=== PATIENT | male | born 1945 | race African-American/Black ===

== ENCOUNTER 2016-09-14 11:38 | Observation (INO) | payer MEDICARE, OTHER ==
--- NOTE | 2016-09-14 13:57 | XCELERA REPORT ---
[address] [address] Transthoracic Echocardiogram Report Name: MADINA HIDALGO Age: 71 yrs Gender: Male : 1945 Patient Status: Inpatient Patient Location: 3S\S\329\S\A Study Date: 09/14/2016 12:50 PM Height: 71 in Weight: 179 lb BSA: 2.0 m2 Procedure: A complete two-dimensional transthoracic echocardiogram was performed (2D, M-mode, spectral and color flow Doppler). The study was technically difficult with many images being suboptimal in quality. Reason For Study: DYSPNEA, SWELLING Ordering Physician: BEBE RODRIGUEZ Performed By: Destiny Catherine Interpretation Summary Left ventricular systolic function is low normal. There is borderline concentric left ventricular hypertrophy. Doppler measurements suggest impaired left ventricular relaxation, which is associated with grade I/IV or mild diastolic dysfunction The left ventricle is grossly normal size. Wall motion cannot be accurately commented on, but no definite regional wall motion abnormalities noted. The right ventricle is borderline dilated. The left atrial size is normal. The right atrium is mildly dilated. There is no mitral valve stenosis. There is a mild amount of mitral regurgitation There is no aortic valve stenosis No aortic regurgitation is present. There is a trace or physiologic amount of tricuspid regurgitation Tricuspid regurgitation jet envelope not well defined to measure RV systolic pressure accurately. The aortic root is not well visualized but is probably normal size. The inferior vena cava was not well visualized There is no pericardial effusion. MMode/2D Measurements \T\ Calculations RVDd: 3.2 cm LVIDd: 4.8 cm FS: 37.5 % Ao root diam: 3.5 cm IVSd: 0.81 cm LVIDs: 3.0 cm EDV(Teich): 106.3 ml LVPWd: 0.76 cmESV(Teich): 34.6 ml Ao root area: 9.8 cm2 EF(Teich): 67.4 % LA dimension: 2.9 cm LVOT diam: 2.6 cm LVOT area: 5.2 cm2 Doppler Measurements \T\ Calculations MV E max susi: MV P1/2t max susi: Ao V2 max: LV V1 max P.9 cm/sec 74.0 cm/sec 126.0 cm/sec 3.5 mmHg MV A max susi: MV P1/2t: 53.6 msec Ao max PG: LV V1 max: 66.3 cm/sec MVA(P1/2t): 4.1 cm2 6.3 mmHg 93.7 cm/sec MV E/A: 1.1 MV dec slope: SIDRA(V,D): 3.9 cm2 404.4 cm/sec2 PA V2 max: TR max susi: 54.8 cm/sec 223.0 cm/sec PA max PG: TR max P.9 mmHg 1.2 mmHg Left Ventricle The left ventricle is grossly normal size. There is borderline concentric left ventricular hypertrophy. Left ventricular systolic function is low normal. Doppler measurements suggest impaired left ventricular relaxation, which is associated with grade I/IV or mild diastolic dysfunction. Wall motion cannot be accurately commented on, but no definite regional wall motion abnormalities noted. Right Ventricle The right ventricle is borderline dilated. The right ventricular systolic function is normal. Atria The right atrium is mildly dilated. The left atrial size is normal. Interarterial septum not well visualized and not well dopplered. Cannot comment on ASD/PFO presence. Mitral Valve The mitral valve is grossly normal. There is no mitral valve stenosis. There is a mild amount of mitral regurgitation. Aortic Valve The aortic valve is grossly normal. There is no aortic valve stenosis. No aortic regurgitation is present. Tricuspid Valve The tricuspid valve is not well visualized, but is grossly normal. There is no tricuspid stenosis. There is a trace or physiologic amount of tricuspid regurgitation. Tricuspid regurgitation jet envelope not well defined to measure RV systolic pressure accurately. Pulmonic Valve The pulmonic valve is not well visualized. Great Vessels The aortic root is not well visualized but is probably normal size. The inferior vena cava was not well visualized. Effusions There is no pericardial effusion. : BEBE RODRIGUEZ > Jaylan Frost
[2016-09-14 14:55] LABS: ABSOLUTE EOSINOPHILS # (AUTO) 0.1 10^3/uL (0.0-0.6); ABSOLUTE LYMPHOCYTES (AUTO) 0.8 10^3/uL (0.5-4.7); ABSOLUTE MONOCYTES (AUTO) 0.6 10^3/uL (0.1-1.4); BASOPHILS % (AUTO) 0.8 % (0-2); EOSINOPHILS % (AUTO) 2.6 % (0-6); HEMATOCRIT 37.9 % (37.9-51.0); HEMOGLOBIN 12.3 g/dL (13.5-17.0); LYMPHOCYTES % (AUTO) 16.9 % (13-45); MEAN CORPUSCULAR HEMOGLOBIN 29.7 pg (27.0-33.4); MEAN CORPUSCULAR HGB CONC 32.5 g/dL (32.0-36.0); MEAN CORPUSCULAR VOLUME 91 fl (80-97); MONOCYTES % (AUTO) 12.5 % (3-13); RED BLOOD COUNT 4.15 10^6/uL (4.35-5.55); SEGMENTED NEUTROPHILS % (AUTO) 67.2 % (42-78); WHITE BLOOD COUNT 4.5 10^3/uL (4.0-10.5)
[2016-09-14] MEDS ORDERED: (PENDING PHARMACY ID) (Zolpidem Tartrate [Ambien] 10 MG) PO PRN (15:43)
[2016-09-14] MEDS ORDERED: ZOLPIDEM TARTRATE 5 MG TABLET PO PRN (15:45)
[2016-09-14 16:30] LABS: CREATINE KINASE MB 0.86 ng/mL (<4.55)
[2016-09-14 16:34] LABS: TROPONIN I < 0.012 ng/mL
[2016-09-14 17:11] LABS: ALANINE AMINOTRANSFERASE 27 U/L (21-72); ALBUMIN 4.4 g/dL (3.5-5.0); ALKALINE PHOSPHATASE 99 U/L (38-126); ANION GAP 16 (5-19); ASPARTATE AMINO TRANSFERASE 30 U/L (17-59); BILIRUBIN,DIRECT 0.6 mg/dL (0.0-0.4); BILIRUBIN,TOTAL 0.8 mg/dL (0.2-1.3); BLOOD UREA NITROGEN 11 mg/dL (7-20); CALCIUM 10.3 mg/dL (8.4-10.2); CARBON DIOXIDE 21 mmol/L (22-30); CHLORIDE 100 mmol/L (98-107); CHOLESTEROL 149.14 mg/dL (0-200); CREATININE RESULT 1.12 mg/dL (0.52-1.25); Direct HDL 87 mg/dL (>40); GLUCOSE 101 mg/dL (75-110); POTASSIUM 5.7 mmol/L (3.6-5.0); SODIUM 137.3 mmol/L (137-145); TOTAL PROTEIN 8.8 g/dL (6.3-8.2); TRIGLYCERIDES 40 mg/dL (<150)
--- NOTE | 2016-09-14 17:15 | XCELERA REPORT ---
[address] [address] Lower Extremity Venous Evaluation Name: MADINA HIDALGO Age: 71 yrs Gender: Male : 1945 Patient Status: Inpatient Patient Location: 3S\S\329\S\A Study Date: 09/14/2016 01:05 PM Procedure: Color flow and duplex imaging bilaterally of the veins of the lower extremities as well as the Common Femoral veins. Reason For Study: DYSPNEA, SWELLING Ordering Physician: BEBE RODRIGUEZ Performed By: Destiny Catherine Right Sided Venous Evaluation Normal vessel filling wall to wall, compression and augmentation as well as Colour flow down to the infrageniculate veins. Left Sided Venous Evaluation Normal vessel filling wall to wall, compression and augmentation as well as Colour flow down to the infrageniculate veins. Interpretation Summary No duplex evidence of DVT or obstruction in the bilateral lower extremities. : BEBE RODRIGUEZ > Edvin Larkin
[2016-09-14 17:23] LABS: DIRECT LDL 39 mg/dL (<100)
--- NOTE | 2016-09-14 18:44 | PDOC H&P ---
History of Present Illness Admission Date/PCP: 09/14/16 13:13 SHANNON OSUNKOYA Patient complains of: Intermitent shortness of breath, bilateral leg swelling History of Present Illness: MADINA HIDALGO is a 71 year old male known to my practice who presented today for his annual wellness evaluation visit and reported bilateral leg swelling since his last office visit in 12/2015. He denied any incident of chest pain, palpitation, or irregular heart beats. He denied any long distance driving or travelling. He denied any instrumentation or bedbound event since last office visit. Patient reported adequate urination, denied any significant excessive salt intake and compliance with his medication. His physical examination and further assessment in the office was significant for dyspnea, bilateral 3+ leg swelling to below knee level, well demarcated, and abnormal 12 lead EKG suggestive of possible myocardia infarction age indeterminate. He was subsequently advised hospitalization for further assessment and management. Past Medical History Cardiac Medical History: Denies: Coronary Artery Disease, Myocardial Infarction, Hypertension Pulmonary Medical History: Reports: Pneumonia - 1994 Denies: Asthma, Bronchitis, Chronic Obstructive Pulmonary Disease (COPD) Neurological Medical History: Denies: Seizures Musculoskeltal Medical History: Denies: Arthritis Psychiatric Medical History: Denies: Depression Hematology: Denies: Anemia Past Surgical History Past Surgical History: Denies: Pacemaker Social History Smoking Status: Former Smoker Number of Years Smokin Last Time Smoked: 04/30/2009 Frequency of Alcohol Use: Heavy Hx Recreational Drug Use: No Drugs: None Hx Prescription Drug Abuse: No - Advance Directive Resuscitation Status: Full Code Family History Parental Family History Reviewed: Yes Children Family History Reviewed: Yes Sibling(s) Family History Reviewed.: Yes Medication/Allergy Home Medications: Aspirin [Ecotrin 81 mg EC Tablet] 81 mg PO DAILY 09/14/16 Atorvastatin Calcium 10 mg PO DAILY 09/14/16 Telmisartan/Amlodipine [Telmisartan-Amlodipine 40-10] 1 tab PO DAILY 09/14/16 Zolpidem Tartrate [Ambien] 10 mg PO HSP PRN 09/14/16 Allergies/Adverse Reactions: No Known Allergies Allergy (Unverified 12/12/10 10:06) Review of Systems Constitutional: ABSENT: chills, fever(s), headache(s), weight gain, weight loss Eyes: ABSENT: visual disturbances Ears: ABSENT: hearing changes Nose, Mouth, and Throat: ABSENT: as per HPI, headache(s), mouth pain, sore throat, vertigo, other Breasts: ABSENT: as per HPI, other Cardiovascular: PRESENT: dyspnea on exertion, edema Respiratory: PRESENT: dyspnea. ABSENT: as per HPI, cough, hemoptysis, sputum, other Gastrointestinal: ABSENT: abdominal pain, constipation, diarrhea, hematemesis, hematochezia, nausea, vomiting Genitourinary: ABSENT: dysuria, hematuria Musculoskeletal: PRESENT: deformity - related to joint involvement with arthritis, joint swelling - bilatreal ankle joints Integumentary: ABSENT: rash, wounds Neurological: ABSENT: abnormal gait, abnormal speech, confusion, dizziness, focal weakness, syncope Psychiatric: ABSENT: anxiety, depression, homidical ideation, suicidal ideation Endocrine: ABSENT: cold intolerance, heat intolerance, menstrual abnormalities, polydipsia, polyuria Hematologic/Lymphatic: PRESENT: easy bleeding - reported recurrent epistasix from left nostrum Physical Exam Vital Signs: Temp Pulse Resp BP Pulse Ox 97.5 F 72 22 H 110/56 L 98 09/14/16 16:09 09/14/16 16:09 09/14/16 16:09 09/14/16 16:09 09/14/16 16:09 Intake & Output 09/13/16 09/14/16 09/15/16 06:59 06:59 06:59 Intake Total 3 Balance 3 Weight 82.6 kg General appearance: PRESENT: no acute distress, cooperative Head exam: PRESENT: atraumatic, normocephalic Eye exam: PRESENT: conjunctiva pink, EOMI, PERRLA. ABSENT: scleral icterus Ear exam: PRESENT: normal external ear exam Mouth exam: PRESENT: moist, tongue midline Teeth exam: PRESENT: poor dentation Throat exam: ABSENT: post pharyngeal erythema, tonsillar erythema, tonsillar exudate, tonsillogmegaly, other Neck exam: PRESENT: full ROM. ABSENT: carotid bruit, JVD, lymphadenopathy, thyromegaly Respiratory exam: PRESENT: clear to auscultation antonio, decreased breath sounds - at lung bases Cardiovascular exam: PRESENT: irregular rhythm. ABSENT: diastolic murmur, rubs , systolic murmur Pulses: PRESENT: normal carotid pulses, normal radial pulses, normal femoral pulses Vascular exam: PRESENT: normal capillary refill GI/Abdominal exam: PRESENT: normal bowel sounds, soft. ABSENT: distended, guarding, mass, organolmegaly, rebound, tenderness Rectal exam: PRESENT: deferred Extremities exam: PRESENT: full ROM, joint swelling - bilateral ankle joints, pedal edema - bilateral 3+ to below knee joint level Musculoskeletal exam: PRESENT: ambulatory, deformity - related to arthritis involvement of multiple joints, full ROM Neurological exam: PRESENT: alert, awake, oriented to person, oriented to place , oriented to time, oriented to situation, CN II-XII grossly intact. ABSENT: motor sensory deficit Psychiatric exam: PRESENT: appropriate affect, normal mood. ABSENT: homicidal ideation, suicidal ideation Skin exam: PRESENT: dry, intact, warm. ABSENT: cyanosis, rash Results Laboratory Results: 09/14/16 14:00 09/14/16 16:45 09/14/16 09/14/16 09/14/16 14:00 14:00 16:45 WBC 4.5 RBC 4.15 L Hgb 12.3 L Hct 37.9 MCV 91 MCH 29.7 MCHC 32.5 RDW 16.0 H Plt Count 367 Seg Neutrophils % 67.2 Lymphocytes % 16.9 Monocytes % 12.5 Eosinophils % 2.6 Basophils % 0.8 Absolute Neutrophils 3.0 Absolute Lymphocytes 0.8 Absolute Monocytes 0.6 Absolute Eosinophils 0.1 Absolute Basophils 0.0 Sodium Cancelled 137.3 Potassium Cancelled 5.7 H Chloride Cancelled 100 Carbon Dioxide Cancelled 21 L Anion Gap Cancelled 16 BUN Cancelled 11 Creatinine Cancelled 1.12 Est GFR ( Amer) Cancelled > 60 Est GFR (Non-Af Amer) Cancelled > 60 Glucose Cancelled 101 Calcium Cancelled 10.3 H Total Bilirubin Cancelled 0.8 AST Cancelled 30 ALT Cancelled 27 Alkaline Phosphatase Cancelled 99 Total Protein Cancelled 8.8 H Albumin Cancelled 4.4 Triglycerides 40 Cholesterol 149.14 LDL Cholesterol Direct 39 VLDL Cholesterol 8.0 L HDL Cholesterol 87 09/14/16 09/14/16 09/14/16 14:00 15:37 15:37 Creatine Kinase 72 CK-MB (CK-2) 0.86 Troponin I < 0.012 NT-Pro-B Natriuret Pep Cancelled 09/14/16 16:45 Creatine Kinase CK-MB (CK-2) Troponin I NT-Pro-B Natriuret Pep 124 Impressions: Chest X-Ray 09/14/16 12:11 IMPRESSION: COPD. Assessment & Plan - Diagnosis (1) Dyspnea on exertion Is this a current diagnosis for this admission?: YesPlan: See admitting physician orders. (2) Localized swelling of both lower legs Is this a current diagnosis for this admission?: YesPlan: See admitting physician orders. (3) HTN (hypertension) Qualifiers: Hypertension type: essential hypertension Qualified Code(s): I10 - Essential (primary) hypertension Is this a current diagnosis for this admission?: YesPlan: See admitting physician orders. (4) HLD (hyperlipidemia) Qualifiers: Hyperlipidemia type: pure hypercholesterolemia Qualified Code(s): E78.00 - Pure hypercholesterolemia, unspecified; E78.0 - Pure hypercholesterolemia Is this a current diagnosis for this admission?: YesPlan: See admitting physician orders. (5) Persistent insomnia Is this a current diagnosis for this admission?: YesPlan: See admitting physician orders. (6) PTSD (post-traumatic stress disorder) Is this a current diagnosis for this admission?: YesPlan: See admitting physician orders. (7) Erectile dysfunction Qualifiers: Erectile dysfunction type: unspecified Qualified Code(s): N52.9 - Male erectile dysfunction, unspecified Is this a current diagnosis for this admission?: YesPlan: See admitting physician orders. (8) COPD (chronic obstructive pulmonary disease) Qualifiers: COPD type: unspecified COPD Qualified Code(s): J44.9 - Chronic obstructive pulmonary disease, unspecified Is this a current diagnosis for this admission?: YesPlan: See admitting physician orders. - Time Time Spent: 50 to 70 Minutes Medications reviewed and adjusted accordingly: Yes Anticipated discharge: Home with Homehealth Within: Other - Inpatient Certification Based on my medical assessment, after consideration of the patient's comorbidities, presenting symptoms, or acuity I expect that the services needed warrant INPATIENT care.: Yes I certify that my determination is in accordance with my understanding of Medicare's requirements for reasonable and necessary INPATIENT services [42 CFR 412.3e].: Yes Medical Necessity: Need Close Monitoring Due to Risk of Patient Decompensation, Need For Continuous Telemetry Monitoring, Need for Nebulizer Therapy and Monitoring of Response, Risk of Complication if Not Cared For in Hospital Post Hospital Care: D/C Picture Copyist Documentation - Plan Summary Plan Summary: See admitting physician orders.
[2016-09-14 20:22] LABS: APPEARANCE,URINE CLEAR; BILIRUBIN,URINE NEGATIVE (NEGATIVE); GLUCOSE, URINE NEGATIVE (NEGATIVE); KETONES,URINE NEGATIVE (NEGATIVE); LEUKOCYTE ESTERASE,URINE NEGATIVE (NEGATIVE); NITRITE,URINE NEGATIVE (NEGATIVE); PROTEIN,URINE NEGATIVE (NEGATIVE); URINE SPECIFIC GRAVITY 1.008; UROBILINOGEN,URINE NEGATIVE mg/dL (<2.0)
[2016-09-14 22:20] LABS: CREATINE KINASE MB 0.76 ng/mL (<4.55)
[2016-09-14 22:26] LABS: TROPONIN I < 0.012 ng/mL
[2016-09-15 04:08] LABS: CREATINE KINASE MB 0.66 ng/mL (<4.55)
[2016-09-15 04:13] LABS: TROPONIN I < 0.012 ng/mL
--- NOTE | 2016-09-15 07:11 | EKG REPORT ---
SEVERITY:- ABNORMAL ECG - SINUS RHYTHM BORDERLINE LEFT AXIS DEVIATION PROBABLE ANTEROSEPTAL INFARCT, AGE INDETERM : Confirmed by: Sobia Resendiz MD 15-Sep-2016 07:10:39
[2016-09-15] MEDS: ENOXAPARIN SODIUM INJ 40 MG/0.4 ML DISP.SYRIN SUBCUT SCH (07:49)
[2016-09-15] MEDS ORDERED: AMLODIPINE PO SCH (10:00)
[2016-09-15] MEDS ORDERED: AMLODIPINE BESYLATE 10 MG TABLET PO SCH (10:00)
[2016-09-15] MEDS ORDERED: TELMISARTAN PO SCH (10:00)
[2016-09-15] MEDS: ATORVASTATIN CALCIUM 10 MG TABLET PO SCH (10:22)
[2016-09-15] MEDS: ASPIRIN 81 MG TABLET, ENT COATED PO SCH (10:22)
[2016-09-15] MEDS: FUROSEMIDE INJ/PF 20 MG/2 ML SDV IV SCH (10:22)
[2016-09-15] MEDS: LANSOPRAZOLE 30 MG TAB.RAP.DR PO SCH (10:23)
[2016-09-15] MEDS: LOSARTAN POTASSIUM 50 MG TABLET PO SCH (10:23)
--- NOTE | 2016-09-15 11:37 | PDOC PROGRESS REPORT ---
Subjective Progress Note for:: 09/15/16 Subjective:: Patient denied any chest pain. Improved breathing. No nausea, vomiting or abdominal pain. Tolerating current medication management. Leg swelling improving with elevation and use of Lasix as well as SERVANDO socks. Physical Exam Vital Signs: Temp Pulse Resp BP Pulse Ox 98.1 F 69 22 H 126/72 H 96 09/15/16 07:41 09/15/16 07:41 09/15/16 07:41 09/15/16 07:41 09/15/16 07:41 Intake & Output 09/14/16 09/15/16 09/16/16 06:59 06:59 06:59 Intake Total 373 Balance 373 Weight 82.3 kg General appearance: PRESENT: no acute distress, cooperative, well-developed, well-nourished Head exam: PRESENT: atraumatic, normocephalic Eye exam: PRESENT: conjunctiva pink, EOMI, PERRLA. ABSENT: scleral icterus Mouth exam: PRESENT: moist Teeth exam: PRESENT: poor dentation Neck exam: PRESENT: full ROM. ABSENT: carotid bruit, JVD, lymphadenopathy, thyromegaly Respiratory exam: PRESENT: clear to auscultation antonio Cardiovascular exam: PRESENT: RRR. ABSENT: diastolic murmur, rubs, systolic murmur GI/Abdominal exam: PRESENT: normal bowel sounds, soft. ABSENT: distended, guarding, mass, organolmegaly, rebound, tenderness Extremities exam: PRESENT: pedal edema - significantly improved but persist Musculoskeletal exam: PRESENT: deformity - related to multiple joints involvement with arthritis Neurological exam: PRESENT: alert, awake, oriented to person, oriented to place , oriented to time, oriented to situation, CN II-XII grossly intact. ABSENT: motor sensory deficit Psychiatric exam: PRESENT: appropriate affect, normal mood. ABSENT: homicidal ideation, suicidal ideation Skin exam: PRESENT: dry, intact, warm. ABSENT: cyanosis, rash Results Laboratory Results: 09/14/16 14:00 09/14/16 09/14/16 09/14/16 14:00 14:00 16:45 WBC 4.5 RBC 4.15 L Hgb 12.3 L Hct 37.9 MCV 91 MCH 29.7 MCHC 32.5 RDW 16.0 H Plt Count 367 Seg Neutrophils % 67.2 Lymphocytes % 16.9 Monocytes % 12.5 Eosinophils % 2.6 Basophils % 0.8 Absolute Neutrophils 3.0 Absolute Lymphocytes 0.8 Absolute Monocytes 0.6 Absolute Eosinophils 0.1 Absolute Basophils 0.0 Sodium Cancelled 137.3 Potassium Cancelled 5.7 H Chloride Cancelled 100 Carbon Dioxide Cancelled 21 L Anion Gap Cancelled 16 BUN Cancelled 11 Creatinine Cancelled 1.12 Est GFR ( Amer) Cancelled > 60 Est GFR (Non-Af Amer) Cancelled > 60 Glucose Cancelled 101 Calcium Cancelled 10.3 H Total Bilirubin Cancelled 0.8 AST Cancelled 30 ALT Cancelled 27 Alkaline Phosphatase Cancelled 99 Total Protein Cancelled 8.8 H Albumin Cancelled 4.4 Triglycerides 40 Cholesterol 149.14 LDL Cholesterol Direct 39 VLDL Cholesterol 8.0 L HDL Cholesterol 87 Urine Color Urine Appearance Urine pH Ur Specific [place] Urine Protein Urine Glucose (UA) Urine Ketones Urine Blood Urine Nitrite Ur Leukocyte Esterase Urine WBC (Auto) 09/14/16 19:50 WBC RBC Hgb Hct MCV MCH MCHC RDW Plt Count Seg Neutrophils % Lymphocytes % Monocytes % Eosinophils % Basophils % Absolute Neutrophils Absolute Lymphocytes Absolute Monocytes Absolute Eosinophils Absolute Basophils Sodium Potassium Chloride Carbon Dioxide Anion Gap BUN Creatinine Est GFR ( Amer) Est GFR (Non-Af Amer) Glucose Calcium Total Bilirubin AST ALT Alkaline Phosphatase Total Protein Albumin Triglycerides Cholesterol LDL Cholesterol Direct VLDL Cholesterol HDL Cholesterol Urine Color STRAW Urine Appearance CLEAR Urine pH 7.0 Ur Specific [place] 1.008 Urine Protein NEGATIVE Urine Glucose (UA) NEGATIVE Urine Ketones NEGATIVE Urine Blood NEGATIVE Urine Nitrite NEGATIVE Ur Leukocyte Esterase NEGATIVE Urine WBC (Auto) 0 09/14/16 09/14/16 09/14/16 14:00 15:37 15:37 Creatine Kinase 72 CK-MB (CK-2) 0.86 Troponin I < 0.012 NT-Pro-B Natriuret Pep Cancelled 09/14/16 09/14/16 09/14/16 16:45 21:13 21:13 Creatine Kinase 58 CK-MB (CK-2) 0.76 Troponin I < 0.012 NT-Pro-B Natriuret Pep 124 09/15/16 09/15/16 03:32 03:32 Creatine Kinase 67 CK-MB (CK-2) 0.66 Troponin I < 0.012 NT-Pro-B Natriuret Pep Impressions: Chest X-Ray 09/14/16 12:11 IMPRESSION: COPD. Assessment & Plan - Diagnosis (1) Dyspnea on exertion Is this a current diagnosis for this admission?: YesPlan: Improving on current medication management and at rest. (2) Localized swelling of both lower legs Is this a current diagnosis for this admission?: YesPlan: Improving with IV Lasix administration and fluid restriction. Evaluation so far did not revealed any significant organ dysfunction as cause of his bilateral leg swelling upon admission. Other consideration include vascular leakage on Amlodipine usage for HTN management. I will discontinue use of Amlodipine in view of his peripheral edema and normal range of blood pressure. (3) HTN (hypertension) Qualifiers: Hypertension type: essential hypertension Qualified Code(s): I10 - Essential (primary) hypertension Is this a current diagnosis for this admission?: YesPlan: See attending physician orders. (4) HLD (hyperlipidemia) Qualifiers: Hyperlipidemia type: pure hypercholesterolemia Qualified Code(s): E78.00 - Pure hypercholesterolemia, unspecified; E78.0 - Pure hypercholesterolemia Is this a current diagnosis for this admission?: YesPlan: See attending physician orders. (5) Persistent insomnia Is this a current diagnosis for this admission?: YesPlan: See attending physician orders. (6) PTSD (post-traumatic stress disorder) Is this a current diagnosis for this admission?: YesPlan: See attending physician orders. (7) Erectile dysfunction Qualifiers: Erectile dysfunction type: unspecified Qualified Code(s): N52.9 - Male erectile dysfunction, unspecified Is this a current diagnosis for this admission?: YesPlan: See attending physician orders. (8) COPD (chronic obstructive pulmonary disease) Qualifiers: COPD type: unspecified COPD Qualified Code(s): J44.9 - Chronic obstructive pulmonary disease, unspecified Is this a current diagnosis for this admission?: YesPlan: See attending physician orders. - Time Time Spent with patient: 25-34 minutes Medications reviewed and adjusted accordingly: Yes Anticipated discharge: Home Within: Other - Inpatient Certification Medical Necessity: Need Close Monitoring Due to Risk of Patient Decompensation, Need For Continuous Telemetry Monitoring, Risk of Complication if Not Cared For in Hospital Post Hospital Care: D/C Music Sound Light Technician Documentation - Plan Summary Plan Summary: See attending physician orders.
[2016-09-15 11:59] LABS: ANION GAP 15 (5-19); BLOOD UREA NITROGEN 12 mg/dL (7-20); CALCIUM 10.1 mg/dL (8.4-10.2); CARBON DIOXIDE 19 mmol/L (22-30); CHLORIDE 102 mmol/L (98-107); CREATININE RESULT 1.19 mg/dL (0.52-1.25); GLUCOSE 100 mg/dL (75-110); POTASSIUM 4.9 mmol/L (3.6-5.0)
[2016-09-16] MEDS: LANSOPRAZOLE 30 MG TAB.RAP.DR PO SCH (09:37)
[2016-09-16] MEDS: ATORVASTATIN CALCIUM 10 MG TABLET PO SCH (09:37)
[2016-09-16] MEDS: LOSARTAN POTASSIUM 50 MG TABLET PO SCH (09:37)
[2016-09-16] MEDS: ASPIRIN 81 MG TABLET, ENT COATED PO SCH (09:37)
[2016-09-16] MEDS: ENOXAPARIN SODIUM INJ 40 MG/0.4 ML DISP.SYRIN SUBCUT SCH (09:37)
[2016-09-16] MEDS: FUROSEMIDE INJ/PF 20 MG/2 ML SDV IV SCH (09:37)
--- NOTE | 2016-09-16 10:21 | PDOC PROGRESS REPORT ---
Subjective Progress Note for:: 09/16/16 Subjective:: Patient was admitted for the localized leg swelling and patient have ultrasound of the lower extremities was negative for any DVT and patient have a echocardiogram was all stable. Most likely a patient who underlying some venous insufficiency with possible side effect norvasc open. Patient's denied any chest pain denied any shortness of the breath Physical Exam Vital Signs: Temp Pulse Resp BP Pulse Ox 98.2 F 69 18 115/70 98 09/16/16 07:21 09/16/16 07:21 09/16/16 07:21 09/16/16 07:21 09/16/16 07:21 Intake & Output 09/15/16 09/16/16 09/17/16 06:59 06:59 06:59 Intake Total 373 835 Balance 373 835 Weight 82.3 kg 80.1 kg General appearance: PRESENT: no acute distress, well-developed, well-nourished Head exam: PRESENT: atraumatic, normocephalic Eye exam: PRESENT: conjunctiva pink, EOMI, PERRLA. ABSENT: scleral icterus Ear exam: PRESENT: normal external ear exam Mouth exam: PRESENT: moist, tongue midline Neck exam: PRESENT: full ROM. ABSENT: carotid bruit, JVD, lymphadenopathy, thyromegaly Respiratory exam: PRESENT: clear to auscultation antonio Cardiovascular exam: PRESENT: RRR. ABSENT: diastolic murmur, rubs, systolic murmur Pulses: PRESENT: normal dorsalis pedis pul, +2 pedal pulses bilateral Vascular exam: PRESENT: normal capillary refill GI/Abdominal exam: PRESENT: normal bowel sounds, soft. ABSENT: distended, guarding, mass, organolmegaly, rebound, tenderness Rectal exam: PRESENT: deferred Neurological exam: PRESENT: alert, awake, oriented to person, oriented to place , oriented to time, oriented to situation, CN II-XII grossly intact. ABSENT: motor sensory deficit Psychiatric exam: PRESENT: appropriate affect, normal mood. ABSENT: homicidal ideation, suicidal ideation Skin exam: PRESENT: dry, intact, warm. ABSENT: cyanosis, rash Results Laboratory Results: 09/14/16 14:00 09/15/16 03:32 09/15/16 03:32 Sodium 136.0 L Potassium 4.9 Chloride 102 Carbon Dioxide 19 L Anion Gap 15 BUN 12 Creatinine 1.19 Est GFR ( Amer) > 60 Est GFR (Non-Af Amer) > 60 Glucose 100 Calcium 10.1 09/14/16 09/14/16 09/14/16 14:00 15:37 15:37 Creatine Kinase 72 CK-MB (CK-2) 0.86 Troponin I < 0.012 NT-Pro-B Natriuret Pep Cancelled 09/14/16 09/14/16 09/14/16 16:45 21:13 21:13 Creatine Kinase 58 CK-MB (CK-2) 0.76 Troponin I < 0.012 NT-Pro-B Natriuret Pep 124 09/15/16 09/15/16 03:32 03:32 Creatine Kinase 67 CK-MB (CK-2) 0.66 Troponin I < 0.012 NT-Pro-B Natriuret Pep Impressions: Chest X-Ray 09/14/16 12:11 IMPRESSION: COPD. Assessment & Plan - Diagnosis (1) Localized swelling of both lower legs Is this a current diagnosis for this admission?: YesPlan: We will DC the IV Lasix and start on the p.o. Lasix continues to stocking. Patient is very anxious to go home we will ask the patient's to walk around in the hallway and see how the patient's do that if is remained stable for discharge in the morning (2) HTN (hypertension) Qualifiers: Hypertension type: essential hypertension Qualified Code(s): I10 - Essential (primary) hypertension Is this a current diagnosis for this admission?: YesPlan: Currently stable with the losartan - Time Time Spent with patient: 15-24 minutes Medications reviewed and adjusted accordingly: Yes Anticipated discharge: Other Within: Other - Inpatient Certification Medical Necessity: Need Close Monitoring Due to Risk of Patient Decompensation Post Hospital Care: D/C Guide Changer Documentation - Plan Summary Plan Summary: Continues to current medications
[2016-09-17 06:26] LABS: ABSOLUTE EOSINOPHILS # (AUTO) 0.2 10^3/uL (0.0-0.6); ABSOLUTE MONOCYTES (AUTO) 0.7 10^3/uL (0.1-1.4); ABSOLUTE NEUT (AUTO) 2.9 10^3/uL (1.7-8.2); EOSINOPHILS % (AUTO) 3.9 % (0-6); HEMATOCRIT 34.4 % (37.9-51.0); HEMOGLOBIN 11.7 g/dL (13.5-17.0); HGB HCT DIFFERENCE 0.7; LYMPHOCYTES % (AUTO) 20.1 % (13-45); MEAN CORPUSCULAR HEMOGLOBIN 30.1 pg (27.0-33.4); MEAN CORPUSCULAR HGB CONC 33.9 g/dL (32.0-36.0); MEAN CORPUSCULAR VOLUME 89 fl (80-97); MONOCYTES % (AUTO) 14.8 % (3-13); RED BLOOD COUNT 3.87 10^6/uL (4.35-5.55); RED CELL DISTRIBUTION WIDTH 16.1 % (11.5-14.0); SEGMENTED NEUTROPHILS % (AUTO) 60.2 % (42-78); WHITE BLOOD COUNT 4.8 10^3/uL (4.0-10.5)
[2016-09-17 07:07] LABS: ANION GAP 13 (5-19); BLOOD UREA NITROGEN 19 mg/dL (7-20); CALCIUM 9.8 mg/dL (8.4-10.2); CARBON DIOXIDE 24 mmol/L (22-30); CHLORIDE 98 mmol/L (98-107); CREATININE RESULT 1.54 mg/dL (0.52-1.25); GLUCOSE 96 mg/dL (75-110); POTASSIUM 4.6 mmol/L (3.6-5.0); SODIUM 135.1 mmol/L (137-145)
[2016-09-17] MEDS: ENOXAPARIN SODIUM INJ 40 MG/0.4 ML DISP.SYRIN SUBCUT SCH (08:11)
[2016-09-17] MEDS: ASPIRIN 81 MG TABLET, ENT COATED PO SCH (08:46)
[2016-09-17] MEDS: LOSARTAN POTASSIUM 50 MG TABLET PO SCH (08:47)
[2016-09-17] MEDS: LANSOPRAZOLE 30 MG TAB.RAP.DR PO SCH (08:47)
[2016-09-17] MEDS: ATORVASTATIN CALCIUM 10 MG TABLET PO SCH (08:47)
[2016-09-17] MEDS ORDERED: FUROSEMIDE 20 MG TABLET PO SCH (10:00)
[2016-09-17 10:14] VITALS: BP 115/63
--- NOTE | 2016-09-17 10:14 | PDOC DISCHARGE SUMMARY ---
General - Admit/Disc Date/PCP Admission Date/Primary Care Provider: 09/14/16 13:13 SHANNON AR Discharge Date: 09/17/16 - Discharge Diagnosis (1) Localized swelling of both lower legs Is this a current diagnosis for this admission?: YesSummary: Patient's echocardiogram is all stable and patient ultrasound is negative for any DVT most likely underlying Norvasc side effect or may be underlying venous insufficiency (2) HTN (hypertension) Is this a current diagnosis for this admission?: YesSummary: Currently stop the norvasc and start the losartan 50 mg (3) Chronic kidney disease Is this a current diagnosis for this admission?: YesSummary: Patients need to further evaluate about the chronic kidney disease as outpatients and discussed with the patient's follow with the Dr. Valadez in a couple of days and recheck the kidney functions and further evaluate. - Additional Information Resuscitation Status: Full Code Discharge Diet: Cardiac Discharge Activity: Activity As Tolerated Home Medications: Aspirin [Ecotrin 81 mg EC Tablet] 81 mg PO DAILY 09/14/16 Atorvastatin Calcium 10 mg PO DAILY 09/14/16 Zolpidem Tartrate [Ambien] 10 mg PO HSP PRN 09/14/16 Furosemide [Lasix 20 mg Tablet] 10 mg PO DAILY #30 tablet 09/17/16 Losartan Potassium [Cozaar 50 mg Tablet] 50 mg PO DAILY #30 tablet 09/17/16 History of Present Illness History of Present Illness: MADINA HIDALGO is a 71 year old male Patient was admitted by Dr. Valadez for the leg swelling and the patient's initial workup was all stable including the echocardiogram and ultrasound Hospital Course Hospital Course: Patient was admitted for the localized swelling in the lower extremity and patient's echo with normal EF and patient does not have any shortness of the breath and no sign of any heart failure. Patient's also started on IV Lasix. Patients also have ultrasound for the lower extremity was done and was negative for any DVT. Patient's norvasc stopped and patient swelling is much better. Patient's kidney function is slightly elevated due to the possible Lasix IV. Discussed with the patient and the son in the room Patients desperately wants to go home and patient is currently stable and patient's discharge home with the stable conditions and the patient's walk in the hallway without any problems and patient's p.o. intake is good. Patient was putting the low-dose Lasix 10 mg and follow with the Dr. Valadez in a couple of days to recheck the kidney functions. Physical Exam Vital Signs: Temp Pulse Resp BP Pulse Ox 98.1 F 93 16 112/70 100 09/17/16 07:27 09/17/16 07:27 09/17/16 07:27 09/17/16 07:27 09/17/16 07:27 Intake & Output 09/16/16 09/17/16 09/18/16 06:59 06:59 06:59 Intake Total 835 1133 Balance 835 1133 Weight 80.1 kg 80.5 kg General appearance: PRESENT: no acute distress, well-developed, well-nourished Head exam: PRESENT: atraumatic, normocephalic Eye exam: PRESENT: conjunctiva pink, EOMI, PERRLA. ABSENT: scleral icterus Ear exam: PRESENT: normal external ear exam Mouth exam: PRESENT: moist, tongue midline Neck exam: PRESENT: full ROM. ABSENT: carotid bruit, JVD, lymphadenopathy, thyromegaly Respiratory exam: PRESENT: clear to auscultation antonio Cardiovascular exam: PRESENT: RRR. ABSENT: diastolic murmur, rubs, systolic murmur Pulses: PRESENT: normal dorsalis pedis pul, +2 pedal pulses bilateral Vascular exam: PRESENT: normal capillary refill GI/Abdominal exam: PRESENT: normal bowel sounds, soft. ABSENT: distended, guarding, mass, organolmegaly, rebound, tenderness Rectal exam: PRESENT: deferred Neurological exam: PRESENT: alert, awake, oriented to person, oriented to place , oriented to time, oriented to situation, CN II-XII grossly intact. ABSENT: motor sensory deficit Psychiatric exam: PRESENT: appropriate affect, normal mood. ABSENT: homicidal ideation, suicidal ideation Skin exam: PRESENT: dry, intact, warm. ABSENT: cyanosis, rash Results Laboratory Results: 09/17/16 05:33 09/17/16 05:33 09/17/16 09/17/16 05:33 05:33 WBC 4.8 RBC 3.87 L Hgb 11.7 L Hct 34.4 L MCV 89 MCH 30.1 MCHC 33.9 RDW 16.1 H Plt Count 344 Seg Neutrophils % 60.2 Lymphocytes % 20.1 Monocytes % 14.8 H Eosinophils % 3.9 Basophils % 1.0 Absolute Neutrophils 2.9 Absolute Lymphocytes 1.0 Absolute Monocytes 0.7 Absolute Eosinophils 0.2 Absolute Basophils 0.0 Sodium 135.1 L Potassium 4.6 Chloride 98 Carbon Dioxide 24 Anion Gap 13 BUN 19 Creatinine 1.54 H Est GFR ( Amer) 54 L Est GFR (Non-Af Amer) 45 L Glucose 96 Calcium 9.8 09/14/16 09/14/16 09/14/16 14:00 15:37 15:37 Creatine Kinase 72 CK-MB (CK-2) 0.86 Troponin I < 0.012 NT-Pro-B Natriuret Pep Cancelled 09/14/16 09/14/16 09/14/16 16:45 21:13 21:13 Creatine Kinase 58 CK-MB (CK-2) 0.76 Troponin I < 0.012 NT-Pro-B Natriuret Pep 124 09/15/16 09/15/16 03:32 03:32 Creatine Kinase 67 CK-MB (CK-2) 0.66 Troponin I < 0.012 NT-Pro-B Natriuret Pep Impressions: Chest X-Ray 09/14/16 12:11 IMPRESSION: COPD. Plan Time Spent: Less than 30 Minutes - Patient's discharge home with the stable conditions
== END 2016-09-17 10:45 | disposition home or self-care (01) ==
LOC: SP 11:38 → UNDOADMOB 13:13 → INTOOBSV 13:13 → 3S 13:13 → UNDOADMOB 09-15 13:36
PROVIDERS: ADMIT Internal Medicine Geriatric Medicine; ATTEND Internal Medicine Geriatric Medicine
DX: M79.89 Other specified soft tissue disorders (principal); I12.9 Hypertensive chronic kidney disease with stage 1 through stage 4 chronic kidney disease, or unspecified chronic kidney disease; N18.9 Chronic kidney disease, unspecified; R94.31 Abnormal electrocardiogram [ECG] [EKG]; R06.09 Other forms of dyspnea; E78.00 Pure hypercholesterolemia, unspecified; G47.09 Other insomnia; F43.10 Post-traumatic stress disorder, unspecified; N52.9 Male erectile dysfunction, unspecified; J44.9 Chronic obstructive pulmonary disease, unspecified; Z79.899 Other long term (current) drug therapy; Z79.82 Long term (current) use of aspirin; Z87.01 Personal history of pneumonia (recurrent); Z87.891 Personal history of nicotine dependence
CPT/HCPCS: 36415 ×3; 82553 ×2; 82550 ×2; 85025 ×2; 80048 ×2; 80053; 81001; 84484 ×2; 80061; 83880; 93970 ×2; 93306; 71020; 93005; 93010; G0378 ×3; G0379; A9270 ×15; J1940 ×2; J1650 ×3

== ENCOUNTER 2017-01-18 11:53 | Emergency (ER) | payer MEDICARE, OTHER ==
[2017-01-18 12:00] VITALS: BP 113/70
--- NOTE | 2017-01-18 13:54 | ER Document Report ---
ED Skin Rash/Insect Bite/Abscs - General Chief Complaint: Rash Stated Complaint: RASH Time Seen by Provider: 01/18/17 12:07 Mode of Arrival: Ambulatory Information source: Patient Notes: Patient presents with a rash. Patient states he has had the rash for approximately 1 month. He has been throughout his body and is very itchy. He denies any pain. He denies any other associated symptoms. He has not been weak. He has had no cough or congestion. No shortness of breath. He has no known new exposures. Patient denies any new medications. He has no similar rashes in the past. The symptoms have been diffuse and constant. Nothing makes it better or worse. The rash is radiated throughout his body. TRAVEL OUTSIDE OF THE [place] IN LAST 30 DAYS: No - Related Data Allergies/Adverse Reactions: No Known Allergies Allergy (Unverified 12/12/10 10:06) Past Medical History - General Information source: Patient - Social History Smoking Status: Never Smoker Chew tobacco use (# tins/day): No Frequency of alcohol use: Heavy Drug Abuse: None Family History: Reviewed & Not Pertinent Patient has suicidal ideation: No Patient has homicidal ideation: No - Past Medical History Cardiac Medical History: Reports: Hx Hypercholesterolemia, Hx Hypertension Denies: Hx Coronary Artery Disease, Hx Heart Attack Pulmonary Medical History: Reports: Hx COPD, Hx Pneumonia - 1994 Denies: Hx Asthma, Hx Bronchitis Neurological Medical History: Denies: Hx Cerebrovascular Accident, Hx Seizures Renal/ Medical History: Denies: Hx Peritoneal Dialysis GI Medical History: Musculoskeltal Medical History: Denies Hx Arthritis Psychiatric Medical History: Denies: Hx Depression Infectious Medical History: Past Surgical History: Reports: Hx Cholecystectomy. Denies: Hx Pacemaker - Immunizations Hx Diphtheria, Pertussis, Tetanus Vaccination: Yes Review of Systems - Review of Systems Constitutional: denies: Chills, Fever Cardiovascular: denies: Chest pain, Palpitations Respiratory: denies: Cough, Short of breath Gastrointestinal: denies: Diarrhea, Vomiting -: Yes All other systems reviewed and negative Physical Exam - Vital signs Vitals: Temp Pulse Resp BP Pulse Ox 97.3 F 63 20 113/70 100 01/18/17 11:54 01/18/17 11:54 01/18/17 11:54 01/18/17 11:54 01/18/17 11:54 Interpretation: Normal - General General appearance: Appears well, Alert - HEENT Head: Normocephalic, Atraumatic Eyes: Normal Pupils: PERRL - Respiratory Respiratory status: No respiratory distress Chest status: Nontender Breath sounds: Normal Chest palpation: Normal - Cardiovascular Rhythm: Regular Heart sounds: Normal auscultation Murmur: No - Abdominal Inspection: Normal Distension: No distension Bowel sounds: Normal Tenderness: Nontender Organomegaly: No organomegaly - Back Back: Normal, Nontender - Extremities General upper extremity: Normal inspection, Nontender, Normal color, Normal ROM , Normal temperature General lower extremity: Normal inspection, Nontender, Normal color, Normal ROM , Normal temperature, Normal weight bearing. No: Nathaly's sign - Neurological Neuro grossly intact: Yes Cognition: Normal Orientation: AAOx4 Meghan Coma Scale Eye Opening: Spontaneous Dolores Coma Scale Verbal: Oriented Dolores Coma Scale Motor: Obeys Commands Dolores Coma Scale Total: 15 Speech: Normal Motor strength normal: LUE, RUE, LLE, RLE Sensory: Normal - Psychological Associated symptoms: Normal affect, Normal mood - Skin Skin Temperature: Warm Skin Moisture: Dry Character of irregularity: Maculopapular - Patient has a diffuse macular papular rash throughout his body. It appears hyperpigmented. It has evidence of excoriations where it has been scratched. It is on all extremities as well as the trunk. I did not appreciate any significant rash on the face. It was not tender or blanching. There were no vesicles. Course - Re-evaluation Re-evalutation: 01/18/17 13:53 I was unsure of the nature of the rash. It appears to be significant with some kind of dermatitis. I was wanting to check labs to rule out any kidney or liver disease as well as any other occult pathology. Initial attempts to draw blood by several nurses and techs were unsuccessful. I was told by the nurse that the patient became upset that his blood cannot be drawn and left the emergency department. I was not informed of this until after the patient had already left. - Vital Signs Vital signs: Temp Pulse Resp BP Pulse Ox 97.3 F 63 20 113/70 100 01/18/17 11:54 01/18/17 11:54 01/18/17 11:54 01/18/17 11:54 01/18/17 11:54 Discharge - Discharge Clinical Impression: Dermatitis Disposition: AGAINST MEDICAL ADVICE
== END 2017-01-18 13:44 | disposition left against medical advice (07) ==
LOC: ER 11:53
DX: L30.9 Dermatitis, unspecified (principal); I10 Essential (primary) hypertension; J44.9 Chronic obstructive pulmonary disease, unspecified; Z53.29 Procedure and treatment not carried out because of patient's decision for other reasons
CPT/HCPCS: 99281

== ENCOUNTER 2017-04-17 12:23 | Inpatient (IN) | payer MEDICARE, OTHER ==
[2017-04-17] MEDS ORDERED: NORMAL SALINE 1000 ML 1,000 ML IV ONE ×2 (13:01→19:01)
--- NOTE | 2017-04-17 13:03 | ER Document Report ---
ED Medical Screen (RME) - General Chief Complaint: Leg Pain Stated Complaint: LEG PAIN Time Seen by Provider: 04/17/17 13:01 Notes: [facility] and falling as well as inability to walk. TRAVEL OUTSIDE OF THE [place] IN LAST 30 DAYS: No - Related Data Allergies/Adverse Reactions: No Known Allergies Allergy (Verified 04/17/17 12:24) Home Medications: Current Home Medications Telmisartan/Hydrochlorothiazid [Micardis Hct 40-12.5 mg Tablet] 1 tab PO DAILY 04/17/17 [History] Past Medical History - Social History Chew tobacco use (# tins/day): No Frequency of alcohol use: Heavy Drug Abuse: None - Past Medical History Cardiac Medical History: Reports: Hx Hypercholesterolemia, Hx Hypertension Denies: Hx Coronary Artery Disease, Hx Heart Attack Pulmonary Medical History: Reports: Hx COPD, Hx Pneumonia - 1994 Denies: Hx Asthma, Hx Bronchitis Neurological Medical History: Denies: Hx Cerebrovascular Accident, Hx Seizures Renal/ Medical History: Denies: Hx Peritoneal Dialysis GI Medical History: Musculoskeltal Medical History: Denies Hx Arthritis Psychiatric Medical History: Denies: Hx Depression Infectious Medical History: Past Surgical History: Reports: Hx Cholecystectomy. Denies: Hx Pacemaker - Immunizations Hx Diphtheria, Pertussis, Tetanus Vaccination: Yes Physical Exam - Vital signs Vitals: Temp Pulse Resp BP Pulse Ox 96 F L 88 16 80/54 L 100 04/17/17 12:47 04/17/17 12:47 04/17/17 12:47 04/17/17 12:47 04/17/17 12:47 Course - Vital Signs Vital signs: Temp Pulse Resp BP Pulse Ox 96 F L 88 16 80/54 L 100 04/17/17 12:47 04/17/17 12:47 04/17/17 12:47 04/17/17 12:47 04/17/17 12:47
--- NOTE | 2017-04-17 15:15 | ER Document Report ---
ED General - General Chief Complaint: Leg Pain Stated Complaint: LEG PAIN Time Seen by Provider: 04/17/17 13:01 Notes: Patient says that his walking ability is not working. Since , he had trouble walking. The patient went to visit in [facility] over the , driving all the way there, staying 3 4 days, and returning back here by car. While in [place], he complained of pain in his legs and inability to walk well so the family rented a wheelchair during that holiday weekend. Since he has returned home after , he is been having difficulty walking, feeling weak in his legs and walking very slowly. He is also had difficulty controlling his urine flow and is not making it to the bathroom. He did have one fall about 3 days ago where he actually slipped out of a chair onto the floor. says that he has been complaining of pain in his back and his legs, but the patient denies that. Patient denies any abdominal pain or nausea or vomiting. Denies any chest pains. Denies shortness of breath. Has not had any fever. Patient has not gone to the doctor since the symptoms started, but had an appointment at the [facility] today and they referred him here so that we could workup his problem. TRAVEL OUTSIDE OF THE [place] IN LAST 30 DAYS: No - Related Data Allergies/Adverse Reactions: No Known Allergies Allergy (Verified 04/17/17 12:24) Home Medications: Current Home Medications Telmisartan/Hydrochlorothiazid [Micardis Hct 40-12.5 mg Tablet] 1 tab PO DAILY 04/17/17 [History] Past Medical History - Social History Smoking Status: Former Smoker Chew tobacco use (# tins/day): No Frequency of alcohol use: Heavy - Daily 4-5 beers. Drug Abuse: None Family History: Reviewed & Not Pertinent Patient has suicidal ideation: No Patient has homicidal ideation: No - Past Medical History Cardiac Medical History: Reports: Hx Hypercholesterolemia, Hx Hypertension Denies: Hx Atrial Fibrillation, Hx Coronary Artery Disease Pulmonary Medical History: Reports: Hx COPD, Hx Pneumonia - 1994 Denies: Hx Asthma, Hx Bronchitis GI Medical History: Musculoskeltal Medical History: Infectious Medical History: Past Surgical History: Reports: Hx Cholecystectomy - Immunizations Hx Diphtheria, Pertussis, Tetanus Vaccination: Yes Review of Systems - Review of Systems Notes: REVIEW OF SYSTEMS: CONSTITUTIONAL : Denies fever. Denies leg pain. EENT: Denies eye, ear, nose or mouth or throat pain or other symptoms. CARDIOVASCULAR: Denies chest pain. RESPIRATORY: Denies cough, chest congestion, or shortness of breath. GASTROINTESTINAL: Denies abdominal pain or nausea, vomiting, or diarrhea. GENITOURINARY: Denies difficulty or painful urinating, urinary frequency, blood in urine. MUSCULOSKELETAL: Denies back or neck pain. See HPI. SKIN: Denies rash or skin lesions. NEUROLOGICAL: Denies LOC or altered mental status. Denies headache. Denies sensory loss or motor deficits, but see HPI. ALL OTHER SYSTEMS REVIEWED AND NEGATIVE. Physical Exam - Vital signs Vitals: Temp Pulse Resp BP Pulse Ox 96 F L 88 16 80/54 L 100 04/17/17 12:47 04/17/17 12:47 04/17/17 12:47 04/17/17 12:47 04/17/17 12:47 Interpretation: Hypotensive - Notes Notes: PHYSICAL EXAMINATION: GENERAL: Well-appearing, in no acute distress. Blood pressure noted of 80/54 manually in triage. O2 sat 100% on room air. Other vital signs are all normal. HEAD: Atraumatic, normocephalic. EYES: Pupils equal round and reactive to light, extraocular movements intact. ENT: oropharynx clear without exudates. Moist mucous membranes. NECK: Normal range of motion, supple. LUNGS: Breath sounds clear and equal bilaterally. HEART: Regular rate and rhythm without murmurs. ABDOMEN: Soft, nontender. No guarding or rebound. No masses felt. No bruits heard. Excellent femoral pulses bilaterally. BACK: No tenderness throughout entire back. EXTREMITIES: Normal range of motion without pain. Very easily palpable dorsalis pedis pulses bilaterally. Right posterior tibial pulse felt, but I cannot feel a left posterior tibial pulse. Even with Doppler, I cannot roll picker the left posterior tibial pulse but there is an excellent DP pulse on that foot. NEUROLOGICAL: Normal speech. Awake, alert, and oriented x3. Cranial nerves normal. We were able to get the patient to stand up at bedside and although he is slightly unsteady on his feet, he can actually ambulate without difficulty. It would be best if someone assisted him, however. PSYCH: Normal mood, normal affect. SKIN: Warm, dry, no rashes. Course - Re-evaluation Re-evalutation: 04/17/17 18:46 Patient's blood pressure was initially 73/44 but taken manually was 80/54 in triage. Subsequently, patient received a liter of IV fluid and his blood pressure was 95/66. Another liter of IV fluid will be added. I spoke with Dr. Joyner, and he will admit the patient to [facility]. - Vital Signs Vital signs: Temp Pulse Resp BP Pulse Ox 96 F L 94 14 107/68 100 04/17/17 12:47 04/17/17 14:00 04/17/17 18:31 04/17/17 18:31 04/17/17 12:47 - Laboratory Result Diagrams: 04/17/17 15:19 04/17/17 15:19 Laboratory results interpreted by me: 04/17/17 04/17/17 04/17/17 15:19 15:19 16:33 WBC 3.5 L RDW 14.5 H Monocytes % 14.9 H Sodium 121.0 L Potassium 5.4 H Chloride 84 L BUN 33 H Creatinine 2.15 H Est GFR ( Amer) 37 L Est GFR (Non-Af Amer) 30 L ALT 20 L Total Protein 8.4 H Urine Ketones TRACE H Urine Blood LARGE H - Diagnostic Test Radiology reviewed: Image reviewed, Reports reviewed - CT scan of the head shows no acute abnormality and no evidence of stroke. MRI of the lumbar spine shows mild to moderate spinal stenosis, but no severe areas of stenosis. No other significant abnormalities. Chest x-ray shows a possible right upper lobe pneumonia with a small apical pneumothorax and large pneumatoceles in the right apex. - EKG Interpretation by Me EKG shows normal: Sinus rhythm Rate: Normal Rhythm: NSR Additional EKG results interpreted by me: 04/17/17 18:59 EKG is normal. Discharge - Discharge Clinical Impression: Hyponatremia, Renal insufficiency, Hypotension, Pneumothorax, right Condition: Stable Disposition: ADMITTED INPATIENT Admitting Provider: Allyson Unit Admitted: [facility] Referrals: SHANNON JOYNER MD [Primary Care Provider] - Follow up as needed
[2017-04-17 15:31] LABS: ABSOLUTE EOSINOPHILS # (AUTO) 0.1 10^3/uL (0.0-0.6); ABSOLUTE LYMPHOCYTES (AUTO) 0.6 10^3/uL (0.5-4.7); ABSOLUTE MONOCYTES (AUTO) 0.5 10^3/uL (0.1-1.4); ABSOLUTE NEUT (AUTO) 2.3 10^3/uL (1.7-8.2); BASOPHILS % (AUTO) 0.3 % (0-2); EOSINOPHILS % (AUTO) 1.9 % (0-6); HEMATOCRIT 39.2 % (37.9-51.0); HEMOGLOBIN 13.5 g/dL (13.5-17.0); LYMPHOCYTES % (AUTO) 16.1 % (13-45); MEAN CORPUSCULAR HEMOGLOBIN 30.2 pg (27.0-33.4); MEAN CORPUSCULAR HGB CONC 34.4 g/dL (32.0-36.0); MEAN CORPUSCULAR VOLUME 88 fl (80-97); MONOCYTES % (AUTO) 14.9 % (3-13); PLATELET COUNT 383 10^3/uL (150-450); RED BLOOD COUNT 4.48 10^6/uL (4.35-5.55); RED CELL DISTRIBUTION WIDTH 14.5 % (11.5-14.0); SEGMENTED NEUTROPHILS % (AUTO) 66.8 % (42-78); TOTAL CELLS COUNTED % (AUTO) 100 %; WHITE BLOOD COUNT 3.5 10^3/uL (4.0-10.5)
[2017-04-17 15:53] LABS: ALANINE AMINOTRANSFERASE 20 U/L (21-72); ALBUMIN 3.9 g/dL (3.5-5.0); ALKALINE PHOSPHATASE 116 U/L (38-126); ANION GAP 14 (5-19); ASPARTATE AMINO TRANSFERASE 32 U/L (17-59); BILIRUBIN,DIRECT 0.3 mg/dL (0.0-0.4); BILIRUBIN,TOTAL 0.4 mg/dL (0.2-1.3); BLOOD UREA NITROGEN 33 mg/dL (7-20); CALCIUM 9.5 mg/dL (8.4-10.2); CARBON DIOXIDE 23 mmol/L (22-30); CHLORIDE 84 mmol/L (98-107); GLUCOSE 78 mg/dL (75-110); POTASSIUM 5.4 mmol/L (3.6-5.0); TOTAL PROTEIN 8.4 g/dL (6.3-8.2)
--- NOTE | 2017-04-17 16:46 | RADIOLOGY REPORT (SQ) ---
EXAM DESCRIPTION: CT HEAD WITHOUT COMPLETED DATE/TIME: 04/17/2017 4:36 pm REASON FOR STUDY: weak/falling COMPARISON: None. TECHNIQUE: Axial images acquired through the brain without intravenous contrast. Images reviewed wi th bone, brain and subdural windows. Images stored on PACS. All CT scanners at this facility use dose modulation, iterative reconstruction, and/or weight based d osing when appropriate to reduce radiation dose to as low as reasonably achievable (ALARA). [facility]: Dose Right [facility]: CareDose [facility]: Dose Right [facility]: Teradose 4D [facility]: [employer] RADIATION DOSE: CT Rad equipment meets quality standard of care and radiation dose reduction techniq ues were employed. CTDIvol: 64.6 mGy. DLP: 1034 mGy-cm. mGy. LIMITATIONS: None. FINDINGS: VENTRICLES: Normal size and contour. CEREBRUM: No masses. No hemorrhage. No midline shift. No evidence for acute infarction. Spotty dec reased attenuation in the bifrontal and biparietal white matter from minimal chronic small vessel isc hemic change. CEREBELLUM: No masses. No hemorrhage. No alteration of density. No evidence for acute infarction. EXTRAAXIAL SPACES: No fluid collections. No masses. ORBITS AND GLOBE: No intra- or extraconal masses. Normal contour of globe without masses. CALVARIUM: No fracture. PARANASAL SINUSES: No fluid or mucosal thickening. SOFT TISSUES: No mass or hematoma. OTHER: No other significant finding. IMPRESSION: MILD CHRONIC MICROVASCULAR ISCHEMIA. NO ACUTE IMAGING FINDINGS IN THE BRAIN. EVIDENCE OF ACUTE STROKE: NO. COMMENT: Quality ID # [id number]: Final reports with documentation of one or more dose reduction techniques (e.g., Automated exposure control, adjustment of the mA and/or kV according to patient size, use of iterative reconstruction technique) TECHNICAL DOCUMENTATION: JOB ID: [id number] [employer]- All Rights Reserved
[2017-04-17 17:02] LABS: APPEARANCE,URINE SLIGHTLY-CLOUDY; BILIRUBIN,URINE NEGATIVE (NEGATIVE); COLOR,URINE YELLOW; GLUCOSE, URINE NEGATIVE (NEGATIVE); KETONES,URINE TRACE mg/dL (NEGATIVE); LEUKOCYTE ESTERASE,URINE NEGATIVE (NEGATIVE); NITRITE,URINE NEGATIVE (NEGATIVE); PROTEIN,URINE NEGATIVE (NEGATIVE); URINE SPECIFIC GRAVITY 1.006; UROBILINOGEN,URINE NEGATIVE mg/dL (<2.0)
--- NOTE | 2017-04-17 17:12 | RADIOLOGY REPORT (SQ) ---
EXAM DESCRIPTION: MRI LUMBAR SPINE WITHOUT COMPLETED DATE/TIME: 04/17/2017 4:42 pm REASON FOR STUDY: Weakness of legs and urinary incontinence COMPARISON: None. TECHNIQUE: Sagittal and Axial imaging includes T1, T2, STIR and gradient echo sequences. Coronal T2/ HASTE imaging. LIMITATIONS: None. FINDINGS: VISUALIZED UPPER ABDOMEN: Limited evaluation. No acute or suspicious findings suggested. SEGMENTATION: Transitional sacral vertebra. The lowest well developed disc space labeled S1-S2. ALIGNMENT: Anatomic. VERTEBRAE: Intact. BONE MARROW: Normal. No marrow replacement or reactive changes. DISC SIGNAL: Normal. No significant abnormal signal or loss of height. POSTERIOR ELEMENTS: Generally intact. No pars defect evident. HARDWARE: None in the spine. CORD AND CONUS: Normal in size and signal intensity. Conus at the appropriate level. SOFT TISSUES: No aortic aneurysm seen. No bulky retroperitoneal adenopathy or mass. No paraspinal mas s or fluid. L1-L2: No significant disc bulge. Mild facet arthropathy. No significant spinal stenosis or exit fo raminal stenosis. L2-L3: No significant disc bulge. Moderate facet arthropathy. No significant spinal stenosis or exi t foraminal stenosis. L3-L4: Mild diffuse posterior annular disc bulge. Moderate facet arthropathy. Mild -moderate spinal stenosis and mild exit foraminal stenosis. L4-L5: Mild diffuse posterior annular disc bulge. Moderate facet arthropathy. Mild -moderate spinal stenosis and mild exit foraminal stenosis. L5-S1: Mild diffuse posterior annular disc bulge. Severe facet arthropathy. No significant spinal s tenosis or exit foraminal stenosis. LOWER THORACIC: Incompletely imaged. No stenosis seen. SACRUM: Visualized upper sacrum intact. OTHER: No other significant findings. IMPRESSION: MULTILEVEL CHRONIC DEGENERATIVE CHANGES, PRIMARILY DUE TO FACET ARTHROPATHY. AREAS OF M ILD TO MODERATE SPINAL STENOSIS DESCRIBED. NO ACUTE FINDINGS. TECHNICAL DOCUMENTATION: JOB ID: [id number] [email or web address]- All Rights Reserved
--- NOTE | 2017-04-17 18:06 | RADIOLOGY REPORT (SQ) ---
EXAM DESCRIPTION: CHEST SINGLE VIEW COMPLETED DATE/TIME: 04/17/2017 5:51 pm REASON FOR STUDY: Weakness, hyponatremia COMPARISON: 09/14/2016 EXAM PARAMETERS: NUMBER OF VIEWS: One view. TECHNIQUE: Single frontal radiographic view of the chest acquired. RADIATION DOSE: NA LIMITATIONS: None. FINDINGS: LUNGS AND PLEURA: There appears to be a large pneumatocele in the right apex. A small pne umothorax cannot be excluded. Ill-defined infiltrate is present in the right upper lobe. MEDIASTINUM AND HILAR STRUCTURES: No masses. Contour normal. HEART AND VASCULAR STRUCTURES: Heart normal in size. Normal vasculature. BONES: No acute findings. HARDWARE: None in the chest. OTHER: No other significant finding. IMPRESSION: 1. Possible right upper lobe pneumonia. 2. Small apical pneumothorax. 3. Large pneumatoceles in the right apex. TECHNICAL DOCUMENTATION: JOB ID: [id number] [employer]- All Rights Reserved
--- NOTE | 2017-04-17 19:35 | EKG REPORT ---
SEVERITY:- ABNORMAL ECG - SINUS RHYTHM FIRST DEGREE AV BLOCK : Confirmed by: Eduard Henry MD 17-Apr-2017 19:35:30
--- NOTE | 2017-04-17 22:08 | PDOC H&P ---
History of Present Illness Admission Date/PCP: 04/17/17 19:11 [facility] Patient complains of: Leg pain and difficulty with walking History of Present Illness: MADINA HIDALGO is a 71 year old male known to my practice who [facility] to his complain of progressive difficulty with walking. Patient reported that since around recent he has been experiencing worsening ability to walk. Particularly upon walking up in te morning. he had to hold onto pichardo and furniture to ambulate due to weakness in his legs. He noted pain in his legs during his recent visit to [facility]. During this time his family rented wheelchair and transfer him in the wheelchair for any meaningful travel distance. Of note he was a passenger on the family trip to and from [facility] before onset of his problem. Patient denied any dizziness, vertigo, nausea, vomiting, weakness or numbness in his legs. He denied any radiating pain into his legs. Family reported episode of fall couple of days prior to his ED visit. There is reported urinary incontinence that is related to his inability to get to toilet on time. He denied loss of urge or difficulty with his bowel movement. Patient denied similar symptoms in the past. Patient vehemently denied any pain in his legs or lower back at the time of my evaluation. His initial evaluation in the ED was remarkable for significant hyponatremia, right upper lobe air space disease process, small right apical pneumothorax and pneumatocele. His lumbar MRI did revealed spondylosis with mild to moderate spinal stenosis, and CT head was remarkable for mild chronic microvascular ischemic changes. In view of his presenting symptoms and laboratory evaluation findings he was advised hospitalization. Past Medical History Cardiac Medical History: Reports: Hyperlipidema, Hypertension Denies: Atrial Fibrillation, Coronary Artery Disease, Myocardial Infarction Pulmonary Medical History: Reports: Chronic Obstructive Pulmonary Disease (COPD) , Pneumonia - 1994 Denies: Asthma, Bronchitis Neurological Medical History: Denies: Seizures GI Medical History: Musculoskeltal Medical History: Denies: Arthritis Psychiatric Medical History: Denies: Depression Hematology: Denies: Anemia Past Surgical History Past Surgical History: Reports: Cholecystectomy Denies: Pacemaker Social History Smoking Status: Former Smoker Cigarettes Packs Per Day: 1.5 Number of Years Smokin Last Time Smoked: June 2008 Frequency of Alcohol Use: Heavy Hx Recreational Drug Use: No Drugs: None Hx Prescription Drug Abuse: No - Advance Directive Resuscitation Status: Full Code Family History Family History: Reviewed & Not Pertinent Parental Family History Reviewed: Yes Children Family History Reviewed: Yes Sibling(s) Family History Reviewed.: Yes Medication/Allergy Home Medications: Aspirin [Ecotrin 81 mg EC Tablet] 81 mg PO DAILY 09/14/16 Bimatoprost [Lumigan 0.01% Oph Soln 2.5 ml/Bottle] 1 drop OU DAILY 04/17/17 Telmisartan/Hydrochlorothiazid [Micardis Hct 40-12.5 mg Tablet] 1 tab PO DAILY 04/17/17 Allergies/Adverse Reactions: No Known Allergies Allergy (Verified 04/17/17 12:24) Review of Systems Constitutional: ABSENT: chills, fever(s), headache(s), weight gain, weight loss Eyes: PRESENT: visual disturbances Ears: ABSENT: hearing changes Nose, Mouth, and Throat: ABSENT: as per HPI, headache(s), mouth pain, sore throat, vertigo, other Cardiovascular: ABSENT: chest pain, dyspnea on exertion, edema, orthropnea, palpitations Respiratory: ABSENT: cough, hemoptysis Gastrointestinal: ABSENT: abdominal pain, constipation, diarrhea, hematemesis, hematochezia, nausea, vomiting Genitourinary: PRESENT: difficulty urinating - more of functional incontinence Musculoskeletal: PRESENT: muscle weakness - in lower extremities, particularly worse upon waking up in the morning Integumentary: ABSENT: rash, wounds Neurological: PRESENT: abnormal gait - related to his difficulty with walking upon waking up in the morning., abnormal movements - related to his difficulty with walking upon waking up in the morning., weakness - related to his difficulty with walking upon waking up in the morning. Psychiatric: ABSENT: anxiety, depression, homidical ideation, suicidal ideation Endocrine: ABSENT: cold intolerance, heat intolerance, menstrual abnormalities, polydipsia, polyuria Hematologic/Lymphatic: ABSENT: easy bleeding, easy bruising, lymphadenopathy Allergic/Immunologic: ABSENT: seasonal rhinorrhea Physical Exam Vital Signs: Temp Pulse Resp BP Pulse Ox 98.3 F 44 L 18 105/91 H 91 L 04/17/17 20:50 04/17/17 20:50 04/17/17 20:50 04/17/17 20:50 04/17/17 20:50 Intake & Output 04/16/17 04/17/17 04/18/17 06:59 06:59 06:59 Weight 76.5 kg General appearance: PRESENT: no acute distress, well-developed, well-nourished Head exam: PRESENT: atraumatic, normocephalic Eye exam: PRESENT: conjunctiva pink, EOMI, PERRLA. ABSENT: scleral icterus Ear exam: PRESENT: normal external ear exam Mouth exam: PRESENT: moist, tongue midline Teeth exam: PRESENT: poor dentation Throat exam: ABSENT: post pharyngeal erythema, tonsillar erythema, tonsillar exudate, tonsillogmegaly, other Neck exam: PRESENT: full ROM. ABSENT: carotid bruit, JVD, lymphadenopathy, thyromegaly Respiratory exam: PRESENT: clear to auscultation antonio Cardiovascular exam: PRESENT: RRR. ABSENT: diastolic murmur, rubs, systolic murmur Pulses: PRESENT: normal dorsalis pedis pul, +2 pedal pulses bilateral Vascular exam: PRESENT: normal capillary refill. ABSENT: pallor GI/Abdominal exam: PRESENT: normal bowel sounds, soft. ABSENT: distended, guarding, mass, organolmegaly, rebound, tenderness Rectal exam: PRESENT: deferred Extremities exam: PRESENT: pedal edema - right upper extremity, patient reported resulted [facility] Musculoskeletal exam: PRESENT: deformity - related to joint involvement woith arthritis, full ROM. ABSENT: ambulatory - bedbound at the time of my evaluation , tenderness Neurological exam: PRESENT: alert, awake, oriented to person, oriented to place , oriented to time, oriented to situation, CN II-XII grossly intact. ABSENT: motor sensory deficit Psychiatric exam: PRESENT: appropriate affect, normal mood. ABSENT: homicidal ideation, suicidal ideation Skin exam: PRESENT: dry, intact, warm. ABSENT: cyanosis, rash Results Laboratory Results: I reviewed his lab results on [facility] and form significant part of my medical decision making in this case. Impressions: Head CT 04/17/17 13:01 IMPRESSION: MILD CHRONIC MICROVASCULAR ISCHEMIA. NO ACUTE IMAGING FINDINGS IN THE BRAIN. EVIDENCE OF ACUTE STROKE: NO. 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 AREAS OF MILD TO MODERATE SPINAL STENOSIS DESCRIBED. NO ACUTE FINDINGS. Chest X-Ray 04/17/17 17:37 IMPRESSION: 1. Possible right upper lobe pneumonia. 2. Small apical pneumothorax. 3. Large pneumatoceles in the right apex. Assessment & Plan - Diagnosis (1) Dehydration with hyponatremia Is this a current diagnosis for this admission?: Yes Plan: See admitting attending physician orders. (2) Abnormality of lung on CXR Is this a current diagnosis for this admission?: Yes Plan: See admitting attending physician orders. (3) Pneumatocele of lung Is this a current diagnosis for this admission?: Yes Plan: See admitting attending physician orders. (4) Pneumothorax on right Is this a current diagnosis for this admission?: Yes Plan: See admitting attending physician orders. (6) COPD (chronic obstructive pulmonary disease) Qualifiers: COPD type: unspecified COPD Qualified Code(s): J44.9 - Chronic obstructive pulmonary disease, unspecified Is this a current diagnosis for this admission?: Yes Plan: See admitting attending physician orders. (7) HLD (hyperlipidemia) Qualifiers: Hyperlipidemia type: pure hypercholesterolemia Qualified Code(s): E78.00 - Pure hypercholesterolemia, unspecified Is this a current diagnosis for this admission?: Yes Plan: See admitting attending physician orders. (8) HTN (hypertension) Qualifiers: Hypertension type: essential hypertension Qualified Code(s): I10 - Essential (primary) hypertension Is this a current diagnosis for this admission?: Yes Plan: See admitting attending physician orders. - Time Time Spent: Greater than 70 Minutes Medications reviewed and adjusted accordingly: Yes Anticipated discharge: Home Within: Other - Inpatient Certification Based on my medical assessment, after consideration of the patient's comorbidities, presenting symptoms, or acuity I expect that the services needed warrant INPATIENT care.: Yes I certify that my determination is in accordance with my understanding of Medicare's requirements for reasonable and necessary INPATIENT services [42 CFR 412.3e].: Yes Medical Necessity: Need Close Monitoring Due to Risk of Patient Decompensation, Need For IV Fluids, Need For Continuous Telemetry Monitoring, Risk of Complication if Not Cared For in Hospital Post Hospital Care: D/C Retail Loan Originator Assistant Documentation - Plan Summary Plan Summary: See admitting attending physician orders.
[2017-04-17] MEDS: NORMAL SALINE 1000 ML 1,000 ML IV SCH (23:01)
[2017-04-18 04:06] LABS: URINE SODIUM 49 mmol/L (30-90)
[2017-04-18 04:16] LABS: OSMOLALITY,URINE 292 mOsm/kg (300-900)
[2017-04-18 05:11] LABS: ABSOLUTE EOSINOPHILS # (AUTO) 0.1 10^3/uL (0.0-0.6); ABSOLUTE LYMPHOCYTES (AUTO) 0.6 10^3/uL (0.5-4.7); ABSOLUTE MONOCYTES (AUTO) 0.6 10^3/uL (0.1-1.4); ABSOLUTE NEUT (AUTO) 1.9 10^3/uL (1.7-8.2); BASOPHILS % (AUTO) 1.5 % (0-2); HEMATOCRIT 38.2 % (37.9-51.0); HEMOGLOBIN 13.2 g/dL (13.5-17.0); MEAN CORPUSCULAR HEMOGLOBIN 31.2 pg (27.0-33.4); MEAN CORPUSCULAR HGB CONC 34.6 g/dL (32.0-36.0); MEAN CORPUSCULAR VOLUME 90 fl (80-97); MONOCYTES % (AUTO) 18.1 % (3-13); PLATELET COUNT 359 10^3/uL (150-450); RED BLOOD COUNT 4.23 10^6/uL (4.35-5.55); RED CELL DISTRIBUTION WIDTH 14.2 % (11.5-14.0); SEGMENTED NEUTROPHILS % (AUTO) 59.4 % (42-78); TOTAL CELLS COUNTED % (AUTO) 100 %; WHITE BLOOD COUNT 3.2 10^3/uL (4.0-10.5)
[2017-04-18 05:15] LABS: ALANINE AMINOTRANSFERASE 9 U/L (21-72); ALBUMIN 3.5 g/dL (3.5-5.0); ALKALINE PHOSPHATASE 97 U/L (38-126); ANION GAP 13 (5-19); ASPARTATE AMINO TRANSFERASE 34 U/L (17-59); BILIRUBIN,DIRECT 0.3 mg/dL (0.0-0.4); BILIRUBIN,TOTAL 0.4 mg/dL (0.2-1.3); BLOOD UREA NITROGEN 30 mg/dL (7-20); CALCIUM 8.8 mg/dL (8.4-10.2); CARBON DIOXIDE 20 mmol/L (22-30); CHLORIDE 92 mmol/L (98-107); GLUCOSE 73 mg/dL (75-110); POTASSIUM 4.8 mmol/L (3.6-5.0); SODIUM 124.8 mmol/L (137-145); TOTAL PROTEIN 8.1 g/dL (6.3-8.2)
[2017-04-18] MEDS: LANSOPRAZOLE 30 MG TAB.RAP.DR PO SCH (06:05)
--- NOTE | 2017-04-18 08:44 | PDOC PROGRESS REPORT ---
Subjective Progress Note for:: 04/18/17 Subjective:: Patient reported that he has been on severe low salt diet due to instruction to reduce his salt intake. He denied any chest pain or difficulty with breathing. No fever or chills. No abdominal pain, diarrhea, nausea or vomiting. Reason For Visit: DEHYDRATION WITH HYPONATREMIA;ACUTE RENAL INJURY; Physical Exam Vital Signs: Temp Pulse Resp BP Pulse Ox 98.4 F 92 18 102/74 92 04/18/17 07:49 04/18/17 07:49 04/18/17 07:49 04/18/17 07:49 04/18/17 07:49 Intake & Output 04/17/17 04/18/17 04/19/17 06:59 06:59 06:59 Intake Total 1153 Output Total 400 Balance 753 Weight 72.2 kg General appearance: PRESENT: no acute distress, well-developed, well-nourished Head exam: PRESENT: atraumatic, normocephalic Mouth exam: PRESENT: moist Teeth exam: PRESENT: poor dentation Respiratory exam: PRESENT: clear to auscultation antonio, decreased breath sounds - at lung bases Cardiovascular exam: PRESENT: RRR. ABSENT: diastolic murmur, rubs, systolic murmur GI/Abdominal exam: PRESENT: normal bowel sounds, soft. ABSENT: distended, guarding, mass, organolmegaly, rebound, tenderness Musculoskeletal exam: PRESENT: normal inspection - except improving upper extremities swelling Neurological exam: PRESENT: alert, awake, oriented to person, oriented to place , oriented to time, oriented to situation, CN II-XII grossly intact. ABSENT: motor sensory deficit Psychiatric exam: PRESENT: appropriate affect, normal mood. ABSENT: homicidal ideation, suicidal ideation Results Laboratory Results: 04/18/17 04:40 04/18/17 04:40 04/18/17 04/18/17 04/18/17 03:15 04:40 04:40 WBC 3.2 L RBC 4.23 L Hgb 13.2 L Hct 38.2 MCV 90 MCH 31.2 MCHC 34.6 RDW 14.2 H Plt Count 359 Seg Neutrophils % 59.4 Lymphocytes % 19.0 Monocytes % 18.1 H Eosinophils % 2.0 Basophils % 1.5 Absolute Neutrophils 1.9 Absolute Lymphocytes 0.6 Absolute Monocytes 0.6 Absolute Eosinophils 0.1 Absolute Basophils 0.0 Sodium 124.8 L Potassium 4.8 Chloride 92 L Carbon Dioxide 20 L Anion Gap 13 BUN 30 H Creatinine 1.92 H Est GFR ( Amer) 42 L Est GFR (Non-Af Amer) 35 L Glucose 73 L Calcium 8.8 Total Bilirubin 0.4 AST 34 ALT 9 L Alkaline Phosphatase 97 Total Protein 8.1 Albumin 3.5 Urine Osmolality 292 L Impressions: Head CT 04/17/17 13:01 IMPRESSION: MILD CHRONIC MICROVASCULAR ISCHEMIA. NO ACUTE IMAGING FINDINGS IN THE BRAIN. EVIDENCE OF ACUTE STROKE: NO. 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 AREAS OF MILD TO MODERATE SPINAL STENOSIS DESCRIBED. NO ACUTE FINDINGS. Chest X-Ray 04/17/17 17:37 IMPRESSION: 1. Possible right upper lobe pneumonia. 2. Small apical pneumothorax. 3. Large pneumatoceles in the right apex. Assessment & Plan - Diagnosis (1) Dehydration with hyponatremia Is this a current diagnosis for this admission?: Yes (2) Abnormality of lung on CXR Is this a current diagnosis for this admission?: Yes (3) Pneumatocele of lung Is this a current diagnosis for this admission?: Yes (4) Pneumothorax on right Is this a current diagnosis for this admission?: Yes (6) COPD (chronic obstructive pulmonary disease) Qualifiers: COPD type: unspecified COPD Qualified Code(s): J44.9 - Chronic obstructive pulmonary disease, unspecified Is this a current diagnosis for this admission?: Yes (7) HLD (hyperlipidemia) Qualifiers: Hyperlipidemia type: pure hypercholesterolemia Qualified Code(s): E78.00 - Pure hypercholesterolemia, unspecified Is this a current diagnosis for this admission?: Yes (8) HTN (hypertension) Qualifiers: Hypertension type: essential hypertension Qualified Code(s): I10 - Essential (primary) hypertension Is this a current diagnosis for this admission?: Yes - Time Time Spent with patient: 25-34 minutes Medications reviewed and adjusted accordingly: Yes Anticipated discharge: Home Within: Other - Inpatient Certification Based on my medical assessment, after consideration of the patient's comorbidities, presenting symptoms, or acuity I expect that the services needed warrant INPATIENT care.: Yes I certify that my determination is in accordance with my understanding of Medicare's requirements for reasonable and necessary INPATIENT services [42 CFR 412.3e].: Yes Medical Necessity: Need Close Monitoring Due to Risk of Patient Decompensation, Need For IV Fluids, Need For Continuous Telemetry Monitoring, Risk of Complication if Not Cared For in Hospital Post Hospital Care: D/C Hplc Chemist Documentation - Plan Summary Plan Summary: Gradually improving renal indices and hyponatremia. His chest X ray findings remain a concern particularly with his serum and urine osmolality findings with increase urine sodium level. Patient will need chest CT scan with contrast in the near future when his renal indices improve. Dr Sosa will cover my service till 04/28/17.
[2017-04-18] MEDS: ENOXAPARIN SODIUM INJ 40 MG/0.4 ML DISP.SYRIN SUBCUT SCH (10:22)
[2017-04-18] MEDS: BIMATOPROST 0.01% OPH SOLN 2.5 ML/BOTTLE OU SCH (10:22)
[2017-04-19] MEDS: LANSOPRAZOLE 30 MG TAB.RAP.DR PO SCH (05:40)
[2017-04-19 06:41] LABS: ANION GAP 7 (5-19); BLOOD UREA NITROGEN 15 mg/dL (7-20); CALCIUM 8.6 mg/dL (8.4-10.2); CARBON DIOXIDE 23 mmol/L (22-30); CHLORIDE 94 mmol/L (98-107); GLUCOSE 88 mg/dL (75-110); SODIUM 124.2 mmol/L (137-145)
[2017-04-19 06:54] LABS: HEMATOCRIT 32.5 % (37.9-51.0); HEMOGLOBIN 11.4 g/dL (13.5-17.0); MEAN CORPUSCULAR HEMOGLOBIN 30.6 pg (27.0-33.4); MEAN CORPUSCULAR HGB CONC 34.9 g/dL (32.0-36.0); MEAN CORPUSCULAR VOLUME 88 fl (80-97); PLATELET COUNT 385 10^3/uL (150-450); RED BLOOD COUNT 3.71 10^6/uL (4.35-5.55); RED CELL DISTRIBUTION WIDTH 14.3 % (11.5-14.0)
[2017-04-19 07:01] LABS: ABSOLUTE LYMPHOCYTES# (MANUAL) 0.7 10^3/uL (0.5-4.7); ABSOLUTE MONOCYTES # (MANUAL) 0.5 10^3/uL (0.1-1.4); ABSOLUTE NEUTROPHILS# (MANUAL) 1.8 10^3/uL (1.7-8.2); BASOPHILS % (MANUAL) 0 % (0-2); EOSINOPHILS % (MANUAL) 2 % (0-6); LYMPHOCYTES % (MANUAL) 22 % (13-45); MONOCYTES % (MANUAL) 16 % (3-13); SEGMENTED NEUTROPHILS % (MAN) 60 % (42-78); TOTAL CELLS COUNTED 100
[2017-04-19 07:08] LABS: ANISOCYTOSIS SLIGHT; OVALOCYTES SLIGHT; PLATELET COMMENT ADEQUATE; POIKILOCYTOSIS SLIGHT; SCHISTOCYTES SLIGHT; TOXIC GRANULATION SLIGHT
[2017-04-19] MEDS: ENOXAPARIN SODIUM INJ 40 MG/0.4 ML DISP.SYRIN SUBCUT SCH (09:17)
[2017-04-19] MEDS: BIMATOPROST 0.01% OPH SOLN 2.5 ML/BOTTLE OU SCH (09:17)
[2017-04-19] MEDS: NORMAL SALINE 1000 ML 1,000 ML IV SCH ×2 (09:22→18:27)
--- NOTE | 2017-04-19 21:29 | PDOC PROGRESS REPORT ---
Subjective Progress Note for:: 04/19/17 Subjective:: Patient was seen by the bedside, he presented with progressive weakness of the lower extremities, I spoke to patient's family, she stated that patient have history of myasthenia gravis. He was admitted because of severe hyponatremia associated with acute kidney injury, on admission he was found to have a large right pneumotocele. Patient still has weakness on the lower extremities the kidney injury is improving, patient will need CT chest to define the lesion in the chest, it is possible that the weakness could be related to the lesion in the chest, if he has a neoplasm the weakness could be a paraneoplastic syndrome. CT chest will be ordered once kidney function improved he would need to have IV contrast Reason For Visit: DEHYDRATION WITH HYPONATREMIA;ACUTE RENAL INJURY; Physical Exam Vital Signs: Temp Pulse Resp BP Pulse Ox 100.5 F H 98 20 130/83 H 98 04/19/17 20:54 04/19/17 20:54 04/19/17 20:54 04/19/17 20:54 04/19/17 20:54 Intake & Output 04/18/17 04/19/17 04/20/17 06:59 06:59 06:59 Intake Total 1153 2981 1674 Output Total 400 525 Balance 753 2456 1674 Weight 72.2 kg 72.8 kg General appearance: PRESENT: no acute distress Eye exam: PRESENT: PERRLA Respiratory exam: PRESENT: clear to auscultation antonio Cardiovascular exam: PRESENT: +S1, +S2 GI/Abdominal exam: PRESENT: soft Neurological exam: PRESENT: alert, other - Weakness of lower extremities Results Laboratory Results: 04/19/17 05:25 04/19/17 05:25 04/19/17 04/19/17 05:25 05:25 WBC 3.0 L RBC 3.71 L Hgb 11.4 L Hct 32.5 L MCV 88 MCH 30.6 MCHC 34.9 RDW 14.3 H Plt Count 385 Seg Neutrophils % Not Reportable Lymphocytes % Not Reportable Monocytes % Not Reportable Eosinophils % Not Reportable Basophils % Not Reportable Absolute Neutrophils Not Reportable Absolute Lymphocytes Not Reportable Absolute Monocytes Not Reportable Absolute Eosinophils Not Reportable Absolute Basophils Not Reportable Sodium 124.2 L Potassium 4.0 Chloride 94 L Carbon Dioxide 23 Anion Gap 7 BUN 15 Creatinine 1.43 H Est GFR ( Amer) 59 L Est GFR (Non-Af Amer) 48 L Glucose 88 Calcium 8.6 Impressions: Head CT 04/17/17 13:01 IMPRESSION: MILD CHRONIC MICROVASCULAR ISCHEMIA. NO ACUTE IMAGING FINDINGS IN THE BRAIN. EVIDENCE OF ACUTE STROKE: NO. 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 AREAS OF MILD TO MODERATE SPINAL STENOSIS DESCRIBED. NO ACUTE FINDINGS. Chest X-Ray 04/17/17 17:37 IMPRESSION: 1. Possible right upper lobe pneumonia. 2. Small apical pneumothorax. 3. Large pneumatoceles in the right apex. Assessment & Plan - Diagnosis (1) Dehydration with hyponatremia Is this a current diagnosis for this admission?: Yes (2) Acute kidney injury Is this a current diagnosis for this admission?: Yes (3) Pneumatocele of lung Is this a current diagnosis for this admission?: Yes (4) History of myasthenia gravis Is this a current diagnosis for this admission?: Yes - Plan Summary Plan Summary: Continue hydration, CT chest would be required to further define the lesion that was found on the chest x-ray, he has a history of myasthenia gravis, the weakness of the lower extremities could be related to the lesion on the chest x- ray, it could be a paraneoplastic syndrome.Family stated he has a history of myasthenia gravis
[2017-04-19 22:06] LABS: ABSOLUTE EOSINOPHILS # (AUTO) 0.1 10^3/uL (0.0-0.6); ABSOLUTE LYMPHOCYTES (AUTO) 0.5 10^3/uL (0.5-4.7); ABSOLUTE MONOCYTES (AUTO) 0.5 10^3/uL (0.1-1.4); ABSOLUTE NEUT (AUTO) 2.7 10^3/uL (1.7-8.2); BASOPHILS % (AUTO) 1.1 % (0-2); EOSINOPHILS % (AUTO) 1.9 % (0-6); HEMATOCRIT 38.3 % (37.9-51.0); LYMPHOCYTES % (AUTO) 12.6 % (13-45); MEAN CORPUSCULAR HEMOGLOBIN 29.9 pg (27.0-33.4); MEAN CORPUSCULAR HGB CONC 33.9 g/dL (32.0-36.0); MEAN CORPUSCULAR VOLUME 88 fl (80-97); PLATELET COUNT 351 10^3/uL (150-450); RED BLOOD COUNT 4.34 10^6/uL (4.35-5.55); RED CELL DISTRIBUTION WIDTH 14.6 % (11.5-14.0); SEGMENTED NEUTROPHILS % (AUTO) 71.4 % (42-78); TOTAL CELLS COUNTED % (AUTO) 100 %; WHITE BLOOD COUNT 3.8 10^3/uL (4.0-10.5)
[2017-04-19 22:19] LABS: ALANINE AMINOTRANSFERASE 19 U/L (21-72); ALBUMIN 3.2 g/dL (3.5-5.0); ALKALINE PHOSPHATASE 89 U/L (38-126); ANION GAP 12 (5-19); ASPARTATE AMINO TRANSFERASE 20 U/L (17-59); BILIRUBIN,DIRECT 0.2 mg/dL (0.0-0.4); BILIRUBIN,TOTAL 0.2 mg/dL (0.2-1.3); BLOOD UREA NITROGEN 11 mg/dL (7-20); CALCIUM 8.8 mg/dL (8.4-10.2); CARBON DIOXIDE 22 mmol/L (22-30); CHLORIDE 93 mmol/L (98-107); GLUCOSE 102 mg/dL (75-110); POTASSIUM 4.3 mmol/L (3.6-5.0); SODIUM 126.8 mmol/L (137-145); TOTAL PROTEIN 7.5 g/dL (6.3-8.2)
[2017-04-19] MEDS: ACETAMINOPHEN 325 MG TABLET PO PRN (23:36)
[2017-04-20 05:21] LABS: ANION GAP 9 (5-19); BLOOD UREA NITROGEN 10 mg/dL (7-20); CALCIUM 8.2 mg/dL (8.4-10.2); CARBON DIOXIDE 21 mmol/L (22-30); CHLORIDE 96 mmol/L (98-107); GLUCOSE 107 mg/dL (75-110); POTASSIUM 3.5 mmol/L (3.6-5.0); SODIUM 126.1 mmol/L (137-145)
[2017-04-20] MEDS: LANSOPRAZOLE 30 MG TAB.RAP.DR PO SCH (05:25)
[2017-04-20] MEDS: BIMATOPROST 0.01% OPH SOLN 2.5 ML/BOTTLE OU SCH (09:38)
[2017-04-20] MEDS: NORMAL SALINE 1000 ML 1,000 ML IV SCH (09:38)
[2017-04-20] MEDS: ENOXAPARIN SODIUM INJ 40 MG/0.4 ML DISP.SYRIN SUBCUT SCH (09:38)
--- NOTE | 2017-04-20 15:11 | RADIOLOGY REPORT (SQ) ---
EXAM DESCRIPTION: CT CHEST WITH COMPLETED DATE/TIME: 04/20/2017 1:58 pm REASON FOR STUDY: abnormal CXR COMPARISON: Chest films 04/17/2017, 09/14/2016 TECHNIQUE: CT scan of the chest performed using helical scanning technique with dynamic intravenous contrast injection. Images reviewed with lung, soft tissue and bone windows. Reconstructed coronal and sagittal MPR images reviewed. All images stored on PACS. All CT scanners at this facility use dose modulation, iterative reconstruction, and/or weight based d osing when appropriate to reduce radiation dose to as low as reasonably achievable (ALARA). [facility]: Dose Right [facility]: CareDose [facility]: Dose Right [facility]: Teradose 4D [facility]: BuildCircle CONTRAST TYPE AND DOSE: contrast/concentration: Isovue 370.00 mg/ml; Total Contrast Delivered: 80.0 ml; Total Saline Delivered: 33.3 ml RENAL FUNCTION: Creatinine 1.2 RADIATION DOSE: CT Rad equipment meets quality standard of care and radiation dose reduction techniq ues were employed. CTDIvol: 9.0 mGy. DLP: 406 mGy-cm. . LIMITATIONS: None. FINDINGS: LUNGS AND PLEURA: A thick walled irregular cavity is present in the apex right hemithorax with peripheral rim calcification. There is an air-fluid level in the cavity. Surrounding airspace disease is present. Findings could represent atypical infection, possibly tuberculosis. Malignancy could not entirely be excluded. Extensive changes of obstructive lung disease bilaterally. At both bases, there is honeycombing with thickened interlobular septa likely reflecting some underly ing pulmonary fibrosis. No pneumothorax. Trace right pleural fluid. HILAR AND MEDIASTINAL STRUCTURES: There is mild mediastinal adenopathy. Small lymph nodes are seen i n the mediastinum at the thoracic inlet, the precarinal region, AP window, and subcarinal regions. HEART AND VASCULAR STRUCTURES: No aneurysm or dissection. No central pulmonary emboli. No pericardi al effusion. HARDWARE: None in the chest. UPPER ABDOMEN: Clips post cholecystectomy THYROID AND OTHER SOFT TISSUES: No masses. No adenopathy. BONES: No significant finding. OTHER: Report given to Dr. Sosa IMPRESSION: Thick walled irregular cavity in the right apex hemithorax with air-fluid level. Findin gs are worrisome for atypical infection, tuberculosis should be considered. Cavitary tumor could not be excluded Underlying diffuse obstructive lung disease with some superimposed pulmonary fibrosis at the bases TECHNICAL DOCUMENTATION: JOB ID: [id number] Quality ID # [id number]: Final reports with documentation of one or more dose reduction techniques (e.g., Au tomated exposure control, adjustment of the mA and/or kV according to patient size, use of iterative reconstruction technique) 2010 [employer]- All Rights Reserved
[2017-04-20] MEDS ORDERED: LEVOFLOXACIN 750 MG/D5W RTU 750 MG/150 ML RTUPB IV ONE (17:00)
[2017-04-20] MEDS: CEFEPIME 1 GM/D5W RTU 1 GM/50 ML RTUPB IV SCH (17:58)
--- NOTE | 2017-04-20 18:13 | PDOC PROGRESS REPORT ---
Subjective Progress Note for:: 04/20/17 Subjective:: Patient was seen by the bedside he has CT chest with contrast done today showed a thick-walled irregular cavity in the right apex with peripheral rim calcification. There is air-fluid level in the cavity. There is extensive changes of obstructive lung disease bilaterally at the bases there is honeycombing with thickening interlobular septa likely reflecting underlining pulmonary fibrosis. No pneumothorax the findings was discussed with patient's daughter, he be transferred to respiratory isolation to rule out tuberculosis, the differential diagnosis would include malignancy, necrotizing pneumonia, autoimmune diseases. Reason For Visit: DEHYDRATION WITH HYPONATREMIA;ACUTE RENAL INJURY; Physical Exam Vital Signs: Temp Pulse Resp BP Pulse Ox 99.8 F 90 18 128/67 H 95 04/20/17 15:23 04/20/17 15:23 04/20/17 15:23 04/20/17 15:23 04/20/17 15:23 Intake & Output 04/19/17 04/20/17 04/21/17 06:59 06:59 06:59 Intake Total 2981 2899 200 Output Total 525 50 Balance 2456 2849 200 Weight 72.8 kg 73.9 kg General appearance: PRESENT: mild distress Eye exam: PRESENT: PERRLA Respiratory exam: PRESENT: decreased breath sounds Cardiovascular exam: PRESENT: +S1, +S2 GI/Abdominal exam: PRESENT: soft Neurological exam: PRESENT: alert Results Laboratory Results: 04/19/17 21:55 04/20/17 04:31 04/19/17 04/19/17 04/20/17 21:55 21:55 04:31 WBC 3.8 L RBC 4.34 L Hgb 13.0 L Hct 38.3 MCV 88 MCH 29.9 MCHC 33.9 RDW 14.6 H Plt Count 351 Seg Neutrophils % 71.4 Lymphocytes % 12.6 L Monocytes % 13.0 Eosinophils % 1.9 Basophils % 1.1 Absolute Neutrophils 2.7 Absolute Lymphocytes 0.5 Absolute Monocytes 0.5 Absolute Eosinophils 0.1 Absolute Basophils 0.0 Sodium 126.8 L 126.1 L Potassium 4.3 3.5 L Chloride 93 L 96 L Carbon Dioxide 22 21 L Anion Gap 12 9 BUN 11 10 Creatinine 1.27 H 1.23 Est GFR ( Amer) > 60 > 60 Est GFR (Non-Af Amer) 56 L 58 L Glucose 102 107 Calcium 8.8 8.2 L Total Bilirubin 0.2 AST 20 ALT 19 L Alkaline Phosphatase 89 Total Protein 7.5 Albumin 3.2 L Impressions: Head CT 04/17/17 13:01 IMPRESSION: MILD CHRONIC MICROVASCULAR ISCHEMIA. NO ACUTE IMAGING FINDINGS IN THE BRAIN. EVIDENCE OF ACUTE STROKE: NO. 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 AREAS OF MILD TO MODERATE SPINAL STENOSIS DESCRIBED. NO ACUTE FINDINGS. Chest X-Ray 04/17/17 17:37 IMPRESSION: 1. Possible right upper lobe pneumonia. 2. Small apical pneumothorax. 3. Large pneumatoceles in the right apex. Chest CT 04/20/17 00:00 IMPRESSION: Thick walled irregular cavity in the right apex hemithorax with air -fluid level. Findings are worrisome for atypical infection, tuberculosis should be considered. Cavitary tumor could not be excluded Underlying diffuse obstructive lung disease with some superimposed pulmonary fibrosis at the bases Assessment & Plan - Diagnosis (1) Dehydration with hyponatremia Is this a current diagnosis for this admission?: Yes (2) Acute kidney injury Is this a current diagnosis for this admission?: Yes (3) Pneumatocele of lung Is this a current diagnosis for this admission?: Yes (4) History of myasthenia gravis Is this a current diagnosis for this admission?: Yes (5) Cavitary lesion of lung Is this a current diagnosis for this admission?: Yes Plan: The differential diagnosis includes TB, malignancy, necrotizing pneumonia, autoimmune disease
[2017-04-20] MEDS: ACETAMINOPHEN 325 MG TABLET PO PRN (21:04)
[2017-04-20] MEDS: OXYCODONE-ACETAMINOPHEN 5-325 MG TABLET PO PRN (21:07)
[2017-04-21 05:33] LABS: ANION GAP 9 (5-19); BLOOD UREA NITROGEN 8 mg/dL (7-20); CALCIUM 8.4 mg/dL (8.4-10.2); CARBON DIOXIDE 24 mmol/L (22-30); CHLORIDE 94 mmol/L (98-107); GLUCOSE 87 mg/dL (75-110); SODIUM 126.9 mmol/L (137-145)
[2017-04-21] MEDS: CEFEPIME 1 GM/D5W RTU 1 GM/50 ML RTUPB IV SCH ×2 (06:13→17:21)
[2017-04-21] MEDS: LANSOPRAZOLE 30 MG TAB.RAP.DR PO SCH (06:14)
[2017-04-21] MEDS ORDERED: TUBERCULIN,PURIF.PROT.DERIV. 5 TU/0.1 ML TEST 1 ML VIAL ID ONE ×2 (06:15→09:00)
[2017-04-21] MEDS: NORMAL SALINE 1000 ML 1,000 ML IV SCH ×2 (06:20→22:11)
[2017-04-21] MEDS: BIMATOPROST 0.01% OPH SOLN 2.5 ML/BOTTLE OU SCH (09:57)
[2017-04-21] MEDS: ENOXAPARIN SODIUM INJ 40 MG/0.4 ML DISP.SYRIN SUBCUT SCH (09:57)
[2017-04-21] MEDS: LEVOFLOXACIN 750 MG/D5W RTU 750 MG/150 ML RTUPB IV SCH (09:58)
[2017-04-21] MEDS ORDERED: SODIUM CHLORIDE 3% FOR INHALATION 15 ML AMPUL NEB ONE (16:16)
[2017-04-21] MEDS: ACETAMINOPHEN 325 MG TABLET PO PRN (17:21)
--- NOTE | 2017-04-21 18:23 | PDOC PROGRESS REPORT ---
Subjective Progress Note for:: 04/21/17 Subjective:: Patient was seen by the bedside he has CT chest with contrast done yesterday showed a thick-walled irregular cavity in the right apex with peripheral rim calcification. There is air-fluid level in the cavity. There is extensive changes of obstructive lung disease bilaterally at the bases there is honeycombing with thickening interlobular septa likely reflecting underlining pulmonary fibrosis. No pneumothorax the findings was discussed with patient's daughter, he be transferred to respiratory isolation to rule out tuberculosis, the differential diagnosis would include malignancy, necrotizing pneumonia, autoimmune diseases.Patient presently in respiratory isolation, he was seen by the desk pens assembler, sputum collection is in progress to check for acid fast bacilli to rule out tuberculosis though unlikely in this patient, based on the history of alcohol consumption/abuse this is more consistent with necrotizing pneumonia probably from chronic aspiration from alcoholism there is air-fluid fluid level in the cavity, presently on IV antibiotic patient be started on imipenem to cover anaerobes. 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 Reason For Visit: DEHYDRATION WITH HYPONATREMIA;ACUTE RENAL INJURY; Physical Exam Vital Signs: Temp Pulse Resp BP Pulse Ox 99.6 F 101 H 18 120/75 97 04/21/17 11:49 04/21/17 14:00 04/21/17 11:49 04/21/17 11:49 04/21/17 11:49 Intake & Output 04/20/17 04/21/17 04/22/17 06:59 06:59 06:59 Intake Total 2899 3850 118 Output Total 50 Balance 2849 3850 118 Weight 73.9 kg General appearance: PRESENT: no acute distress Eye exam: PRESENT: PERRLA Respiratory exam: PRESENT: decreased breath sounds Cardiovascular exam: PRESENT: +S1, +S2 GI/Abdominal exam: PRESENT: soft Neurological exam: PRESENT: alert Results Laboratory Results: 04/19/17 21:55 04/21/17 04:16 04/21/17 04:16 Sodium 126.9 L Potassium 4.0 Chloride 94 L Carbon Dioxide 24 Anion Gap 9 BUN 8 Creatinine 1.25 Est GFR ( Amer) > 60 Est GFR (Non-Af Amer) 57 L Glucose 87 Calcium 8.4 Impressions: Head CT 04/17/17 13:01 IMPRESSION: MILD CHRONIC MICROVASCULAR ISCHEMIA. NO ACUTE IMAGING FINDINGS IN THE BRAIN. EVIDENCE OF ACUTE STROKE: NO. 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 AREAS OF MILD TO MODERATE SPINAL STENOSIS DESCRIBED. NO ACUTE FINDINGS. Chest X-Ray 04/17/17 17:37 IMPRESSION: 1. Possible right upper lobe pneumonia. 2. Small apical pneumothorax. 3. Large pneumatoceles in the right apex. Chest CT 04/20/17 00:00 IMPRESSION: Thick walled irregular cavity in the right apex hemithorax with air -fluid level. Findings are worrisome for atypical infection, tuberculosis should be considered. Cavitary tumor could not be excluded Underlying diffuse obstructive lung disease with some superimposed pulmonary fibrosis at the bases Assessment & Plan - Diagnosis (1) Cavitary lesion of lung Is this a current diagnosis for this admission?: Yes (2) Dehydration with hyponatremia Is this a current diagnosis for this admission?: Yes (3) Acute kidney injury Is this a current diagnosis for this admission?: Yes (4) Pneumatocele of lung Is this a current diagnosis for this admission?: Yes (5) History of myasthenia gravis Is this a current diagnosis for this admission?: Yes (6) Necrotizing pneumonia Is this a current diagnosis for this admission?: Yes Plan: This is probably necrotizing pneumonia due to chronic aspiration from alcoholism (7) Alcohol abuse Is this a current diagnosis for this admission?: Yes Plan: Start IV thiamine
[2017-04-21] MEDS ORDERED: IMIPENEM/CILASTATIN SODIUM 1,000 MG in NORMAL SALINE 250 ML IV ONE (20:00)
[2017-04-21] MEDS ORDERED: THIAMINE HCL 100 MG, FOLIC ACID 1 MG in NORMAL SALINE 250 ML IV ONE (20:00)
[2017-04-21] MEDS ORDERED: IMIPENEM/CILASTATIN SODIUM INJ 500 MG VIAL IV ONE (20:56)
[2017-04-21] MEDS ORDERED: THIAMINE HCL INJ 200 MG/2 ML VIAL ONE (21:01)
[2017-04-21] MEDS ORDERED: FOLIC ACID INJ 5 MG/1 ML 10 ML VIAL ONE (21:02)
[2017-04-21] MEDS: OXYCODONE-ACETAMINOPHEN 5-325 MG TABLET PO PRN (23:24)
[2017-04-22] MEDS ORDERED: IMIPENEM/CILASTATIN SODIUM INJ 500 MG VIAL IV ONE (03:34)
[2017-04-22] MEDS: IMIPENEM/CILASTATIN SODIUM 1,000 MG in NORMAL SALINE 250 ML IV SCH ×4 (03:45→22:11)
[2017-04-22] MEDS: LANSOPRAZOLE 30 MG TAB.RAP.DR PO SCH (05:19)
[2017-04-22] MEDS: CEFEPIME 1 GM/D5W RTU 1 GM/50 ML RTUPB IV SCH ×2 (05:20→17:55)
[2017-04-22] MEDS: LEVOFLOXACIN 750 MG/D5W RTU 750 MG/150 ML RTUPB IV SCH (09:51)
[2017-04-22] MEDS: BIMATOPROST 0.01% OPH SOLN 2.5 ML/BOTTLE OU SCH (09:51)
[2017-04-22] MEDS: ENOXAPARIN SODIUM INJ 40 MG/0.4 ML DISP.SYRIN SUBCUT SCH (09:51)
[2017-04-22] MEDS: MEGESTROL ACETATE 20 MG TABLET PO SCH (11:17)
[2017-04-22] MEDS: THIAMINE HCL 100 MG, FOLIC ACID 1 MG in NORMAL SALINE 250 ML IV SCH (12:20)
[2017-04-22 13:03] LABS: ABSOLUTE EOSINOPHILS # (AUTO) 0.1 10^3/uL (0.0-0.6); ABSOLUTE LYMPHOCYTES (AUTO) 0.4 10^3/uL (0.5-4.7); ABSOLUTE MONOCYTES (AUTO) 0.4 10^3/uL (0.1-1.4); BASOPHILS % (AUTO) 0.6 % (0-2); EOSINOPHILS % (AUTO) 2.3 % (0-6); HEMATOCRIT 32.4 % (37.9-51.0); LYMPHOCYTES % (AUTO) 10.8 % (13-45); MEAN CORPUSCULAR HEMOGLOBIN 29.6 pg (27.0-33.4); MEAN CORPUSCULAR HGB CONC 33.9 g/dL (32.0-36.0); MEAN CORPUSCULAR VOLUME 87 fl (80-97); MONOCYTES % (AUTO) 11.2 % (3-13); PLATELET COUNT 297 10^3/uL (150-450); RED BLOOD COUNT 3.72 10^6/uL (4.35-5.55); RED CELL DISTRIBUTION WIDTH 14.4 % (11.5-14.0); SEGMENTED NEUTROPHILS % (AUTO) 75.1 % (42-78); TOTAL CELLS COUNTED % (AUTO) 100 %
--- NOTE | 2017-04-22 15:04 | PDOC PROGRESS REPORT ---
Subjective Progress Note for:: 04/22/17 Subjective:: This is probably necrotizing pneumonia, presently on IV antibiotic, imipenem, Levaquin, cefepime. He abuses alcohol on a regular basis for many years Reason For Visit: DEHYDRATION WITH HYPONATREMIA;ACUTE RENAL INJURY; Physical Exam Vital Signs: Temp Pulse Resp BP Pulse Ox 99.9 F 116 H 16 108/63 94 04/22/17 12:12 04/22/17 12:12 04/22/17 12:12 04/22/17 12:12 04/22/17 12:12 Intake & Output 04/21/17 04/22/17 04/23/17 06:59 06:59 06:59 Intake Total 3850 3068 75 Output Total 0 Balance 3850 3068 75 Weight 74.6 kg General appearance: PRESENT: no acute distress Head exam: PRESENT: atraumatic, normocephalic Eye exam: PRESENT: PERRLA Ear exam: PRESENT: normal external ear exam Mouth exam: PRESENT: moist, tongue midline Respiratory exam: PRESENT: clear to auscultation antonio Cardiovascular exam: PRESENT: +S1, +S2 Pulses: PRESENT: normal dorsalis pedis pul, +2 pedal pulses bilateral Vascular exam: PRESENT: normal capillary refill GI/Abdominal exam: PRESENT: soft Rectal exam: PRESENT: deferred Neurological exam: PRESENT: alert, CN II-XII grossly intact Psychiatric exam: PRESENT: appropriate affect, normal mood Skin exam: PRESENT: dry, intact, warm Results Laboratory Results: 04/22/17 12:30 04/21/17 04:16 04/22/17 12:30 WBC 4.0 RBC 3.72 L Hgb 11.0 L Hct 32.4 L MCV 87 MCH 29.6 MCHC 33.9 RDW 14.4 H Plt Count 297 Seg Neutrophils % 75.1 Lymphocytes % 10.8 L Monocytes % 11.2 Eosinophils % 2.3 Basophils % 0.6 Absolute Neutrophils 3.0 Absolute Lymphocytes 0.4 L Absolute Monocytes 0.4 Absolute Eosinophils 0.1 Absolute Basophils 0.0 Impressions: Head CT 04/17/17 13:01 IMPRESSION: MILD CHRONIC MICROVASCULAR ISCHEMIA. NO ACUTE IMAGING FINDINGS IN THE BRAIN. EVIDENCE OF ACUTE STROKE: NO. 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 AREAS OF MILD TO MODERATE SPINAL STENOSIS DESCRIBED. NO ACUTE FINDINGS. Chest X-Ray 04/17/17 17:37 IMPRESSION: 1. Possible right upper lobe pneumonia. 2. Small apical pneumothorax. 3. Large pneumatoceles in the right apex. Chest CT 04/20/17 00:00 IMPRESSION: Thick walled irregular cavity in the right apex hemithorax with air -fluid level. Findings are worrisome for atypical infection, tuberculosis should be considered. Cavitary tumor could not be excluded Underlying diffuse obstructive lung disease with some superimposed pulmonary fibrosis at the bases Assessment & Plan - Diagnosis (1) Cavitary lesion of lung Is this a current diagnosis for this admission?: Yes (2) Dehydration with hyponatremia Is this a current diagnosis for this admission?: Yes (3) Acute kidney injury Is this a current diagnosis for this admission?: Yes (4) Pneumatocele of lung Is this a current diagnosis for this admission?: Yes (5) History of myasthenia gravis Is this a current diagnosis for this admission?: Yes (6) Necrotizing pneumonia Is this a current diagnosis for this admission?: Yes (7) Alcohol abuse Is this a current diagnosis for this admission?: Yes (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
[2017-04-22 15:56] LABS: ALANINE AMINOTRANSFERASE 21 U/L (21-72); ALBUMIN 2.4 g/dL (3.5-5.0); ALKALINE PHOSPHATASE 78 U/L (38-126); ANION GAP 10 (5-19); ASPARTATE AMINO TRANSFERASE 18 U/L (17-59); BILIRUBIN,DIRECT 0.3 mg/dL (0.0-0.4); BILIRUBIN,TOTAL 0.3 mg/dL (0.2-1.3); BLOOD UREA NITROGEN 9 mg/dL (7-20); CALCIUM 8.2 mg/dL (8.4-10.2); CARBON DIOXIDE 23 mmol/L (22-30); CHLORIDE 94 mmol/L (98-107); GLUCOSE 104 mg/dL (75-110); POTASSIUM 3.5 mmol/L (3.6-5.0); SODIUM 126.9 mmol/L (137-145); TOTAL PROTEIN 5.8 g/dL (6.3-8.2)
[2017-04-22] MEDS: NORMAL SALINE 1000 ML 1,000 ML IV SCH (16:09)
[2017-04-23] MEDS: ACETAMINOPHEN 325 MG TABLET PO PRN (00:09)
[2017-04-23] MEDS: IMIPENEM/CILASTATIN SODIUM 1,000 MG in NORMAL SALINE 250 ML IV SCH ×4 (02:30→20:36)
[2017-04-23] MEDS: LANSOPRAZOLE 30 MG TAB.RAP.DR PO SCH (05:38)
[2017-04-23] MEDS: CEFEPIME 1 GM/D5W RTU 1 GM/50 ML RTUPB IV SCH ×2 (05:39→19:34)
[2017-04-23 08:22] LABS: HEMATOCRIT 29.2 % (37.9-51.0); MEAN CORPUSCULAR HEMOGLOBIN 29.6 pg (27.0-33.4); MEAN CORPUSCULAR HGB CONC 34.3 g/dL (32.0-36.0); MEAN CORPUSCULAR VOLUME 87 fl (80-97); PLATELET COUNT 264 10^3/uL (150-450); RED BLOOD COUNT 3.38 10^6/uL (4.35-5.55); RED CELL DISTRIBUTION WIDTH 14.5 % (11.5-14.0)
[2017-04-23 08:29] LABS: ALANINE AMINOTRANSFERASE 24 U/L (21-72); ALBUMIN 2.2 g/dL (3.5-5.0); ALKALINE PHOSPHATASE 57 U/L (38-126); ANION GAP 8 (5-19); ASPARTATE AMINO TRANSFERASE 18 U/L (17-59); BILIRUBIN,DIRECT 0.2 mg/dL (0.0-0.4); BILIRUBIN,TOTAL 0.4 mg/dL (0.2-1.3); BLOOD UREA NITROGEN 11 mg/dL (7-20); CARBON DIOXIDE 23 mmol/L (22-30); CHLORIDE 97 mmol/L (98-107); GLUCOSE 88 mg/dL (75-110); POTASSIUM 3.6 mmol/L (3.6-5.0); TOTAL PROTEIN 5.3 g/dL (6.3-8.2)
[2017-04-23 08:46] LABS: ABSOLUTE LYMPHOCYTES# (MANUAL) 0.6 10^3/uL (0.5-4.7); ABSOLUTE MONOCYTES # (MANUAL) 0.5 10^3/uL (0.1-1.4); ABSOLUTE NEUTROPHILS# (MANUAL) 2.8 10^3/uL (1.7-8.2); BASOPHILS % (MANUAL) 0 % (0-2); EOSINOPHILS % (MANUAL) 2 % (0-6); LYMPHOCYTES % (MANUAL) 15 % (13-45); MONOCYTES % (MANUAL) 12 % (3-13); SEGMENTED NEUTROPHILS % (MAN) 71 % (42-78); TOTAL CELLS COUNTED 100
[2017-04-23 08:47] LABS: ANISOCYTOSIS SLIGHT; OVALOCYTES SLIGHT; PLATELET COMMENT ADEQUATE; POIKILOCYTOSIS SLIGHT; TEAR DROP CELLS SLIGHT
[2017-04-23] MEDS: MEGESTROL ACETATE 20 MG TABLET PO SCH (09:24)
[2017-04-23] MEDS: ENOXAPARIN SODIUM INJ 40 MG/0.4 ML DISP.SYRIN SUBCUT SCH (09:24)
[2017-04-23] MEDS: LEVOFLOXACIN 750 MG/D5W RTU 750 MG/150 ML RTUPB IV SCH (09:25)
[2017-04-23] MEDS: THIAMINE HCL 100 MG, FOLIC ACID 1 MG in NORMAL SALINE 250 ML IV SCH (09:25)
[2017-04-23] MEDS: BIMATOPROST 0.01% OPH SOLN 2.5 ML/BOTTLE OU SCH (09:26)
[2017-04-23] MEDS: NORMAL SALINE 1000 ML 1,000 ML IV SCH (09:27)
--- NOTE | 2017-04-23 12:35 | PDOC PROGRESS REPORT ---
Subjective Progress Note for:: 04/23/17 Subjective:: This is probably necrotizing pneumonia, presently on IV antibiotic, imipenem, Levaquin, cefepime. He abuses alcohol on a regular basis for many years Reason For Visit: DEHYDRATION WITH HYPONATREMIA;ACUTE RENAL INJURY; Physical Exam Vital Signs: Temp Pulse Resp BP Pulse Ox 99.5 F 106 H 20 108/66 94 04/23/17 07:31 04/23/17 07:31 04/23/17 07:31 04/23/17 07:31 04/23/17 07:31 Intake & Output 04/22/17 04/23/17 04/24/17 06:59 06:59 06:59 Intake Total 3068 3418 Output Total 0 Balance 3068 3418 Weight 74.6 kg General appearance: PRESENT: no acute distress Eye exam: PRESENT: PERRLA Respiratory exam: PRESENT: clear to auscultation antonio Cardiovascular exam: PRESENT: +S1, +S2 GI/Abdominal exam: PRESENT: soft Neurological exam: PRESENT: alert Results Laboratory Results: 04/23/17 08:00 04/23/17 08:00 04/22/17 04/22/17 04/23/17 12:30 15:10 08:00 WBC 4.0 4.0 RBC 3.72 L 3.38 L Hgb 11.0 L 10.0 L Hct 32.4 L 29.2 L MCV 87 87 MCH 29.6 29.6 MCHC 33.9 34.3 RDW 14.4 H 14.5 H Plt Count 297 264 Seg Neutrophils % 75.1 Not Reportable Lymphocytes % 10.8 L Not Reportable Monocytes % 11.2 Not Reportable Eosinophils % 2.3 Not Reportable Basophils % 0.6 Not Reportable Absolute Neutrophils 3.0 Not Reportable Absolute Lymphocytes 0.4 L Not Reportable Absolute Monocytes 0.4 Not Reportable Absolute Eosinophils 0.1 Not Reportable Absolute Basophils 0.0 Not Reportable Sodium 126.9 L Potassium 3.5 L Chloride 94 L Carbon Dioxide 23 Anion Gap 10 BUN 9 Creatinine 1.17 Est GFR ( Amer) > 60 Est GFR (Non-Af Amer) > 60 Glucose 104 Calcium 8.2 L Total Bilirubin 0.3 AST 18 ALT 21 Alkaline Phosphatase 78 Total Protein 5.8 L Albumin 2.4 L 04/23/17 08:00 WBC RBC Hgb Hct MCV MCH MCHC RDW Plt Count Seg Neutrophils % Lymphocytes % Monocytes % Eosinophils % Basophils % Absolute Neutrophils Absolute Lymphocytes Absolute Monocytes Absolute Eosinophils Absolute Basophils Sodium 128.0 L Potassium 3.6 Chloride 97 L Carbon Dioxide 23 Anion Gap 8 BUN 11 Creatinine 1.11 Est GFR ( Amer) > 60 Est GFR (Non-Af Amer) > 60 Glucose 88 Calcium 8.0 L Total Bilirubin 0.4 AST 18 ALT 24 Alkaline Phosphatase 57 Total Protein 5.3 L Albumin 2.2 L Impressions: Head CT 04/17/17 13:01 IMPRESSION: MILD CHRONIC MICROVASCULAR ISCHEMIA. NO ACUTE IMAGING FINDINGS IN THE BRAIN. EVIDENCE OF ACUTE STROKE: NO. 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 AREAS OF MILD TO MODERATE SPINAL STENOSIS DESCRIBED. NO ACUTE FINDINGS. Chest X-Ray 04/17/17 17:37 IMPRESSION: 1. Possible right upper lobe pneumonia. 2. Small apical pneumothorax. 3. Large pneumatoceles in the right apex. Chest CT 04/20/17 00:00 IMPRESSION: Thick walled irregular cavity in the right apex hemithorax with air -fluid level. Findings are worrisome for atypical infection, tuberculosis should be considered. Cavitary tumor could not be excluded Underlying diffuse obstructive lung disease with some superimposed pulmonary fibrosis at the bases Assessment & Plan - Diagnosis (1) Cavitary lesion of lung Is this a current diagnosis for this admission?: Yes (2) Dehydration with hyponatremia Is this a current diagnosis for this admission?: Yes (3) Acute kidney injury Is this a current diagnosis for this admission?: Yes (4) Pneumatocele of lung Is this a current diagnosis for this admission?: Yes (5) History of myasthenia gravis Is this a current diagnosis for this admission?: Yes (6) Necrotizing pneumonia Is this a current diagnosis for this admission?: Yes (7) Alcohol abuse Is this a current diagnosis for this admission?: Yes (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
[2017-04-24] MEDS: IMIPENEM/CILASTATIN SODIUM 1,000 MG in NORMAL SALINE 250 ML IV SCH ×4 (02:53→22:48)
[2017-04-24] MEDS: CEFEPIME 1 GM/D5W RTU 1 GM/50 ML RTUPB IV SCH ×2 (06:12→17:33)
[2017-04-24] MEDS: LANSOPRAZOLE 30 MG TAB.RAP.DR PO SCH (06:12)
[2017-04-24 07:42] LABS: ALANINE AMINOTRANSFERASE 19 U/L (21-72); ALBUMIN 2.3 g/dL (3.5-5.0); ALKALINE PHOSPHATASE 53 U/L (38-126); ANION GAP 6 (5-19); ASPARTATE AMINO TRANSFERASE 27 U/L (17-59); BILIRUBIN,DIRECT 0.2 mg/dL (0.0-0.4); BILIRUBIN,TOTAL 0.3 mg/dL (0.2-1.3); BLOOD UREA NITROGEN 12 mg/dL (7-20); CARBON DIOXIDE 24 mmol/L (22-30); CHLORIDE 98 mmol/L (98-107); GLUCOSE 94 mg/dL (75-110); POTASSIUM 3.5 mmol/L (3.6-5.0); SODIUM 127.6 mmol/L (137-145); TOTAL PROTEIN 5.8 g/dL (6.3-8.2)
[2017-04-24 09:23] LABS: ABSOLUTE EOSINOPHILS # (AUTO) 0.1 10^3/uL (0.0-0.6); ABSOLUTE LYMPHOCYTES (AUTO) 0.5 10^3/uL (0.5-4.7); ABSOLUTE MONOCYTES (AUTO) 0.5 10^3/uL (0.1-1.4); ABSOLUTE NEUT (AUTO) 2.6 10^3/uL (1.7-8.2); BASOPHILS % (AUTO) 0.7 % (0-2); EOSINOPHILS % (AUTO) 2.8 % (0-6); HEMATOCRIT 31.5 % (37.9-51.0); HEMOGLOBIN 10.5 g/dL (13.5-17.0); LYMPHOCYTES % (AUTO) 13.5 % (13-45); MEAN CORPUSCULAR HEMOGLOBIN 29.2 pg (27.0-33.4); MEAN CORPUSCULAR HGB CONC 33.4 g/dL (32.0-36.0); MEAN CORPUSCULAR VOLUME 87 fl (80-97); MONOCYTES % (AUTO) 14.2 % (3-13); PLATELET COUNT 300 10^3/uL (150-450); RED BLOOD COUNT 3.62 10^6/uL (4.35-5.55); RED CELL DISTRIBUTION WIDTH 14.3 % (11.5-14.0); SEGMENTED NEUTROPHILS % (AUTO) 68.8 % (42-78); TOTAL CELLS COUNTED % (AUTO) 100 %; WHITE BLOOD COUNT 3.8 10^3/uL (4.0-10.5)
[2017-04-24] MEDS: ENOXAPARIN SODIUM INJ 40 MG/0.4 ML DISP.SYRIN SUBCUT SCH (11:04)
[2017-04-24] MEDS: BIMATOPROST 0.01% OPH SOLN 2.5 ML/BOTTLE OU SCH (11:04)
[2017-04-24] MEDS: THIAMINE HCL 100 MG, FOLIC ACID 1 MG in NORMAL SALINE 250 ML IV SCH (11:05)
[2017-04-24] MEDS: LEVOFLOXACIN 750 MG/D5W RTU 750 MG/150 ML RTUPB IV SCH (12:37)
[2017-04-24] MEDS: MEGESTROL ACETATE 20 MG TABLET PO SCH (13:40)
--- NOTE | 2017-04-24 15:18 | PDOC PROGRESS REPORT ---
Subjective Progress Note for:: 04/24/17 Subjective:: She has seen by the bedside, no new complaints Reason For Visit: DEHYDRATION WITH HYPONATREMIA;ACUTE RENAL INJURY; Physical Exam Vital Signs: Temp Pulse Resp BP Pulse Ox 99.0 F 100 18 112/77 95 04/24/17 11:44 04/24/17 14:00 04/24/17 11:44 04/24/17 11:44 04/24/17 11:44 Intake & Output 04/23/17 04/24/17 04/25/17 06:59 06:59 06:59 Intake Total 3418 2435 0 Balance 3418 2435 0 Weight 76 kg General appearance: PRESENT: no acute distress Head exam: PRESENT: atraumatic, normocephalic Eye exam: PRESENT: conjunctiva pink, EOMI, PERRLA Mouth exam: PRESENT: moist, tongue midline Neck exam: PRESENT: full ROM Respiratory exam: PRESENT: rhonchi Cardiovascular exam: PRESENT: RRR, +S1, +S2 Pulses: PRESENT: normal dorsalis pedis pul, +2 pedal pulses bilateral Vascular exam: PRESENT: normal capillary refill GI/Abdominal exam: PRESENT: normal bowel sounds, soft Rectal exam: PRESENT: deferred Neurological exam: PRESENT: alert. ABSENT: motor sensory deficit Psychiatric exam: PRESENT: appropriate affect, normal mood Skin exam: PRESENT: dry, intact, warm. ABSENT: cyanosis, rash Results Laboratory Results: 04/24/17 08:15 04/24/17 07:03 04/24/17 04/24/17 04/24/17 07:03 07:03 08:15 WBC Cancelled 3.8 L RBC Cancelled 3.62 L Hgb Cancelled 10.5 L Hct Cancelled 31.5 L MCV Cancelled 87 MCH Cancelled 29.2 MCHC Cancelled 33.4 RDW Cancelled 14.3 H Plt Count Cancelled 300 Seg Neutrophils % Cancelled 68.8 Lymphocytes % Cancelled 13.5 Monocytes % Cancelled 14.2 H Eosinophils % Cancelled 2.8 Basophils % Cancelled 0.7 Absolute Neutrophils Cancelled 2.6 Absolute Lymphocytes Cancelled 0.5 Absolute Monocytes Cancelled 0.5 Absolute Eosinophils Cancelled 0.1 Absolute Basophils Cancelled 0.0 Sodium 127.6 L Potassium 3.5 L Chloride 98 Carbon Dioxide 24 Anion Gap 6 BUN 12 Creatinine 0.90 Est GFR ( Amer) > 60 Est GFR (Non-Af Amer) > 60 Glucose 94 Calcium 8.0 L Total Bilirubin 0.3 AST 27 ALT 19 L Alkaline Phosphatase 53 Total Protein 5.8 L Albumin 2.3 L 04/21/17 17:25 Sputum AFB Smear Concentration - Final 04/21/17 17:25 Sputum Acid Fast Bacilli Smear - Final 04/21/17 17:25 Sputum Gram Stain - Final 04/21/17 17:25 Sputum Sputum Culture - Final NORMAL VICTORIANO Impressions: Head CT 04/17/17 13:01 IMPRESSION: MILD CHRONIC MICROVASCULAR ISCHEMIA. NO ACUTE IMAGING FINDINGS IN THE BRAIN. EVIDENCE OF ACUTE STROKE: NO. 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 AREAS OF MILD TO MODERATE SPINAL STENOSIS DESCRIBED. NO ACUTE FINDINGS. Chest X-Ray 04/17/17 17:37 IMPRESSION: 1. Possible right upper lobe pneumonia. 2. Small apical pneumothorax. 3. Large pneumatoceles in the right apex. Chest CT 04/20/17 00:00 IMPRESSION: Thick walled irregular cavity in the right apex hemithorax with air -fluid level. Findings are worrisome for atypical infection, tuberculosis should be considered. Cavitary tumor could not be excluded Underlying diffuse obstructive lung disease with some superimposed pulmonary fibrosis at the bases Assessment & Plan - Diagnosis (1) Cavitary lesion of lung Is this a current diagnosis for this admission?: Yes (2) Dehydration with hyponatremia Is this a current diagnosis for this admission?: Yes (3) Acute kidney injury Is this a current diagnosis for this admission?: Yes (4) Pneumatocele of lung Is this a current diagnosis for this admission?: Yes (5) History of myasthenia gravis Is this a current diagnosis for this admission?: Yes (6) Necrotizing pneumonia Is this a current diagnosis for this admission?: Yes (7) Alcohol abuse Is this a current diagnosis for this admission?: Yes (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
--- NOTE | 2017-04-24 18:17 | PDOC CONSULTATION ---
Consultation Consult Date: 04/21/17 Attending physician:: BEBE RODRIGUEZ Consult reason:: pna History of Present Illness Admission Date/PCP: 04/17/17 19:11 [facility] History of Present Illness: MADINA HIDALGO is a 71 year old male known to my practice who was referred to the ED from local [place] clinic due to his complain of progressive difficulty with walking. Patient reported that since around recent he has been experiencing worsening ability to walk. Particularly upon walking up in te morning. he had to hold onto pichardo and furniture to ambulate due to weakness in his legs. He noted pain in his legs during his recent visit to [facility]. During this time his family rented wheelchair and transfer him in the wheelchair for any meaningful travel distance. Of note he was a passenger on the family trip to and from [facility] before onset of his problem. Patient denied any dizziness, vertigo, nausea, vomiting, weakness or numbness in his legs. He denied any radiating pain into his legs. Family reported episode of fall couple of days. Shortness of breath dips and exertion. He denies hemoptysis his PPD status is normal denies history of chronic lung disease as a child or adolescent. He admits to exposure to large amounts of passive smoke as a child as well as an adult. He is self began smoking at age 11 and smoked up until the time of admission approximately [id number] history. He served 30 years in [employer]. He has no pets and no recent travel. Denies chest pain, sleeps on 2 pillows frequent PND occasional nocturnal cough occasional edema. He admits to snoring restless sleep nocturia unrestful sleep and excessive daytime somnolence. Past Medical History Cardiac Medical History: Reports: Hyperlipidema, Hypertension Denies: Atrial Fibrillation, Coronary Artery Disease, Myocardial Infarction Pulmonary Medical History: Reports: Chronic Obstructive Pulmonary Disease (COPD) , Pneumonia - 1994 Denies: Asthma, Bronchitis EENT Medical History: Denies: Ears, Nose, Throat Neurological Medical History: Reports: Other - History of thymoma and myasthenia gravis Denies: Migraine, Seizures Endocrine Medical History: Denies: Diabetes Mellitus Type 1, Gestational Diabetes, Hyperthyroidism, Obesity Renal/ Medical History: Denies: Nephrolithiasis GI Medical History: Denies: Cirrhosis, Hepatitis, Ulcerative Colitis Musculoskeltal Medical History: Denies: Arthritis Skin Medical History: Denies: Psoriasis Psychiatric Medical History: Reports: Tobacco Dependency Denies: Depression Traumatic Medical History: Denies: Traumatic Brain Injury Hematology: Denies: Anemia, Bleeding Tendencies Infectious Medical History: Denies: Hepatitis B, Hepatitis C Past Surgical History Past Surgical History: Reports: Cholecystectomy Denies: Pacemaker Social History Information Source: Patient, Relative, [facility] Records Lives with: Family Smoking Status: Former Smoker Cigarettes Packs Per Day: 1.5 Number of Years Smokin Last Time Smoked: June 2008 Passive smoke exposure as: Both Frequency of Alcohol Use: Heavy Hx Recreational Drug Use: No Drugs: None Hx Prescription Drug Abuse: No Do you have pets?: No Have you had any respiratory illnesses as a child?: No Have you been exposed to any sick contacts recently?: No Have you had any recent respiratory illnesses?: No Have you travelled outside of [place] in the past 12 months?: No - Advance Directive Resuscitation Status: Full Code Family History Family History: Hypertension Parental Family History Reviewed: Yes Children Family History Reviewed: Yes Sibling(s) Family History Reviewed.: Yes Medication/Allergy Home Medications: Aspirin [Ecotrin 81 mg EC Tablet] 81 mg PO DAILY 09/14/16 Bimatoprost [Lumigan 0.01% Oph Soln 2.5 ml/Bottle] 1 drop OU DAILY 04/17/17 Telmisartan/Hydrochlorothiazid [Micardis Hct 40-12.5 mg Tablet] 1 tab PO DAILY 04/17/17 Allergies/Adverse Reactions: No Known Allergies Allergy (Verified 04/17/17 12:24) Review of Systems Constitutional: PRESENT: anorexia, fatigue, weakness. ABSENT: chills, fever(s) Eyes: ABSENT: visual disturbances Ears: ABSENT: hearing changes Nose, Mouth, and Throat: ABSENT: mouth pain, sore throat Cardiovascular: PRESENT: dyspnea on exertion, orthropnea. ABSENT: chest pain, palpitations Respiratory: PRESENT: cough Gastrointestinal: ABSENT: abdominal pain, bloating, diarrhea, dysphagia, heartburn, hematemesis, hematochezia, melena Genitourinary: PRESENT: nocturia. ABSENT: difficulty urinating, dysuria, hematuria Musculoskeletal: ABSENT: deformity Integumentary: ABSENT: pruritus, rash Neurological: ABSENT: abnormal speech, confusion, frequent falls, memory loss Psychiatric: ABSENT: hallucinations, homidical ideation, suicidal ideation Endocrine: PRESENT: cold intolerance. ABSENT: heat intolerance, menstrual abnormalities, polydipsia, polyuria Hematologic/Lymphatic: ABSENT: easy bruising Physical Exam Vital Signs: Temp Pulse Resp BP Pulse Ox 98.2 F 97 17 134/94 H 99 04/21/17 07:55 04/21/17 07:55 04/21/17 07:55 04/21/17 07:55 04/21/17 07:55 Intake & Output 04/20/17 04/21/17 04/22/17 06:59 06:59 06:59 Intake Total 2899 3850 Output Total 50 Balance 2849 3850 Weight 73.9 kg General appearance: PRESENT: no acute distress, cooperative, disheveled, well- developed, well-nourished. ABSENT: hard of hearing, mild distress, morbidly obese, obese, severe distress, thin Head exam: PRESENT: atraumatic, normocephalic Eye exam: PRESENT: conjunctiva pale, EOMI. ABSENT: conjunctival injection, conjunctiva pink, nystagmus, periorbital swelling, scleral icterus Mouth exam: PRESENT: dry mucosa, neck supple, tongue midline. ABSENT: laceration, moist Neck exam: ABSENT: carotid bruit, JVD, lymphadenopathy, thyromegaly, tracheal deviation, tracheostomy Respiratory exam: PRESENT: crackles, decreased breath sounds, prolonged expiratory phas, rhonchi, symmetrical, unlabored, wheezes. ABSENT: accessory muscle use, chest wall tenderness, clear to auscultation antonio, rales, retraction , stridor, tachypnea Cardiovascular exam: PRESENT: RRR, +S1, +S2. ABSENT: irregular rhythm, rubs GI/Abdominal exam: PRESENT: normal bowel sounds, soft. ABSENT: distended, guarding, mass, organolmegaly, rebound, tenderness Extremities exam: ABSENT: clubbing, joint swelling Musculoskeletal exam: ABSENT: ambulatory, deformity, dislocation Neurological exam: PRESENT: alert, awake Psychiatric exam: PRESENT: flat affect Focused psych exam: ABSENT: catatonic, delusional, euphoric, flight of ideas, internal stimuli, paranoid, pressured speech, psychomotor agitation, restlessness, other Skin exam: PRESENT: dry, warm Results Laboratory Results: 04/19/17 21:55 04/21/17 04:16 04/21/17 04:16 Sodium 126.9 L Potassium 4.0 Chloride 94 L Carbon Dioxide 24 Anion Gap 9 BUN 8 Creatinine 1.25 Est GFR ( Amer) > 60 Est GFR (Non-Af Amer) 57 L Glucose 87 Calcium 8.4 Impressions: Head CT 04/17/17 13:01 IMPRESSION: MILD CHRONIC MICROVASCULAR ISCHEMIA. NO ACUTE IMAGING FINDINGS IN THE BRAIN. EVIDENCE OF ACUTE STROKE: NO. 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 AREAS OF MILD TO MODERATE SPINAL STENOSIS DESCRIBED. NO ACUTE FINDINGS. Chest X-Ray 04/17/17 17:37 IMPRESSION: 1. Possible right upper lobe pneumonia. 2. Small apical pneumothorax. 3. Large pneumatoceles in the right apex. Chest CT 04/20/17 00:00 IMPRESSION: Thick walled irregular cavity in the right apex hemithorax with air -fluid level. Findings are worrisome for atypical infection, tuberculosis should be considered. Cavitary tumor could not be excluded Underlying diffuse obstructive lung disease with some superimposed pulmonary fibrosis at the bases Assessment & Plan - Diagnosis (1) Cavitary lesion of lung Is this a current diagnosis for this admission?: Yes Plan: needs PPD [employer];SERIAL SPUTUMS afb (2) History of myasthenia gravis Is this a current diagnosis for this admission?: Yes Plan: hx of thymoma (3) Pneumatocele of lung Is this a current diagnosis for this admission?: Yes Plan: afb lung malignancy pna
--- NOTE | 2017-04-24 18:26 | PDOC PROGRESS REPORT ---
Subjective Progress Note for:: 04/24/17 Subjective:: feel a little better Reason For Visit: DEHYDRATION WITH HYPONATREMIA;ACUTE RENAL INJURY; Physical Exam Vital Signs: Temp Pulse Resp BP Pulse Ox 99.3 F 112 H 18 104/68 95 04/24/17 08:00 04/24/17 08:00 04/24/17 08:00 04/24/17 08:00 04/24/17 08:00 Intake & Output 04/23/17 04/24/17 04/25/17 06:59 06:59 06:59 Intake Total 3418 2435 Balance 3418 2435 Weight 76 kg General appearance: PRESENT: no acute distress, cooperative, disheveled, thin, well-developed Head exam: PRESENT: atraumatic, normocephalic Eye exam: PRESENT: conjunctiva pale, EOMI. ABSENT: nystagmus Mouth exam: PRESENT: dry mucosa, neck supple, tongue midline Teeth exam: PRESENT: poor dentation Neck exam: ABSENT: carotid bruit, JVD, lymphadenopathy, thyromegaly, tracheal deviation, tracheostomy Respiratory exam: PRESENT: crackles, decreased breath sounds, prolonged expiratory phas, rhonchi, symmetrical, unlabored. ABSENT: accessory muscle use , chest wall tenderness, clear to auscultation antonio, retraction, stridor, tachypnea Cardiovascular exam: PRESENT: RRR, +S1, +S2. ABSENT: irregular rhythm, rubs Pulses: PRESENT: normal radial pulses GI/Abdominal exam: PRESENT: normal bowel sounds, soft. ABSENT: distended, guarding, mass, organolmegaly, rebound, tenderness Extremities exam: ABSENT: clubbing, joint swelling Musculoskeletal exam: ABSENT: deformity, dislocation Neurological exam: PRESENT: alert, awake Psychiatric exam: PRESENT: flat affect Focused psych exam: ABSENT: catatonic, delusional, euphoric, flight of ideas, internal stimuli, paranoid, pressured speech, psychomotor agitation, restlessness, other Skin exam: PRESENT: dry, warm Results Laboratory Results: 04/24/17 08:15 04/24/17 07:03 04/24/17 04/24/17 04/24/17 07:03 07:03 08:15 WBC Cancelled 3.8 L RBC Cancelled 3.62 L Hgb Cancelled 10.5 L Hct Cancelled 31.5 L MCV Cancelled 87 MCH Cancelled 29.2 MCHC Cancelled 33.4 RDW Cancelled 14.3 H Plt Count Cancelled 300 Seg Neutrophils % Cancelled 68.8 Lymphocytes % Cancelled 13.5 Monocytes % Cancelled 14.2 H Eosinophils % Cancelled 2.8 Basophils % Cancelled 0.7 Absolute Neutrophils Cancelled 2.6 Absolute Lymphocytes Cancelled 0.5 Absolute Monocytes Cancelled 0.5 Absolute Eosinophils Cancelled 0.1 Absolute Basophils Cancelled 0.0 Sodium 127.6 L Potassium 3.5 L Chloride 98 Carbon Dioxide 24 Anion Gap 6 BUN 12 Creatinine 0.90 Est GFR ( Amer) > 60 Est GFR (Non-Af Amer) > 60 Glucose 94 Calcium 8.0 L Total Bilirubin 0.3 AST 27 ALT 19 L Alkaline Phosphatase 53 Total Protein 5.8 L Albumin 2.3 L 04/21/17 17:25 Sputum AFB Smear Concentration - Final 04/21/17 17:25 Sputum Acid Fast Bacilli Smear - Final 04/21/17 17:25 Sputum Gram Stain - Final 04/21/17 17:25 Sputum Sputum Culture - Final NORMAL VICTORIANO Impressions: Head CT 04/17/17 13:01 IMPRESSION: MILD CHRONIC MICROVASCULAR ISCHEMIA. NO ACUTE IMAGING FINDINGS IN THE BRAIN. EVIDENCE OF ACUTE STROKE: NO. 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 AREAS OF MILD TO MODERATE SPINAL STENOSIS DESCRIBED. NO ACUTE FINDINGS. Chest X-Ray 04/17/17 17:37 IMPRESSION: 1. Possible right upper lobe pneumonia. 2. Small apical pneumothorax. 3. Large pneumatoceles in the right apex. Chest CT 04/20/17 00:00 IMPRESSION: Thick walled irregular cavity in the right apex hemithorax with air -fluid level. Findings are worrisome for atypical infection, tuberculosis should be considered. Cavitary tumor could not be excluded Underlying diffuse obstructive lung disease with some superimposed pulmonary fibrosis at the bases Assessment & Plan - Diagnosis (1) Cavitary lesion of lung Is this a current diagnosis for this admission?: Yes Plan: PPD neg thus far no + sputums (2) History of myasthenia gravis Is this a current diagnosis for this admission?: Yes Plan: hx of thymoma (3) Hyponatremia Is this a current diagnosis for this admission?: Yes (4) Necrotizing pneumonia Is this a current diagnosis for this admission?: Yes (5) Pneumatocele of lung Is this a current diagnosis for this admission?: Yes Plan: afb lung malignancy pna (6) COPD (chronic obstructive pulmonary disease) Qualifiers: COPD type: unspecified COPD Qualified Code(s): J44.9 - Chronic obstructive pulmonary disease, unspecified Is this a current diagnosis for this admission?: Yes Plan: xopenex
--- NOTE | 2017-04-24 19:02 | RADIOLOGY REPORT (SQ) ---
EXAM DESCRIPTION: CHEST PA/LAT COMPLETED DATE/TIME: 04/24/2017 6:50 pm REASON FOR STUDY: lung lesions COMPARISON: Chest CT scan dated 04/20/2017 EXAM PARAMETERS: NUMBER OF VIEWS: two views TECHNIQUE: Digital Frontal and Lateral radiographic views of the chest acquired. RADIATION DOSE: NA LIMITATIONS: none FINDINGS: LUNGS AND PLEURA: The previously described cavitary process in the right lung apex is agai n identified. A prominent air-fluid level is again identified. There are some minimal associated ai rspace densities. Remaining lung monterroso are clear. MEDIASTINUM AND HILAR STRUCTURES: No masses or contour abnormalities. HEART AND VASCULAR STRUCTURES: Heart normal size. No evidence for failure. BONES: No acute findings. HARDWARE: None in the chest. OTHER: No other significant finding. IMPRESSION: The previously described cavitary process in the right lung apex is again identified. A prominent air-fluid level is again identified. There is are some minimal associated airspace densit ies. Remaining lung monterroso are clear. Other findings as noted above TECHNICAL DOCUMENTATION: JOB ID: [id number] [employer]- All Rights Reserved
[2017-04-24] MEDS: LEVALBUTEROL HCL NEB 1.25 MG/3 ML AMPUL NEB SCH (20:07)
[2017-04-25] MEDS: LEVALBUTEROL HCL NEB 1.25 MG/3 ML AMPUL NEB SCH ×4 (01:38→20:22)
[2017-04-25] MEDS: IMIPENEM/CILASTATIN SODIUM 1,000 MG in NORMAL SALINE 250 ML IV SCH ×4 (02:13→20:18)
[2017-04-25] MEDS: NORMAL SALINE 1000 ML 1,000 ML IV SCH (04:24)
[2017-04-25] MEDS: CEFEPIME 1 GM/D5W RTU 1 GM/50 ML RTUPB IV SCH ×2 (07:18→18:36)
[2017-04-25] MEDS: LANSOPRAZOLE 30 MG TAB.RAP.DR PO SCH (07:18)
[2017-04-25 08:19] LABS: ABSOLUTE EOSINOPHILS # (AUTO) 0.1 10^3/uL (0.0-0.6); ABSOLUTE LYMPHOCYTES (AUTO) 0.5 10^3/uL (0.5-4.7); ABSOLUTE MONOCYTES (AUTO) 0.3 10^3/uL (0.1-1.4); ABSOLUTE NEUT (AUTO) 2.5 10^3/uL (1.7-8.2); BASOPHILS % (AUTO) 0.9 % (0-2); EOSINOPHILS % (AUTO) 3.8 % (0-6); HEMATOCRIT 31.7 % (37.9-51.0); HEMOGLOBIN 10.6 g/dL (13.5-17.0); LYMPHOCYTES % (AUTO) 14.3 % (13-45); MEAN CORPUSCULAR HEMOGLOBIN 28.9 pg (27.0-33.4); MEAN CORPUSCULAR HGB CONC 33.4 g/dL (32.0-36.0); MEAN CORPUSCULAR VOLUME 87 fl (80-97); MONOCYTES % (AUTO) 9.4 % (3-13); PLATELET COUNT 284 10^3/uL (150-450); RED BLOOD COUNT 3.66 10^6/uL (4.35-5.55); RED CELL DISTRIBUTION WIDTH 14.7 % (11.5-14.0); SEGMENTED NEUTROPHILS % (AUTO) 71.6 % (42-78); TOTAL CELLS COUNTED % (AUTO) 100 %; WHITE BLOOD COUNT 3.5 10^3/uL (4.0-10.5)
[2017-04-25 08:39] LABS: ALANINE AMINOTRANSFERASE 22 U/L (21-72); ALBUMIN 2.2 g/dL (3.5-5.0); ALKALINE PHOSPHATASE 55 U/L (38-126); ANION GAP 8 (5-19); ASPARTATE AMINO TRANSFERASE 21 U/L (17-59); BILIRUBIN,DIRECT 0.2 mg/dL (0.0-0.4); BILIRUBIN,TOTAL 0.2 mg/dL (0.2-1.3); BLOOD UREA NITROGEN 10 mg/dL (7-20); CARBON DIOXIDE 24 mmol/L (22-30); CHLORIDE 98 mmol/L (98-107); GLUCOSE 97 mg/dL (75-110); POTASSIUM 3.6 mmol/L (3.6-5.0); SODIUM 129.5 mmol/L (137-145); TOTAL PROTEIN 5.6 g/dL (6.3-8.2)
[2017-04-25] MEDS: ENOXAPARIN SODIUM INJ 40 MG/0.4 ML DISP.SYRIN SUBCUT SCH (10:43)
[2017-04-25] MEDS: MEGESTROL ACETATE 20 MG TABLET PO SCH (10:45)
[2017-04-25] MEDS: BIMATOPROST 0.01% OPH SOLN 2.5 ML/BOTTLE OU SCH (10:46)
[2017-04-25] MEDS: LEVOFLOXACIN 750 MG/D5W RTU 750 MG/150 ML RTUPB IV SCH (13:39)
--- NOTE | 2017-04-25 14:10 | PDOC PROGRESS REPORT ---
Subjective Progress Note for:: 04/25/17 Subjective:: Patient seen by the bedside, no new complaints Reason For Visit: DEHYDRATION WITH HYPONATREMIA;ACUTE RENAL INJURY; Physical Exam Vital Signs: Temp Pulse Resp BP Pulse Ox 99.1 F 101 H 18 113/78 94 04/25/17 07:48 04/25/17 09:48 04/25/17 09:48 04/25/17 07:48 04/25/17 09:48 Intake & Output 04/24/17 04/25/17 04/26/17 06:59 06:59 06:59 Intake Total 2435 4886 Balance 2435 4887 Weight 76 kg General appearance: PRESENT: no acute distress Eye exam: PRESENT: PERRLA Respiratory exam: PRESENT: clear to auscultation antonio Cardiovascular exam: PRESENT: +S1, +S2 GI/Abdominal exam: PRESENT: soft Neurological exam: PRESENT: alert Results Laboratory Results: 04/25/17 08:05 04/25/17 08:05 04/25/17 04/25/17 08:05 08:05 WBC 3.5 L RBC 3.66 L Hgb 10.6 L Hct 31.7 L MCV 87 MCH 28.9 MCHC 33.4 RDW 14.7 H Plt Count 284 Seg Neutrophils % 71.6 Lymphocytes % 14.3 Monocytes % 9.4 Eosinophils % 3.8 Basophils % 0.9 Absolute Neutrophils 2.5 Absolute Lymphocytes 0.5 Absolute Monocytes 0.3 Absolute Eosinophils 0.1 Absolute Basophils 0.0 Sodium 129.5 L Potassium 3.6 Chloride 98 Carbon Dioxide 24 Anion Gap 8 BUN 10 Creatinine 0.88 Est GFR ( Amer) > 60 Est GFR (Non-Af Amer) > 60 Glucose 97 Calcium 8.0 L Total Bilirubin 0.2 AST 21 ALT 22 Alkaline Phosphatase 55 Total Protein 5.6 L Albumin 2.2 L Impressions: Head CT 04/17/17 13:01 IMPRESSION: MILD CHRONIC MICROVASCULAR ISCHEMIA. NO ACUTE IMAGING FINDINGS IN THE BRAIN. EVIDENCE OF ACUTE STROKE: NO. 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 AREAS OF MILD TO MODERATE SPINAL STENOSIS DESCRIBED. NO ACUTE FINDINGS. Chest CT 04/20/17 00:00 IMPRESSION: Thick walled irregular cavity in the right apex hemithorax with air -fluid level. Findings are worrisome for atypical infection, tuberculosis should be considered. Cavitary tumor could not be excluded Underlying diffuse obstructive lung disease with some superimposed pulmonary fibrosis at the bases Chest X-Ray 04/24/17 00:00 IMPRESSION: The previously described cavitary process in the right lung apex is again identified. A prominent air-fluid level is again identified. There is are some minimal associated airspace densities. Remaining lung monterroso are clear. Other findings as noted above Assessment & Plan - Diagnosis (1) Cavitary lesion of lung Is this a current diagnosis for this admission?: Yes (2) Dehydration with hyponatremia Is this a current diagnosis for this admission?: Yes (3) Acute kidney injury Is this a current diagnosis for this admission?: Yes (4) Pneumatocele of lung Is this a current diagnosis for this admission?: Yes (5) History of myasthenia gravis Is this a current diagnosis for this admission?: Yes (6) Necrotizing pneumonia Is this a current diagnosis for this admission?: Yes (7) Alcohol abuse Is this a current diagnosis for this admission?: Yes (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 (9) Alcoholic myopathy Is this a current diagnosis for this admission?: Yes - Plan Summary Plan Summary: Continue treatment
[2017-04-25] MEDS: NORMAL SALINE 1000 ML 1,000 ML with POTASSIUM CHLORIDE 20 MEQ, MAGNESIUM SULFATE 8 MEQ,... IV SCH ×5 (18:36)
[2017-04-26] MEDS: LEVALBUTEROL HCL NEB 1.25 MG/3 ML AMPUL NEB SCH ×4 (02:09→19:27)
[2017-04-26] MEDS: IMIPENEM/CILASTATIN SODIUM 1,000 MG in NORMAL SALINE 250 ML IV SCH ×4 (03:09→20:59)
[2017-04-26] MEDS: LANSOPRAZOLE 30 MG TAB.RAP.DR PO SCH (05:45)
[2017-04-26] MEDS: CEFEPIME 1 GM/D5W RTU 1 GM/50 ML RTUPB IV SCH ×2 (05:46→18:34)
[2017-04-26 07:43] LABS: HEMATOCRIT 34.6 % (37.9-51.0); HEMOGLOBIN 11.9 g/dL (13.5-17.0); MEAN CORPUSCULAR HEMOGLOBIN 29.9 pg (27.0-33.4); MEAN CORPUSCULAR HGB CONC 34.4 g/dL (32.0-36.0); MEAN CORPUSCULAR VOLUME 87 fl (80-97); PLATELET COUNT 278 10^3/uL (150-450); RED BLOOD COUNT 3.99 10^6/uL (4.35-5.55); RED CELL DISTRIBUTION WIDTH 14.9 % (11.5-14.0); WHITE BLOOD COUNT 4.6 10^3/uL (4.0-10.5)
[2017-04-26 07:58] LABS: ABSOLUTE LYMPHOCYTES# (MANUAL) 0.7 10^3/uL (0.5-4.7); ABSOLUTE MONOCYTES # (MANUAL) 0.2 10^3/uL (0.1-1.4); ABSOLUTE NEUTROPHILS# (MANUAL) 3.4 10^3/uL (1.7-8.2); BAND NEUTROPHILS % (MANUAL) 1 % (3-5); BASOPHILS % (MANUAL) 1 % (0-2); EOSINOPHILS % (MANUAL) 4 % (0-6); LYMPHOCYTES % (MANUAL) 15 % (13-45); MONOCYTES % (MANUAL) 5 % (3-13); SEGMENTED NEUTROPHILS % (MAN) 73 % (42-78); TOTAL CELLS COUNTED 100
[2017-04-26 07:59] LABS: HYPOCHROMASIA SLIGHT; OVALOCYTES SLIGHT; PLATELET CLUMPS PRESENT; POIKILOCYTOSIS SLIGHT; POLYCHROMASIA SLIGHT; ROULEAUX SLIGHT; TOXIC GRANULATION SLIGHT; TOXIC VACUOLATION PRESENT
[2017-04-26 09:35] LABS: ALANINE AMINOTRANSFERASE 20 U/L (21-72); ALBUMIN 2.7 g/dL (3.5-5.0); ALKALINE PHOSPHATASE 67 U/L (38-126); ANION GAP 11 (5-19); ASPARTATE AMINO TRANSFERASE 28 U/L (17-59); BILIRUBIN,DIRECT 0.3 mg/dL (0.0-0.4); BILIRUBIN,TOTAL 0.5 mg/dL (0.2-1.3); BLOOD UREA NITROGEN 11 mg/dL (7-20); CALCIUM 8.5 mg/dL (8.4-10.2); CARBON DIOXIDE 22 mmol/L (22-30); CHLORIDE 97 mmol/L (98-107); GLUCOSE 97 mg/dL (75-110); POTASSIUM 4.3 mmol/L (3.6-5.0); SODIUM 129.7 mmol/L (137-145); TOTAL PROTEIN 6.9 g/dL (6.3-8.2)
[2017-04-26] MEDS: LEVOFLOXACIN 750 MG/D5W RTU 750 MG/150 ML RTUPB IV SCH (11:36)
[2017-04-26] MEDS: BIMATOPROST 0.01% OPH SOLN 2.5 ML/BOTTLE OU SCH (11:36)
[2017-04-26] MEDS: MEGESTROL ACETATE 20 MG TABLET PO SCH (11:37)
[2017-04-26] MEDS: ENOXAPARIN SODIUM INJ 40 MG/0.4 ML DISP.SYRIN SUBCUT SCH (11:44)
--- NOTE | 2017-04-26 13:00 | PDOC PROGRESS REPORT ---
Subjective Progress Note for:: 04/25/17 Subjective:: Awake alert Reason For Visit: DEHYDRATION WITH HYPONATREMIA;ACUTE RENAL INJURY; Physical Exam Vital Signs: Temp Pulse Resp BP Pulse Ox 99.1 F 104 H 18 113/78 93 04/25/17 07:48 04/25/17 07:48 04/25/17 07:48 04/25/17 07:48 04/25/17 07:48 Intake & Output 04/24/17 04/25/17 04/26/17 06:59 06:59 06:59 Intake Total 2435 4886 Balance 2435 4886 Weight 76 kg General appearance: PRESENT: no acute distress, cooperative, disheveled, thin. ABSENT: mild distress, morbidly obese, obese, severe distress Head exam: PRESENT: atraumatic, normocephalic Eye exam: PRESENT: conjunctiva pale, EOMI. ABSENT: conjunctival injection, conjunctiva pink, nystagmus, periorbital swelling, scleral icterus Mouth exam: PRESENT: dry mucosa, neck supple, tongue midline Teeth exam: PRESENT: poor dentation Neck exam: ABSENT: carotid bruit, JVD, lymphadenopathy, thyromegaly, tracheal deviation, tracheostomy Respiratory exam: PRESENT: crackles, decreased breath sounds, prolonged expiratory phas, rhonchi, symmetrical, unlabored, wheezes. ABSENT: accessory muscle use, chest wall tenderness, clear to auscultation antonio, rales, retraction , stridor, tachypnea Cardiovascular exam: PRESENT: RRR, +S1, +S2 - 30704 Pulses: PRESENT: normal radial pulses GI/Abdominal exam: PRESENT: normal bowel sounds, soft. ABSENT: distended, guarding, mass, organolmegaly, rebound, tenderness Extremities exam: ABSENT: clubbing, joint swelling Musculoskeletal exam: ABSENT: deformity, dislocation Neurological exam: PRESENT: alert, awake Psychiatric exam: PRESENT: normal mood Skin exam: PRESENT: dry, warm Results Laboratory Results: 04/25/17 08:05 04/25/17 08:05 04/24/17 04/25/17 04/25/17 08:15 08:05 08:05 WBC 3.8 L 3.5 L RBC 3.62 L 3.66 L Hgb 10.5 L 10.6 L Hct 31.5 L 31.7 L MCV 87 87 MCH 29.2 28.9 MCHC 33.4 33.4 RDW 14.3 H 14.7 H Plt Count 300 284 Seg Neutrophils % 68.8 71.6 Lymphocytes % 13.5 14.3 Monocytes % 14.2 H 9.4 Eosinophils % 2.8 3.8 Basophils % 0.7 0.9 Absolute Neutrophils 2.6 2.5 Absolute Lymphocytes 0.5 0.5 Absolute Monocytes 0.5 0.3 Absolute Eosinophils 0.1 0.1 Absolute Basophils 0.0 0.0 Sodium 129.5 L Potassium 3.6 Chloride 98 Carbon Dioxide 24 Anion Gap 8 BUN 10 Creatinine 0.88 Est GFR ( Amer) > 60 Est GFR (Non-Af Amer) > 60 Glucose 97 Calcium 8.0 L Total Bilirubin 0.2 AST 21 ALT 22 Alkaline Phosphatase 55 Total Protein 5.6 L Albumin 2.2 L 04/21/17 17:25 Sputum AFB Smear Concentration - Final 04/21/17 17:25 Sputum Acid Fast Bacilli Smear - Final Impressions: Head CT 04/17/17 13:01 IMPRESSION: MILD CHRONIC MICROVASCULAR ISCHEMIA. NO ACUTE IMAGING FINDINGS IN THE BRAIN. EVIDENCE OF ACUTE STROKE: NO. 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 AREAS OF MILD TO MODERATE SPINAL STENOSIS DESCRIBED. NO ACUTE FINDINGS. Chest CT 04/20/17 00:00 IMPRESSION: Thick walled irregular cavity in the right apex hemithorax with air -fluid level. Findings are worrisome for atypical infection, tuberculosis should be considered. Cavitary tumor could not be excluded Underlying diffuse obstructive lung disease with some superimposed pulmonary fibrosis at the bases Chest X-Ray 04/24/17 00:00 IMPRESSION: The previously described cavitary process in the right lung apex is again identified. A prominent air-fluid level is again identified. There is are some minimal associated airspace densities. Remaining lung monterro[place] are clear. Other findings as noted above Assessment & Plan - Diagnosis (1) Cavitary lesion of lung Is this a current diagnosis for this admission?: Yes Plan: PPD neg thus far no + sputums (2) History of myasthenia gravis Is this a current diagnosis for this admission?: Yes Plan: hx of thymoma (3) Hyponatremia Is this a current diagnosis for this admission?: Yes (4) Necrotizing pneumonia Is this a current diagnosis for this admission?: Yes (5) Pneumatocele of lung Is this a current diagnosis for this admission?: Yes (6) COPD (chronic obstructive pulmonary disease) Qualifiers: COPD type: unspecified COPD Qualified Code(s): J44.9 - Chronic obstructive pulmonary disease, unspecified Is this a current diagnosis for this admission?: Yes Plan: Stable at this time
--- NOTE | 2017-04-26 13:02 | PDOC PROGRESS REPORT ---
Subjective Progress Note for:: 04/26/17 Subjective:: Resting comfortably Reason For Visit: DEHYDRATION WITH HYPONATREMIA;ACUTE RENAL INJURY; Physical Exam Vital Signs: Temp Pulse Resp BP Pulse Ox 98.6 F 102 H 16 123/75 95 04/26/17 08:14 04/26/17 08:23 04/26/17 08:23 04/26/17 08:14 04/26/17 00:00 Intake & Output 04/25/17 04/26/17 04/27/17 06:59 06:59 06:59 Intake Total 4886 3835 Balance 4886 3835 Weight 76.4 kg General appearance: PRESENT: no acute distress, cooperative, disheveled, thin. ABSENT: mild distress, morbidly obese, obese, severe distress Head exam: PRESENT: atraumatic, normocephalic Eye exam: PRESENT: conjunctiva pale, EOMI, nystagmus. ABSENT: conjunctival injection, conjunctiva pink Mouth exam: PRESENT: dry mucosa, neck supple, tongue midline Teeth exam: PRESENT: poor dentation Neck exam: ABSENT: carotid bruit, JVD, lymphadenopathy, thyromegaly, tracheal deviation, tracheostomy Respiratory exam: PRESENT: decreased breath sounds, prolonged expiratory phas, rales, rhonchi, symmetrical, unlabored, wheezes. ABSENT: accessory muscle use, chest wall tenderness, clear to auscultation antonio, crackles, retraction, stridor , tachypnea Cardiovascular exam: PRESENT: RRR, +S1, +S2 Pulses: PRESENT: normal radial pulses GI/Abdominal exam: PRESENT: normal bowel sounds, soft. ABSENT: distended, guarding, mass, organolmegaly, rebound, tenderness Extremities exam: ABSENT: clubbing, joint swelling Musculoskeletal exam: ABSENT: deformity, dislocation Skin exam: PRESENT: dry, warm Results Laboratory Results: 04/26/17 07:00 04/26/17 08:37 04/26/17 04/26/17 04/26/17 07:00 07:00 08:37 WBC 4.6 RBC 3.99 L Hgb 11.9 L Hct 34.6 L MCV 87 MCH 29.9 MCHC 34.4 RDW 14.9 H Plt Count 278 Seg Neutrophils % Not Reportable Lymphocytes % Not Reportable Monocytes % Not Reportable Eosinophils % Not Reportable Basophils % Not Reportable Absolute Neutrophils Not Reportable Absolute Lymphocytes Not Reportable Absolute Monocytes Not Reportable Absolute Eosinophils Not Reportable Absolute Basophils Not Reportable Sodium Cancelled 129.7 L Potassium Cancelled 4.3 Chloride Cancelled 97 L Carbon Dioxide Cancelled 22 Anion Gap Cancelled 11 BUN Cancelled 11 Creatinine Cancelled 0.78 Est GFR ( Amer) Cancelled > 60 Est GFR (Non-Af Amer) Cancelled > 60 Glucose Cancelled 97 Calcium Cancelled 8.5 Total Bilirubin Cancelled 0.5 AST Cancelled 28 ALT Cancelled 20 L Alkaline Phosphatase Cancelled 67 Total Protein Cancelled 6.9 Albumin Cancelled 2.7 L 04/24/17 08:50 Sputum AFB Smear Concentration - Final 04/24/17 08:50 Sputum Acid Fast Bacilli Smear - Final Impressions: Head CT 04/17/17 13:01 IMPRESSION: MILD CHRONIC MICROVASCULAR ISCHEMIA. NO ACUTE IMAGING FINDINGS IN THE BRAIN. EVIDENCE OF ACUTE STROKE: NO. 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 AREAS OF MILD TO MODERATE SPINAL STENOSIS DESCRIBED. NO ACUTE FINDINGS. Chest CT 04/20/17 00:00 IMPRESSION: Thick walled irregular cavity in the right apex hemithorax with air -fluid level. Findings are worrisome for atypical infection, tuberculosis should be considered. Cavitary tumor could not be excluded Underlying diffuse obstructive lung disease with some superimposed pulmonary fibrosis at the bases Chest X-Ray 04/24/17 00:00 IMPRESSION: The previously described cavitary process in the right lung apex is again identified. A prominent air-fluid level is again identified. There is are some minimal associated airspace densities. Remaining lung monterroso are clear. Other findings as noted above Assessment & Plan - Diagnosis (1) Cavitary lesion of lung Is this a current diagnosis for this admission?: Yes Plan: No positive cultures thus far (2) History of myasthenia gravis Is this a current diagnosis for this admission?: Yes Plan: hx of thymoma (3) Hyponatremia Is this a current diagnosis for this admission?: Yes (4) Necrotizing pneumonia Is this a current diagnosis for this admission?: Yes (5) Pneumatocele of lung Is this a current diagnosis for this admission?: Yes (6) COPD (chronic obstructive pulmonary disease) Qualifiers: COPD type: unspecified COPD Qualified Code(s): J44.9 - Chronic obstructive pulmonary disease, unspecified Is this a current diagnosis for this admission?: Yes Plan: Stable at this time
[2017-04-26] MEDS: NORMAL SALINE 1000 ML 1,000 ML IV SCH (15:50)
[2017-04-26] MEDS: NORMAL SALINE 1000 ML 1,000 ML with POTASSIUM CHLORIDE 20 MEQ, MAGNESIUM SULFATE 8 MEQ,... IV SCH ×5 (18:28)
--- NOTE | 2017-04-26 20:16 | PDOC PROGRESS REPORT ---
Subjective Progress Note for:: 04/26/17 Subjective:: Patient was seen in his room by the bedside the nurses stated that the urine appearance was dark almost like the appearance of [employer] soda ,there was question of hematuria though it was not eliecer blood in the urine. Patient admitted because of probable necrotizing pneumonia in the setting of alcoholism and alcohol abuse associated with weakness of both lower extremities most likely related to alcohol myopathy ,because of concern for tuberculosis, presently in respiratory isolation 2 sets of sputum negative for AFB Reason For Visit: DEHYDRATION WITH HYPONATREMIA;ACUTE RENAL INJURY; Physical Exam Vital Signs: Temp Pulse Resp BP Pulse Ox 98.7 F 98 20 113/75 100 04/26/17 15:33 04/26/17 19:27 04/26/17 19:27 04/26/17 15:33 04/26/17 15:33 Intake & Output 04/25/17 04/26/17 04/27/17 06:59 06:59 06:59 Intake Total 4886 3835 1862 Balance 4886 3835 1862 Weight 76.4 kg General appearance: PRESENT: no acute distress Eye exam: PRESENT: PERRLA Respiratory exam: PRESENT: clear to auscultation antonio Cardiovascular exam: PRESENT: +S1, +S2 GI/Abdominal exam: PRESENT: soft Neurological exam: PRESENT: alert Results Laboratory Results: 04/26/17 07:00 04/26/17 08:37 04/26/17 04/26/17 04/26/17 07:00 07:00 08:37 WBC 4.6 RBC 3.99 L Hgb 11.9 L Hct 34.6 L MCV 87 MCH 29.9 MCHC 34.4 RDW 14.9 H Plt Count 278 Seg Neutrophils % Not Reportable Lymphocytes % Not Reportable Monocytes % Not Reportable Eosinophils % Not Reportable Basophils % Not Reportable Absolute Neutrophils Not Reportable Absolute Lymphocytes Not Reportable Absolute Monocytes Not Reportable Absolute Eosinophils Not Reportable Absolute Basophils Not Reportable Sodium Cancelled 129.7 L Potassium Cancelled 4.3 Chloride Cancelled 97 L Carbon Dioxide Cancelled 22 Anion Gap Cancelled 11 BUN Cancelled 11 Creatinine Cancelled 0.78 Est GFR ( Amer) Cancelled > 60 Est GFR (Non-Af Amer) Cancelled > 60 Glucose Cancelled 97 Calcium Cancelled 8.5 Total Bilirubin Cancelled 0.5 AST Cancelled 28 ALT Cancelled 20 L Alkaline Phosphatase Cancelled 67 Total Protein Cancelled 6.9 Albumin Cancelled 2.7 L Impressions: Head CT 04/17/17 13:01 IMPRESSION: MILD CHRONIC MICROVASCULAR ISCHEMIA. NO ACUTE IMAGING FINDINGS IN THE BRAIN. EVIDENCE OF ACUTE STROKE: NO. 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 AREAS OF MILD TO MODERATE SPINAL STENOSIS DESCRIBED. NO ACUTE FINDINGS. Chest CT 04/20/17 00:00 IMPRESSION: Thick walled irregular cavity in the right apex hemithorax with air -fluid level. Findings are worrisome for atypical infection, tuberculosis should be considered. Cavitary tumor could not be excluded Underlying diffuse obstructive lung disease with some superimposed pulmonary fibrosis at the bases Chest X-Ray 04/24/17 00:00 IMPRESSION: The previously described cavitary process in the right lung apex is again identified. A prominent air-fluid level is again identified. There is are some minimal associated airspace densities. Remaining lung monterroso are clear. Other findings as noted above Assessment & Plan - Diagnosis (1) Cavitary lesion of lung Is this a current diagnosis for this admission?: Yes (2) Dehydration with hyponatremia Is this a current diagnosis for this admission?: Yes (3) Acute kidney injury Is this a current diagnosis for this admission?: Yes (4) Pneumatocele of lung Is this a current diagnosis for this admission?: Yes (5) History of myasthenia gravis Is this a current diagnosis for this admission?: Yes (6) Necrotizing pneumonia Is this a current diagnosis for this admission?: Yes (7) Alcohol abuse Is this a current diagnosis for this admission?: Yes (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 (9) Alcoholic myopathy Is this a current diagnosis for this admission?: Yes
[2017-04-27] MEDS: LEVALBUTEROL HCL NEB 1.25 MG/3 ML AMPUL NEB SCH ×4 (02:07→19:07)
[2017-04-27] MEDS: IMIPENEM/CILASTATIN SODIUM 1,000 MG in NORMAL SALINE 250 ML IV SCH ×4 (03:11→20:32)
[2017-04-27] MEDS: LANSOPRAZOLE 30 MG TAB.RAP.DR PO SCH (05:49)
[2017-04-27] MEDS: CEFEPIME 1 GM/D5W RTU 1 GM/50 ML RTUPB IV SCH ×2 (05:49→18:21)
[2017-04-27 07:39] LABS: ABSOLUTE BASOPHILS # (AUTO) 0.1 10^3/uL (0.0-0.2); ABSOLUTE EOSINOPHILS # (AUTO) 0.2 10^3/uL (0.0-0.6); ABSOLUTE LYMPHOCYTES (AUTO) 0.6 10^3/uL (0.5-4.7); ABSOLUTE MONOCYTES (AUTO) 0.8 10^3/uL (0.1-1.4); ABSOLUTE NEUT (AUTO) 3.5 10^3/uL (1.7-8.2); BASOPHILS % (AUTO) 1.5 % (0-2); EOSINOPHILS % (AUTO) 2.9 % (0-6); HEMATOCRIT 33.8 % (37.9-51.0); HEMOGLOBIN 11.4 g/dL (13.5-17.0); LYMPHOCYTES % (AUTO) 11.5 % (13-45); MEAN CORPUSCULAR HEMOGLOBIN 29.2 pg (27.0-33.4); MEAN CORPUSCULAR HGB CONC 33.6 g/dL (32.0-36.0); MEAN CORPUSCULAR VOLUME 87 fl (80-97); MONOCYTES % (AUTO) 15.5 % (3-13); PLATELET COUNT 281 10^3/uL (150-450); RED BLOOD COUNT 3.89 10^6/uL (4.35-5.55); RED CELL DISTRIBUTION WIDTH 14.9 % (11.5-14.0); SEGMENTED NEUTROPHILS % (AUTO) 68.6 % (42-78); TOTAL CELLS COUNTED % (AUTO) 100 %; WHITE BLOOD COUNT 5.2 10^3/uL (4.0-10.5)
[2017-04-27 09:59] LABS: ALANINE AMINOTRANSFERASE 26 U/L (21-72); ALBUMIN 2.1 g/dL (3.5-5.0); ALKALINE PHOSPHATASE 57 U/L (38-126); ANION GAP 7 (5-19); ASPARTATE AMINO TRANSFERASE 22 U/L (17-59); BILIRUBIN,DIRECT 0.3 mg/dL (0.0-0.4); BILIRUBIN,TOTAL 0.4 mg/dL (0.2-1.3); BLOOD UREA NITROGEN 10 mg/dL (7-20); CARBON DIOXIDE 22 mmol/L (22-30); CHLORIDE 102 mmol/L (98-107); GLUCOSE 82 mg/dL (75-110); POTASSIUM 4.6 mmol/L (3.6-5.0); SODIUM 130.8 mmol/L (137-145); TOTAL PROTEIN 5.3 g/dL (6.3-8.2)
[2017-04-27] MEDS: BIMATOPROST 0.01% OPH SOLN 2.5 ML/BOTTLE OU SCH (11:47)
[2017-04-27] MEDS: MEGESTROL ACETATE 20 MG TABLET PO SCH (11:48)
[2017-04-27] MEDS: ENOXAPARIN SODIUM INJ 40 MG/0.4 ML DISP.SYRIN SUBCUT SCH (11:48)
[2017-04-27] MEDS: LEVOFLOXACIN 750 MG/D5W RTU 750 MG/150 ML RTUPB IV SCH (11:49)
--- NOTE | 2017-04-27 11:58 | PDOC PROGRESS REPORT ---
Subjective Progress Note for:: 04/27/17 Subjective:: Patient without complaints states my daughter Runs the show Reason For Visit: DEHYDRATION WITH HYPONATREMIA;ACUTE RENAL INJURY; Physical Exam Vital Signs: Temp Pulse Resp BP Pulse Ox 98.9 F 73 20 113/70 97 04/27/17 08:00 04/27/17 08:00 04/27/17 08:00 04/27/17 08:00 04/27/17 08:00 Intake & Output 04/26/17 04/27/17 04/28/17 06:59 06:59 06:59 Intake Total 3835 3049 Balance 3835 3049 Weight 76.4 kg General appearance: PRESENT: no acute distress, cooperative, disheveled, thin, well-developed. ABSENT: mild distress, morbidly obese, obese, severe distress Head exam: PRESENT: atraumatic, normocephalic Eye exam: PRESENT: conjunctiva pale, EOMI. ABSENT: conjunctival injection, conjunctiva pink, nystagmus, periorbital swelling, scleral icterus Mouth exam: PRESENT: moist, neck supple, tongue midline. ABSENT: dry mucosa, laceration Teeth exam: PRESENT: poor dentation Neck exam: ABSENT: carotid bruit, JVD, lymphadenopathy, thyromegaly, tracheal deviation, tracheostomy Respiratory exam: PRESENT: decreased breath sounds, prolonged expiratory phas, rales - Right base, rhonchi, unlabored, wheezes. ABSENT: accessory muscle use, chest wall tenderness, clear to auscultation antonio, crackles, retraction, stridor , tachypnea Cardiovascular exam: PRESENT: RRR, +S1, +S2. ABSENT: rubs Pulses: PRESENT: normal radial pulses GI/Abdominal exam: PRESENT: normal bowel sounds, soft. ABSENT: distended, guarding, mass, organolmegaly, rebound, tenderness Extremities exam: ABSENT: clubbing, joint swelling Neurological exam: PRESENT: alert, awake Psychiatric exam: PRESENT: normal mood Skin exam: PRESENT: dry, warm Results Laboratory Results: 04/27/17 07:24 04/27/17 09:20 04/27/17 04/27/17 04/27/17 07:24 07:24 09:20 WBC 5.2 RBC 3.89 L Hgb 11.4 L Hct 33.8 L MCV 87 MCH 29.2 MCHC 33.6 RDW 14.9 H Plt Count 281 Seg Neutrophils % 68.6 Lymphocytes % 11.5 L Monocytes % 15.5 H Eosinophils % 2.9 Basophils % 1.5 Absolute Neutrophils 3.5 Absolute Lymphocytes 0.6 Absolute Monocytes 0.8 Absolute Eosinophils 0.2 Absolute Basophils 0.1 Sodium Cancelled 130.8 L Potassium Cancelled 4.6 Chloride Cancelled 102 Carbon Dioxide Cancelled 22 Anion Gap Cancelled 7 BUN Cancelled 10 Creatinine Cancelled 0.68 Est GFR ( Amer) Cancelled > 60 Est GFR (Non-Af Amer) Cancelled > 60 Glucose Cancelled 82 Calcium Cancelled 8.0 L Total Bilirubin Cancelled 0.4 AST Cancelled 22 ALT Cancelled 26 Alkaline Phosphatase Cancelled 57 Total Protein Cancelled 5.3 L Albumin Cancelled 2.1 L 04/25/17 08:30 Sputum AFB Smear Concentration - Final 04/25/17 08:30 Sputum Acid Fast Bacilli Smear - Final Impressions: Head CT 04/17/17 13:01 IMPRESSION: MILD CHRONIC MICROVASCULAR ISCHEMIA. NO ACUTE IMAGING FINDINGS IN THE BRAIN. EVIDENCE OF ACUTE STROKE: NO. 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 AREAS OF MILD TO MODERATE SPINAL STENOSIS DESCRIBED. NO ACUTE FINDINGS. Chest CT 04/20/17 00:00 IMPRESSION: Thick walled irregular cavity in the right apex hemithorax with air -fluid level. Findings are worrisome for atypical infection, tuberculosis should be considered. Cavitary tumor could not be excluded Underlying diffuse obstructive lung disease with some superimposed pulmonary fibrosis at the bases Chest X-Ray 04/24/17 00:00 IMPRESSION: The previously described cavitary process in the right lung apex is again identified. A prominent air-fluid level is again identified. There is are some minimal associated airspace densities. Remaining lung monterroso are clear. Other findings as noted above Assessment & Plan - Diagnosis (1) Cavitary lesion of lung Is this a current diagnosis for this admission?: Yes Plan: CXR 04/24/17 decreased pneumonia persistent cavitary lesion with air-fluid level ;Proceed with follow-up CT scan of the chest (2) History of myasthenia gravis Is this a current diagnosis for this admission?: Yes Plan: hx of thymoma, Acetylcholinesterase antibody pending (3) Hyponatremia Is this a current diagnosis for this admission?: Yes Plan: Minimally improved (4) Necrotizing pneumonia Is this a current diagnosis for this admission?: Yes Plan: ;Continue current antibiotic no leukocytosis no left shift (5) Pneumatocele of lung Is this a current diagnosis for this admission?: Yes Plan: afb lung malignancy pna (6) COPD (chronic obstructive pulmonary disease) Qualifiers: COPD type: unspecified COPD Qualified Code(s): J44.9 - Chronic obstructive pulmonary disease, unspecified Is this a current diagnosis for this admission?: Yes Plan: No acute respiratory distress continue current bronchodilators
[2017-04-27] MEDS ORDERED: FUROSEMIDE INJ/PF 40 MG/4 ML SDV IV ONE (17:45)
[2017-04-27] MEDS: NORMAL SALINE 1000 ML 1,000 ML with POTASSIUM CHLORIDE 20 MEQ, MAGNESIUM SULFATE 8 MEQ,... IV SCH ×5 (17:46)
--- NOTE | 2017-04-27 18:04 | PDOC PROGRESS REPORT ---
Subjective Progress Note for:: 04/27/17 Subjective:: Patient was seen by the bedside, patient stated that he has no new complaints and that he is improving. He was admitted for the management of cavitary lesion of the left lung apex, 3 sets of sputum was negative for AFB today, he has been in respiratory isolation for the last couple of days to rule out tuberculosis. Patient is being followed by pulmonary as well, he has history of chronic alcohol abuse and the lesion is most likely from necrotizing pneumonia, he is on 3 antibiotic to cover for anaerobes and other potential pathogens. Patient's daughter has been very disruptive requesting for transfer to another hospital, I do not see any indication for transfer at this time to another hospital he probably may need bronchoscopy but he just rule out for TB and pulmonary is following. Reason For Visit: DEHYDRATION WITH HYPONATREMIA;ACUTE RENAL INJURY; Physical Exam Vital Signs: Temp Pulse Resp BP Pulse Ox 97.7 F 120 H 20 106/61 96 04/27/17 15:08 04/27/17 14:00 04/27/17 15:08 04/27/17 15:08 04/27/17 13:28 Intake & Output 04/26/17 04/27/17 04/28/17 06:59 06:59 06:59 Intake Total 3835 3049 200 Balance 3835 3049 200 Weight 76.4 kg General appearance: PRESENT: no acute distress Head exam: PRESENT: atraumatic, normocephalic Eye exam: PRESENT: PERRLA Neck exam: PRESENT: full ROM Respiratory exam: PRESENT: rhonchi Cardiovascular exam: PRESENT: RRR, +S1, +S2 Vascular exam: PRESENT: normal capillary refill GI/Abdominal exam: PRESENT: normal bowel sounds, soft Rectal exam: PRESENT: deferred Neurological exam: PRESENT: alert, awake, oriented to person, oriented to place , oriented to time, oriented to situation, CN II-XII grossly intact Psychiatric exam: PRESENT: appropriate affect, normal mood Skin exam: PRESENT: dry, intact, warm Results Laboratory Results: 04/27/17 07:24 04/27/17 09:20 04/27/17 04/27/17 04/27/17 07:24 07:24 09:20 WBC 5.2 RBC 3.89 L Hgb 11.4 L Hct 33.8 L MCV 87 MCH 29.2 MCHC 33.6 RDW 14.9 H Plt Count 281 Seg Neutrophils % 68.6 Lymphocytes % 11.5 L Monocytes % 15.5 H Eosinophils % 2.9 Basophils % 1.5 Absolute Neutrophils 3.5 Absolute Lymphocytes 0.6 Absolute Monocytes 0.8 Absolute Eosinophils 0.2 Absolute Basophils 0.1 Sodium Cancelled 130.8 L Potassium Cancelled 4.6 Chloride Cancelled 102 Carbon Dioxide Cancelled 22 Anion Gap Cancelled 7 BUN Cancelled 10 Creatinine Cancelled 0.68 Est GFR ( Amer) Cancelled > 60 Est GFR (Non-Af Amer) Cancelled > 60 Glucose Cancelled 82 Calcium Cancelled 8.0 L Total Bilirubin Cancelled 0.4 AST Cancelled 22 ALT Cancelled 26 Alkaline Phosphatase Cancelled 57 Total Protein Cancelled 5.3 L Albumin Cancelled 2.1 L 04/25/17 08:30 Sputum AFB Smear Concentration - Final 04/25/17 08:30 Sputum Acid Fast Bacilli Smear - Final Impressions: Head CT 04/17/17 13:01 IMPRESSION: MILD CHRONIC MICROVASCULAR ISCHEMIA. NO ACUTE IMAGING FINDINGS IN THE BRAIN. EVIDENCE OF ACUTE STROKE: NO. 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 AREAS OF MILD TO MODERATE SPINAL STENOSIS DESCRIBED. NO ACUTE FINDINGS. Chest CT 04/20/17 00:00 IMPRESSION: Thick walled irregular cavity in the right apex hemithorax with air -fluid level. Findings are worrisome for atypical infection, tuberculosis should be considered. Cavitary tumor could not be excluded Underlying diffuse obstructive lung disease with some superimposed pulmonary fibrosis at the bases Chest X-Ray 04/24/17 00:00 IMPRESSION: The previously described cavitary process in the right lung apex is again identified. A prominent air-fluid level is again identified. There is are some minimal associated airspace densities. Remaining lung monterroso are clear. Other findings as noted above Assessment & Plan - Diagnosis (1) Cavitary lesion of lung Is this a current diagnosis for this admission?: Yes (2) Dehydration with hyponatremia Is this a current diagnosis for this admission?: Yes (3) Acute kidney injury Is this a current diagnosis for this admission?: Yes (4) Pneumatocele of lung Is this a current diagnosis for this admission?: Yes (5) History of myasthenia gravis Is this a current diagnosis for this admission?: Yes (6) Necrotizing pneumonia Is this a current diagnosis for this admission?: Yes (7) Alcohol abuse Is this a current diagnosis for this admission?: Yes (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 (9) Alcoholic myopathy Is this a current diagnosis for this admission?: Yes - Plan Summary Plan Summary: He will continue IV antibiotic, DC IV fluid, patient refused physical therapy, that is what he needed the most because he has alcohol-related myopathy
[2017-04-28] MEDS: LEVALBUTEROL HCL NEB 1.25 MG/3 ML AMPUL NEB SCH ×4 (02:21→19:31)
[2017-04-28] MEDS: IMIPENEM/CILASTATIN SODIUM 1,000 MG in NORMAL SALINE 250 ML IV SCH ×4 (02:48→20:47)
[2017-04-28] MEDS: LANSOPRAZOLE 30 MG TAB.RAP.DR PO SCH (05:53)
[2017-04-28] MEDS ORDERED: CEFEPIME 1 GM/D5W RTU 1 GM/50 ML RTUPB IV ONE (06:07)
[2017-04-28] MEDS: CEFEPIME 1 GM/D5W RTU 1 GM/50 ML RTUPB IV SCH ×2 (06:33→17:45)
[2017-04-28 08:43] LABS: ABSOLUTE BASOPHILS # (AUTO) 0.1 10^3/uL (0.0-0.2); ABSOLUTE EOSINOPHILS # (AUTO) 0.2 10^3/uL (0.0-0.6); ABSOLUTE LYMPHOCYTES (AUTO) 0.6 10^3/uL (0.5-4.7); ABSOLUTE MONOCYTES (AUTO) 0.7 10^3/uL (0.1-1.4); ABSOLUTE NEUT (AUTO) 3.5 10^3/uL (1.7-8.2); BASOPHILS % (AUTO) 1.4 % (0-2); EOSINOPHILS % (AUTO) 3.5 % (0-6); HEMATOCRIT 34.8 % (37.9-51.0); HEMOGLOBIN 11.9 g/dL (13.5-17.0); LYMPHOCYTES % (AUTO) 11.2 % (13-45); MEAN CORPUSCULAR HEMOGLOBIN 29.1 pg (27.0-33.4); MEAN CORPUSCULAR HGB CONC 34.1 g/dL (32.0-36.0); MEAN CORPUSCULAR VOLUME 85 fl (80-97); MONOCYTES % (AUTO) 14.1 % (3-13); PLATELET COUNT 292 10^3/uL (150-450); RED BLOOD COUNT 4.08 10^6/uL (4.35-5.55); RED CELL DISTRIBUTION WIDTH 14.9 % (11.5-14.0); SEGMENTED NEUTROPHILS % (AUTO) 69.8 % (42-78); TOTAL CELLS COUNTED % (AUTO) 100 %; WHITE BLOOD COUNT 4.9 10^3/uL (4.0-10.5)
[2017-04-28 08:55] LABS: ALANINE AMINOTRANSFERASE 16 U/L (21-72); ALBUMIN 2.7 g/dL (3.5-5.0); ALKALINE PHOSPHATASE 65 U/L (38-126); ANION GAP 7 (5-19); ASPARTATE AMINO TRANSFERASE 30 U/L (17-59); BILIRUBIN,DIRECT 0.3 mg/dL (0.0-0.4); BILIRUBIN,TOTAL 0.5 mg/dL (0.2-1.3); BLOOD UREA NITROGEN 12 mg/dL (7-20); CALCIUM 8.7 mg/dL (8.4-10.2); CARBON DIOXIDE 26 mmol/L (22-30); CHLORIDE 96 mmol/L (98-107); GLUCOSE 97 mg/dL (75-110); SODIUM 129.2 mmol/L (137-145)
[2017-04-28] MEDS: MEGESTROL ACETATE 20 MG TABLET PO SCH (10:34)
[2017-04-28] MEDS: BIMATOPROST 0.01% OPH SOLN 2.5 ML/BOTTLE OU SCH (10:34)
[2017-04-28] MEDS: LEVOFLOXACIN 750 MG/D5W RTU 750 MG/150 ML RTUPB IV SCH (10:36)
[2017-04-28] MEDS: ENOXAPARIN SODIUM INJ 40 MG/0.4 ML DISP.SYRIN SUBCUT SCH (10:41)
--- NOTE | 2017-04-28 16:14 | RADIOLOGY REPORT (SQ) ---
EXAM DESCRIPTION: CT CHEST WITHOUT COMPLETED DATE/TIME: 04/28/2017 3:39 pm REASON FOR STUDY: rul cavitation COMPARISON: Chest radiograph 04/26/2017 TECHNIQUE: CT scan performed of the chest without intravenous contrast. Images reviewed with lung, soft tissue and bone windows. Reconstructed coronal and sagittal MPR images reviewed. All images st ored on PACS. All CT scanners at this facility use dose modulation, iterative reconstruction, and/or weight based d osing when appropriate to reduce radiation dose to as low as reasonably achievable (ALARA). [facility]: Dose Right [facility]: CareDose [facility]: Dose Right [facility]: Teradose 4D [facility]: Smart [employer] RADIATION DOSE: CT Rad equipment meets quality standard of care and radiation dose reduction techniq ues were employed. CTDIvol: 13.0 mGy. DLP: 527 mGy-cm. mGy. LIMITATIONS: No technical limitations. FINDINGS: LUNGS AND PLEURA: Air-fluid level a large right upper lobe bullae. Generalized mosaic js earing in the lungs with extensive bullous change and inflammation. Small effusions. HILAR AND MEDIASTINAL STRUCTURES: Nonspecific poorly defined hilar nodes. Likely inflammatory. HEART AND VASCULAR STRUCTURES: Small pericardial effusion. No aneurysm. UPPER ABDOMEN: No significant findings. Limited exam. THYROID AND OTHER SOFT TISSUES: No masses. No adenopathy. BONES: Sternal wires. HARDWARE: None in the chest. OTHER: No other significant findings. IMPRESSION: Diffuse bullous change with superimposed fluid likely interstitial edema or pneumonia. Clearly progressed from previous. Bilateral pleural effusions. Persistent air-fluid level and a large bullae in the right upper lobe. Infection in the differential . Unchanged. TECHNICAL DOCUMENTATION: JOB ID: [id number] Quality ID # [id number]: Final reports with documentation of one or more dose reduction techniques (e.g., Au tomated exposure control, adjustment of the mA and/or kV according to patient size, use of iterative reconstruction technique) 2010 [employer]- All Rights Reserved
--- NOTE | 2017-04-28 17:01 | PDOC PROGRESS REPORT ---
Subjective Progress Note for:: 04/28/17 Subjective:: Patient denied any chest pain or difficulty with breathing. Patient denied any nausea or vomiting. Poor appetite and resultant decrease oral intake. Interval events and input appreciated. I had extensive discussion with patient and daughters at bedside. presently agreeable to continue his care at this facility. I will follow up with pulmonary framing consultant regarding possible further evaluation with bronchoscopy. Reason For Visit: DEHYDRATION WITH HYPONATREMIA;ACUTE RENAL INJURY; Physical Exam Vital Signs: Temp Pulse Resp BP Pulse Ox 97.7 F 117 H 18 106/60 96 04/28/17 11:48 04/28/17 14:00 04/28/17 13:46 04/28/17 11:48 04/28/17 13:46 Intake & Output 04/27/17 04/28/17 04/29/17 06:59 06:59 06:59 Intake Total 3049 2610 Balance 3049 2610 Weight 78.5 kg General appearance: PRESENT: no acute distress, well-developed, well-nourished Head exam: PRESENT: atraumatic, normocephalic Eye exam: PRESENT: conjunctiva pink, EOMI, PERRLA. ABSENT: scleral icterus Mouth exam: PRESENT: moist Teeth exam: PRESENT: poor dentation Respiratory exam: PRESENT: clear to auscultation antonio, decreased breath sounds - at lung bases. Cardiovascular exam: PRESENT: RRR. ABSENT: diastolic murmur, rubs, systolic murmur GI/Abdominal exam: PRESENT: normal bowel sounds, soft. ABSENT: distended, guarding, mass, organolmegaly, rebound, tenderness Extremities exam: ABSENT: pedal edema Musculoskeletal exam: PRESENT: normal inspection Neurological exam: PRESENT: alert, awake, oriented to person, oriented to place , oriented to time, oriented to situation, CN II-XII grossly intact. ABSENT: motor sensory deficit Psychiatric exam: PRESENT: appropriate affect, normal mood. ABSENT: homicidal ideation, suicidal ideation Skin exam: PRESENT: dry, intact, warm. ABSENT: cyanosis, rash Results Laboratory Results: 04/28/17 07:11 04/28/17 07:11 04/28/17 04/28/17 07:11 07:11 WBC 4.9 RBC 4.08 L Hgb 11.9 L Hct 34.8 L MCV 85 MCH 29.1 MCHC 34.1 RDW 14.9 H Plt Count 292 Seg Neutrophils % 69.8 Lymphocytes % 11.2 L Monocytes % 14.1 H Eosinophils % 3.5 Basophils % 1.4 Absolute Neutrophils 3.5 Absolute Lymphocytes 0.6 Absolute Monocytes 0.7 Absolute Eosinophils 0.2 Absolute Basophils 0.1 Sodium 129.2 L Potassium 4.0 Chloride 96 L Carbon Dioxide 26 Anion Gap 7 BUN 12 Creatinine 0.76 Est GFR ( Amer) > 60 Est GFR (Non-Af Amer) > 60 Glucose 97 Calcium 8.7 Total Bilirubin 0.5 AST 30 ALT 16 L Alkaline Phosphatase 65 Total Protein 7.0 Albumin 2.7 L Impressions: Head CT 04/17/17 13:01 IMPRESSION: MILD CHRONIC MICROVASCULAR ISCHEMIA. NO ACUTE IMAGING FINDINGS IN THE BRAIN. EVIDENCE OF ACUTE STROKE: NO. 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 AREAS OF MILD TO MODERATE SPINAL STENOSIS DESCRIBED. NO ACUTE FINDINGS. Chest X-Ray 04/24/17 00:00 IMPRESSION: The previously described cavitary process in the right lung apex is again identified. A prominent air-fluid level is again identified. There is are some minimal associated airspace densities. Remaining lung monterroso are clear. Other findings as noted above Chest CT 04/27/17 00:00 IMPRESSION: Diffuse bullous change with superimposed fluid likely interstitial edema or pneumonia. Clearly progressed from previous. Bilateral pleural effusions. Persistent air-fluid level and a large bullae in the right upper lobe. Infection in the differential. Unchanged. Assessment & Plan - Diagnosis (1) Dehydration with hyponatremia Is this a current diagnosis for this admission?: Yes Plan: Improving hyponatremia but resolved dehydration. His persistent hyponatremia may be due to his pulmonary pathologic process. (2) Abnormality of lung on CXR Is this a current diagnosis for this admission?: Yes Plan: CT scan of chest with interval repeat evaluation is concerning for cavitary tumor versus infectious process. The absence of fever and laukocytosis negate the latter differential diagnosis. Patient will benefit from further evaluation with bronchoscopy. Continue IV antibiotic coverage pending bronchoscopy findings. I will discuss further treatment plan with pulmonary framing consultant. (3) Pneumatocele of lung Is this a current diagnosis for this admission?: Yes (4) Pneumothorax on right Is this a current diagnosis for this admission?: Yes (5) Acute kidney injury Is this a current diagnosis for this admission?: Yes Plan: Resolved at the present time. (6) COPD (chronic obstructive pulmonary disease) Qualifiers: COPD type: unspecified COPD Qualified Code(s): J44.9 - Chronic obstructive pulmonary disease, unspecified Is this a current diagnosis for this admission?: Yes (7) HLD (hyperlipidemia) Qualifiers: Hyperlipidemia type: pure hypercholesterolemia Qualified Code(s): E78.00 - Pure hypercholesterolemia, unspecified Is this a current diagnosis for this admission?: Yes (8) HTN (hypertension) Qualifiers: Hypertension type: essential hypertension Qualified Code(s): I10 - Essential (primary) hypertension Is this a current diagnosis for this admission?: Yes - Time Time Spent with patient: 35 or more minutes - More than 50% of time was spent in care coordination with patient at family at bedside. Medications reviewed and adjusted accordingly: Yes Anticipated discharge: SNF - for short term rehabilitation upon discharge Within: Other - Inpatient Certification Based on my medical assessment, after consideration of the patient's comorbidities, presenting symptoms, or acuity I expect that the services needed warrant INPATIENT care.: Yes I certify that my determination is in accordance with my understanding of Medicare's requirements for reasonable and necessary INPATIENT services [42 CFR 412.3e].: Yes Medical Necessity: Need Close Monitoring Due to Risk of Patient Decompensation, Need For IV Fluids, Need For Continuous Telemetry Monitoring, Need for IV Antibiotics, Risk of Complication if Not Cared For in Hospital Post Hospital Care: D/C or Transfer Summary - Plan Summary Plan Summary: Continue current IV antibiotic coverage. Follow up with pulmonary framing consultant regarding schedule for bronchoscopy. Request for physical therapy service.
[2017-04-28] MEDS: NORMAL SALINE 1000 ML 1,000 ML with POTASSIUM CHLORIDE 20 MEQ, MAGNESIUM SULFATE 8 MEQ,... IV SCH ×5 (18:31)
[2017-04-29] MEDS: LEVALBUTEROL HCL NEB 1.25 MG/3 ML AMPUL NEB SCH ×4 (01:22→19:29)
[2017-04-29] MEDS ORDERED: IMIPENEM/CILASTATIN SODIUM INJ 500 MG VIAL IV ONE (02:55)
[2017-04-29] MEDS: IMIPENEM/CILASTATIN SODIUM 1,000 MG in NORMAL SALINE 250 ML IV SCH ×3 (03:15→21:01)
[2017-04-29] MEDS: LANSOPRAZOLE 30 MG TAB.RAP.DR PO SCH (05:03)
[2017-04-29] MEDS: CEFEPIME 1 GM/D5W RTU 1 GM/50 ML RTUPB IV SCH ×2 (05:03→17:42)
[2017-04-29 08:09] LABS: ABSOLUTE BASOPHILS # (AUTO) 0.1 10^3/uL (0.0-0.2); ABSOLUTE EOSINOPHILS # (AUTO) 0.2 10^3/uL (0.0-0.6); ABSOLUTE LYMPHOCYTES (AUTO) 0.6 10^3/uL (0.5-4.7); ABSOLUTE MONOCYTES (AUTO) 0.6 10^3/uL (0.1-1.4); ABSOLUTE NEUT (AUTO) 3.9 10^3/uL (1.7-8.2); BASOPHILS % (AUTO) 1.1 % (0-2); EOSINOPHILS % (AUTO) 3.9 % (0-6); HEMATOCRIT 28.8 % (37.9-51.0); HEMOGLOBIN 9.9 g/dL (13.5-17.0); LYMPHOCYTES % (AUTO) 10.9 % (13-45); MEAN CORPUSCULAR HEMOGLOBIN 29.6 pg (27.0-33.4); MEAN CORPUSCULAR HGB CONC 34.3 g/dL (32.0-36.0); MEAN CORPUSCULAR VOLUME 86 fl (80-97); MONOCYTES % (AUTO) 11.5 % (3-13); PLATELET COUNT 355 10^3/uL (150-450); RED BLOOD COUNT 3.33 10^6/uL (4.35-5.55); RED CELL DISTRIBUTION WIDTH 14.8 % (11.5-14.0); SEGMENTED NEUTROPHILS % (AUTO) 72.6 % (42-78); TOTAL CELLS COUNTED % (AUTO) 100 %; WHITE BLOOD COUNT 5.4 10^3/uL (4.0-10.5)
[2017-04-29 08:42] LABS: ALANINE AMINOTRANSFERASE 20 U/L (21-72); ALBUMIN 2.4 g/dL (3.5-5.0); ALKALINE PHOSPHATASE 59 U/L (38-126); ANION GAP 11 (5-19); ASPARTATE AMINO TRANSFERASE 25 U/L (17-59); BILIRUBIN,DIRECT 0.3 mg/dL (0.0-0.4); BILIRUBIN,TOTAL 0.5 mg/dL (0.2-1.3); BLOOD UREA NITROGEN 13 mg/dL (7-20); CALCIUM 8.7 mg/dL (8.4-10.2); CARBON DIOXIDE 20 mmol/L (22-30); CHLORIDE 101 mmol/L (98-107); GLUCOSE 83 mg/dL (75-110); SODIUM 131.5 mmol/L (137-145); TOTAL PROTEIN 6.2 g/dL (6.3-8.2)
[2017-04-29] MEDS: MEGESTROL ACETATE 20 MG TABLET PO SCH (09:14)
[2017-04-29] MEDS: BIMATOPROST 0.01% OPH SOLN 2.5 ML/BOTTLE OU SCH (09:15)
[2017-04-29] MEDS: LEVOFLOXACIN 750 MG/D5W RTU 750 MG/150 ML RTUPB IV SCH (09:15)
[2017-04-29] MEDS: ENOXAPARIN SODIUM INJ 40 MG/0.4 ML DISP.SYRIN SUBCUT SCH (09:16)
[2017-04-29] MEDS ORDERED: IMIPENEM/CILASTATIN SODIUM 1,000 MG in NORMAL SALINE 250 ML IV ONE (10:00)
--- NOTE | 2017-04-29 14:40 | PDOC PROGRESS REPORT ---
Subjective Progress Note for:: 04/29/17 Subjective:: Patient denied any chest pain. There is intermittent wheezing. Patient denied any abdominal pain, nausea or vomiting. There is persistent challenge with poor appetite and oral intake. Reason For Visit: DEHYDRATION WITH HYPONATREMIA;ACUTE RENAL INJURY; Physical Exam Vital Signs: Temp Pulse Resp BP Pulse Ox 98.5 F 73 24 H 91/55 L 86 L 04/29/17 12:13 04/29/17 12:13 04/29/17 12:13 04/29/17 12:13 04/29/17 12:13 Intake & Output 04/28/17 04/29/17 04/30/17 06:59 06:59 06:59 Intake Total 2610 2715 237 Balance 2610 2715 237 Weight 78.5 kg 79.7 kg Physical Exam: General appearance: PRESENT: no acute distress, well-developed, well-nourished Head exam: PRESENT: atraumatic, normocephalic Eye exam: PRESENT: conjunctiva pink, EOMI, PERRLA. ABSENT: scleral icterus Mouth exam: PRESENT: moist Teeth exam: PRESENT: poor dentition Respiratory exam: PRESENT: decreased breath sounds - at lung bases, moderate expiratory rhonchi Cardiovascular exam: PRESENT: RRR. ABSENT: diastolic murmur, rubs, systolic murmur GI/Abdominal exam: PRESENT: normal bowel sounds, soft. ABSENT: distended, guarding, mass, organomegaly, rebound, tenderness Extremities exam: ABSENT: pedal edema Musculoskeletal exam: PRESENT: normal inspection Neurological exam: PRESENT: alert, awake, oriented to person, oriented to place , oriented to time, oriented to situation, CN II-XII grossly intact. ABSENT: motor sensory deficit Psychiatric exam: PRESENT: appropriate affect, normal mood. ABSENT: homicidal ideation, suicidal ideation Skin exam: PRESENT: dry, intact, warm. ABSENT: cyanosis, rash Results Laboratory Results: 04/29/17 07:48 04/29/17 07:48 04/29/17 04/29/17 07:48 07:48 WBC 5.4 RBC 3.33 L Hgb 9.9 L Hct 28.8 L MCV 86 MCH 29.6 MCHC 34.3 RDW 14.8 H Plt Count 355 Seg Neutrophils % 72.6 Lymphocytes % 10.9 L Monocytes % 11.5 Eosinophils % 3.9 Basophils % 1.1 Absolute Neutrophils 3.9 Absolute Lymphocytes 0.6 Absolute Monocytes 0.6 Absolute Eosinophils 0.2 Absolute Basophils 0.1 Sodium 131.5 L Potassium 4.0 Chloride 101 Carbon Dioxide 20 L Anion Gap 11 BUN 13 Creatinine 0.77 Est GFR ( Amer) > 60 Est GFR (Non-Af Amer) > 60 Glucose 83 Calcium 8.7 Total Bilirubin 0.5 AST 25 ALT 20 L Alkaline Phosphatase 59 Total Protein 6.2 L Albumin 2.4 L 04/26/17 19:15 Sputum AFB Smear Concentration - Final 04/26/17 19:15 Sputum Acid Fast Bacilli Smear - Final Impressions: Head CT 04/17/17 13:01 IMPRESSION: MILD CHRONIC MICROVASCULAR ISCHEMIA. NO ACUTE IMAGING FINDINGS IN THE BRAIN. EVIDENCE OF ACUTE STROKE: NO. 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 AREAS OF MILD TO MODERATE SPINAL STENOSIS DESCRIBED. NO ACUTE FINDINGS. Chest X-Ray 04/24/17 00:00 IMPRESSION: The previously described cavitary process in the right lung apex is again identified. A prominent air-fluid level is again identified. There is are some minimal associated airspace densities. Remaining lung monterroso are clear. Other findings as noted above Chest CT 04/27/17 00:00 IMPRESSION: Diffuse bullous change with superimposed fluid likely interstitial edema or pneumonia. Clearly progressed from previous. Bilateral pleural effusions. Persistent air-fluid level and a large bullae in the right upper lobe. Infection in the differential. Unchanged. Assessment & Plan - Diagnosis (1) Dehydration with hyponatremia Is this a current diagnosis for this admission?: Yes (2) Abnormality of lung on CXR Is this a current diagnosis for this admission?: Yes (3) Pneumatocele of lung Is this a current diagnosis for this admission?: Yes (4) Pneumothorax on right Is this a current diagnosis for this admission?: Yes (5) Acute kidney injury Is this a current diagnosis for this admission?: Yes (6) COPD (chronic obstructive pulmonary disease) Qualifiers: COPD type: unspecified COPD Qualified Code(s): J44.9 - Chronic obstructive pulmonary disease, unspecified Is this a current diagnosis for this admission?: Yes (7) HLD (hyperlipidemia) Qualifiers: Hyperlipidemia type: pure hypercholesterolemia Qualified Code(s): E78.00 - Pure hypercholesterolemia, unspecified Is this a current diagnosis for this admission?: Yes (8) HTN (hypertension) Qualifiers: Hypertension type: essential hypertension Qualified Code(s): I10 - Essential (primary) hypertension Is this a current diagnosis for this admission?: Yes - Time Time Spent with patient: 25-34 minutes Medications reviewed and adjusted accordingly: Yes Anticipated discharge: SNF - for short term rehabilitation - Inpatient Certification Based on my medical assessment, after consideration of the patient's comorbidities, presenting symptoms, or acuity I expect that the services needed warrant INPATIENT care.: Yes I certify that my determination is in accordance with my understanding of Medicare's requirements for reasonable and necessary INPATIENT services [42 CFR 412.3e].: Yes Medical Necessity: Need Close Monitoring Due to Risk of Patient Decompensation, Need For IV Fluids, Need For Continuous Telemetry Monitoring, Need for Nebulizer Therapy and Monitoring of Response, Need for IV Antibiotics, Risk of Complication if Not Cared For in Hospital Post Hospital Care: D/C or Transfer Summary - Plan Summary Plan Summary: Decrease IV fluid rate. Start on DueNeb 1 unit [id number] prn for wheezing. Continue IV antibiotic therapy
[2017-04-29 17:05] LABS: ARTERIAL BLOOD BASE EXCESS -0.7 mmol/L; ARTERIAL BLOOD FIO2 6L; ARTERIAL BLOOD H2CO3 0.88 mmol/L (1.05-1.35); ARTERIAL BLOOD HCO3 21.8 mmol/L (20-26); ARTERIAL BLOOD O2 SATURATION 86.7 % (94-98); ARTERIAL BLOOD PCO2 29.2 mmHg (35-45); ARTERIAL BLOOD PH 7.49 (7.35-7.45); ARTERIAL BLOOD PO2 46.8 mmHg (80-100); ARTERIAL BLOOD TOTAL CO2 22.6 mmol/L (23-27)
[2017-04-29] MEDS: NORMAL SALINE 1000 ML 1,000 ML with POTASSIUM CHLORIDE 20 MEQ, MAGNESIUM SULFATE 8 MEQ,... IV SCH ×5 (17:43)
[2017-04-30] MEDS: LEVALBUTEROL HCL NEB 1.25 MG/3 ML AMPUL NEB SCH ×4 (01:28→20:34)
[2017-04-30] MEDS: IMIPENEM/CILASTATIN SODIUM 1,000 MG in NORMAL SALINE 250 ML IV SCH ×4 (02:40→20:55)
[2017-04-30] MEDS: OXYCODONE-ACETAMINOPHEN 5-325 MG TABLET PO PRN ×3 (04:09→20:56)
[2017-04-30] MEDS: CEFEPIME 1 GM/D5W RTU 1 GM/50 ML RTUPB IV SCH ×2 (05:33→17:22)
[2017-04-30] MEDS: LANSOPRAZOLE 30 MG TAB.RAP.DR PO SCH (05:36)
[2017-04-30 07:55] LABS: ABSOLUTE BASOPHILS # (AUTO) 0.1 10^3/uL (0.0-0.2); ABSOLUTE EOSINOPHILS # (AUTO) 0.1 10^3/uL (0.0-0.6); ABSOLUTE LYMPHOCYTES (AUTO) 0.5 10^3/uL (0.5-4.7); ABSOLUTE MONOCYTES (AUTO) 0.5 10^3/uL (0.1-1.4); ABSOLUTE NEUT (AUTO) 3.5 10^3/uL (1.7-8.2); BASOPHILS % (AUTO) 1.1 % (0-2); HEMATOCRIT 25.4 % (37.9-51.0); HEMOGLOBIN 8.8 g/dL (13.5-17.0); LYMPHOCYTES % (AUTO) 11.1 % (13-45); MEAN CORPUSCULAR HEMOGLOBIN 29.7 pg (27.0-33.4); MEAN CORPUSCULAR HGB CONC 34.5 g/dL (32.0-36.0); MEAN CORPUSCULAR VOLUME 86 fl (80-97); MONOCYTES % (AUTO) 11.1 % (3-13); PLATELET COUNT 391 10^3/uL (150-450); RED BLOOD COUNT 2.96 10^6/uL (4.35-5.55); RED CELL DISTRIBUTION WIDTH 15.2 % (11.5-14.0); SEGMENTED NEUTROPHILS % (AUTO) 73.7 % (42-78); TOTAL CELLS COUNTED % (AUTO) 100 %; WHITE BLOOD COUNT 4.7 10^3/uL (4.0-10.5)
[2017-04-30 08:22] LABS: ALANINE AMINOTRANSFERASE 21 U/L (21-72); ALBUMIN 2.4 g/dL (3.5-5.0); ALKALINE PHOSPHATASE 62 U/L (38-126); ANION GAP 11 (5-19); ASPARTATE AMINO TRANSFERASE 23 U/L (17-59); BILIRUBIN,DIRECT 0.3 mg/dL (0.0-0.4); BILIRUBIN,TOTAL 0.4 mg/dL (0.2-1.3); BLOOD UREA NITROGEN 14 mg/dL (7-20); CALCIUM 8.6 mg/dL (8.4-10.2); CARBON DIOXIDE 21 mmol/L (22-30); CHLORIDE 102 mmol/L (98-107); GLUCOSE 86 mg/dL (75-110); SODIUM 133.6 mmol/L (137-145); TOTAL PROTEIN 5.8 g/dL (6.3-8.2)
[2017-04-30] MEDS: LEVOFLOXACIN 750 MG/D5W RTU 750 MG/150 ML RTUPB IV SCH (09:10)
[2017-04-30] MEDS: ENOXAPARIN SODIUM INJ 40 MG/0.4 ML DISP.SYRIN SUBCUT SCH (09:11)
[2017-04-30] MEDS: BIMATOPROST 0.01% OPH SOLN 2.5 ML/BOTTLE OU SCH (09:13)
[2017-04-30] MEDS: MEGESTROL ACETATE 20 MG TABLET PO SCH (09:16)
[2017-04-30] MEDS ORDERED: LIDOCAINE 2% INJ-PF (100 MG/5 ML) SYRINGE ONE (12:21)
[2017-04-30] MEDS ORDERED: LIDOCAINE 1% INJ-PF (10 MG/ML) 30 ML SDV ONE (12:23)
--- NOTE | 2017-04-30 13:11 | RADIOLOGY REPORT (SQ) ---
EXAM DESCRIPTION: CHEST SINGLE VIEW COMPLETED DATE/TIME: 04/30/2017 1:00 pm REASON FOR STUDY: central line pic COMPARISON: 04/24/2017 EXAM PARAMETERS: NUMBER OF VIEWS: One view. TECHNIQUE: Single frontal radiographic view of the chest acquired. RADIATION DOSE: NA LIMITATIONS: None. FINDINGS: LUNGS AND PLEURA: Increasing multifocal airspace disease superimposed on chronic lung gutierrez ge. Stable right apical bleb with air-fluid level. MEDIASTINUM AND HILAR STRUCTURES: No masses. Contour normal. HEART AND VASCULAR STRUCTURES: Heart stable in size. Normal vasculature. BONES: No acute findings. HARDWARE: Interval placement right IJ venous catheter with tip deep in the right atrium. OTHER: No other significant finding. IMPRESSION: INTERVAL PLACEMENT RIGHT IJ VENOUS CATHETER WITH TIP DEEP IN THE RIGHT ATRIUM. RECOMMEN D PULLING BACK 5 TO 6 CM. PROGRESSION OF MULTIFOCAL AIRSPACE DISEASE. REMAINING FINDINGS STABLE FROM PRIOR STUDY. TECHNICAL DOCUMENTATION: JOB ID: [id number] [employer]- All Rights Reserved
--- NOTE | 2017-04-30 13:26 | Operative Report ---
Operative Report DATE OF SURGERY: 04/30/17 PREOPERATIVE DIAGNOSIS: Respiratory insufficiency POSTOPERATIVE DIAGNOSIS: Same OPERATION: 1. Insertion of internal jugular triple-lumen central venous access catheter. 2. Utilization of real-time ultrasound for guidance SURGEON: NINA PLUMMER ANESTHESIA: Local TISSUE REMOVED OR ALTERED: None COMPLICATIONS: None ESTIMATED BLOOD LOSS: Scant INTRAOPERATIVE FINDINGS: See below PROCEDURE: Informed consent was obtained. The patient was placed in Trendelenburg the right neck and chest wall were exposed, and prepped and draped in a sterile fashion. Surgical plan and surgical timeout discussed. The right neck was anesthetized with 1% lidocaine without epinephrine. Using the variable frequency linear transducer, real time, a 18-gauge needle and wire were threaded into the right internal jugular vein. The tract was dilated up, the dilator removed, and the triple-lumen central venous access catheter was threaded into the right internal jugular vein uneventfully to the hub. There was excellent aspiration and flush of saline through all 3 lumens. The catheter was affixed to the skin with a Biopatch and 2-0 silk suture; sterile dressing applied. The patient tolerated the procedure well. There were no complications. Portable upright chest x-ray showed worsening airspace disease. With the tip of the catheter is in the right atrium; no evidence of ectopy. Patient tolerated procedure well; In my clinical opinion, I see no indication for catheter manipulation. This was discussed with the nursing staff.
[2017-04-30] MEDS ORDERED: SIMETHICONE 40 MG/0.6 ML DROPS 30ML PO PRN (13:53)
[2017-04-30] MEDS: SIMETHICONE 80 MG TAB.CHEW PO PRN ×2 (14:09→20:56)
--- NOTE | 2017-04-30 17:42 | PDOC PROGRESS REPORT ---
Subjective Progress Note for:: 04/30/17 Subjective:: Patient had episode of oxygen de-saturation since last clinical evaluation with need for BiPAP support. Patient reported improvement in his breathing and currently on nasal cannula supplemental oxygen. No fever or chills. No chest pain. Persistent poor appetite and po intake. Reason For Visit: DEHYDRATION WITH HYPONATREMIA;ACUTE RENAL INJURY; Physical Exam Vital Signs: Temp Pulse Resp BP Pulse Ox 97.5 F 101 H 16 111/86 H 98 04/30/17 12:56 04/30/17 15:12 04/30/17 15:12 04/30/17 12:56 04/30/17 15:12 Intake & Output 04/29/17 04/30/17 05/01/17 06:59 06:59 06:59 Intake Total 2715 2307 200 Output Total 175 Balance 2715 2132 200 Weight 79.7 kg 80.3 kg Physical Exam: General appearance: PRESENT: no acute distress, well-developed, well-nourished Head exam: PRESENT: atraumatic, normocephalic Eye exam: PRESENT: conjunctiva pink, EOMI, PERRLA. ABSENT: scleral icterus Mouth exam: PRESENT: moist Teeth exam: PRESENT: poor dentition Respiratory exam: PRESENT: decreased breath sounds - at lung bases, bilateral scatter crackles Cardiovascular exam: PRESENT: RRR. ABSENT: diastolic murmur, rubs, systolic murmur GI/Abdominal exam: PRESENT: normal bowel sounds, soft. ABSENT: distended, guarding, mass, organomegaly, rebound, tenderness Extremities exam: ABSENT: pedal edema Musculoskeletal exam: PRESENT: normal inspection Neurological exam: PRESENT: alert, awake, oriented to person, oriented to place , oriented to time, oriented to situation, CN II-XII grossly intact. ABSENT: motor sensory deficit Psychiatric exam: PRESENT: appropriate affect, normal mood. ABSENT: homicidal ideation, suicidal ideation Skin exam: PRESENT: dry, intact, warm. ABSENT: cyanosis, rash Results Laboratory Results: 04/30/17 07:13 04/30/17 07:13 04/30/17 04/30/17 07:13 07:13 WBC 4.7 RBC 2.96 L Hgb 8.8 L Hct 25.4 L MCV 86 MCH 29.7 MCHC 34.5 RDW 15.2 H Plt Count 391 Seg Neutrophils % 73.7 Lymphocytes % 11.1 L Monocytes % 11.1 Eosinophils % 3.0 Basophils % 1.1 Absolute Neutrophils 3.5 Absolute Lymphocytes 0.5 Absolute Monocytes 0.5 Absolute Eosinophils 0.1 Absolute Basophils 0.1 Sodium 133.6 L Potassium 4.0 Chloride 102 Carbon Dioxide 21 L Anion Gap 11 BUN 14 Creatinine 0.78 Est GFR ( Amer) > 60 Est GFR (Non-Af Amer) > 60 Glucose 86 Calcium 8.6 Total Bilirubin 0.4 AST 23 ALT 21 Alkaline Phosphatase 62 Total Protein 5.8 L Albumin 2.4 L 04/26/17 19:15 Sputum AFB Smear Concentration - Final 04/26/17 19:15 Sputum Acid Fast Bacilli Smear - Final Impressions: Head CT 04/17/17 13:01 IMPRESSION: MILD CHRONIC MICROVASCULAR ISCHEMIA. NO ACUTE IMAGING FINDINGS IN THE BRAIN. EVIDENCE OF ACUTE STROKE: NO. 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 AREAS OF MILD TO MODERATE SPINAL STENOSIS DESCRIBED. NO ACUTE FINDINGS. Chest CT 04/27/17 00:00 IMPRESSION: Diffuse bullous change with superimposed fluid likely interstitial edema or pneumonia. Clearly progressed from previous. Bilateral pleural effusions. Persistent air-fluid level and a large bullae in the right upper lobe. Infection in the differential. Unchanged. Chest X-Ray 04/30/17 00:00 IMPRESSION: INTERVAL PLACEMENT RIGHT IJ VENOUS CATHETER WITH TIP DEEP IN THE RIGHT ATRIUM. RECOMMEND PULLING BACK 5 TO 6 CM. PROGRESSION OF MULTIFOCAL AIRSPACE DISEASE. REMAINING FINDINGS STABLE FROM PRIOR STUDY. Assessment & Plan - Diagnosis (1) Dehydration with hyponatremia Is this a current diagnosis for this admission?: Yes (2) Abnormality of lung on CXR Is this a current diagnosis for this admission?: Yes (3) Pneumatocele of lung Is this a current diagnosis for this admission?: Yes (4) Pneumothorax on right Is this a current diagnosis for this admission?: Yes (5) Acute kidney injury Is this a current diagnosis for this admission?: Yes (6) COPD (chronic obstructive pulmonary disease) Qualifiers: COPD type: unspecified COPD Qualified Code(s): J44.9 - Chronic obstructive pulmonary disease, unspecified Is this a current diagnosis for this admission?: Yes (7) HLD (hyperlipidemia) Qualifiers: Hyperlipidemia type: pure hypercholesterolemia Qualified Code(s): E78.00 - Pure hypercholesterolemia, unspecified Is this a current diagnosis for this admission?: Yes (8) HTN (hypertension) Qualifiers: Hypertension type: essential hypertension Qualified Code(s): I10 - Essential (primary) hypertension Is this a current diagnosis for this admission?: Yes - Time Time Spent with patient: 25-34 minutes Medications reviewed and adjusted accordingly: Yes Anticipated discharge: Home with Homehealth Within: Other - Inpatient Certification Based on my medical assessment, after consideration of the patient's comorbidities, presenting symptoms, or acuity I expect that the services needed warrant INPATIENT care.: Yes I certify that my determination is in accordance with my understanding of Medicare's requirements for reasonable and necessary INPATIENT services [42 CFR 412.3e].: Yes Medical Necessity: Need Close Monitoring Due to Risk of Patient Decompensation, Need For Continuous Telemetry Monitoring, Need for Nebulizer Therapy and Monitoring of Response, Need for IV Antibiotics, Risk of Complication if Not Cared For in Hospital Post Hospital Care: D/C Spanner Operator Documentation - Plan Summary Plan Summary: Continue IV antibiotic therapy. Hold off IV fluid support. Maintain on all other current medication management. Follow up with computer forensics technician regarding possible bronchoscopy for further evaluation of his pulmonary disease process. Recent post procedure chest X ray continue to suggest multi lobar air space disease process.
--- NOTE | 2017-04-30 19:08 | RADIOLOGY REPORT (SQ) ---
EXAM DESCRIPTION: ACUTE ABDOMEN SERIES COMPLETED DATE/TIME: 04/30/2017 6:49 pm REASON FOR STUDY: Abdominal pain COMPARISON: Two-view chest from earlier today. Chest CT and radiographs from March of 2017. NUMBER OF VIEWS: Three views. TECHNIQUE: Frontal chest, supine abdomen and upright/decubitus abdomen radiographic images acquired. LIMITATIONS: None. FINDINGS: CHEST: Stable appearance. Interstitial changes. Right apical cavity with associated flui d. FREE AIR: None. No abnormal gas collections. BOWEL GAS PATTERN: Diffuse gaseous distension includes large and small bowel. Moderate rectal stool. Scattered air-fluid levels, some of which is in small bowel. CALCIFICATIONS: No suspicious calcifications. HARDWARE: None in the abdomen. SOFT TISSUES: No gross mass or suggestion of organomegaly. BONES: No acute fracture. No worrisome bone lesions. OTHER: No other significant finding. IMPRESSION: 1. Gaseous distention in the abdomen. This includes large and small bowel. Scattered a ir-fluid levels may reflect mild ileus. TECHNICAL DOCUMENTATION: JOB ID: [id number] [employer]- All Rights Reserved
[2017-04-30] MEDS ORDERED: BISACODYL 10 MG SUPP.RECT PR ONE (20:00)
[2017-04-30] MEDS ORDERED: ONDANSETRON HCL INJ/PF 4 MG/2 ML SDV ONE (20:50)
[2017-04-30] MEDS: ONDANSETRON HCL INJ/PF 4 MG/2 ML SDV IV PRN (20:55)
[2017-05-01] MEDS: LEVALBUTEROL HCL NEB 1.25 MG/3 ML AMPUL NEB SCH ×4 (02:10→19:40)
[2017-05-01] MEDS: IMIPENEM/CILASTATIN SODIUM 1,000 MG in NORMAL SALINE 250 ML IV SCH ×4 (02:12→23:26)
[2017-05-01] MEDS: OXYCODONE-ACETAMINOPHEN 5-325 MG TABLET PO PRN ×3 (03:49→19:46)
[2017-05-01] MEDS: SIMETHICONE 80 MG TAB.CHEW PO PRN ×3 (03:49→19:46)
[2017-05-01] MEDS: LANSOPRAZOLE 30 MG TAB.RAP.DR PO SCH (06:14)
[2017-05-01] MEDS: CEFEPIME 1 GM/D5W RTU 1 GM/50 ML RTUPB IV SCH ×2 (06:14→18:04)
[2017-05-01 06:38] LABS: ABSOLUTE BASOPHILS # (AUTO) 0.1 10^3/uL (0.0-0.2); ABSOLUTE EOSINOPHILS # (AUTO) 0.2 10^3/uL (0.0-0.6); ABSOLUTE LYMPHOCYTES (AUTO) 0.5 10^3/uL (0.5-4.7); ABSOLUTE MONOCYTES (AUTO) 0.6 10^3/uL (0.1-1.4); ABSOLUTE NEUT (AUTO) 3.6 10^3/uL (1.7-8.2); BASOPHILS % (AUTO) 1.2 % (0-2); EOSINOPHILS % (AUTO) 4.3 % (0-6); HEMATOCRIT 24.6 % (37.9-51.0); HEMOGLOBIN 8.3 g/dL (13.5-17.0); LYMPHOCYTES % (AUTO) 9.8 % (13-45); MEAN CORPUSCULAR HEMOGLOBIN 29.7 pg (27.0-33.4); MEAN CORPUSCULAR HGB CONC 33.9 g/dL (32.0-36.0); MEAN CORPUSCULAR VOLUME 88 fl (80-97); PLATELET COUNT 362 10^3/uL (150-450); RED BLOOD COUNT 2.81 10^6/uL (4.35-5.55); RED CELL DISTRIBUTION WIDTH 15.1 % (11.5-14.0); SEGMENTED NEUTROPHILS % (AUTO) 72.7 % (42-78); TOTAL CELLS COUNTED % (AUTO) 100 %; WHITE BLOOD COUNT 4.9 10^3/uL (4.0-10.5)
[2017-05-01 07:08] LABS: ALANINE AMINOTRANSFERASE 21 U/L (21-72); ALBUMIN 2.3 g/dL (3.5-5.0); ALKALINE PHOSPHATASE 62 U/L (38-126); ANION GAP 8 (5-19); ASPARTATE AMINO TRANSFERASE 24 U/L (17-59); BILIRUBIN,DIRECT 0.3 mg/dL (0.0-0.4); BILIRUBIN,TOTAL 0.4 mg/dL (0.2-1.3); BLOOD UREA NITROGEN 13 mg/dL (7-20); CALCIUM 8.8 mg/dL (8.4-10.2); CARBON DIOXIDE 24 mmol/L (22-30); CHLORIDE 103 mmol/L (98-107); GLUCOSE 85 mg/dL (75-110); POTASSIUM 3.8 mmol/L (3.6-5.0); SODIUM 135.3 mmol/L (137-145); TOTAL PROTEIN 5.8 g/dL (6.3-8.2)
[2017-05-01] MEDS: ENOXAPARIN SODIUM INJ 40 MG/0.4 ML DISP.SYRIN SUBCUT SCH (10:09)
[2017-05-01] MEDS: LEVOFLOXACIN 750 MG/D5W RTU 750 MG/150 ML RTUPB IV SCH (10:10)
[2017-05-01] MEDS: MEGESTROL ACETATE 20 MG TABLET PO SCH (10:18)
[2017-05-01] MEDS: BIMATOPROST 0.01% OPH SOLN 2.5 ML/BOTTLE OU SCH (10:18)
--- NOTE | 2017-05-01 10:19 | ST Inp Modified Barium Swallow ---
Medical Diagnosis - Medical Diagnoses Medical Diagnosis Description & ICD-10 Code(s): dehydration with hyponatremia per history & physical ST Inpatient [facility] [place] - General Date: 05/01/17 Date of Onset: 04/17/17 - History History Obtained From: Patient, Other - History & Physical, progress notes Medications: Medications Reviewed Allergies: No known allergies - Subjective Current Nutritional Means: PO Current PO Diet: Regular Current Symptoms: Poor intake - Objective Assessment: Upright, Left Lateral - Food Trials Food Trials Used: Thin liquids, Pureed - ridge cracker not trialed due to poor dentition - Assessment Labial Function: Within Normal Limits Lingual Function: Within Normal Limits Mandibular Function: Within Normal Limits Dentition: Partial Velo-Pharyngeal Function: Unremarkable Laryngeal Function: Volitional Cough - Pharyngeal Stage Initiation of Pharyngeal Stage: Normal Decreased Laryngeal Elevation: No Reduced Pressure Generation: No Reduced Tongue Base Retraction: Yes Pre-Swallowing Pooling in Valleculae: None Pre-Swallowing Pooling in Pyriforms: None Reduced Thyro-Hyiod Approximation: No Reduced Epiglottic Excursion: No Reduced Pharyngeal Peristalsis: No Multiple Swallows With: Effective Post Swallow Residuals: throughout pharynx - trace resudials - Esophageal Stage Cricophageal Function: Normal - Impression/Summary Laryngeal Penetration: No Tracheal Aspiration: no Patient Presents With: Normal swallow at eval Risk of Aspiration: Minimal - Recommendations NPO: yes Solid Diet Recommendations: Mechanical Soft, Ground Meat Liquid Diet Recommendations: Thin Regular Diet: No - due to poor dention Strict Aspitarion Precautions: Yes Dysphagia Therapy with TERRITORY MANAGER: No Recommended Techniques: Fully Upright During Meal - Time Total Time: 10 Total Timed Minutes: 10
--- NOTE | 2017-05-01 11:23 | RADIOLOGY REPORT (SQ) ---
EXAM DESCRIPTION: URIEL SWALLOW COMPLETED DATE/TIME: 05/01/2017 8:56 am REASON FOR STUDY: DYSPHAGIA UNSPECIFIED R 13.10, FOOD IN PHARYNX CAUSING OTHER INJURY, SEQUELA T1 7. [address] chocking???myastenia COMPARISON: None. TECHNIQUE: Videofluoroscopic swallowing examination was performed in conjunction with speech patholo gy. Videofluoroscopic imaging was obtained and reviewed and these are the findings: RADIATION DOSE: Total fluoroscopy time: 26 seconds 1 fluoroscopy image saved to PACS. LIMITATIONS: None FINDINGS: The patient was brought into the fluoro room and placed upright on a modified barium swall ow chair. The patient was then given multiple consistencies mixed with barium to swallow under live fluoroscopic video guidance. According to the Speech Pathologist there was no laryngeal penetration or tracheal aspiration. Normal oral and pharyngeal transit time was observed. No significant post s wallow residual was seen. Please see speech pathology report for further details and recommendations . IMPRESSION: NO EVIDENCE OF LARYNGEAL PENETRATION OR TRACHEAL ASPIRATION.PLEASE SEE SPEECH PATHOLOGIS T REPORT FOR OTHER FINDINGS AND RECOMMENDATIONS. COMMENT: Quality ID [id number]: Final reports for procedures using fluoroscopy that document radiation exp osure indices, or exposure time and number of fluorographic images (if radiation exposure indices are not available) TECHNICAL DOCUMENTATION: JOB ID: [id number] [employer]- All Rights Reserved
[2017-05-01 11:29] LABS: ARTERIAL BLOOD BASE EXCESS -2.3 mmol/L; ARTERIAL BLOOD H2CO3 0.91 mmol/L (1.05-1.35); ARTERIAL BLOOD O2 SATURATION 84.1 % (94-98); ARTERIAL BLOOD PCO2 30.3 mmHg (35-45); ARTERIAL BLOOD PH 7.46 (7.35-7.45); ARTERIAL BLOOD TOTAL CO2 21.9 mmol/L (23-27)
[2017-05-01 11:31] LABS: ARTERIAL BLOOD FIO2 5L
[2017-05-01] MEDS ORDERED: NORMAL SALINE 250 ML IV ONE (12:45)
[2017-05-01] MEDS: CLINDAMYCIN 600 MG/D5W RTU 600 MG/50 ML RTUPB IV SCH ×2 (15:15→23:20)
--- NOTE | 2017-05-01 15:17 | RADIOLOGY REPORT (SQ) ---
EXAM DESCRIPTION: CHEST SINGLE VIEW COMPLETED DATE/TIME: 05/01/2017 3:09 pm REASON FOR STUDY: Possible aspiration COMPARISON: 04/30/2017. EXAM PARAMETERS: NUMBER OF VIEWS: One view. TECHNIQUE: Single frontal radiographic view of the chest acquired. RADIATION DOSE: NA LIMITATIONS: None. FINDINGS: LUNGS AND PLEURA: Patchy bilateral parenchymal opacities unchanged. Right apical bulla an d pleural thickening also unchanged. No pleural effusion or pneumothorax. MEDIASTINUM AND HILAR STRUCTURES: No masses. Contour normal. HEART AND VASCULAR STRUCTURES: Heart normal in size. Normal vasculature. BONES: No acute findings. HARDWARE: Stable central line. Sternotomy wires. OTHER: No other significant finding. IMPRESSION: NO CHANGE IN APPEARANCE OF THE CHEST. TECHNICAL DOCUMENTATION: JOB ID: [id number] [employer]- All Rights Reserved
[2017-05-01] MEDS ORDERED: NORMAL SALINE 500 ML IV ONE (15:30)
[2017-05-01] MEDS ORDERED: NORMAL SALINE 1000 ML 1,000 ML IV PRN (17:00)
[2017-05-01] MEDS: ONDANSETRON HCL INJ/PF 4 MG/2 ML SDV IV PRN (19:46)
[2017-05-01] MEDS ORDERED: IMIPENEM/CILASTATIN SODIUM 1,000 MG in NORMAL SALINE 250 ML IV ONE (22:30)
[2017-05-01] MEDS ORDERED: IMIPENEM/CILASTATIN SODIUM INJ 500 MG VIAL IV ONE (22:58)
[2017-05-02] MEDS: LEVALBUTEROL HCL NEB 1.25 MG/3 ML AMPUL NEB SCH ×4 (02:20→19:31)
[2017-05-02] MEDS: CEFEPIME 1 GM/D5W RTU 1 GM/50 ML RTUPB IV SCH ×2 (05:10→18:09)
[2017-05-02] MEDS: LANSOPRAZOLE 30 MG TAB.RAP.DR PO SCH (05:11)
[2017-05-02] MEDS: CLINDAMYCIN 600 MG/D5W RTU 600 MG/50 ML RTUPB IV SCH ×3 (05:11→21:56)
[2017-05-02] MEDS: IMIPENEM/CILASTATIN SODIUM 1,000 MG in NORMAL SALINE 250 ML IV SCH ×4 (05:12→22:57)
[2017-05-02 05:52] LABS: ABSOLUTE EOSINOPHILS # (AUTO) 0.3 10^3/uL (0.0-0.6); ABSOLUTE LYMPHOCYTES (AUTO) 0.4 10^3/uL (0.5-4.7); ABSOLUTE MONOCYTES (AUTO) 0.6 10^3/uL (0.1-1.4); ABSOLUTE NEUT (AUTO) 3.8 10^3/uL (1.7-8.2); BASOPHILS % (AUTO) 0.8 % (0-2); HEMATOCRIT 24.2 % (37.9-51.0); HEMOGLOBIN 8.2 g/dL (13.5-17.0); LYMPHOCYTES % (AUTO) 8.5 % (13-45); MEAN CORPUSCULAR HEMOGLOBIN 29.3 pg (27.0-33.4); MEAN CORPUSCULAR HGB CONC 33.9 g/dL (32.0-36.0); MEAN CORPUSCULAR VOLUME 86 fl (80-97); MONOCYTES % (AUTO) 10.8 % (3-13); PLATELET COUNT 387 10^3/uL (150-450); RED CELL DISTRIBUTION WIDTH 15.4 % (11.5-14.0); SEGMENTED NEUTROPHILS % (AUTO) 74.9 % (42-78); TOTAL CELLS COUNTED % (AUTO) 100 %; WHITE BLOOD COUNT 5.1 10^3/uL (4.0-10.5)
[2017-05-02 06:09] LABS: ALANINE AMINOTRANSFERASE 18 U/L (21-72); ALBUMIN 2.3 g/dL (3.5-5.0); ALKALINE PHOSPHATASE 65 U/L (38-126); ANION GAP 10 (5-19); ASPARTATE AMINO TRANSFERASE 23 U/L (17-59); BILIRUBIN,DIRECT 0.4 mg/dL (0.0-0.4); BILIRUBIN,TOTAL 0.5 mg/dL (0.2-1.3); BLOOD UREA NITROGEN 14 mg/dL (7-20); CALCIUM 8.9 mg/dL (8.4-10.2); CARBON DIOXIDE 23 mmol/L (22-30); CHLORIDE 105 mmol/L (98-107); GLUCOSE 73 mg/dL (75-110); SODIUM 138.3 mmol/L (137-145); TOTAL PROTEIN 5.7 g/dL (6.3-8.2)
[2017-05-02] MEDS: ENOXAPARIN SODIUM INJ 40 MG/0.4 ML DISP.SYRIN SUBCUT SCH (10:38)
[2017-05-02] MEDS: BIMATOPROST 0.01% OPH SOLN 2.5 ML/BOTTLE OU SCH (10:40)
[2017-05-02] MEDS: LEVOFLOXACIN 750 MG/D5W RTU 750 MG/150 ML RTUPB IV SCH (10:50)
[2017-05-02] MEDS: MEGESTROL ACETATE 20 MG TABLET PO SCH (10:53)
[2017-05-02 12:55] LABS: ARTERIAL BLOOD BASE EXCESS -1.7 mmol/L; ARTERIAL BLOOD FIO2 15L; ARTERIAL BLOOD H2CO3 0.95 mmol/L (1.05-1.35); ARTERIAL BLOOD HCO3 21.7 mmol/L (20-26); ARTERIAL BLOOD O2 SATURATION 95.1 % (94-98); ARTERIAL BLOOD PCO2 31.4 mmHg (35-45); ARTERIAL BLOOD PH 7.46 (7.35-7.45); ARTERIAL BLOOD PO2 70.1 mmHg (80-100); ARTERIAL BLOOD TOTAL CO2 22.7 mmol/L (23-27)
[2017-05-02 14:59] LABS: INTERNATIONAL RATION (INR) 1.42; PROTHROMBIN TIME 18.2 SEC (11.4-15.4)
[2017-05-02 15:00] LABS: PARTIAL THROMBOPLASTIN TIME 66.8 SEC (23.5-35.8)
[2017-05-02 15:16] LABS: ANION GAP 7 (5-19); BLOOD UREA NITROGEN 15 mg/dL (7-20); CALCIUM 8.4 mg/dL (8.4-10.2); CARBON DIOXIDE 23 mmol/L (22-30); CHLORIDE 105 mmol/L (98-107); GLUCOSE 110 mg/dL (75-110); POTASSIUM 3.7 mmol/L (3.6-5.0); SODIUM 135.4 mmol/L (137-145)
--- NOTE | 2017-05-02 19:05 | EKG REPORT ---
SEVERITY:- ABNORMAL ECG - SINUS TACHYCARDIA PROBABLE INFERIOR INFARCT, AGE INDETERMINATE BORDERLINE R WAVE PROGRESSION, ANTERIOR LEADS NONSPECIFIC T CHANGES : Confirmed by: Jaylan Frost 02-May-2017 19:05:02
[2017-05-02] MEDS: NORMAL SALINE INJ/PF 0.9% 10 ML SDV IV PRN (21:56)
[2017-05-03] MEDS: LEVALBUTEROL HCL NEB 1.25 MG/3 ML AMPUL NEB SCH ×4 (01:51→19:50)
[2017-05-03] MEDS: IMIPENEM/CILASTATIN SODIUM 1,000 MG in NORMAL SALINE 250 ML IV SCH ×4 (03:53→23:35)
[2017-05-03 04:54] LABS: ABSOLUTE EOSINOPHILS # (AUTO) 0.2 10^3/uL (0.0-0.6); ABSOLUTE LYMPHOCYTES (AUTO) 0.5 10^3/uL (0.5-4.7); ABSOLUTE MONOCYTES (AUTO) 0.5 10^3/uL (0.1-1.4); ABSOLUTE NEUT (AUTO) 3.4 10^3/uL (1.7-8.2); BASOPHILS % (AUTO) 0.9 % (0-2); EOSINOPHILS % (AUTO) 5.1 % (0-6); HEMATOCRIT 21.8 % (37.9-51.0); LYMPHOCYTES % (AUTO) 9.8 % (13-45); MEAN CORPUSCULAR HEMOGLOBIN 30.3 pg (27.0-33.4); MEAN CORPUSCULAR HGB CONC 34.2 g/dL (32.0-36.0); MEAN CORPUSCULAR VOLUME 89 fl (80-97); MONOCYTES % (AUTO) 11.2 % (3-13); PLATELET COUNT 371 10^3/uL (150-450); RED BLOOD COUNT 2.46 10^6/uL (4.35-5.55); RED CELL DISTRIBUTION WIDTH 15.6 % (11.5-14.0); TOTAL CELLS COUNTED % (AUTO) 100 %; WHITE BLOOD COUNT 4.6 10^3/uL (4.0-10.5)
[2017-05-03 05:06] LABS: HEMOGLOBIN 7.5 g/dL (13.5-17.0)
[2017-05-03] MEDS: CEFEPIME 1 GM/D5W RTU 1 GM/50 ML RTUPB IV SCH ×2 (06:32→17:25)
[2017-05-03] MEDS: LANSOPRAZOLE 30 MG TAB.RAP.DR PO SCH (06:34)
[2017-05-03] MEDS: CLINDAMYCIN 600 MG/D5W RTU 600 MG/50 ML RTUPB IV SCH ×3 (07:06→22:35)
[2017-05-03] MEDS: LEVOFLOXACIN 750 MG/D5W RTU 750 MG/150 ML RTUPB IV SCH (10:11)
[2017-05-03] MEDS: BIMATOPROST 0.01% OPH SOLN 2.5 ML/BOTTLE OU SCH (10:12)
[2017-05-03] MEDS: MEGESTROL ACETATE 20 MG TABLET PO SCH (10:12)
[2017-05-03] MEDS: ENOXAPARIN SODIUM INJ 40 MG/0.4 ML DISP.SYRIN SUBCUT SCH (10:14)
[2017-05-03] MEDS ORDERED: PHYTONADIONE INJ 10 MG/1 ML AMPULE SUBCUT ONE (11:18)
[2017-05-03] MEDS ORDERED: NORMAL SALINE 250 ML IV PRN ×2 (11:19)
[2017-05-03] MEDS ORDERED: DEXTROSE 50%-WATER 25 GM/50 ML DISP.SYRIN IV PRN ×2 (11:26)
[2017-05-03] MEDS ORDERED: GLUCAGON,HUMAN RECOMB 1 MG INJ SUBCUT PRN (11:26)
[2017-05-03] MEDS ORDERED: DEXTROSE 40% GEL 15 GM TUBE PO PRN ×2 (11:26)
[2017-05-03] MEDS: NORMAL SALINE INJ/PF 0.9% 10 ML SDV IV PRN (15:03)
--- NOTE | 2017-05-03 16:47 | PDOC PROGRESS REPORT ---
Subjective Progress Note for:: 05/02/17 Subjective:: No chest pain. No fever or chills. Remain on intermittent use of BiPAP and non- rebreathing supplemental oxygen due to oxygen de-saturation. No nausea or vomiting. No abdominal pain. Reason For Visit: DEHYDRATION WITH HYPONATREMIA;ACUTE RENAL INJURY; Physical Exam Vital Signs: Temp Pulse Resp BP Pulse Ox 99.4 F 120 H 18 92/61 L 100 05/02/17 11:14 05/02/17 14:00 05/02/17 13:47 05/02/17 11:14 05/02/17 13:47 Intake & Output 05/01/17 05/02/17 05/03/17 06:59 06:59 06:59 Intake Total 950 2810 50 Output Total 150 200 Balance 800 2810 -150 Weight 80.3 kg 79.9 kg Physical Exam: General appearance: PRESENT: mild distress - respiratory distress, Remain on non -rebreathing supplemental oxygen. Head exam: PRESENT: atraumatic, normocephalic Eye exam: PRESENT: conjunctiva pink, EOMI, PERRLA. ABSENT: scleral icterus Mouth exam: PRESENT: moist Neck exam: PRESENT: other - right IJ central line device Respiratory exam: PRESENT: decreased breath sounds Cardiovascular exam: PRESENT: tachycardia. ABSENT: diastolic murmur, rubs, systolic murmur GI/Abdominal exam: PRESENT: normal bowel sounds, soft. ABSENT: distended, guarding, mass, organomegaly, rebound, tenderness Extremities exam: PRESENT: pedal edema - uper extremities due to soft tissue infiltration Musculoskeletal exam: PRESENT: deformity - related to multiple joints involvement with arthritis. ABSENT: tenderness Neurological exam: PRESENT: alert - and appropriate in simple responses, awake Skin exam: PRESENT: dry, intact, warm. ABSENT: cyanosis, rash Results Laboratory Results: 05/02/17 05:30 05/02/17 14:30 05/02/17 05/02/17 05/02/17 05:30 05:30 12:45 WBC 5.1 RBC 2.80 L Hgb 8.2 L Hct 24.2 L MCV 86 MCH 29.3 MCHC 33.9 RDW 15.4 H Plt Count 387 Seg Neutrophils % 74.9 Lymphocytes % 8.5 L Monocytes % 10.8 Eosinophils % 5.0 Basophils % 0.8 Absolute Neutrophils 3.8 Absolute Lymphocytes 0.4 L Absolute Monocytes 0.6 Absolute Eosinophils 0.3 Absolute Basophils 0.0 Carbonic Acid 0.95 L HCO3/H2CO3 Ratio 22:1 ABG pH 7.46 H ABG pCO2 31.4 L ABG pO2 70.1 L ABG HCO3 21.7 ABG O2 Saturation 95.1 ABG Base Excess -1.7 FiO2 15L Sodium 138.3 Potassium 4.0 Chloride 105 Carbon Dioxide 23 Anion Gap 10 BUN 14 Creatinine 0.84 Est GFR ( Amer) > 60 Est GFR (Non-Af Amer) > 60 Glucose 73 L Calcium 8.9 Total Bilirubin 0.5 AST 23 ALT 18 L Alkaline Phosphatase 65 Total Protein 5.7 L Albumin 2.3 L 05/02/17 14:30 WBC RBC Hgb Hct MCV MCH MCHC RDW Plt Count Seg Neutrophils % Lymphocytes % Monocytes % Eosinophils % Basophils % Absolute Neutrophils Absolute Lymphocytes Absolute Monocytes Absolute Eosinophils Absolute Basophils Carbonic Acid HCO3/H2CO3 Ratio ABG pH ABG pCO2 ABG pO2 ABG HCO3 ABG O2 Saturation ABG Base Excess FiO2 Sodium 135.4 L Potassium 3.7 Chloride 105 Carbon Dioxide 23 Anion Gap 7 BUN 15 Creatinine 0.82 Est GFR ( Amer) > 60 Est GFR (Non-Af Amer) > 60 Glucose 110 Calcium 8.4 Total Bilirubin AST ALT Alkaline Phosphatase Total Protein Albumin Impressions: Head CT 04/17/17 13:01 IMPRESSION: MILD CHRONIC MICROVASCULAR ISCHEMIA. NO ACUTE IMAGING FINDINGS IN THE BRAIN. EVIDENCE OF ACUTE STROKE: NO. 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 AREAS OF MILD TO MODERATE SPINAL STENOSIS DESCRIBED. NO ACUTE FINDINGS. Chest CT 04/27/17 00:00 IMPRESSION: Diffuse bullous change with superimposed fluid likely interstitial edema or pneumonia. Clearly progressed from previous. Bilateral pleural effusions. Persistent air-fluid level and a large bullae in the right upper lobe. Infection in the differential. Unchanged. Acute Abdomen Series 04/30/17 00:00 IMPRESSION: 1. Gaseous distention in the abdomen. This includes large and small bowel. Scattered air-fluid levels may reflect mild ileus. Chest X-Ray 05/01/17 00:00 IMPRESSION: NO CHANGE IN APPEARANCE OF THE CHEST. Modified Barium Swallow 05/01/17 00:00 IMPRESSION: NO EVIDENCE OF LARYNGEAL PENETRATION OR TRACHEAL ASPIRATION.PLEASE SEE SPEECH PATHOLOGIST REPORT FOR OTHER FINDINGS AND RECOMMENDATIONS. Assessment & Plan - Diagnosis (1) Dehydration with hyponatremia Is this a current diagnosis for this admission?: Yes (2) Abnormality of lung on CXR Is this a current diagnosis for this admission?: Yes (3) Pneumatocele of lung Is this a current diagnosis for this admission?: Yes (4) Pneumothorax on right Is this a current diagnosis for this admission?: Yes (5) Acute kidney injury Is this a current diagnosis for this admission?: Yes (6) COPD (chronic obstructive pulmonary disease) Qualifiers: COPD type: unspecified COPD Qualified Code(s): J44.9 - Chronic obstructive pulmonary disease, unspecified Is this a current diagnosis for this admission?: Yes (7) HLD (hyperlipidemia) Qualifiers: Hyperlipidemia type: pure hypercholesterolemia Qualified Code(s): E78.00 - Pure hypercholesterolemia, unspecified Is this a current diagnosis for this admission?: Yes (8) HTN (hypertension) Qualifiers: Hypertension type: essential hypertension Qualified Code(s): I10 - Essential (primary) hypertension Is this a current diagnosis for this admission?: Yes - Time Time Spent with patient: 25-34 minutes Medications reviewed and adjusted accordingly: Yes Anticipated discharge: Other Within: Other - Inpatient Certification Based on my medical assessment, after consideration of the patient's comorbidities, presenting symptoms, or acuity I expect that the services needed warrant INPATIENT care.: Yes I certify that my determination is in accordance with my understanding of Medicare's requirements for reasonable and necessary INPATIENT services [42 CFR 412.3e].: Yes Medical Necessity: Need Close Monitoring Due to Risk of Patient Decompensation, Need For IV Fluids, Need For Continuous Telemetry Monitoring, Need for Nebulizer Therapy and Monitoring of Response, Need for IV Antibiotics, Risk of Complication if Not Cared For in Hospital Post Hospital Care: D/C Emery Wheel Molder Documentation - Plan Summary Plan Summary: Continue current antibiotic therapy. I had discussion with airline counter agent and family regarding the current situation due to inclement weather all non emergent procedure is suspended until 05/07/17. Family agreeable to risk of possible continue need for intubation upon completion of bronchoscopy. Attempt at transfer to tertiary center not possible due to available service and procedure at this facility. he may need PRBC transfusion if hemoglobin should be less than 8gm/dl. Maintain on all other current medication management.
--- NOTE | 2017-05-03 16:52 | PDOC PROGRESS REPORT ---
Subjective Progress Note for:: 05/03/17 Subjective:: No fever or chills. No chest pain. Remain on BiPAP due to oxygen de-saturation. No nausea or vomiting. No abdominal pain. Currently on PRBC transfusion due to low er hemoglobin level. Reason For Visit: DEHYDRATION WITH HYPONATREMIA;ACUTE RENAL INJURY; Physical Exam Vital Signs: Temp Pulse Resp BP Pulse Ox 98.5 F 96 17 129/79 H 95 05/03/17 13:00 05/03/17 14:00 05/03/17 15:41 05/03/17 13:00 05/03/17 15:41 Intake & Output 05/02/17 05/03/17 05/04/17 06:59 06:59 06:59 Intake Total 2810 1618 600 Output Total 200 Balance 2810 1418 600 Weight 79.9 kg 83.9 kg Physical Exam: General appearance: PRESENT: mild distress - respiratory distress, Remain on BiPAP support. Head exam: PRESENT: atraumatic, normocephalic Eye exam: PRESENT: conjunctiva pink, EOMI, PERRLA. ABSENT: scleral icterus Mouth exam: PRESENT: moist Neck exam: PRESENT: other - right IJ central line device Respiratory exam: PRESENT: decreased breath sounds Cardiovascular exam: PRESENT: tachycardia. ABSENT: diastolic murmur, rubs, systolic murmur GI/Abdominal exam: PRESENT: normal bowel sounds, soft. ABSENT: distended, guarding, mass, organomegaly, rebound, tenderness Extremities exam: PRESENT: pedal edema - uper extremities due to soft tissue infiltration Musculoskeletal exam: PRESENT: deformity - related to multiple joints involvement with arthritis. ABSENT: tenderness Neurological exam: PRESENT: alert - and appropriate in simple responses, awake Skin exam: PRESENT: dry, intact, warm. ABSENT: cyanosis, rash Results Laboratory Results: 05/03/17 04:25 05/02/17 14:30 05/03/17 05/03/17 04:25 05:39 WBC 4.6 RBC 2.46 L Hgb 7.5 L Hct 21.8 L MCV 89 MCH 30.3 MCHC 34.2 RDW 15.6 H Plt Count 371 Seg Neutrophils % 73.0 Lymphocytes % 9.8 L Monocytes % 11.2 Eosinophils % 5.1 Basophils % 0.9 Absolute Neutrophils 3.4 Absolute Lymphocytes 0.5 Absolute Monocytes 0.5 Absolute Eosinophils 0.2 Absolute Basophils 0.0 Blood Type O POSITIVE Antibody Screen NEGATIVE Impressions: Head CT 04/17/17 13:01 IMPRESSION: MILD CHRONIC MICROVASCULAR ISCHEMIA. NO ACUTE IMAGING FINDINGS IN THE BRAIN. EVIDENCE OF ACUTE STROKE: NO. 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 AREAS OF MILD TO MODERATE SPINAL STENOSIS DESCRIBED. NO ACUTE FINDINGS. Chest CT 04/27/17 00:00 IMPRESSION: Diffuse bullous change with superimposed fluid likely interstitial edema or pneumonia. Clearly progressed from previous. Bilateral pleural effusions. Persistent air-fluid level and a large bullae in the right upper lobe. Infection in the differential. Unchanged. Acute Abdomen Series 04/30/17 00:00 IMPRESSION: 1. Gaseous distention in the abdomen. This includes large and small bowel. Scattered air-fluid levels may reflect mild ileus. Chest X-Ray 05/01/17 00:00 IMPRESSION: NO CHANGE IN APPEARANCE OF THE CHEST. Modified Barium Swallow 05/01/17 00:00 IMPRESSION: NO EVIDENCE OF LARYNGEAL PENETRATION OR TRACHEAL ASPIRATION.PLEASE SEE SPEECH PATHOLOGIST REPORT FOR OTHER FINDINGS AND RECOMMENDATIONS. Assessment & Plan - Diagnosis (1) Dehydration with hyponatremia Is this a current diagnosis for this admission?: Yes (2) Abnormality of lung on CXR Is this a current diagnosis for this admission?: Yes (3) Pneumatocele of lung Is this a current diagnosis for this admission?: Yes (4) Pneumothorax on right Is this a current diagnosis for this admission?: Yes (5) Acute kidney injury Is this a current diagnosis for this admission?: Yes (6) COPD (chronic obstructive pulmonary disease) Qualifiers: COPD type: unspecified COPD Qualified Code(s): J44.9 - Chronic obstructive pulmonary disease, unspecified Is this a current diagnosis for this admission?: Yes (7) HLD (hyperlipidemia) Qualifiers: Hyperlipidemia type: pure hypercholesterolemia Qualified Code(s): E78.00 - Pure hypercholesterolemia, unspecified Is this a current diagnosis for this admission?: Yes (8) HTN (hypertension) Qualifiers: Hypertension type: essential hypertension Qualified Code(s): I10 - Essential (primary) hypertension Is this a current diagnosis for this admission?: Yes - Time Time Spent with patient: 25-34 minutes Medications reviewed and adjusted accordingly: Yes Anticipated discharge: Other Within: Other - Inpatient Certification Based on my medical assessment, after consideration of the patient's comorbidities, presenting symptoms, or acuity I expect that the services needed warrant INPATIENT care.: Yes I certify that my determination is in accordance with my understanding of Medicare's requirements for reasonable and necessary INPATIENT services [42 CFR 412.3e].: Yes Medical Necessity: Need Close Monitoring Due to Risk of Patient Decompensation, Need For IV Fluids, Need For Continuous Telemetry Monitoring, Need for Nebulizer Therapy and Monitoring of Response, Need for IV Antibiotics, Risk of Complication if Not Cared For in Hospital Post Hospital Care: D/C Truck Leasing Manager Documentation - Plan Summary Plan Summary: Obtain CBC 2hours post PRBC transfusion. Continue IV antibiotic therapy. Schedule for bronchoscopy pm 05/07/17. I discussed case with Dr Salguero tanker serviceman earlier today. Overall prognosis remain guarded.
[2017-05-03] MEDS ORDERED: IMIPENEM/CILASTATIN SODIUM INJ 500 MG VIAL IV ONE (23:18)
[2017-05-04] MEDS: LEVALBUTEROL HCL NEB 1.25 MG/3 ML AMPUL NEB SCH ×4 (01:03→19:44)
[2017-05-04] MEDS: IMIPENEM/CILASTATIN SODIUM 1,000 MG in NORMAL SALINE 250 ML IV SCH ×4 (04:02→20:56)
[2017-05-04] MEDS: LANSOPRAZOLE 30 MG TAB.RAP.DR PO SCH (05:38)
[2017-05-04] MEDS: CLINDAMYCIN 600 MG/D5W RTU 600 MG/50 ML RTUPB IV SCH ×3 (05:38→22:50)
[2017-05-04 05:43] LABS: INTERNATIONAL RATION (INR) 1.25; PROTHROMBIN TIME 16.5 SEC (11.4-15.4)
[2017-05-04 05:44] LABS: PARTIAL THROMBOPLASTIN TIME 52.3 SEC (23.5-35.8)
[2017-05-04 05:48] LABS: ABSOLUTE EOSINOPHILS # (AUTO) 0.2 10^3/uL (0.0-0.6); ABSOLUTE LYMPHOCYTES (AUTO) 0.5 10^3/uL (0.5-4.7); ABSOLUTE MONOCYTES (AUTO) 0.6 10^3/uL (0.1-1.4); ABSOLUTE NEUT (AUTO) 4.3 10^3/uL (1.7-8.2); ABSOLUTE RETICS # 0.055 10^6/uL (0.028-0.122); BASOPHILS % (AUTO) 0.7 % (0-2); EOSINOPHILS % (AUTO) 3.7 % (0-6); LYMPHOCYTES % (AUTO) 8.1 % (13-45); MEAN CORPUSCULAR HEMOGLOBIN 30.6 pg (27.0-33.4); MEAN CORPUSCULAR HGB CONC 34.7 g/dL (32.0-36.0); MEAN CORPUSCULAR VOLUME 88 fl (80-97); MONOCYTES % (AUTO) 10.4 % (3-13); PLATELET COUNT 413 10^3/uL (150-450); RED BLOOD COUNT 3.18 10^6/uL (4.35-5.55); RED CELL DISTRIBUTION WIDTH 15.3 % (11.5-14.0); RETICULOCYTE COUNT (AUTO) 1.73 % (0.66-2.85); SEGMENTED NEUTROPHILS % (AUTO) 77.1 % (42-78); TOTAL CELLS COUNTED % (AUTO) 100 %; WHITE BLOOD COUNT 5.6 10^3/uL (4.0-10.5)
[2017-05-04 06:03] LABS: HEMOGLOBIN 9.7 g/dL (13.5-17.0)
[2017-05-04] MEDS: CEFEPIME 1 GM/D5W RTU 1 GM/50 ML RTUPB IV SCH ×2 (06:14→18:20)
[2017-05-04 07:37] LABS: FOLATE 8.88 ng/mL (>2.76)
[2017-05-04 07:40] LABS: IRON(TIBC) < 10.1 ug/dL (49-181)
[2017-05-04] MEDS ORDERED: NORMAL SALINE 250 ML IV PRN ×2 (10:29)
[2017-05-04] MEDS: BIMATOPROST 0.01% OPH SOLN 2.5 ML/BOTTLE OU SCH (11:23)
[2017-05-04] MEDS: ENOXAPARIN SODIUM INJ 40 MG/0.4 ML DISP.SYRIN SUBCUT SCH (11:25)
[2017-05-04] MEDS: MEGESTROL ACETATE 20 MG TABLET PO SCH (11:25)
[2017-05-04] MEDS ORDERED: PHYTONADIONE INJ 10 MG/1 ML AMPULE SUBCUT ONE (11:30)
[2017-05-04] MEDS: LEVOFLOXACIN 750 MG/D5W RTU 750 MG/150 ML RTUPB IV SCH (13:54)
--- NOTE | 2017-05-04 16:41 | PDOC PROGRESS REPORT ---
Subjective Progress Note for:: 05/04/17 Subjective:: No chest pain. Remain on BiPAP support. No nausea, vomiting, or abdominal pain. There is no bowel movement for couple of days. No fever or chills. Reason For Visit: DEHYDRATION WITH HYPONATREMIA;ACUTE RENAL INJURY; Physical Exam Vital Signs: Temp Pulse Resp BP Pulse Ox 98 F 96 25 H 124/94 H 98 05/04/17 14:46 05/04/17 14:51 05/04/17 14:51 05/04/17 14:46 05/04/17 14:51 Intake & Output 05/03/17 05/04/17 05/05/17 06:59 06:59 06:59 Intake Total 1618 2521 347 Output Total 200 600 Balance 1418 1921 347 Weight 83.9 kg 85.9 kg Physical Exam: General appearance: PRESENT: mild distress - respiratory distress, Remain on BiPAP support. Head exam: PRESENT: atraumatic, normocephalic Eye exam: PRESENT: conjunctiva pink, EOMI, PERRLA. ABSENT: scleral icterus Mouth exam: PRESENT: moist Neck exam: PRESENT: other - right IJ central line device Respiratory exam: PRESENT: decreased breath sounds Cardiovascular exam: PRESENT: tachycardia. ABSENT: diastolic murmur, rubs, systolic murmur GI/Abdominal exam: PRESENT: normal bowel sounds, soft. ABSENT: distended, guarding, mass, organomegaly, rebound, tenderness Extremities exam: PRESENT: pedal edema - uper extremities due to soft tissue infiltration Musculoskeletal exam: PRESENT: deformity - related to multiple joints involvement with arthritis. ABSENT: tenderness Neurological exam: PRESENT: alert - and appropriate in simple responses, awake Skin exam: PRESENT: dry, intact, warm. ABSENT: cyanosis, rash Results Laboratory Results: 05/04/17 04:30 05/02/17 14:30 05/03/17 05/04/17 05/04/17 05:39 04:30 06:00 WBC 5.6 RBC 3.18 L Hgb 9.7 L D Hct 28.0 L MCV 88 MCH 30.6 MCHC 34.7 RDW 15.3 H Plt Count 413 Seg Neutrophils % 77.1 Lymphocytes % 8.1 L Monocytes % 10.4 Eosinophils % 3.7 Basophils % 0.7 Absolute Neutrophils 4.3 Absolute Lymphocytes 0.5 Absolute Monocytes 0.6 Absolute Eosinophils 0.2 Absolute Basophils 0.0 Retic Count (auto) 1.73 Absolute Retic 0.055 Iron < 10.1 L TIBC 170 L % Saturation UNABLE TO CALCULATE Ferritin 200.00 Vitamin B12 492.0 Folate 8.88 Blood Type O POSITIVE Antibody Screen NEGATIVE Impressions: Head CT 04/17/17 13:01 IMPRESSION: MILD CHRONIC MICROVASCULAR ISCHEMIA. NO ACUTE IMAGING FINDINGS IN THE BRAIN. EVIDENCE OF ACUTE STROKE: NO. 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 AREAS OF MILD TO MODERATE SPINAL STENOSIS DESCRIBED. NO ACUTE FINDINGS. Chest CT 04/27/17 00:00 IMPRESSION: Diffuse bullous change with superimposed fluid likely interstitial edema or pneumonia. Clearly progressed from previous. Bilateral pleural effusions. Persistent air-fluid level and a large bullae in the right upper lobe. Infection in the differential. Unchanged. Acute Abdomen Series 04/30/17 00:00 IMPRESSION: 1. Gaseous distention in the abdomen. This includes large and small bowel. Scattered air-fluid levels may reflect mild ileus. Chest X-Ray 05/01/17 00:00 IMPRESSION: NO CHANGE IN APPEARANCE OF THE CHEST. Modified Barium Swallow 05/01/17 00:00 IMPRESSION: NO EVIDENCE OF LARYNGEAL PENETRATION OR TRACHEAL ASPIRATION.PLEASE SEE SPEECH PATHOLOGIST REPORT FOR OTHER FINDINGS AND RECOMMENDATIONS. Assessment & Plan - Diagnosis (1) Dehydration with hyponatremia Is this a current diagnosis for this admission?: Yes (2) Abnormality of lung on CXR Is this a current diagnosis for this admission?: Yes (3) Pneumatocele of lung Is this a current diagnosis for this admission?: Yes (4) Pneumothorax on right Is this a current diagnosis for this admission?: Yes (5) Acute kidney injury Is this a current diagnosis for this admission?: Yes (6) COPD (chronic obstructive pulmonary disease) Qualifiers: COPD type: unspecified COPD Qualified Code(s): J44.9 - Chronic obstructive pulmonary disease, unspecified Is this a current diagnosis for this admission?: Yes (7) HLD (hyperlipidemia) Qualifiers: Hyperlipidemia type: pure hypercholesterolemia Qualified Code(s): E78.00 - Pure hypercholesterolemia, unspecified Is this a current diagnosis for this admission?: Yes (8) HTN (hypertension) Qualifiers: Hypertension type: essential hypertension Qualified Code(s): I10 - Essential (primary) hypertension Is this a current diagnosis for this admission?: Yes (9) Constipation Qualifiers: Constipation type: slow transit constipation Qualified Code(s): K59.01 - Slow transit constipation Is this a current diagnosis for this admission?: Yes Plan: See attending physician orders. - Time Time Spent with patient: 25-34 minutes Medications reviewed and adjusted accordingly: Yes Anticipated discharge: Other Within: Other - Inpatient Certification Based on my medical assessment, after consideration of the patient's comorbidities, presenting symptoms, or acuity I expect that the services needed warrant INPATIENT care.: Yes I certify that my determination is in accordance with my understanding of Medicare's requirements for reasonable and necessary INPATIENT services [42 CFR 412.3e].: Yes Medical Necessity: Need Close Monitoring Due to Risk of Patient Decompensation, Need For IV Fluids, Need For Continuous Telemetry Monitoring, Need for IV Antibiotics, Risk of Complication if Not Cared For in Hospital Post Hospital Care: D/C Bellperson Documentation - Plan Summary Plan Summary: Maintain on IV antibiotic therapy. Administer Dulcolax suppository and soap/ sub enema therapy. Increase Megace to 80 mg po daily. Maintain on BiPAP support while sleeping and nasal cannula while awake. Continue all other current medication management.
[2017-05-04] MEDS: ONDANSETRON HCL INJ/PF 4 MG/2 ML SDV IV PRN (16:49)
[2017-05-04] MEDS ORDERED: BISACODYL 10 MG SUPP.RECT PR ONE (17:15)
[2017-05-05] MEDS: LEVALBUTEROL HCL NEB 1.25 MG/3 ML AMPUL NEB SCH ×4 (01:49→20:04)
[2017-05-05] MEDS: IMIPENEM/CILASTATIN SODIUM 1,000 MG in NORMAL SALINE 250 ML IV SCH ×4 (03:28→20:17)
[2017-05-05 05:19] LABS: ABSOLUTE EOSINOPHILS # (AUTO) 0.2 10^3/uL (0.0-0.6); ABSOLUTE LYMPHOCYTES (AUTO) 0.5 10^3/uL (0.5-4.7); ABSOLUTE MONOCYTES (AUTO) 0.7 10^3/uL (0.1-1.4); ABSOLUTE NEUT (AUTO) 4.1 10^3/uL (1.7-8.2); BASOPHILS % (AUTO) 0.5 % (0-2); EOSINOPHILS % (AUTO) 3.3 % (0-6); HEMATOCRIT 27.2 % (37.9-51.0); HEMOGLOBIN 9.6 g/dL (13.5-17.0); LYMPHOCYTES % (AUTO) 8.5 % (13-45); MEAN CORPUSCULAR HEMOGLOBIN 30.9 pg (27.0-33.4); MEAN CORPUSCULAR HGB CONC 35.2 g/dL (32.0-36.0); MEAN CORPUSCULAR VOLUME 88 fl (80-97); MONOCYTES % (AUTO) 12.7 % (3-13); PLATELET COUNT 369 10^3/uL (150-450); RED CELL DISTRIBUTION WIDTH 15.8 % (11.5-14.0); TOTAL CELLS COUNTED % (AUTO) 100 %; WHITE BLOOD COUNT 5.5 10^3/uL (4.0-10.5)
[2017-05-05 05:24] LABS: INTERNATIONAL RATION (INR) 1.19; PROTHROMBIN TIME 15.9 SEC (11.4-15.4)
[2017-05-05 05:34] LABS: ANION GAP 12 (5-19); BLOOD UREA NITROGEN 11 mg/dL (7-20); CARBON DIOXIDE 24 mmol/L (22-30); CHLORIDE 103 mmol/L (98-107); GLUCOSE 73 mg/dL (75-110); POTASSIUM 3.2 mmol/L (3.6-5.0); SODIUM 139.3 mmol/L (137-145)
[2017-05-05] MEDS: LANSOPRAZOLE 30 MG TAB.RAP.DR PO SCH (06:06)
[2017-05-05] MEDS: CEFEPIME 1 GM/D5W RTU 1 GM/50 ML RTUPB IV SCH ×2 (06:38→18:09)
[2017-05-05 07:24] LABS: ARTERIAL BLOOD BASE EXCESS -1.6 mmol/L; ARTERIAL BLOOD H2CO3 1.01 mmol/L (1.05-1.35); ARTERIAL BLOOD HCO3 22.1 mmol/L (20-26); ARTERIAL BLOOD O2 SATURATION 89.1 % (94-98); ARTERIAL BLOOD PCO2 33.7 mmHg (35-45); ARTERIAL BLOOD PH 7.44 (7.35-7.45); ARTERIAL BLOOD PO2 53.5 mmHg (80-100); ARTERIAL BLOOD TOTAL CO2 23.2 mmol/L (23-27)
[2017-05-05 07:26] LABS: ARTERIAL BLOOD FIO2 50%
[2017-05-05] MEDS: CLINDAMYCIN 600 MG/D5W RTU 600 MG/50 ML RTUPB IV SCH ×3 (07:42→22:21)
[2017-05-05] MEDS ORDERED: SUCCINYLCHOLINE CHLORIDE INJ 200 MG/10 ML VIAL ONE (08:03)
[2017-05-05] MEDS ORDERED: NORMAL SALINE 250 ML IV PRN ×2 (09:37)
[2017-05-05] MEDS ORDERED: PHYTONADIONE INJ 10 MG/1 ML AMPULE SUBCUT ONE (10:00)
[2017-05-05] MEDS: LEVOFLOXACIN 750 MG/D5W RTU 750 MG/150 ML RTUPB IV SCH (10:12)
[2017-05-05] MEDS: BIMATOPROST 0.01% OPH SOLN 2.5 ML/BOTTLE OU SCH (10:16)
[2017-05-05] MEDS: ENOXAPARIN SODIUM INJ 40 MG/0.4 ML DISP.SYRIN SUBCUT SCH (10:19)
[2017-05-05] MEDS: MEGESTROL ACETATE 20 MG TABLET PO SCH (10:19)
[2017-05-05] MEDS: POTASSI CL 20 MEQ/50 ML RIDER 20 MEQ/50 ML RTUPB IV SCH ×2 (13:12→14:34)
--- NOTE | 2017-05-05 14:43 | PROGRESS NOTE E ---
Progress Note NAME: MADINA HIDALGO : 1945 AGE: 71Y DATE: 05/05/2017 ROOM: 302 SUBJECTIVE: This is a 71-year-old male patient with cavitary lesions, necrotizing pneumonia, respiratory distress, admitted by Dr. Valadez and Dr. Salguero has already consulted. The patient is currently on BiPAP support. The patient currently denied any chest pain, denied any shortness of breath. The daughter is at the bedside. The patient is going to receive fresh frozen plasma for possible bronchoscopy on Sunday. The patient otherwise remains the same. No other events happened overnight. MEDICATIONS: 1. Cefepime 1 gm IV q.12 h. 2. Clindamycin 600 mg IV q.8 h. 3. Imipenem. 4. Levofloxacin. 5. Megace. 6. Xopenex. 7. Lovenox. 8. Tylenol. 9. Oxycodone. 10. IV fluids normal saline. 11. Colace. 12. Prevacid. 13. Zofran. 14. Simethicone. OBJECTIVE: VITAL SIGNS: Blood pressure 134/86, temperature was 98.1, pulse was 101, respirations 26, O2 93% on BiPAP. GENERAL: The patient is alert, awake, currently on BiPAP, no acute distress. HEENT: Head is normocephalic. PERRLA. LUNGS: Decreased breath sounds bilaterally, no rales, no rhonchi. HEART: S1,S2 present. ABDOMEN: Soft. Bowel sounds present. LOWER EXTREMITIES: No edema. NEUROLOGIC: The patient moves all 4 extremities. DIAGNOSTICS: WBC is 5.5, hemoglobin 9.6, platelets 269. Chemistries: Sodium 139, potassium 3.2, BUN 11, creatinine 0.69. The patient's microbiology, no other acute finding today. The patient's last chest x-ray was 05/01/2017 which shows some patchy bilateral *------* opacity, unchanged; right *------* bullae and pleural thickening, also unchanged. No pleural effusion, no pneumothorax. ASSESSMENT: 1. RESPIRATORY FAILURE. 2. CAVITARY LESION OF THE LUNG. 3. DEHYDRATION. 4. ACUTE EXACERBATION OF COPD. 6. HYPERTENSION. 7. HYPERLIPIDEMIA. PLAN: Continue broad-spectrum antibiotics. Continue BiPAP. Discussed with Dr. Salguero today. Planning for the bronchoscopy on Sunday. Replace the potassium. Discussed with the daughter regarding the patient's current condition with the poor prognosis. DICTATING PHYSICIAN: HESHAM LOVE M.D. [id number] PHY#: [id number] ID: [id number] JOB#: [id number] ACCT: [id number] cc: >
[2017-05-05] MEDS ORDERED: FUROSEMIDE INJ/PF 20 MG/2 ML SDV IV ONE (17:30)
[2017-05-05 17:44] LABS: ARTERIAL BLOOD BASE EXCESS 0.6 mmol/L; ARTERIAL BLOOD H2CO3 1.01 mmol/L (1.05-1.35); ARTERIAL BLOOD HCO3 23.9 mmol/L (20-26); ARTERIAL BLOOD O2 SATURATION 99.2 % (94-98); ARTERIAL BLOOD PCO2 33.4 mmHg (35-45); ARTERIAL BLOOD PH 7.47 (7.35-7.45); ARTERIAL BLOOD PO2 157.8 mmHg (80-100)
[2017-05-05 17:45] LABS: ARTERIAL BLOOD FIO2 100%
--- NOTE | 2017-05-05 19:35 | RADIOLOGY REPORT (SQ) ---
EXAM DESCRIPTION: CHEST SINGLE VIEW COMPLETED DATE/TIME: 05/05/2017 5:48 pm REASON FOR STUDY: Fluid overload? Increased shortness of breath COMPARISON: 05/01/2017 EXAM PARAMETERS: NUMBER OF VIEWS: One view. TECHNIQUE: Single frontal radiographic view of the chest acquired. RADIATION DOSE: NA LIMITATIONS: None. FINDINGS: LUNGS AND PLEURA: Today's examination reveals slightly increased interstitial opacities in volving predominantly the right lower lung. Right apical bulla and pleural thickening are unchanged. No pleural effusion. No pneumothorax. MEDIASTINUM AND HILAR STRUCTURES: No masses. Contour normal. HEART AND VASCULAR STRUCTURES: Heart normal in size. Normal vasculature. BONES: No acute findings. HARDWARE: A right cervical central vascular access catheter is stable in position and appearance. OTHER: No other significant finding. IMPRESSION: Slightly increased interstitial markings involving predominantly the right lower lung ma y represent positive fluid balance. An infectious etiology is not excluded. TECHNICAL DOCUMENTATION: JOB ID: [id number] [employer]- All Rights Reserved
[2017-05-05] MEDS ORDERED: PROPOFOL 100 ML IV ONE (21:02)
[2017-05-05] MEDS ORDERED: NORMAL SALINE 1000 ML 2,000 ML IV PRN (21:06)
[2017-05-05] MEDS: PROPOFOL 100 ML IV PRN (21:18)
[2017-05-05] MEDS ORDERED: PROPOFOL INJ 200 MG/20 ML VIAL IV ONE (21:26)
[2017-05-05 21:55] LABS: ARTERIAL BLOOD BASE EXCESS -0.7 mmol/L; ARTERIAL BLOOD H2CO3 1.18 mmol/L (1.05-1.35); ARTERIAL BLOOD O2 SATURATION 95.2 % (94-98); ARTERIAL BLOOD PCO2 39.2 mmHg (35-45); ARTERIAL BLOOD PO2 75.5 mmHg (80-100); ARTERIAL BLOOD TOTAL CO2 25.2 mmol/L (23-27)
[2017-05-05 21:56] LABS: ARTERIAL BLOOD FIO2 100
[2017-05-05] MEDS ORDERED: PHENYLEPHRINE HCL INJ/PF 10 MG/1 ML SDV ONE (22:16)
--- NOTE | 2017-05-05 22:35 | RADIOLOGY REPORT (SQ) ---
EXAM DESCRIPTION: CHEST SINGLE VIEW COMPLETED DATE/TIME: 05/05/2017 9:44 pm REASON FOR STUDY: INTUBATION COMPARISON: 05/05/2017 EXAM PARAMETERS: NUMBER OF VIEWS: One view. TECHNIQUE: Single frontal radiographic view of the chest acquired. RADIATION DOSE: NA LIMITATIONS: The costophrenic angles are excluded from the imaged field of view. FINDINGS: LUNGS AND PLEURA: Stable, again demonstrating increased interstitial markings involving th e right greater than left lungs. Right apical bulla and pleural thickening are unchanged. No pneumo thorax. MEDIASTINUM AND HILAR STRUCTURES: No masses. Contour normal. HEART AND VASCULAR STRUCTURES: Heart normal in size. Normal vasculature. BONES: No acute findings. HARDWARE: An endotracheal tube projects in the midline over the tracheal air shadow, terminating appr oximately 7.4 cm cranial to the francis. An enteric tube is seen along the expected course of the eso phagus with the tip and proximal port projecting subdiaphragmatically within the left upper quadrant. A right central vascular access catheter appears stable in position. OTHER: No other significant finding. IMPRESSION: 1. Stable pulmonary exam. 2. Interval placement of an enteric tube and endotracheal tube as detailed above. Stable right cerv ical central vascular access catheter TECHNICAL DOCUMENTATION: JOB ID: [id number] [employer]- All Rights Reserved
[2017-05-05] MEDS: NORMAL SALINE 1000 ML 1,000 ML IV PRN (23:48)
[2017-05-06] MEDS: PROPOFOL 100 ML IV PRN ×4 (00:05→22:46)
[2017-05-06] MEDS: LEVALBUTEROL HCL NEB 1.25 MG/3 ML AMPUL NEB SCH ×4 (01:37→20:04)
[2017-05-06] MEDS: IMIPENEM/CILASTATIN SODIUM 1,000 MG in NORMAL SALINE 250 ML IV SCH ×4 (02:23→20:43)
[2017-05-06] MEDS ORDERED: PHENYLEPHRINE HCL INJ/PF 10 MG/1 ML SDV ONE (03:20)
[2017-05-06] MEDS: DEXTROSE 5%-WATER 250 ML with PHENYLEPHRINE HCL 40 MG IV PRN ×4 (03:25→12:59)
[2017-05-06] MEDS: NORMAL SALINE INJ/PF 0.9% 10 ML SDV IV PRN (05:00)
[2017-05-06] MEDS: CLINDAMYCIN 600 MG/D5W RTU 600 MG/50 ML RTUPB IV SCH ×3 (05:01→22:46)
[2017-05-06] MEDS: LANSOPRAZOLE 30 MG TAB.RAP.DR PO SCH (05:03)
[2017-05-06] MEDS: CEFEPIME 1 GM/D5W RTU 1 GM/50 ML RTUPB IV SCH ×2 (05:04→17:43)
[2017-05-06 05:20] LABS: ABSOLUTE EOSINOPHILS # (AUTO) 0.2 10^3/uL (0.0-0.6); ABSOLUTE LYMPHOCYTES (AUTO) 0.6 10^3/uL (0.5-4.7); ABSOLUTE MONOCYTES (AUTO) 0.6 10^3/uL (0.1-1.4); ABSOLUTE NEUT (AUTO) 3.8 10^3/uL (1.7-8.2); BASOPHILS % (AUTO) 0.4 % (0-2); EOSINOPHILS % (AUTO) 3.9 % (0-6); HEMOGLOBIN 9.4 g/dL (13.5-17.0); LYMPHOCYTES % (AUTO) 12.2 % (13-45); MEAN CORPUSCULAR HEMOGLOBIN 29.9 pg (27.0-33.4); MEAN CORPUSCULAR HGB CONC 33.6 g/dL (32.0-36.0); MEAN CORPUSCULAR VOLUME 89 fl (80-97); MONOCYTES % (AUTO) 11.8 % (3-13); PLATELET COUNT 346 10^3/uL (150-450); RED BLOOD COUNT 3.15 10^6/uL (4.35-5.55); SEGMENTED NEUTROPHILS % (AUTO) 71.7 % (42-78); TOTAL CELLS COUNTED % (AUTO) 100 %; WHITE BLOOD COUNT 5.3 10^3/uL (4.0-10.5)
[2017-05-06 05:26] LABS: ARTERIAL BLOOD BASE EXCESS -1.9 mmol/L; ARTERIAL BLOOD H2CO3 1.14 mmol/L (1.05-1.35); ARTERIAL BLOOD HCO3 22.7 mmol/L (20-26); ARTERIAL BLOOD O2 SATURATION 91.1 % (94-98); ARTERIAL BLOOD PH 7.39 (7.35-7.45); ARTERIAL BLOOD PO2 60.1 mmHg (80-100); ARTERIAL BLOOD TOTAL CO2 23.9 mmol/L (23-27)
[2017-05-06 05:29] LABS: ARTERIAL BLOOD FIO2 80%
[2017-05-06 05:33] LABS: INTERNATIONAL RATION (INR) 1.35; PROTHROMBIN TIME 17.5 SEC (11.4-15.4)
[2017-05-06 05:34] LABS: PARTIAL THROMBOPLASTIN TIME 49.6 SEC (23.5-35.8)
[2017-05-06 05:55] LABS: ANION GAP 13 (5-19); BLOOD UREA NITROGEN 11 mg/dL (7-20); CALCIUM 8.7 mg/dL (8.4-10.2); CARBON DIOXIDE 24 mmol/L (22-30); CHLORIDE 104 mmol/L (98-107); GLUCOSE 98 mg/dL (75-110); POTASSIUM 3.1 mmol/L (3.6-5.0); TRIGLYCERIDES 59 mg/dL (<150)
[2017-05-06] MEDS: POTASSIUM CHLORIDE 20 MEQ/50 ML RTU IV SCH ×3 (06:25→09:15)
[2017-05-06] MEDS: MAGNESIUM SULFATE 1 GM/D5W 100 ML IV SCH (06:25)
--- NOTE | 2017-05-06 07:42 | RADIOLOGY REPORT (SQ) ---
EXAM DESCRIPTION: CHEST SINGLE VIEW CLINICAL HISTORY: 71 years, Male, ETT PLACEMENT COMPARISON: 05/05/2017 FINDINGS: Moderate right layered effusion, 6.9 cm ovoid lucency at the apex of the right lung consistent with previously described bullous disease, no significant pneumothorax component discerned, mixed small patchiness and severe interstitial opacities bilaterally of with mid and lower predominance, normal cardiac silhouette, and adequate appearing tip of an endotracheal tube just below the thoracic inlet; consider 3 cm advancement. Adequate appearing endotracheal tube obscured distally. Right jugular central line tip at the right atrium; consider nine cm retraction. Sternotomy. Mild osteoarthritis. IMPRESSION: Tip of an endotracheal tube just below the thoracic inlet; consider 3 cm advancement. Right jugular central line tip at the right atrium; consider 9 cm retraction. Else, no significant interval change. 2011 [employer]- All Rights Reserved
[2017-05-06] MEDS: BIMATOPROST 0.01% OPH SOLN 2.5 ML/BOTTLE OU SCH (09:13)
[2017-05-06] MEDS: LEVOFLOXACIN 750 MG/D5W RTU 750 MG/150 ML RTUPB IV SCH (09:13)
[2017-05-06] MEDS ORDERED: NOREPINEPHRINE BITARTRATE INJ/PF 4 MG/4 ML SDV IV ONE (09:14)
[2017-05-06] MEDS: MEGESTROL ACETATE 20 MG TABLET PO SCH (09:14)
[2017-05-06] MEDS: ENOXAPARIN SODIUM INJ 40 MG/0.4 ML DISP.SYRIN SUBCUT SCH (09:15)
--- NOTE | 2017-05-06 10:29 | RADIOLOGY REPORT (SQ) ---
EXAM DESCRIPTION: KUB/ABDOMEN (SINGLE VIEW) COMPLETED DATE/TIME: 05/06/2017 10:20 am REASON FOR STUDY: OG tube Placement COMPARISON: None. NUMBER OF VIEWS: One view. TECHNIQUE: Single frontal radiograph covering the lower chest and upper abdomen. LIMITATIONS: None. FINDINGS: BOWEL GAS PATTERN: Normal bowel gas pattern. No dilated loops. CALCIFICATIONS: No suspicious calcifications. SOFT TISSUES: No gross mass or suggestion of organomegaly. HARDWARE: Stable position of nasogastric tube terminating within the stomach. Partial visualization of right IJ venous catheter within the upper right atrium. BONES: No acute fracture. No worrisome bone lesions. OTHER: Stable chronic lung change and/or multifocal airspace disease IMPRESSION: SATISFACTORY POSITION NASOGASTRIC TUBE. ADDITIONAL FINDINGS ARE ABOVE. TECHNICAL DOCUMENTATION: JOB ID: [id number] [employer]- All Rights Reserved
--- NOTE | 2017-05-06 17:28 | EKG REPORT ---
SEVERITY:- ABNORMAL ECG - SINUS TACHYCARDIA LAD, CONSIDER LEFT ANTERIOR FASCICULAR BLOCK LOW VOLTAGE THROUGHOUT BORDERLINE R WAVE PROGRESSION, ANTERIOR LEADS NONSPECIFIC T ABNORMALITIES, ANT-LAT LEADS CONSIDER ISCHEMIA PROLONGED QT INTERVAL : Confirmed by: Jaylan Frost 06-May-2017 12:15:55
[2017-05-06] MEDS: DEXTROSE 5%-WATER 250 ML with NOREPINEPHRINE BITARTRATE 4 MG IV PRN ×2 (17:45)
[2017-05-06] MEDS ORDERED: POTASSI CL 20 MEQ/50 ML RIDER 20 MEQ/50 ML RTUPB IV ONE ×2 (18:25→19:55)
--- NOTE | 2017-05-06 21:33 | PROGRESS NOTE E ---
Progress Note NAME: MADINA HIDALGO : 1945 AGE: 71Y DATE: 05/06/2017 ROOM: 611 SUBJECTIVE: This is a 71-year-old patient of Dr. Valadez with significant medical issues for the last 2 weeks. The patient is in the hospital with not able to eat too much. Basically, yesterday the patient was getting more short of breath. The patient was on a BiPAP and the respiration was high. At that time, the patient's pH was done and was 7.41 and *------* was consulted already and the case was discussed with him and suggested the patient was transported to the ICU and the patient was finally intubated. The patient is currently on ventilation with the Levo and jennifer drips. Family was at the bedside. The patient is currently in critical condition. OBJECTIVE: VITAL SIGNS: Blood pressure is 130/80, temperature is 98.1, pulse was 80-100 range, respiration was 20. The patient is currently on a jennifer drip of 40 and a Levo drip of 10 to maintain the blood pressure. The patient is currently intubated. HEAD AND NECK: Normocephalic. PERRL. LUNGS: Decreased breath sounds bilaterally. HEART: S1 and S2 is present. ABDOMEN: Soft. Bowel sounds present. EXTREMITIES: No edema. NEUROLOGIC: The patient is currently intubated. ASSESSMENT: 1. ACUTE RESPIRATORY FAILURE. 2. PNEUMONIA. 3. CAVITARY LESION. 4. DEHYDRATION. 5. HYPOKALEMIA. 6. MULTIPLE COMORBIDITIES. PLAN: The patient is currently on IV fluid, IV antibiotics. Very extensive discussion with the daughter at the bedside or on the phone regarding the patient's current condition with the poor prognosis. Discussed the code status. Patient still currently is a FULL CODE. Discussed with *------* at the bedside regarding the patient's current condition. Patient is currently maintained with these medications but overall prognosis is poor. Very extensively discussed with the patient's family and understand very well about that. We will maintain the patient and I hope the patient continues to improve. More than 45 minutes spent. Patient was reviewed and examined twice today, in the morning and in the evening again and discussed with the family and updated the prognosis of the patient. Discussed with the nursing staff on ICU regarding the patient's current condition, all the electrolytes were checked and replaced with the protocol. Repeat the blood work in the morning. DICTATING PHYSICIAN: HESHAM LOVE M.D. [id number] PHY#: [id number] ID: [id number] JOB#: [id number] ACCT: [id number] cc: >
[2017-05-06] MEDS: NORMAL SALINE 1000 ML 1,000 ML IV PRN (22:45)
[2017-05-07] MEDS: PROPOFOL 100 ML IV PRN ×4 (02:15→17:44)
[2017-05-07] MEDS: IMIPENEM/CILASTATIN SODIUM 1,000 MG in NORMAL SALINE 250 ML IV SCH ×4 (02:16→21:14)
[2017-05-07] MEDS: LEVALBUTEROL HCL NEB 1.25 MG/3 ML AMPUL NEB SCH ×4 (02:21→20:43)
[2017-05-07] MEDS: CLINDAMYCIN 600 MG/D5W RTU 600 MG/50 ML RTUPB IV SCH ×3 (05:00→21:15)
[2017-05-07] MEDS: LANSOPRAZOLE 30 MG TAB.RAP.DR PO SCH (05:00)
[2017-05-07] MEDS: CEFEPIME 1 GM/D5W RTU 1 GM/50 ML RTUPB IV SCH ×2 (05:00→17:43)
[2017-05-07 05:21] LABS: ARTERIAL BLOOD BASE EXCESS 0.9 mmol/L; ARTERIAL BLOOD H2CO3 1.07 mmol/L (1.05-1.35); ARTERIAL BLOOD HCO3 24.6 mmol/L (20-26); ARTERIAL BLOOD O2 SATURATION 90.5 % (94-98); ARTERIAL BLOOD PCO2 35.7 mmHg (35-45); ARTERIAL BLOOD PH 7.46 (7.35-7.45); ARTERIAL BLOOD PO2 55.4 mmHg (80-100); ARTERIAL BLOOD TOTAL CO2 25.7 mmol/L (23-27)
[2017-05-07 05:22] LABS: ABSOLUTE EOSINOPHILS # (AUTO) 0.3 10^3/uL (0.0-0.6); ABSOLUTE LYMPHOCYTES (AUTO) 0.5 10^3/uL (0.5-4.7); ABSOLUTE MONOCYTES (AUTO) 0.5 10^3/uL (0.1-1.4); ABSOLUTE NEUT (AUTO) 4.6 10^3/uL (1.7-8.2); BASOPHILS % (AUTO) 0.5 % (0-2); EOSINOPHILS % (AUTO) 4.7 % (0-6); HEMATOCRIT 29.3 % (37.9-51.0); HEMOGLOBIN 10.1 g/dL (13.5-17.0); MEAN CORPUSCULAR HEMOGLOBIN 30.1 pg (27.0-33.4); MEAN CORPUSCULAR HGB CONC 34.5 g/dL (32.0-36.0); MEAN CORPUSCULAR VOLUME 87 fl (80-97); MONOCYTES % (AUTO) 8.9 % (3-13); PLATELET COUNT 277 10^3/uL (150-450); RED BLOOD COUNT 3.36 10^6/uL (4.35-5.55); RED CELL DISTRIBUTION WIDTH 15.9 % (11.5-14.0); SEGMENTED NEUTROPHILS % (AUTO) 76.9 % (42-78); TOTAL CELLS COUNTED % (AUTO) 100 %; WHITE BLOOD COUNT 5.9 10^3/uL (4.0-10.5)
[2017-05-07 05:23] LABS: ARTERIAL BLOOD FIO2 100%
[2017-05-07 05:55] LABS: BLOOD UREA NITROGEN 11 mg/dL (7-20); CALCIUM 8.4 mg/dL (8.4-10.2); GLUCOSE 105 mg/dL (75-110)
[2017-05-07 05:56] LABS: ANION GAP 10 (5-19); CARBON DIOXIDE 25 mmol/L (22-30); CHLORIDE 105 mmol/L (98-107); MAGNESIUM 1.3 mg/dL (1.6-2.3); PHOSPHORUS 2.5 mg/dL (2.5-4.5); POTASSIUM 3.4 mmol/L (3.6-5.0)
[2017-05-07] MEDS ORDERED: POTASSI CL 20 MEQ/50 ML RIDER 20 MEQ/50 ML RTUPB IV ONE (06:20)
[2017-05-07] MEDS ORDERED: MAGNESIUM SULFATE/D5W 1 GM/100 ML RTUPB IV ONE (06:20)
[2017-05-07] MEDS ORDERED: FENTANYL CITRATE INJ/PF 100 MCG/2 ML AMPUL ONE (06:35)
[2017-05-07] MEDS ORDERED: MIDAZOLAM 2 MG/2 ML INJ ONE (06:36)
[2017-05-07] MEDS ORDERED: ONDANSETRON HCL INJ/PF 4 MG/2 ML SDV ONE (06:36)
[2017-05-07] MEDS ORDERED: PROPOFOL INJ 200 MG/20 ML VIAL IV ONE (06:36)
[2017-05-07] MEDS: POTASSIUM CHLORIDE 20 MEQ/50 ML RTU IV SCH (07:27)
[2017-05-07] MEDS: MAGNESIUM SULFATE 1 GM/D5W 100 ML IV SCH (07:29)
[2017-05-07] MEDS ORDERED: EPINEPHRINE INJ 1 MG/10 ML DISP.SYRIN ONE (07:31)
[2017-05-07] MEDS ORDERED: LIDOCAINE 2% INJ (20 MG/ML) 20 ML MDV ONE (07:31)
--- NOTE | 2017-05-07 09:24 | RADIOLOGY REPORT (SQ) ---
EXAM DESCRIPTION: CHEST SINGLE VIEW COMPLETED DATE/TIME: 05/07/2017 7:06 am REASON FOR STUDY: ETT PLACEMENT COMPARISON: CT chest 04/28/2017 Chest films 05/01/2017, 05/05/2017, 05/06/2017 EXAM PARAMETERS: NUMBER OF VIEWS: One view. TECHNIQUE: Single frontal radiographic view of the chest acquired. RADIATION DOSE: NA LIMITATIONS: None. FINDINGS: LUNGS AND PLEURA: Diffuse increased interstitial markings throughout both lungs unchanged over the series of exams. Stable right apical pleural cavity with apical pleural calcifications. No pneumothorax. Stable trace right pleural effusion. No dense lobar pneumonia. MEDIASTINUM AND HILAR STRUCTURES: No masses. Contour normal. HEART AND VASCULAR STRUCTURES: Heart normal in size. Normal vasculature. BONES: No acute findings. HARDWARE: Endotracheal tube tip 6 to 7 cm above the francis, at the level of the clavicular heads. Th is report was called to Meli Serrato the patient's nurse in ICU. Right jugular central line tip right atrium. Nasogastric tube tip and side port in the stomach OTHER: No other significant finding. IMPRESSION: No change in diffuse increased interstitial markings throughout both lungs Stable trace right pleural effusion in the lateral costophrenic sulcus Endotracheal tube tip 6 to 7 cm above the francis. ET tube tip is at the level of the clavicular head s. This report was called to the patient's nurse in ICU TECHNICAL DOCUMENTATION: JOB ID: [id number] [employer]- All Rights Reserved
--- NOTE | 2017-05-07 09:47 | RADIOLOGY REPORT (SQ) ---
EXAM DESCRIPTION: CHEST SINGLE VIEW COMPLETED DATE/TIME: 05/07/2017 9:34 am REASON FOR STUDY: POST BRONCHOSCOPY COMPARISON: 05/07/2017 0702 hours chest film EXAM PARAMETERS: NUMBER OF VIEWS: One view. TECHNIQUE: Single frontal radiographic view of the chest acquired. RADIATION DOSE: NA LIMITATIONS: None. FINDINGS: LUNGS AND PLEURA: No change in right apical pleural-parenchymal scarring, trace fluid in t he right lateral costophrenic sulcus. No pneumothorax. Lungs are diffusely abnormal with increased interstitial markings throughout, stable. MEDIASTINUM AND HILAR STRUCTURES: No masses. Contour normal. HEART AND VASCULAR STRUCTURES: Heart normal in size. Normal vasculature. BONES: No acute findings. HARDWARE: Endotracheal tube tip 7 cm above the francis, at the level of the clavicular heads. Nasogas tric tube tip and side port in the stomach. Right jugular central line tip right atrium OTHER: No other significant finding. IMPRESSION: Endotracheal tube tip 6 to 7 cm above the francis. Nasogastric tube tip and side port in the stomach. Right jugular central line tip in the right atrium. No change in diffuse lung parenchymal increased interstitial markings TECHNICAL DOCUMENTATION: JOB ID: [id number] [employer]- All Rights Reserved
[2017-05-07 10:11] LABS: ANION GAP 12 (5-19); BLOOD UREA NITROGEN 12 mg/dL (7-20); CALCIUM 8.6 mg/dL (8.4-10.2); CARBON DIOXIDE 23 mmol/L (22-30); CHLORIDE 103 mmol/L (98-107); GLUCOSE 99 mg/dL (75-110); POTASSIUM 3.5 mmol/L (3.6-5.0)
[2017-05-07 10:12] LABS: ARTERIAL BLOOD H2CO3 1.05 mmol/L (1.05-1.35); ARTERIAL BLOOD HCO3 21.6 mmol/L (20-26); ARTERIAL BLOOD PCO2 34.8 mmHg (35-45); ARTERIAL BLOOD PH 7.41 (7.35-7.45); ARTERIAL BLOOD PO2 89.9 mmHg (80-100); ARTERIAL BLOOD TOTAL CO2 22.6 mmol/L (23-27)
[2017-05-07] MEDS: BIMATOPROST 0.01% OPH SOLN 2.5 ML/BOTTLE OU SCH (10:12)
[2017-05-07] MEDS: LEVOFLOXACIN 750 MG/D5W RTU 750 MG/150 ML RTUPB IV SCH (10:12)
[2017-05-07 10:13] LABS: ARTERIAL BLOOD BASE EXCESS -2.6 mmol/L; ARTERIAL BLOOD FIO2 90%
[2017-05-07] MEDS: MEGESTROL ACETATE 20 MG TABLET PO SCH (10:13)
[2017-05-07] MEDS: ENOXAPARIN SODIUM INJ 40 MG/0.4 ML DISP.SYRIN SUBCUT SCH (10:14)
--- NOTE | 2017-05-07 10:46 | RADIOLOGY REPORT (SQ) ---
EXAM DESCRIPTION: CHEST SINGLE VIEW; NO CHG FLUORO COMPLETED DATE/TIME: 05/07/2017 9:57 am REASON FOR STUDY: BRONCHOSCOPY RT LUNG ASSISTED WITH FLUORO IN OR COMPARISON: Chest films same date FLUOROSCOPY TIME: 2.1 minutes 2 digital radiographic images saved to PACS. TECHNIQUE: Intra-operative images acquired during surgical procedure to evaluate progress. NUMBER OF IMAGES: 2 digital radiographic images LIMITATIONS: None. FINDINGS: Intra procedural imaging and fluoro in the ICU during bronchoscopy of the right upper lobe . Please see the operative report for further details. IMPRESSION: IMAGE(S) OBTAINED DURING PROCEDURE. COMMENT: Quality ID [id number]: Final reports for procedures using fluoroscopy that document radiation exp osure indices, or exposure time and number of fluorographic images (if radiation exposure indices are not available) Please consult full operative report of the attending physician for description of the procedure. TECHNICAL DOCUMENTATION: JOB ID: [id number] [employer]- All Rights Reserved
[2017-05-07 11:07] LABS: FLUID APPEARANCE CLOUDY; FLUID COLOR RED; FLUID TYPE BRONCHIAL WASH; FLUID VISCOSITY MODERATELY VISCOUS
[2017-05-07] MEDS ORDERED: NOREPINEPHRINE BITARTRATE INJ/PF 4 MG/4 ML SDV IV ONE (11:40)
[2017-05-07] MEDS: DEXTROSE 5%-WATER 250 ML with NOREPINEPHRINE BITARTRATE 4 MG IV PRN ×4 (11:48→17:44)
--- NOTE | 2017-05-07 13:16 | PDOC PROGRESS REPORT ---
Subjective Progress Note for:: 05/07/17 Subjective:: Interval notes and events appreciated. Patient remain intubated, sedated and vent supported at this time. s/p bronchosocpy with biopsy procedure. No reported fever. Awaiting official report of echocardiogram. Reason For Visit: DEHYDRATION WITH HYPONATREMIA;ACUTE RENAL INJURY; Physical Exam Vital Signs: Temp Pulse Resp BP Pulse Ox 96.6 F L 92 27 H 90/66 L 95 05/07/17 12:00 05/07/17 12:00 05/07/17 12:00 05/07/17 12:00 05/07/17 12:00 Intake & Output 05/06/17 05/07/17 05/08/17 06:59 06:59 06:59 Intake Total 5253 6163 Output Total 1130 3790 1000 Balance 4123 2373 -1000 Weight 83.4 kg 85.4 kg Physical Exam: General appearance: PRESENT: Sedated on IV Propofol. ET and OG tubes in situ. Head exam: PRESENT: atraumatic, normocephalic Eye exam: PRESENT: conjunctiva pink, EOMI, PERRLA. ABSENT: scleral icterus Mouth exam: PRESENT: moist Neck exam: PRESENT: other - right IJ central line device Respiratory exam: PRESENT: decreased breath sounds at lung bases Cardiovascular exam: PRESENT: RRR, S+1, S+2, ABSENT: diastolic murmur, rubs, systolic murmur. Remain on IV Levophed support GI/Abdominal exam: PRESENT: normal bowel sounds, soft. ABSENT: distended, guarding, mass, organomegaly, rebound, tenderness Extremities exam: PRESENT: pedal edema - upper extremities due to soft tissue infiltration Musculoskeletal exam: PRESENT: deformity - related to multiple joints involvement with arthritis. ABSENT: tenderness Neurological exam: PRESENT: Sedated. Skin exam: PRESENT: dry, intact, warm. ABSENT: cyanosis, rash Results Laboratory Results: 05/07/17 05:10 05/06/17 05/06/17 05/07/17 11:35 14:23 05:10 WBC RBC Hgb Hct MCV MCH MCHC RDW Plt Count Seg Neutrophils % Lymphocytes % Monocytes % Eosinophils % Basophils % Absolute Neutrophils Absolute Lymphocytes Absolute Monocytes Absolute Eosinophils Absolute Basophils Carbonic Acid 1.05 1.07 HCO3/H2CO3 Ratio 20:1 22:1 ABG pH 7.41 7.46 H ABG pCO2 34.8 L 35.7 ABG pO2 89.9 55.4 L ABG HCO3 21.6 24.6 ABG O2 Saturation 97.0 90.5 L ABG Base Excess -2.6 0.9 FiO2 90% 100% Sodium 138.0 Potassium 3.5 L Chloride 103 Carbon Dioxide 23 Anion Gap 12 BUN 12 Creatinine 0.88 Est GFR ( Amer) > 60 Est GFR (Non-Af Amer) > 60 Glucose 99 Calcium 8.6 Phosphorus Magnesium Fluid Type Fluid Source Fluid Color Fluid Appearance Fluid Viscosity Fluid WBC Fluid RBC 05/07/17 05/07/17 05/07/17 05:10 05:10 08:37 WBC 5.9 RBC 3.36 L Hgb 10.1 L Hct 29.3 L MCV 87 MCH 30.1 MCHC 34.5 RDW 15.9 H Plt Count 277 Seg Neutrophils % 76.9 Lymphocytes % 9.0 L Monocytes % 8.9 Eosinophils % 4.7 Basophils % 0.5 Absolute Neutrophils 4.6 Absolute Lymphocytes 0.5 Absolute Monocytes 0.5 Absolute Eosinophils 0.3 Absolute Basophils 0.0 Carbonic Acid HCO3/H2CO3 Ratio ABG pH ABG pCO2 ABG pO2 ABG HCO3 ABG O2 Saturation ABG Base Excess FiO2 Sodium 140.0 Potassium 3.4 L Chloride 105 Carbon Dioxide 25 Anion Gap 10 BUN 11 Creatinine 0.86 Est GFR ( Amer) > 60 Est GFR (Non-Af Amer) > 60 Glucose 105 Calcium 8.4 Phosphorus 2.5 Magnesium 1.3 L Fluid Type BRONCHIAL WASH Fluid Source Fluid Color RED Fluid Appearance CLOUDY Fluid Viscosity MODERATELY VISCOUS Fluid WBC 3725 Fluid RBC [address]35 Impressions: Head CT 04/17/17 13:01 IMPRESSION: MILD CHRONIC MICROVASCULAR ISCHEMIA. NO ACUTE IMAGING FINDINGS IN THE BRAIN. EVIDENCE OF ACUTE STROKE: NO. 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 AREAS OF MILD TO MODERATE SPINAL STENOSIS DESCRIBED. NO ACUTE FINDINGS. Chest CT 04/27/17 00:00 IMPRESSION: Diffuse bullous change with superimposed fluid likely interstitial edema or pneumonia. Clearly progressed from previous. Bilateral pleural effusions. Persistent air-fluid level and a large bullae in the right upper lobe. Infection in the differential. Unchanged. Acute Abdomen Series 04/30/17 00:00 IMPRESSION: 1. Gaseous distention in the abdomen. This includes large and small bowel. Scattered air-fluid levels may reflect mild ileus. Modified Barium Swallow 05/01/17 00:00 IMPRESSION: NO EVIDENCE OF LARYNGEAL PENETRATION OR TRACHEAL ASPIRATION.PLEASE SEE SPEECH PATHOLOGIST REPORT FOR OTHER FINDINGS AND RECOMMENDATIONS. KUB X-Ray 05/06/17 09:36 IMPRESSION: SATISFACTORY POSITION NASOGASTRIC TUBE. ADDITIONAL FINDINGS ARE ABOVE. Fluoroscopy 05/07/17 00:00 IMPRESSION: IMAGE(S) OBTAINED DURING PROCEDURE. Chest X-Ray 05/07/17 06:00 IMPRESSION: No change in diffuse increased interstitial markings throughout both lungs Stable trace right pleural effusion in the lateral costophrenic sulcus Endotracheal tube tip 6 to 7 cm above the francis. ET tube tip is at the level of the clavicular heads. This report was called to the patient's nurse in ICU Assessment & Plan - Diagnosis (1) Dehydration with hyponatremia Is this a current diagnosis for this admission?: Yes (2) Abnormality of lung on CXR Is this a current diagnosis for this admission?: Yes (3) Pneumatocele of lung Is this a current diagnosis for this admission?: Yes (4) Pneumothorax on right Is this a current diagnosis for this admission?: Yes (5) Acute kidney injury Is this a current diagnosis for this admission?: Yes (6) COPD (chronic obstructive pulmonary disease) Qualifiers: COPD type: unspecified COPD Qualified Code(s): J44.9 - Chronic obstructive pulmonary disease, unspecified Is this a current diagnosis for this admission?: Yes (7) HLD (hyperlipidemia) Qualifiers: Hyperlipidemia type: pure hypercholesterolemia Qualified Code(s): E78.00 - Pure hypercholesterolemia, unspecified Is this a current diagnosis for this admission?: Yes (8) HTN (hypertension) Qualifiers: Hypertension type: essential hypertension Qualified Code(s): I10 - Essential (primary) hypertension Is this a current diagnosis for this admission?: Yes (9) Constipation Qualifiers: Constipation type: slow transit constipation Qualified Code(s): K59.01 - Slow transit constipation Is this a current diagnosis for this admission?: Yes (10) Acute respiratory failure with hypoxemia Is this a current diagnosis for this admission?: Yes Plan: Maintain on Vent support. Follow up on bronchoscopy findings. - Time Time Spent with patient: 25-34 minutes Medications reviewed and adjusted accordingly: Yes Anticipated discharge: Other Within: Other - Inpatient Certification Based on my medical assessment, after consideration of the patient's comorbidities, presenting symptoms, or acuity I expect that the services needed warrant INPATIENT care.: Yes I certify that my determination is in accordance with my understanding of Medicare's requirements for reasonable and necessary INPATIENT services [42 CFR 412.3e].: Yes Medical Necessity: Need Close Monitoring Due to Risk of Patient Decompensation, Need For IV Fluids, Need For Continuous Telemetry Monitoring, Need for Nebulizer Therapy and Monitoring of Response, Need for IV Antibiotics, Risk of Complication if Not Cared For in Hospital Post Hospital Care: Other - Plan Summary Plan Summary: Continue antibiotic coverage. Start on Oxepa enteral tube feeding and adjust rate as tolerated to max at 40 ml/hour. Obtain serumn mag level. Follow up on serum potassium level after completion of IV potassium rider therapy. Continue all other current medication management. Overall prognosis remain poor.
[2017-05-07 13:24] LABS: ANION GAP 8 (5-19); BLOOD UREA NITROGEN 11 mg/dL (7-20); CALCIUM 8.2 mg/dL (8.4-10.2); CARBON DIOXIDE 26 mmol/L (22-30); CHLORIDE 105 mmol/L (98-107); GLUCOSE 100 mg/dL (75-110); MAGNESIUM 1.8 mg/dL (1.6-2.3); POTASSIUM 3.8 mmol/L (3.6-5.0); SODIUM 138.5 mmol/L (137-145)
[2017-05-07] MEDS: NORMAL SALINE 1000 ML 1,000 ML IV PRN (14:08)
--- NOTE | 2017-05-07 17:47 | PDOC PROGRESS REPORT ---
Subjective Progress Note for:: 05/02/17 Subjective:: Patient without complaints states my daughter Runs the show Reason For Visit: DEHYDRATION WITH HYPONATREMIA;ACUTE RENAL INJURY; Physical Exam Vital Signs: Temp Pulse Resp BP Pulse Ox 99.0 F 110 H 24 H 118/78 100 05/02/17 04:29 05/02/17 07:41 05/02/17 07:41 05/02/17 04:29 05/02/17 07:41 Intake & Output 05/01/17 05/02/17 05/03/17 06:59 06:59 06:59 Intake Total 950 2810 Output Total 150 Balance 800 2810 Weight 80.3 kg 79.9 kg General appearance: PRESENT: disheveled, mild distress, thin. ABSENT: no acute distress, morbidly obese, obese, severe distress Head exam: PRESENT: atraumatic, normocephalic Eye exam: PRESENT: conjunctiva pale, EOMI. ABSENT: conjunctival injection, conjunctiva pink, nystagmus, periorbital swelling, scleral icterus Mouth exam: PRESENT: dry mucosa, neck supple, tongue midline. ABSENT: laceration, moist Teeth exam: PRESENT: poor dentation Neck exam: ABSENT: carotid bruit, JVD, lymphadenopathy, thyromegaly, tracheal deviation, tracheostomy Respiratory exam: PRESENT: crackles, decreased breath sounds, prolonged expiratory phas, rhonchi, symmetrical, wheezes. ABSENT: accessory muscle use, chest wall tenderness, clear to auscultation antonio, rales, retraction, stridor, tachypnea Cardiovascular exam: PRESENT: RRR, +S1, +S2 Pulses: PRESENT: normal radial pulses GI/Abdominal exam: PRESENT: diminished bowel sounds, soft Gentrourinary exam: PRESENT: indwelling catheter Extremities exam: ABSENT: clubbing, joint swelling Musculoskeletal exam: ABSENT: deformity, dislocation Neurological exam: PRESENT: awake. ABSENT: alert Skin exam: PRESENT: dry, warm Results Laboratory Results: 05/02/17 05:30 05/02/17 05:30 05/02/17 05/02/17 05:30 05:30 WBC 5.1 RBC 2.80 L Hgb 8.2 L Hct 24.2 L MCV 86 MCH 29.3 MCHC 33.9 RDW 15.4 H Plt Count 387 Seg Neutrophils % 74.9 Lymphocytes % 8.5 L Monocytes % 10.8 Eosinophils % 5.0 Basophils % 0.8 Absolute Neutrophils 3.8 Absolute Lymphocytes 0.4 L Absolute Monocytes 0.6 Absolute Eosinophils 0.3 Absolute Basophils 0.0 Sodium 138.3 Potassium 4.0 Chloride 105 Carbon Dioxide 23 Anion Gap 10 BUN 14 Creatinine 0.84 Est GFR ( Amer) > 60 Est GFR (Non-Af Amer) > 60 Glucose 73 L Calcium 8.9 Total Bilirubin 0.5 AST 23 ALT 18 L Alkaline Phosphatase 65 Total Protein 5.7 L Albumin 2.3 L Impressions: Head CT 04/17/17 13:01 IMPRESSION: MILD CHRONIC MICROVASCULAR ISCHEMIA. NO ACUTE IMAGING FINDINGS IN THE BRAIN. EVIDENCE OF ACUTE STROKE: NO. 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 AREAS OF MILD TO MODERATE SPINAL STENOSIS DESCRIBED. NO ACUTE FINDINGS. Chest CT 04/27/17 00:00 IMPRESSION: Diffuse bullous change with superimposed fluid likely interstitial edema or pneumonia. Clearly progressed from previous. Bilateral pleural effusions. Persistent air-fluid level and a large bullae in the right upper lobe. Infection in the differential. Unchanged. Acute Abdomen Series 04/30/17 00:00 IMPRESSION: 1. Gaseous distention in the abdomen. This includes large and small bowel. Scattered air-fluid levels may reflect mild ileus. Chest X-Ray 05/01/17 00:00 IMPRESSION: NO CHANGE IN APPEARANCE OF THE CHEST. Modified Barium Swallow 05/01/17 00:00 IMPRESSION: NO EVIDENCE OF LARYNGEAL PENETRATION OR TRACHEAL ASPIRATION.PLEASE SEE SPEECH PATHOLOGIST REPORT FOR OTHER FINDINGS AND RECOMMENDATIONS. Assessment & Plan - Diagnosis (1) Cavitary lesion of lung Is this a current diagnosis for this admission?: Yes Plan: Awaiting negative AFBs (2) History of myasthenia gravis Is this a current diagnosis for this admission?: Yes Plan: hx of thymoma, Acetylcholinesterase antibody pending (3) Hyponatremia Is this a current diagnosis for this admission?: Yes (4) Necrotizing pneumonia Is this a current diagnosis for this admission?: Yes Plan: ;Continue current antibiotic no leukocytosis no left shift (5) Pneumatocele of lung Is this a current diagnosis for this admission?: Yes (6) COPD (chronic obstructive pulmonary disease) Qualifiers: COPD type: unspecified COPD Qualified Code(s): J44.9 - Chronic obstructive pulmonary disease, unspecified Is this a current diagnosis for this admission?: Yes Plan: No acute respiratory distress continue current bronchodilators
--- NOTE | 2017-05-07 17:49 | PDOC PROGRESS REPORT ---
Subjective Progress Note for:: 05/03/17 Subjective:: Patient without complaints Lethargic Reason For Visit: DEHYDRATION WITH HYPONATREMIA;ACUTE RENAL INJURY; Physical Exam Vital Signs: Temp Pulse Resp BP Pulse Ox 98.6 F 108 H 21 H 116/72 94 05/03/17 09:17 05/03/17 09:17 05/03/17 11:51 05/03/17 09:17 05/03/17 11:51 Intake & Output 05/02/17 05/03/17 05/04/17 06:59 06:59 06:59 Intake Total 2810 1618 300 Output Total 200 Balance 2810 1418 300 Weight 79.9 kg 83.9 kg General appearance: PRESENT: no acute distress, cooperative, disheveled, thin. ABSENT: mild distress, morbidly obese, obese, severe distress Head exam: PRESENT: atraumatic, normocephalic Eye exam: PRESENT: conjunctiva pale, EOMI. ABSENT: conjunctival injection, conjunctiva pink, nystagmus, periorbital swelling, scleral icterus Mouth exam: PRESENT: dry mucosa, neck supple, tongue midline. ABSENT: laceration, moist Teeth exam: PRESENT: poor dentation Neck exam: ABSENT: carotid bruit, JVD, lymphadenopathy, thyromegaly, tracheal deviation, tracheostomy Respiratory exam: PRESENT: decreased breath sounds, prolonged expiratory phas, rales, rhonchi, symmetrical, wheezes. ABSENT: accessory muscle use, chest wall tenderness, clear to auscultation antonio, crackles, retraction, stridor, tachypnea Cardiovascular exam: PRESENT: RRR, +S1, +S2 Pulses: PRESENT: normal radial pulses GI/Abdominal exam: PRESENT: diminished bowel sounds Extremities exam: ABSENT: clubbing, joint swelling Musculoskeletal exam: ABSENT: deformity, dislocation Neurological exam: PRESENT: awake. ABSENT: alert Skin exam: PRESENT: dry, warm Results Laboratory Results: 05/03/17 04:25 05/02/17 14:30 05/02/17 05/02/17 05/03/17 12:45 14:30 04:25 WBC 4.6 RBC 2.46 L Hgb 7.5 L Hct 21.8 L MCV 89 MCH 30.3 MCHC 34.2 RDW 15.6 H Plt Count 371 Seg Neutrophils % 73.0 Lymphocytes % 9.8 L Monocytes % 11.2 Eosinophils % 5.1 Basophils % 0.9 Absolute Neutrophils 3.4 Absolute Lymphocytes 0.5 Absolute Monocytes 0.5 Absolute Eosinophils 0.2 Absolute Basophils 0.0 Carbonic Acid 0.95 L HCO3/H2CO3 Ratio 22:1 ABG pH 7.46 H ABG pCO2 31.4 L ABG pO2 70.1 L ABG HCO3 21.7 ABG O2 Saturation 95.1 ABG Base Excess -1.7 FiO2 15L Sodium 135.4 L Potassium 3.7 Chloride 105 Carbon Dioxide 23 Anion Gap 7 BUN 15 Creatinine 0.82 Est GFR ( Amer) > 60 Est GFR (Non-Af Amer) > 60 Glucose 110 Calcium 8.4 Blood Type Antibody Screen 05/03/17 05:39 WBC RBC Hgb Hct MCV MCH MCHC RDW Plt Count Seg Neutrophils % Lymphocytes % Monocytes % Eosinophils % Basophils % Absolute Neutrophils Absolute Lymphocytes Absolute Monocytes Absolute Eosinophils Absolute Basophils Carbonic Acid HCO3/H2CO3 Ratio ABG pH ABG pCO2 ABG pO2 ABG HCO3 ABG O2 Saturation ABG Base Excess FiO2 Sodium Potassium Chloride Carbon Dioxide Anion Gap BUN Creatinine Est GFR ( Amer) Est GFR (Non-Af Amer) Glucose Calcium Blood Type O POSITIVE Antibody Screen NEGATIVE Impressions: Head CT 04/17/17 13:01 IMPRESSION: MILD CHRONIC MICROVASCULAR ISCHEMIA. NO ACUTE IMAGING FINDINGS IN THE BRAIN. EVIDENCE OF ACUTE STROKE: NO. 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 AREAS OF MILD TO MODERATE SPINAL STENOSIS DESCRIBED. NO ACUTE FINDINGS. Chest CT 04/27/17 00:00 IMPRESSION: Diffuse bullous change with superimposed fluid likely interstitial edema or pneumonia. Clearly progressed from previous. Bilateral pleural effusions. Persistent air-fluid level and a large bullae in the right upper lobe. Infection in the differential. Unchanged. Acute Abdomen Series 04/30/17 00:00 IMPRESSION: 1. Gaseous distention in the abdomen. This includes large and small bowel. Scattered air-fluid levels may reflect mild ileus. Chest X-Ray 05/01/17 00:00 IMPRESSION: NO CHANGE IN APPEARANCE OF THE CHEST. Modified Barium Swallow 05/01/17 00:00 IMPRESSION: NO EVIDENCE OF LARYNGEAL PENETRATION OR TRACHEAL ASPIRATION.PLEASE SEE SPEECH PATHOLOGIST REPORT FOR OTHER FINDINGS AND RECOMMENDATIONS. Assessment & Plan - Diagnosis (1) Cavitary lesion of lung Is this a current diagnosis for this admission?: Yes Plan: Awaiting negative AFBs (2) History of myasthenia gravis Is this a current diagnosis for this admission?: Yes Plan: hx of thymoma, Acetylcholinesterase antibody pending (3) Hyponatremia Is this a current diagnosis for this admission?: Yes (4) Necrotizing pneumonia Is this a current diagnosis for this admission?: Yes Plan: ;Continue current antibiotic no leukocytosis no left shift (5) Pneumatocele of lung Is this a current diagnosis for this admission?: Yes (6) COPD (chronic obstructive pulmonary disease) Qualifiers: COPD type: unspecified COPD Qualified Code(s): J44.9 - Chronic obstructive pulmonary disease, unspecified Is this a current diagnosis for this admission?: Yes Plan: No acute respiratory distress continue current bronchodilators
--- NOTE | 2017-05-07 17:51 | PDOC PROGRESS REPORT ---
Subjective Progress Note for:: 05/04/17 Subjective:: Arousable Reason For Visit: DEHYDRATION WITH HYPONATREMIA;ACUTE RENAL INJURY; Physical Exam Vital Signs: Temp Pulse Resp BP Pulse Ox 97.8 F 106 H 25 H 120/97 H 91 L 05/04/17 07:34 05/04/17 08:33 05/04/17 08:33 05/04/17 07:34 05/04/17 04:02 Intake & Output 05/03/17 05/04/17 05/05/17 06:59 06:59 06:59 Intake Total 1618 2521 Output Total 200 600 Balance 1418 1921 Weight 83.9 kg 85.9 kg General appearance: PRESENT: no acute distress, disheveled, thin. ABSENT: cooperative, morbidly obese, obese, severe distress Head exam: PRESENT: atraumatic, normocephalic Eye exam: PRESENT: conjunctiva pale, EOMI. ABSENT: conjunctival injection, conjunctiva pink, nystagmus, periorbital swelling, scleral icterus Mouth exam: PRESENT: dry mucosa, neck supple, tongue midline. ABSENT: laceration, moist Teeth exam: PRESENT: poor dentation Neck exam: ABSENT: carotid bruit, JVD, lymphadenopathy, thyromegaly, tracheal deviation, tracheostomy Respiratory exam: PRESENT: decreased breath sounds, prolonged expiratory phas, rales, rhonchi, symmetrical, unlabored, wheezes. ABSENT: accessory muscle use, chest wall tenderness, clear to auscultation antonio, crackles, retraction, stridor , tachypnea Cardiovascular exam: PRESENT: RRR, +S1, +S2 Pulses: PRESENT: normal radial pulses GI/Abdominal exam: PRESENT: diminished bowel sounds, soft Extremities exam: ABSENT: clubbing, joint swelling Musculoskeletal exam: ABSENT: deformity, dislocation Neurological exam: PRESENT: oriented to person, oriented to place Skin exam: PRESENT: dry, warm Results Laboratory Results: 05/04/17 04:30 05/02/17 14:30 05/03/17 05/04/17 05/04/17 05:39 04:30 06:00 WBC 5.6 RBC 3.18 L Hgb 9.7 L D Hct 28.0 L MCV 88 MCH 30.6 MCHC 34.7 RDW 15.3 H Plt Count 413 Seg Neutrophils % 77.1 Lymphocytes % 8.1 L Monocytes % 10.4 Eosinophils % 3.7 Basophils % 0.7 Absolute Neutrophils 4.3 Absolute Lymphocytes 0.5 Absolute Monocytes 0.6 Absolute Eosinophils 0.2 Absolute Basophils 0.0 Retic Count (auto) 1.73 Absolute Retic 0.055 Iron < 10.1 L TIBC 170 L % Saturation UNABLE TO CALCULATE Ferritin 200.00 Vitamin B12 492.0 Folate 8.88 Blood Type O POSITIVE Antibody Screen NEGATIVE Impressions: Head CT 04/17/17 13:01 IMPRESSION: MILD CHRONIC MICROVASCULAR ISCHEMIA. NO ACUTE IMAGING FINDINGS IN THE BRAIN. EVIDENCE OF ACUTE STROKE: NO. 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 AREAS OF MILD TO MODERATE SPINAL STENOSIS DESCRIBED. NO ACUTE FINDINGS. Chest CT 04/27/17 00:00 IMPRESSION: Diffuse bullous change with superimposed fluid likely interstitial edema or pneumonia. Clearly progressed from previous. Bilateral pleural effusions. Persistent air-fluid level and a large bullae in the right upper lobe. Infection in the differential. Unchanged. Acute Abdomen Series 04/30/17 00:00 IMPRESSION: 1. Gaseous distention in the abdomen. This includes large and small bowel. Scattered air-fluid levels may reflect mild ileus. Chest X-Ray 05/01/17 00:00 IMPRESSION: NO CHANGE IN APPEARANCE OF THE CHEST. Modified Barium Swallow 05/01/17 00:00 IMPRESSION: NO EVIDENCE OF LARYNGEAL PENETRATION OR TRACHEAL ASPIRATION.PLEASE SEE SPEECH PATHOLOGIST REPORT FOR OTHER FINDINGS AND RECOMMENDATIONS. Assessment & Plan - Diagnosis (1) Cavitary lesion of lung Is this a current diagnosis for this admission?: Yes Plan: Thus far AFBs negative (2) History of myasthenia gravis Is this a current diagnosis for this admission?: Yes Plan: hx of thymoma, Acetylcholinesterase antibody pending (3) Hyponatremia Is this a current diagnosis for this admission?: Yes (4) Necrotizing pneumonia Is this a current diagnosis for this admission?: Yes Plan: ;Continue current antibiotic no leukocytosis no left shift (5) Pneumatocele of lung Is this a current diagnosis for this admission?: Yes (6) COPD (chronic obstructive pulmonary disease) Qualifiers: COPD type: unspecified COPD Qualified Code(s): J44.9 - Chronic obstructive pulmonary disease, unspecified Is this a current diagnosis for this admission?: Yes Plan: No acute respiratory distress continue current bronchodilators
--- NOTE | 2017-05-07 17:55 | PDOC PROGRESS REPORT ---
Subjective Progress Note for:: 05/06/17 Subjective:: Intubated and sedated difficult night respiratory distress became progressive patient was subsequently taken to the ICU where he was intubated Reason For Visit: DEHYDRATION WITH HYPONATREMIA;ACUTE RENAL INJURY; Physical Exam Vital Signs: Temp Pulse Resp BP Pulse Ox 98.4 F 120 H 26 H 85/70 L 92 05/06/17 07:44 05/06/17 08:00 05/06/17 08:00 05/06/17 07:44 05/06/17 08:00 Intake & Output 05/05/17 05/06/17 05/07/17 06:59 06:59 06:59 Intake Total 6343 5253 Output Total 1130 20 Balance 6343 4123 -20 Weight 83.4 kg General appearance: PRESENT: no acute distress, cooperative, thin. ABSENT: disheveled, mild distress, morbidly obese, obese, severe distress Head exam: PRESENT: atraumatic, normocephalic Eye exam: PRESENT: conjunctiva pale. ABSENT: conjunctival injection, conjunctiva pink, EOMI, nystagmus, periorbital swelling, scleral icterus Mouth exam: PRESENT: dry mucosa, neck supple, tongue midline. ABSENT: laceration, moist Teeth exam: PRESENT: poor dentation Neck exam: ABSENT: carotid bruit, JVD, lymphadenopathy, thyromegaly, tracheal deviation, tracheostomy Respiratory exam: PRESENT: decreased breath sounds, prolonged expiratory phas, rales, rhonchi, symmetrical, unlabored, wheezes. ABSENT: accessory muscle use, chest wall tenderness, clear to auscultation antonio, crackles, retraction, stridor , tachypnea Cardiovascular exam: PRESENT: RRR, +S1, +S2 Pulses: PRESENT: normal radial pulses GI/Abdominal exam: PRESENT: diminished bowel sounds, soft Gentrourinary exam: PRESENT: indwelling catheter Extremities exam: ABSENT: clubbing, joint swelling Musculoskeletal exam: ABSENT: ambulatory, deformity, dislocation Neurological exam: ABSENT: alert, awake Skin exam: PRESENT: dry, warm Results Laboratory Results: 05/06/17 05:00 05/06/17 05:00 05/03/17 05/04/17 05/05/17 05:39 06:00 17:30 WBC RBC Hgb Hct MCV MCH MCHC RDW Plt Count Seg Neutrophils % Lymphocytes % Monocytes % Eosinophils % Basophils % Absolute Neutrophils Absolute Lymphocytes Absolute Monocytes Absolute Eosinophils Absolute Basophils Carbonic Acid 1.01 L HCO3/H2CO3 Ratio 23:1 ABG pH 7.47 H ABG pCO2 33.4 L ABG pO2 157.8 H ABG HCO3 23.9 ABG O2 Saturation 99.2 H ABG Base Excess 0.6 FiO2 100% Sodium Potassium Chloride Carbon Dioxide Anion Gap BUN Creatinine Est GFR ( Amer) Est GFR (Non-Af Amer) Glucose Calcium Transferrin 115 L Triglycerides Blood Type O POSITIVE Antibody Screen NEGATIVE 05/05/17 05/06/17 05/06/17 21:35 05:00 05:00 WBC RBC Hgb Hct MCV MCH MCHC RDW Plt Count Seg Neutrophils % Lymphocytes % Monocytes % Eosinophils % Basophils % Absolute Neutrophils Absolute Lymphocytes Absolute Monocytes Absolute Eosinophils Absolute Basophils Carbonic Acid 1.18 1.14 HCO3/H2CO3 Ratio 20:1 19:1 ABG pH 7.40 7.39 ABG pCO2 39.2 38.0 ABG pO2 75.5 L 60.1 L ABG HCO3 24.0 22.7 ABG O2 Saturation 95.2 91.1 L ABG Base Excess -0.7 -1.9 FiO2 100 80% Sodium 141.0 Potassium 3.1 L Chloride 104 Carbon Dioxide 24 Anion Gap 13 BUN 11 Creatinine 0.81 Est GFR ( Amer) > 60 Est GFR (Non-Af Amer) > 60 Glucose 98 Calcium 8.7 Transferrin Triglycerides 59 Blood Type Antibody Screen 05/06/17 05:00 WBC 5.3 RBC 3.15 L Hgb 9.4 L Hct 28.0 L MCV 89 MCH 29.9 MCHC 33.6 RDW 16.0 H Plt Count 346 Seg Neutrophils % 71.7 Lymphocytes % 12.2 L Monocytes % 11.8 Eosinophils % 3.9 Basophils % 0.4 Absolute Neutrophils 3.8 Absolute Lymphocytes 0.6 Absolute Monocytes 0.6 Absolute Eosinophils 0.2 Absolute Basophils 0.0 Carbonic Acid HCO3/H2CO3 Ratio ABG pH ABG pCO2 ABG pO2 ABG HCO3 ABG O2 Saturation ABG Base Excess FiO2 Sodium Potassium Chloride Carbon Dioxide Anion Gap BUN Creatinine Est GFR ( Amer) Est GFR (Non-Af Amer) Glucose Calcium Transferrin Triglycerides Blood Type Antibody Screen Impressions: Head CT 04/17/17 13:01 IMPRESSION: MILD CHRONIC MICROVASCULAR ISCHEMIA. NO ACUTE IMAGING FINDINGS IN THE BRAIN. EVIDENCE OF ACUTE STROKE: NO. Lumbar Spine MRI 12/19/17 14:33 IMPRESSION: MULTILEVEL CHRONIC DEGENERATIVE CHANGES, PRIMARILY DUE TO FACET ARTHROPATHY. AREAS OF MILD TO MODERATE SPINAL STENOSIS DESCRIBED. NO ACUTE FINDINGS. Chest CT 04/27/17 00:00 IMPRESSION: Diffuse bullous change with superimposed fluid likely interstitial edema or pneumonia. Clearly progressed from previous. Bilateral pleural effusions. Persistent air-fluid level and a large bullae in the right upper lobe. Infection in the differential. Unchanged. Acute Abdomen Series 04/30/17 00:00 IMPRESSION: 1. Gaseous distention in the abdomen. This includes large and small bowel. Scattered air-fluid levels may reflect mild ileus. Modified Barium Swallow 05/01/17 00:00 IMPRESSION: NO EVIDENCE OF LARYNGEAL PENETRATION OR TRACHEAL ASPIRATION.PLEASE SEE SPEECH PATHOLOGIST REPORT FOR OTHER FINDINGS AND RECOMMENDATIONS. Chest X-Ray 05/06/17 06:00 IMPRESSION: Tip of an endotracheal tube just below the thoracic inlet; consider 3 cm advancement. Right jugular central line tip at the right atrium; consider 9 cm retraction. Else, no significant interval change. 2010 [employer]- All Rights Reserved Assessment & Plan - Diagnosis (1) Cavitary lesion of lung Is this a current diagnosis for this admission?: Yes Plan: We will schedule patient for fiberoptic bronchoscopy thus far have been unable to normalize PT and PTT INR is within normal limits (2) History of myasthenia gravis Is this a current diagnosis for this admission?: Yes Plan: hx of thymoma, Acetylcholinesterase antibody pending (3) Hyponatremia Is this a current diagnosis for this admission?: Yes (4) Necrotizing pneumonia Is this a current diagnosis for this admission?: Yes Plan: ;Continue current antibiotic no leukocytosis no left shift (5) Pneumatocele of lung Is this a current diagnosis for this admission?: Yes Plan: afb lung malignancy pna (6) COPD (chronic obstructive pulmonary disease) Qualifiers: COPD type: unspecified COPD Qualified Code(s): J44.9 - Chronic obstructive pulmonary disease, unspecified Is this a current diagnosis for this admission?: Yes Plan: No acute respiratory distress continue current bronchodilators - Time Total Critical Time (Minutes): 40
--- NOTE | 2017-05-07 17:57 | PDOC PROGRESS REPORT ---
Subjective Progress Note for:: 05/07/17 Subjective:: Intubated and sedated difficult night respiratory distress became progressive patient was subsequently taken to the ICU where he was intubated Reason For Visit: DEHYDRATION WITH HYPONATREMIA;ACUTE RENAL INJURY; Physical Exam Vital Signs: Temp Pulse Resp BP Pulse Ox 97.5 F 97 21 H 90/66 L 94 05/07/17 06:12 05/07/17 09:15 05/07/17 09:15 05/07/17 09:15 05/07/17 09:15 Intake & Output 05/06/17 05/07/17 05/08/17 06:59 06:59 06:59 Intake Total 5253 6163 Output Total 1130 3790 Balance 4123 2373 Weight 83.4 kg 85.4 kg General appearance: PRESENT: no acute distress, disheveled, thin. ABSENT: cooperative, mild distress, morbidly obese, obese, severe distress Head exam: PRESENT: atraumatic, normocephalic Eye exam: PRESENT: conjunctiva pale. ABSENT: conjunctival injection, conjunctiva pink, EOMI, nystagmus, periorbital swelling, scleral icterus Mouth exam: PRESENT: dry mucosa, neck supple, tongue midline, other - ET tube in place. ABSENT: laceration, moist Teeth exam: PRESENT: poor dentation Neck exam: ABSENT: carotid bruit, JVD, lymphadenopathy, thyromegaly, tracheal deviation, tracheostomy Respiratory exam: PRESENT: decreased breath sounds, prolonged expiratory phas, rales, rhonchi, symmetrical, unlabored, wheezes. ABSENT: accessory muscle use, chest wall tenderness, clear to auscultation antonio, crackles, retraction, stridor , tachypnea Cardiovascular exam: PRESENT: RRR, +S1, +S2 Pulses: PRESENT: normal radial pulses GI/Abdominal exam: PRESENT: diminished bowel sounds Gentrourinary exam: PRESENT: indwelling catheter Extremities exam: ABSENT: clubbing, joint swelling Musculoskeletal exam: ABSENT: ambulatory, deformity, dislocation Neurological exam: ABSENT: alert, awake Skin exam: PRESENT: dry, warm Results Laboratory Results: 05/07/17 05:10 05/07/17 05:10 05/07/17 05/07/17 05/07/17 05:10 05:10 05:10 WBC 5.9 RBC 3.36 L Hgb 10.1 L Hct 29.3 L MCV 87 MCH 30.1 MCHC 34.5 RDW 15.9 H Plt Count 277 Seg Neutrophils % 76.9 Lymphocytes % 9.0 L Monocytes % 8.9 Eosinophils % 4.7 Basophils % 0.5 Absolute Neutrophils 4.6 Absolute Lymphocytes 0.5 Absolute Monocytes 0.5 Absolute Eosinophils 0.3 Absolute Basophils 0.0 Carbonic Acid 1.07 HCO3/H2CO3 Ratio 22:1 ABG pH 7.46 H ABG pCO2 35.7 ABG pO2 55.4 L ABG HCO3 24.6 ABG O2 Saturation 90.5 L ABG Base Excess 0.9 FiO2 100% Sodium 140.0 Potassium 3.4 L Chloride 105 Carbon Dioxide 25 Anion Gap 10 BUN 11 Creatinine 0.86 Est GFR ( Amer) > 60 Est GFR (Non-Af Amer) > 60 Glucose 105 Calcium 8.4 Phosphorus 2.5 Magnesium 1.3 L Impressions: Head CT 04/17/17 13:01 IMPRESSION: MILD CHRONIC MICROVASCULAR ISCHEMIA. NO ACUTE IMAGING FINDINGS IN THE BRAIN. EVIDENCE OF ACUTE STROKE: NO. 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 AREAS OF MILD TO MODERATE SPINAL STENOSIS DESCRIBED. NO ACUTE FINDINGS. Chest CT 04/27/17 00:00 IMPRESSION: Diffuse bullous change with superimposed fluid likely interstitial edema or pneumonia. Clearly progressed from previous. Bilateral pleural effusions. Persistent air-fluid level and a large bullae in the right upper lobe. Infection in the differential. Unchanged. Acute Abdomen Series 04/30/17 00:00 IMPRESSION: 1. Gaseous distention in the abdomen. This includes large and small bowel. Scattered air-fluid levels may reflect mild ileus. Modified Barium Swallow 05/01/17 00:00 IMPRESSION: NO EVIDENCE OF LARYNGEAL PENETRATION OR TRACHEAL ASPIRATION.PLEASE SEE SPEECH PATHOLOGIST REPORT FOR OTHER FINDINGS AND RECOMMENDATIONS. KUB X-Ray 05/06/17 09:36 IMPRESSION: SATISFACTORY POSITION NASOGASTRIC TUBE. ADDITIONAL FINDINGS ARE ABOVE. Chest X-Ray 05/07/17 06:00 IMPRESSION: No change in diffuse increased interstitial markings throughout both lungs Stable trace right pleural effusion in the lateral costophrenic sulcus Endotracheal tube tip 6 to 7 cm above the francis. ET tube tip is at the level of the clavicular heads. This report was called to the patient's nurse in ICU Assessment & Plan - Diagnosis (1) Cavitary lesion of lung Is this a current diagnosis for this admission?: Yes Plan: Bronchoscopy today (2) History of myasthenia gravis Is this a current diagnosis for this admission?: Yes Plan: hx of thymoma, Acetylcholinesterase antibody pending (3) Hyponatremia Is this a current diagnosis for this admission?: Yes (4) Necrotizing pneumonia Is this a current diagnosis for this admission?: Yes Plan: ;Continue current antibiotic no leukocytosis no left shift (5) Pneumatocele of lung Is this a current diagnosis for this admission?: Yes (6) COPD (chronic obstructive pulmonary disease) Qualifiers: COPD type: unspecified COPD Qualified Code(s): J44.9 - Chronic obstructive pulmonary disease, unspecified Is this a current diagnosis for this admission?: Yes Plan: No acute respiratory distress continue current bronchodilators - Time Total Critical Time (Minutes): 40
--- NOTE | 2017-05-07 17:59 | Operative Report ---
Operative Report DATE OF SURGERY: 05/07/17 Operative Report: Patient kept n.p.o. prior to procedure previously been intubated and sedated and using a T size [place] bronchoscope is tracheobronchial tree was explored. There are no abnormalities of the distal trachea splaying of the francis left mainstem bronchus left upper lobe lingula and left lower lobe showed no significant or specific abnormalities. Right mainstem bronchus right bronchus intermedius right middle lobe and right lower lobe were within normal limits there was some submucosal swelling and a thin amount of blood at the orifice of the right upper lobe. Lavage transbronchial biopsies were taken of the right upper lobe. Patient tolerated the procedure well his postprocedure SaO2 was 99 % lavage and biopsies have been sent to the lab for appropriate cultures and studies postprocedure chest x-ray did not demonstrate a pneumothorax PREOPERATIVE DIAGNOSIS: R lung mass POSTOPERATIVE DIAGNOSIS: Same OPERATION: Fiberoptic bronchoscopy with bronchoalveolar lavage and transbronchial biopsy SURGEON: EVAN PRAJAPATI ANESTHESIA: GA TISSUE REMOVED OR ALTERED: Bronchoalveolar large right upper lobe transbronchial biopsies right upper lobe COMPLICATIONS: None ESTIMATED BLOOD LOSS: 0ml INTRAOPERATIVE FINDINGS: See below
[2017-05-08] MEDS: DEXTROSE 5%-WATER 250 ML with NOREPINEPHRINE BITARTRATE 4 MG IV PRN ×8 (00:35→19:45)
[2017-05-08] MEDS: PROPOFOL 100 ML IV PRN ×4 (00:35→17:48)
[2017-05-08] MEDS: IMIPENEM/CILASTATIN SODIUM 1,000 MG in NORMAL SALINE 250 ML IV SCH ×4 (03:03→21:31)
[2017-05-08] MEDS: LEVALBUTEROL HCL NEB 1.25 MG/3 ML AMPUL NEB SCH ×4 (03:10→20:44)
[2017-05-08] MEDS: CLINDAMYCIN 600 MG/D5W RTU 600 MG/50 ML RTUPB IV SCH (05:18)
[2017-05-08] MEDS: CEFEPIME 1 GM/D5W RTU 1 GM/50 ML RTUPB IV SCH ×2 (05:19→17:46)
[2017-05-08] MEDS: LANSOPRAZOLE 30 MG TAB.RAP.DR PO SCH (05:19)
[2017-05-08] MEDS: NORMAL SALINE 1000 ML 1,000 ML IV PRN ×2 (05:23→21:49)
--- NOTE | 2017-05-08 06:46 | RADIOLOGY REPORT (SQ) ---
EXAM DESCRIPTION: CHEST SINGLE VIEW CLINICAL HISTORY: ETT PLACEMENT COMPARISON: 05/07/2017 FINDINGS: Single frontal view of the chest. Endotracheal tube with tip at the level of the clavicles 7 cm above the francis. NG tube with tip below the diaphragm. Right IJ central venous catheter. Leads overlie the chest. Right pleural effusion and diffuse bilateral airspace opacities. No pneumothorax. Upper abdominal soft tissues are unremarkable. IMPRESSION: 1. Stable appearance of the chest.
[2017-05-08 07:04] LABS: ABSOLUTE EOSINOPHILS # (AUTO) 0.3 10^3/uL (0.0-0.6); ABSOLUTE LYMPHOCYTES (AUTO) 0.5 10^3/uL (0.5-4.7); ABSOLUTE MONOCYTES (AUTO) 0.4 10^3/uL (0.1-1.4); ABSOLUTE NEUT (AUTO) 6.8 10^3/uL (1.7-8.2); BASOPHILS % (AUTO) 0.5 % (0-2); EOSINOPHILS % (AUTO) 3.7 % (0-6); HEMATOCRIT 30.9 % (37.9-51.0); HEMOGLOBIN 10.6 g/dL (13.5-17.0); LYMPHOCYTES % (AUTO) 6.4 % (13-45); MEAN CORPUSCULAR HEMOGLOBIN 30.9 pg (27.0-33.4); MEAN CORPUSCULAR HGB CONC 34.3 g/dL (32.0-36.0); MEAN CORPUSCULAR VOLUME 90 fl (80-97); MONOCYTES % (AUTO) 5.1 % (3-13); PLATELET COUNT 260 10^3/uL (150-450); RED BLOOD COUNT 3.43 10^6/uL (4.35-5.55); RED CELL DISTRIBUTION WIDTH 16.6 % (11.5-14.0); SEGMENTED NEUTROPHILS % (AUTO) 84.3 % (42-78); TOTAL CELLS COUNTED % (AUTO) 100 %; WHITE BLOOD COUNT 8.1 10^3/uL (4.0-10.5)
[2017-05-08 07:09] LABS: ARTERIAL BLOOD BASE EXCESS -0.4 mmol/L; ARTERIAL BLOOD H2CO3 1.03 mmol/L (1.05-1.35); ARTERIAL BLOOD HCO3 23.2 mmol/L (20-26); ARTERIAL BLOOD O2 SATURATION 90.2 % (94-98); ARTERIAL BLOOD PCO2 34.1 mmHg (35-45); ARTERIAL BLOOD PH 7.45 (7.35-7.45); ARTERIAL BLOOD PO2 54.8 mmHg (80-100); ARTERIAL BLOOD TOTAL CO2 24.2 mmol/L (23-27)
[2017-05-08 07:10] LABS: ARTERIAL BLOOD FIO2 50%
[2017-05-08 07:35] LABS: ANION GAP 6 (5-19); BLOOD UREA NITROGEN 11 mg/dL (7-20); CALCIUM 8.4 mg/dL (8.4-10.2); CARBON DIOXIDE 27 mmol/L (22-30); CHLORIDE 108 mmol/L (98-107); GLUCOSE 108 mg/dL (75-110); MAGNESIUM 1.7 mg/dL (1.6-2.3); POTASSIUM 3.2 mmol/L (3.6-5.0); SODIUM 140.6 mmol/L (137-145)
[2017-05-08] MEDS: BIMATOPROST 0.01% OPH SOLN 2.5 ML/BOTTLE OU SCH (10:21)
[2017-05-08] MEDS: LEVOFLOXACIN 750 MG/D5W RTU 750 MG/150 ML RTUPB IV SCH (10:21)
[2017-05-08] MEDS: MEGESTROL ACETATE 20 MG TABLET PO SCH (10:21)
[2017-05-08] MEDS: ENOXAPARIN SODIUM INJ 40 MG/0.4 ML DISP.SYRIN SUBCUT SCH (10:23)
[2017-05-08] MEDS ORDERED: NOREPINEPHRINE BITARTRATE INJ/PF 4 MG/4 ML SDV IV ONE (13:07)
--- NOTE | 2017-05-08 17:50 | PDOC PROGRESS REPORT ---
Subjective Subjective:: Patient remain vent supported with decrease need for supplemental oxygen, down to 50%. He remain on Levophed due to persistent hypotension with attempted discontinuation. Tolerating enteral tube feeding. No reported fever. Reason For Visit: DEHYDRATION WITH HYPONATREMIA;ACUTE RENAL INJURY; Physical Exam Vital Signs: Temp Pulse Resp BP Pulse Ox 98.1 F 100 23 H 110/72 92 05/08/17 16:00 05/08/17 16:00 05/08/17 16:00 05/08/17 16:00 05/08/17 16:00 Intake & Output 05/07/17 05/08/17 05/09/17 06:59 06:59 06:59 Intake Total 6163 5305 Output Total 3790 4125 1840 Balance 2373 1180 -1840 Weight 85.4 kg 87.1 kg Physical Exam: General appearance: PRESENT: Sedated on IV Propofol. ET and OG tubes in situ. Head exam: PRESENT: atraumatic, normocephalic Eye exam: PRESENT: conjunctiva pink, EOMI, PERRLA. ABSENT: scleral icterus Mouth exam: PRESENT: moist Neck exam: PRESENT: other - right IJ central line device Respiratory exam: PRESENT: decreased breath sounds at lung bases Cardiovascular exam: PRESENT: RRR, S+1, S+2, ABSENT: diastolic murmur, rubs, systolic murmur. Remain on IV Levophed support GI/Abdominal exam: PRESENT: normal bowel sounds, soft. ABSENT: distended, guarding, mass, organomegaly, rebound, tenderness Extremities exam: PRESENT: pedal edema - upper extremities due to soft tissue infiltration Musculoskeletal exam: PRESENT: deformity - related to multiple joints involvement with arthritis. ABSENT: tenderness Neurological exam: PRESENT: Sedated. Skin exam: PRESENT: dry, intact, warm. ABSENT: cyanosis, rash Results Laboratory Results: 05/08/17 06:40 05/08/17 06:40 05/08/17 05/08/17 05/08/17 06:40 06:40 06:40 WBC 8.1 RBC 3.43 L Hgb 10.6 L Hct 30.9 L MCV 90 MCH 30.9 MCHC 34.3 RDW 16.6 H Plt Count 260 Seg Neutrophils % 84.3 H Lymphocytes % 6.4 L Monocytes % 5.1 Eosinophils % 3.7 Basophils % 0.5 Absolute Neutrophils 6.8 Absolute Lymphocytes 0.5 Absolute Monocytes 0.4 Absolute Eosinophils 0.3 Absolute Basophils 0.0 Carbonic Acid 1.03 L HCO3/H2CO3 Ratio 22:1 ABG pH 7.45 ABG pCO2 34.1 L ABG pO2 54.8 L ABG HCO3 23.2 ABG O2 Saturation 90.2 L ABG Base Excess -0.4 FiO2 50% Sodium 140.6 Potassium 3.2 L Chloride 108 H Carbon Dioxide 27 Anion Gap 6 BUN 11 Creatinine 0.79 Est GFR ( Amer) > 60 Est GFR (Non-Af Amer) > 60 Glucose 108 Calcium 8.4 Magnesium 1.7 05/05/17 23:00 Tracheal Aspirate Gram Stain - Final 05/05/17 23:00 Tracheal Aspirate Sputum Culture - Final C.albicans/C.dubliniensis Normal Jo Absent Impressions: Head CT 04/17/17 13:01 IMPRESSION: MILD CHRONIC MICROVASCULAR ISCHEMIA. NO ACUTE IMAGING FINDINGS IN THE BRAIN. EVIDENCE OF ACUTE STROKE: NO. 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 AREAS OF MILD TO MODERATE SPINAL STENOSIS DESCRIBED. NO ACUTE FINDINGS. Chest CT 04/27/17 00:00 IMPRESSION: Diffuse bullous change with superimposed fluid likely interstitial edema or pneumonia. Clearly progressed from previous. Bilateral pleural effusions. Persistent air-fluid level and a large bullae in the right upper lobe. Infection in the differential. Unchanged. Acute Abdomen Series 04/30/17 00:00 IMPRESSION: 1. Gaseous distention in the abdomen. This includes large and small bowel. Scattered air-fluid levels may reflect mild ileus. Modified Barium Swallow 05/01/17 00:00 IMPRESSION: NO EVIDENCE OF LARYNGEAL PENETRATION OR TRACHEAL ASPIRATION.PLEASE SEE SPEECH PATHOLOGIST REPORT FOR OTHER FINDINGS AND RECOMMENDATIONS. KUB X-Ray 05/06/17 09:36 IMPRESSION: SATISFACTORY POSITION NASOGASTRIC TUBE. ADDITIONAL FINDINGS ARE ABOVE. Fluoroscopy 05/07/17 00:00 IMPRESSION: IMAGE(S) OBTAINED DURING PROCEDURE. Chest X-Ray 05/08/17 06:00 IMPRESSION: 1. Stable appearance of the chest. Assessment & Plan - Diagnosis (1) Dehydration with hyponatremia Is this a current diagnosis for this admission?: Yes (2) Abnormality of lung on CXR Is this a current diagnosis for this admission?: Yes (3) Pneumatocele of lung Is this a current diagnosis for this admission?: Yes (4) Pneumothorax on right Is this a current diagnosis for this admission?: Yes (5) Acute kidney injury Is this a current diagnosis for this admission?: Yes (6) COPD (chronic obstructive pulmonary disease) Qualifiers: COPD type: unspecified COPD Qualified Code(s): J44.9 - Chronic obstructive pulmonary disease, unspecified Is this a current diagnosis for this admission?: Yes (7) HLD (hyperlipidemia) Qualifiers: Hyperlipidemia type: pure hypercholesterolemia Qualified Code(s): E78.00 - Pure hypercholesterolemia, unspecified Is this a current diagnosis for this admission?: Yes (8) HTN (hypertension) Qualifiers: Hypertension type: essential hypertension Qualified Code(s): I10 - Essential (primary) hypertension Is this a current diagnosis for this admission?: Yes (9) Constipation Qualifiers: Constipation type: slow transit constipation Qualified Code(s): K59.01 - Slow transit constipation Is this a current diagnosis for this admission?: Yes (10) Acute respiratory failure with hypoxemia Is this a current diagnosis for this admission?: Yes - Time Time Spent with patient: 25-34 minutes Medications reviewed and adjusted accordingly: Yes Anticipated discharge: Other Within: Other - Inpatient Certification Based on my medical assessment, after consideration of the patient's comorbidities, presenting symptoms, or acuity I expect that the services needed warrant INPATIENT care.: Yes I certify that my determination is in accordance with my understanding of Medicare's requirements for reasonable and necessary INPATIENT services [42 CFR 412.3e].: Yes Medical Necessity: Need Close Monitoring Due to Risk of Patient Decompensation, Need For IV Fluids, Need For Continuous Telemetry Monitoring, Need for IV Antibiotics, Risk of Complication if Not Cared For in Hospital Post Hospital Care: Other - Plan Summary Plan Summary: Continue antibiotic coverage and follow up on bronchial fluid culture findings. Start on anti-fungal coverage in view of culture report. Increase Oxepa to 30 mL / hour rate. Discuss case with melt helper regarding right upper lobe lesion further intervention. No family member at bedside to discuss patient care plan progress. Overall prognosis remain poor.
[2017-05-08] MEDS ORDERED: FLUCONAZOLE 400 MG/NS RTU 400 MG/200 ML RTUPB IV ONE (18:30)
[2017-05-08] MEDS: POTASSIUM CHLORIDE 20 MEQ/15 ML UDCUP PO SCH ×2 (18:42→21:36)
[2017-05-08] MEDS: OXYCODONE-ACETAMINOPHEN 5-325 MG TABLET PO PRN (21:36)
[2017-05-09] MEDS: PROPOFOL 100 ML IV PRN ×5 (01:38→23:47)
[2017-05-09] MEDS: DEXTROSE 5%-WATER 250 ML with NOREPINEPHRINE BITARTRATE 4 MG IV PRN ×8 (01:40→22:00)
[2017-05-09] MEDS: LEVALBUTEROL HCL NEB 1.25 MG/3 ML AMPUL NEB SCH ×4 (02:43→21:25)
[2017-05-09] MEDS: IMIPENEM/CILASTATIN SODIUM 1,000 MG in NORMAL SALINE 250 ML IV SCH ×4 (03:00→21:10)
[2017-05-09] MEDS: CEFEPIME 1 GM/D5W RTU 1 GM/50 ML RTUPB IV SCH ×2 (05:38→17:01)
[2017-05-09] MEDS: LANSOPRAZOLE 30 MG TAB.RAP.DR PO SCH (05:38)
[2017-05-09 06:52] LABS: ARTERIAL BLOOD H2CO3 1.05 mmol/L (1.05-1.35); ARTERIAL BLOOD HCO3 22.7 mmol/L (20-26); ARTERIAL BLOOD PCO2 34.8 mmHg (35-45); ARTERIAL BLOOD PH 7.43 (7.35-7.45); ARTERIAL BLOOD PO2 63.3 mmHg (80-100); ARTERIAL BLOOD TOTAL CO2 23.8 mmol/L (23-27)
[2017-05-09 06:55] LABS: ARTERIAL BLOOD FIO2 75%
--- NOTE | 2017-05-09 07:07 | RADIOLOGY REPORT (SQ) ---
EXAM DESCRIPTION: CHEST SINGLE VIEW CLINICAL HISTORY: ETT PLACEMENT COMPARISON: 05/08/2017 FINDINGS: Single frontal view of the chest. Endotracheal tube with tip at the level of the clavicles 6 cm above the francis. NG tube with tip below the diaphragm. Right IJ central venous catheter. Leads overlie the chest. Right pleural effusion and diffuse bilateral airspace opacities. No pneumothorax. Upper abdominal soft tissues are unremarkable. IMPRESSION: 1. Stable appearance of the chest. Electronically signed by: Damien Chaudhary 05/09/2017 6:06 AM
[2017-05-09 07:21] LABS: ANION GAP 8 (5-19); BLOOD UREA NITROGEN 11 mg/dL (7-20); CALCIUM 8.4 mg/dL (8.4-10.2); CARBON DIOXIDE 25 mmol/L (22-30); CHLORIDE 111 mmol/L (98-107); GLUCOSE 96 mg/dL (75-110); MAGNESIUM 1.6 mg/dL (1.6-2.3); POTASSIUM 3.6 mmol/L (3.6-5.0); TRIGLYCERIDES 117 mg/dL (<150)
[2017-05-09 07:24] LABS: ABSOLUTE EOSINOPHILS # (AUTO) 0.4 10^3/uL (0.0-0.6); ABSOLUTE LYMPHOCYTES (AUTO) 0.6 10^3/uL (0.5-4.7); ABSOLUTE MONOCYTES (AUTO) 0.5 10^3/uL (0.1-1.4); ABSOLUTE NEUT (AUTO) 6.8 10^3/uL (1.7-8.2); BASOPHILS % (AUTO) 0.3 % (0-2); EOSINOPHILS % (AUTO) 4.9 % (0-6); HEMATOCRIT 30.2 % (37.9-51.0); HEMOGLOBIN 10.2 g/dL (13.5-17.0); LYMPHOCYTES % (AUTO) 6.8 % (13-45); MEAN CORPUSCULAR HEMOGLOBIN 30.7 pg (27.0-33.4); MEAN CORPUSCULAR HGB CONC 33.9 g/dL (32.0-36.0); MEAN CORPUSCULAR VOLUME 91 fl (80-97); MONOCYTES % (AUTO) 6.1 % (3-13); PLATELET COUNT 243 10^3/uL (150-450); RED BLOOD COUNT 3.33 10^6/uL (4.35-5.55); RED CELL DISTRIBUTION WIDTH 16.7 % (11.5-14.0); SEGMENTED NEUTROPHILS % (AUTO) 81.9 % (42-78); TOTAL CELLS COUNTED % (AUTO) 100 %; WHITE BLOOD COUNT 8.3 10^3/uL (4.0-10.5)
[2017-05-09] MEDS ORDERED: BISACODYL 10 MG SUPP.RECT PR PRN (09:27)
[2017-05-09] MEDS: LEVOFLOXACIN 750 MG/D5W RTU 750 MG/150 ML RTUPB IV SCH (11:04)
[2017-05-09] MEDS: BIMATOPROST 0.01% OPH SOLN 2.5 ML/BOTTLE OU SCH (11:05)
[2017-05-09] MEDS: ENOXAPARIN SODIUM INJ 40 MG/0.4 ML DISP.SYRIN SUBCUT SCH (11:06)
[2017-05-09] MEDS: NORMAL SALINE INJ/PF 0.9% 10 ML SDV IV PRN (14:13)
[2017-05-09] MEDS: NORMAL SALINE 1000 ML 1,000 ML IV PRN (14:14)
--- NOTE | 2017-05-09 18:08 | PDOC PROGRESS REPORT ---
Subjective Progress Note for:: 05/09/17 Subjective:: Patient remain intubated and vent supported with increase in supplemental FIO2 since last clinical evaluation. He remain on IV Propofol sedation and Levophed due to persistent hypotension. Tolerating enteral tube feeding. No reported fever. Reason For Visit: DEHYDRATION WITH HYPONATREMIA;ACUTE RENAL INJURY; Physical Exam Vital Signs: Temp Pulse Resp BP Pulse Ox 99.5 F 113 H 28 H 105/70 92 05/09/17 16:00 05/09/17 16:00 05/09/17 16:00 05/09/17 16:00 05/09/17 16:00 Intake & Output 05/08/17 05/09/17 05/10/17 06:59 06:59 06:59 Intake Total 5305 5026 Output Total 4125 3960 1375 Balance 1180 1066 -1375 Weight 87.1 kg 87.9 kg Physical Exam: General appearance: PRESENT: Sedated on IV Propofol. ET and OG tubes in situ. Head exam: PRESENT: atraumatic, normocephalic Eye exam: PRESENT: conjunctiva pink, EOMI, PERRLA. ABSENT: scleral icterus Mouth exam: PRESENT: moist Neck exam: PRESENT: other - right IJ central line device Respiratory exam: PRESENT: decreased breath sounds at lung bases Cardiovascular exam: PRESENT: RRR, S+1, S+2, ABSENT: diastolic murmur, rubs, systolic murmur. GI/Abdominal exam: PRESENT: normal bowel sounds, soft. ABSENT: distended, guarding, mass, organomegaly, rebound, tenderness Extremities exam: PRESENT: pedal edema - upper extremities due to soft tissue infiltration Musculoskeletal exam: PRESENT: Generalized edema Neurological exam: PRESENT: Sedated. Skin exam: PRESENT: dry, intact, warm. Resolving erythematous rash on torso ABSENT: cyanosis Results Laboratory Results: 05/09/17 07:05 05/09/17 06:30 05/09/17 05/09/17 05/09/17 06:30 06:30 06:30 WBC Cancelled RBC Cancelled Hgb Cancelled Hct Cancelled MCV Cancelled MCH Cancelled MCHC Cancelled RDW Cancelled Plt Count Cancelled Seg Neutrophils % Cancelled Lymphocytes % Cancelled Monocytes % Cancelled Eosinophils % Cancelled Basophils % Cancelled Absolute Neutrophils Cancelled Absolute Lymphocytes Cancelled Absolute Monocytes Cancelled Absolute Eosinophils Cancelled Absolute Basophils Cancelled Carbonic Acid 1.05 HCO3/H2CO3 Ratio 21:1 ABG pH 7.43 ABG pCO2 34.8 L ABG pO2 63.3 L ABG HCO3 22.7 ABG O2 Saturation 93.0 L ABG Base Excess -1.0 FiO2 75% Sodium 144.0 Potassium 3.6 Chloride 111 H Carbon Dioxide 25 Anion Gap 8 BUN 11 Creatinine 0.75 Est GFR ( Amer) > 60 Est GFR (Non-Af Amer) > 60 Glucose 96 Calcium 8.4 Magnesium 1.6 Triglycerides 117 05/09/17 07:05 WBC 8.3 RBC 3.33 L Hgb 10.2 L Hct 30.2 L MCV 91 MCH 30.7 MCHC 33.9 RDW 16.7 H Plt Count 243 Seg Neutrophils % 81.9 H Lymphocytes % 6.8 L Monocytes % 6.1 Eosinophils % 4.9 Basophils % 0.3 Absolute Neutrophils 6.8 Absolute Lymphocytes 0.6 Absolute Monocytes 0.5 Absolute Eosinophils 0.4 Absolute Basophils 0.0 Carbonic Acid HCO3/H2CO3 Ratio ABG pH ABG pCO2 ABG pO2 ABG HCO3 ABG O2 Saturation ABG Base Excess FiO2 Sodium Potassium Chloride Carbon Dioxide Anion Gap BUN Creatinine Est GFR ( Amer) Est GFR (Non-Af Amer) Glucose Calcium Magnesium Triglycerides 05/07/17 08:37 Bronchial Washings Gram Stain - Final 05/07/17 08:37 Bronchial Washings Bronchial Washings Culture - Final Yeast, Not [place] Normal Jo Absent 05/07/17 08:37 Bronchial Washings Fungal Smear - Final 05/07/17 08:37 Bronchial Washings Fungal Smear - Final Impressions: Head CT 04/17/17 13:01 IMPRESSION: MILD CHRONIC MICROVASCULAR ISCHEMIA. NO ACUTE IMAGING FINDINGS IN THE BRAIN. EVIDENCE OF ACUTE STROKE: NO. 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 AREAS OF MILD TO MODERATE SPINAL STENOSIS DESCRIBED. NO ACUTE FINDINGS. Chest CT 04/27/17 00:00 IMPRESSION: Diffuse bullous change with superimposed fluid likely interstitial edema or pneumonia. Clearly progressed from previous. Bilateral pleural effusions. Persistent air-fluid level and a large bullae in the right upper lobe. Infection in the differential. Unchanged. Acute Abdomen Series 04/30/17 00:00 IMPRESSION: 1. Gaseous distention in the abdomen. This includes large and small bowel. Scattered air-fluid levels may reflect mild ileus. Modified Barium Swallow 05/01/17 00:00 IMPRESSION: NO EVIDENCE OF LARYNGEAL PENETRATION OR TRACHEAL ASPIRATION.PLEASE SEE SPEECH PATHOLOGIST REPORT FOR OTHER FINDINGS AND RECOMMENDATIONS. KUB X-Ray 05/06/17 09:36 IMPRESSION: SATISFACTORY POSITION NASOGASTRIC TUBE. ADDITIONAL FINDINGS ARE ABOVE. Fluoroscopy 05/07/17 00:00 IMPRESSION: IMAGE(S) OBTAINED DURING PROCEDURE. Chest X-Ray 05/09/17 06:00 IMPRESSION: 1. Stable appearance of the chest. Assessment & Plan - Diagnosis (1) Dehydration with hyponatremia Is this a current diagnosis for this admission?: Yes (2) Abnormality of lung on CXR Is this a current diagnosis for this admission?: Yes (3) Pneumatocele of lung Is this a current diagnosis for this admission?: Yes (4) Pneumothorax on right Is this a current diagnosis for this admission?: Yes (5) Acute kidney injury Is this a current diagnosis for this admission?: Yes (6) COPD (chronic obstructive pulmonary disease) Qualifiers: COPD type: unspecified COPD Qualified Code(s): J44.9 - Chronic obstructive pulmonary disease, unspecified Is this a current diagnosis for this admission?: Yes (7) HLD (hyperlipidemia) Qualifiers: Hyperlipidemia type: pure hypercholesterolemia Qualified Code(s): E78.00 - Pure hypercholesterolemia, unspecified Is this a current diagnosis for this admission?: Yes (8) HTN (hypertension) Qualifiers: Hypertension type: essential hypertension Qualified Code(s): I10 - Essential (primary) hypertension Is this a current diagnosis for this admission?: Yes (9) Constipation Qualifiers: Constipation type: slow transit constipation Qualified Code(s): K59.01 - Slow transit constipation Is this a current diagnosis for this admission?: Yes (10) Acute respiratory failure with hypoxemia Is this a current diagnosis for this admission?: Yes - Time Time Spent with patient: 25-34 minutes Total Critical Time (Minutes): 20 Medications reviewed and adjusted accordingly: Yes Anticipated discharge: Other Within: Other - Inpatient Certification Based on my medical assessment, after consideration of the patient's comorbidities, presenting symptoms, or acuity I expect that the services needed warrant INPATIENT care.: Yes I certify that my determination is in accordance with my understanding of Medicare's requirements for reasonable and necessary INPATIENT services [42 CFR 412.3e].: Yes Medical Necessity: Need Close Monitoring Due to Risk of Patient Decompensation, Need For IV Fluids, Need For Continuous Telemetry Monitoring, Need for Nebulizer Therapy and Monitoring of Response, Need for IV Antibiotics, Risk of Complication if Not Cared For in Hospital Post Hospital Care: Other - Plan Summary Plan Summary: Decrease IV fluid support rate to 50 ml/hour, decrease IV Propofol rate to allow BP improvement. IV Lasix 20 mg x 1 dose. IV Diflucan 200mg daily. Maintain on IV antibiotic support. Obtain CBC with diff and CMP in AM. No family member at bedside to discuss care plan and poor prognosis. I will attempt to reach family through telephone access.
[2017-05-09] MEDS ORDERED: FUROSEMIDE INJ/PF 20 MG/2 ML SDV ONE (18:16)
[2017-05-09] MEDS ORDERED: FUROSEMIDE INJ/PF 20 MG/2 ML SDV IV ONE (19:00)
[2017-05-09] MEDS: FLUCONAZOLE 200 MG/NS RTU 100 ML IV SCH (20:28)
[2017-05-10] MEDS: LEVALBUTEROL HCL NEB 1.25 MG/3 ML AMPUL NEB SCH ×4 (01:32→20:18)
[2017-05-10] MEDS: IMIPENEM/CILASTATIN SODIUM 1,000 MG in NORMAL SALINE 250 ML IV SCH ×4 (03:18→20:15)
[2017-05-10] MEDS: DEXTROSE 5%-WATER 250 ML with NOREPINEPHRINE BITARTRATE 4 MG IV PRN ×6 (04:29→18:45)
[2017-05-10] MEDS: LANSOPRAZOLE 30 MG TAB.RAP.DR PO SCH (05:15)
[2017-05-10] MEDS: CEFEPIME 1 GM/D5W RTU 1 GM/50 ML RTUPB IV SCH (05:15)
[2017-05-10 06:43] LABS: ABSOLUTE EOSINOPHILS # (AUTO) 0.4 10^3/uL (0.0-0.6); ABSOLUTE LYMPHOCYTES (AUTO) 0.5 10^3/uL (0.5-4.7); ABSOLUTE MONOCYTES (AUTO) 0.6 10^3/uL (0.1-1.4); ABSOLUTE NEUT (AUTO) 6.6 10^3/uL (1.7-8.2); BASOPHILS % (AUTO) 0.4 % (0-2); EOSINOPHILS % (AUTO) 4.5 % (0-6); HEMATOCRIT 30.2 % (37.9-51.0); HEMOGLOBIN 10.3 g/dL (13.5-17.0); LYMPHOCYTES % (AUTO) 6.5 % (13-45); MEAN CORPUSCULAR HEMOGLOBIN 31.3 pg (27.0-33.4); MEAN CORPUSCULAR VOLUME 92 fl (80-97); MONOCYTES % (AUTO) 7.2 % (3-13); PLATELET COUNT 198 10^3/uL (150-450); RED BLOOD COUNT 3.27 10^6/uL (4.35-5.55); RED CELL DISTRIBUTION WIDTH 16.7 % (11.5-14.0); SEGMENTED NEUTROPHILS % (AUTO) 81.4 % (42-78); TOTAL CELLS COUNTED % (AUTO) 100 %; WHITE BLOOD COUNT 8.1 10^3/uL (4.0-10.5)
[2017-05-10] MEDS: PROPOFOL 100 ML IV PRN ×3 (06:45→23:47)
[2017-05-10 06:49] LABS: ARTERIAL BLOOD BASE EXCESS 1.2 mmol/L; ARTERIAL BLOOD H2CO3 1.24 mmol/L (1.05-1.35); ARTERIAL BLOOD HCO3 25.9 mmol/L (20-26); ARTERIAL BLOOD O2 SATURATION 95.4 % (94-98); ARTERIAL BLOOD PCO2 41.3 mmHg (35-45); ARTERIAL BLOOD PH 7.42 (7.35-7.45); ARTERIAL BLOOD PO2 76.3 mmHg (80-100); ARTERIAL BLOOD TOTAL CO2 27.2 mmol/L (23-27)
[2017-05-10 07:04] LABS: ALANINE AMINOTRANSFERASE 126 U/L (21-72); ALBUMIN 2.1 g/dL (3.5-5.0); ALKALINE PHOSPHATASE 180 U/L (38-126); ANION GAP 5 (5-19); ASPARTATE AMINO TRANSFERASE 110 U/L (17-59); BILIRUBIN,DIRECT 0.4 mg/dL (0.0-0.4); BILIRUBIN,TOTAL 0.4 mg/dL (0.2-1.3); BLOOD UREA NITROGEN 13 mg/dL (7-20); CALCIUM 8.1 mg/dL (8.4-10.2); CARBON DIOXIDE 28 mmol/L (22-30); CHLORIDE 106 mmol/L (98-107); GLUCOSE 100 mg/dL (75-110); MAGNESIUM 1.6 mg/dL (1.6-2.3); PHOSPHORUS 2.9 mg/dL (2.5-4.5); POTASSIUM 3.3 mmol/L (3.6-5.0); SODIUM 139.4 mmol/L (137-145); TOTAL PROTEIN 5.8 g/dL (6.3-8.2)
--- NOTE | 2017-05-10 07:18 | RADIOLOGY REPORT (SQ) ---
EXAM DESCRIPTION: CHEST SINGLE VIEW CLINICAL HISTORY: pna/resp failure COMPARISON: 05/09/2017 FINDINGS: Single frontal view of the chest. Endotracheal tube with tip at the level of the clavicles 6 cm above the francis. NG tube with tip below the diaphragm. Prior median sternotomy. Heart is not enlarged Right IJ central venous catheter. Leads overlie the chest. Right pleural effusion and diffuse bilateral airspace opacities. No pneumothorax. Upper abdominal soft tissues are unremarkable. IMPRESSION: 1. Stable appearance of the chest.
[2017-05-10] MEDS: BIMATOPROST 0.01% OPH SOLN 2.5 ML/BOTTLE OU SCH (09:35)
[2017-05-10] MEDS: ENOXAPARIN SODIUM INJ 40 MG/0.4 ML DISP.SYRIN SUBCUT SCH (09:35)
[2017-05-10] MEDS ORDERED: POTASSI CL 20 MEQ/50 ML RIDER 20 MEQ/50 ML RTUPB IV ONE (09:42)
[2017-05-10] MEDS: POTASSIUM CHLORIDE 20 MEQ/50 ML RTU IV SCH ×2 (10:13→12:11)
[2017-05-10] MEDS: NORMAL SALINE 1000 ML 1,000 ML IV PRN (11:12)
--- NOTE | 2017-05-10 14:17 | PDOC PROGRESS REPORT ---
Subjective Progress Note for:: 05/08/17 Subjective:: Intubated and sedated Reason For Visit: DEHYDRATION WITH HYPONATREMIA;ACUTE RENAL INJURY; Physical Exam Vital Signs: Temp Pulse Resp BP Pulse Ox 97.3 F 89 23 H 100/74 98 05/08/17 07:56 05/08/17 07:56 05/08/17 07:56 05/08/17 07:56 05/08/17 07:56 Intake & Output 05/07/17 05/08/17 05/09/17 06:59 06:59 06:59 Intake Total 6163 5305 Output Total 3790 4125 225 Balance 2373 1180 -225 Weight 85.4 kg 87.1 kg General appearance: PRESENT: no acute distress, disheveled, thin, well- developed. ABSENT: cooperative, mild distress, morbidly obese, obese, severe distress Head exam: PRESENT: atraumatic, normocephalic Eye exam: PRESENT: conjunctiva pale. ABSENT: conjunctival injection, conjunctiva pink, EOMI, nystagmus, periorbital swelling, scleral icterus Mouth exam: PRESENT: dry mucosa, neck supple, tongue midline, other - ET tube in place. ABSENT: laceration, moist Neck exam: ABSENT: carotid bruit, JVD, lymphadenopathy, thyromegaly, tracheal deviation, tracheostomy Respiratory exam: PRESENT: decreased breath sounds, prolonged expiratory phas, rales, rhonchi, symmetrical, unlabored, wheezes. ABSENT: accessory muscle use, chest wall tenderness, clear to auscultation antonio, crackles, retraction, stridor , tachypnea Cardiovascular exam: PRESENT: RRR, +S1, +S2 Pulses: PRESENT: normal radial pulses GI/Abdominal exam: PRESENT: diminished bowel sounds, soft Gentrourinary exam: PRESENT: indwelling catheter Extremities exam: ABSENT: clubbing, joint swelling Musculoskeletal exam: ABSENT: ambulatory, deformity, dislocation Neurological exam: ABSENT: alert, awake Skin exam: PRESENT: dry, warm Results Laboratory Results: 05/08/17 06:40 05/08/17 06:40 05/06/17 05/06/17 05/07/17 11:35 14:23 08:37 WBC RBC Hgb Hct MCV MCH MCHC RDW Plt Count Seg Neutrophils % Lymphocytes % Monocytes % Eosinophils % Basophils % Absolute Neutrophils Absolute Lymphocytes Absolute Monocytes Absolute Eosinophils Absolute Basophils Carbonic Acid 1.05 HCO3/H2CO3 Ratio 20:1 ABG pH 7.41 ABG pCO2 34.8 L ABG pO2 89.9 ABG HCO3 21.6 ABG O2 Saturation 97.0 ABG Base Excess -2.6 FiO2 90% Sodium 138.0 Potassium 3.5 L Chloride 103 Carbon Dioxide 23 Anion Gap 12 BUN 12 Creatinine 0.88 Est GFR ( Amer) > 60 Est GFR (Non-Af Amer) > 60 Glucose 99 Calcium 8.6 Magnesium Fluid Type BRONCHIAL WASH Fluid Source Fluid Color RED Fluid Appearance CLOUDY Fluid Viscosity MODERATELY VISCOUS Fluid WBC 3725 Fluid RBC 27478 05/07/17 05/08/17 05/08/17 12:50 06:40 06:40 WBC RBC Hgb Hct MCV MCH MCHC RDW Plt Count Seg Neutrophils % Lymphocytes % Monocytes % Eosinophils % Basophils % Absolute Neutrophils Absolute Lymphocytes Absolute Monocytes Absolute Eosinophils Absolute Basophils Carbonic Acid 1.03 L HCO3/H2CO3 Ratio 22:1 ABG pH 7.45 ABG pCO2 34.1 L ABG pO2 54.8 L ABG HCO3 23.2 ABG O2 Saturation 90.2 L ABG Base Excess -0.4 FiO2 50% Sodium 138.5 140.6 Potassium 3.8 3.2 L Chloride 105 108 H Carbon Dioxide 26 27 Anion Gap 8 6 BUN 11 11 Creatinine 0.86 0.79 Est GFR ( Amer) > 60 > 60 Est GFR (Non-Af Amer) > 60 > 60 Glucose 100 108 Calcium 8.2 L 8.4 Magnesium 1.8 1.7 Fluid Type Fluid Source Fluid Color Fluid Appearance Fluid Viscosity Fluid WBC Fluid RBC 05/08/17 06:40 WBC 8.1 RBC 3.43 L Hgb 10.6 L Hct 30.9 L MCV 90 MCH 30.9 MCHC 34.3 RDW 16.6 H Plt Count 260 Seg Neutrophils % 84.3 H Lymphocytes % 6.4 L Monocytes % 5.1 Eosinophils % 3.7 Basophils % 0.5 Absolute Neutrophils 6.8 Absolute Lymphocytes 0.5 Absolute Monocytes 0.4 Absolute Eosinophils 0.3 Absolute Basophils 0.0 Carbonic Acid HCO3/H2CO3 Ratio ABG pH ABG pCO2 ABG pO2 ABG HCO3 ABG O2 Saturation ABG Base Excess FiO2 Sodium Potassium Chloride Carbon Dioxide Anion Gap BUN Creatinine Est GFR ( Amer) Est GFR (Non-Af Amer) Glucose Calcium Magnesium Fluid Type Fluid Source Fluid Color Fluid Appearance Fluid Viscosity Fluid WBC Fluid RBC 05/05/17 23:00 Tracheal Aspirate Gram Stain - Final 05/05/17 23:00 Tracheal Aspirate Sputum Culture - Final C.albicans/C.dubliniensis Normal Jo Absent Impressions: Head CT 04/17/17 13:01 IMPRESSION: MILD CHRONIC MICROVASCULAR ISCHEMIA. NO ACUTE IMAGING FINDINGS IN THE BRAIN. EVIDENCE OF ACUTE STROKE: NO. 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 AREAS OF MILD TO MODERATE SPINAL STENOSIS DESCRIBED. NO ACUTE FINDINGS. Chest CT 04/27/17 00:00 IMPRESSION: Diffuse bullous change with superimposed fluid likely interstitial edema or pneumonia. Clearly progressed from previous. Bilateral pleural effusions. Persistent air-fluid level and a large bullae in the right upper lobe. Infection in the differential. Unchanged. Acute Abdomen Series 04/30/17 00:00 IMPRESSION: 1. Gaseous distention in the abdomen. This includes large and small bowel. Scattered air-fluid levels may reflect mild ileus. Modified Barium Swallow 05/01/17 00:00 IMPRESSION: NO EVIDENCE OF LARYNGEAL PENETRATION OR TRACHEAL ASPIRATION.PLEASE SEE SPEECH PATHOLOGIST REPORT FOR OTHER FINDINGS AND RECOMMENDATIONS. KUB X-Ray 05/06/17 09:36 IMPRESSION: SATISFACTORY POSITION NASOGASTRIC TUBE. ADDITIONAL FINDINGS ARE ABOVE. Fluoroscopy 05/07/17 00:00 IMPRESSION: IMAGE(S) OBTAINED DURING PROCEDURE. Chest X-Ray 05/08/17 06:00 IMPRESSION: 1. Stable appearance of the chest. Assessment & Plan - Diagnosis (1) Cavitary lesion of lung Is this a current diagnosis for this admission?: Yes Plan: Bronchoscopy Results pending (2) History of myasthenia gravis Is this a current diagnosis for this admission?: Yes Plan: hx of thymoma, Acetylcholinesterase antibody pending (3) Hyponatremia Is this a current diagnosis for this admission?: No (4) Necrotizing pneumonia Is this a current diagnosis for this admission?: Yes (5) Pneumatocele of lung Is this a current diagnosis for this admission?: Yes (6) COPD (chronic obstructive pulmonary disease) Qualifiers: COPD type: unspecified COPD Qualified Code(s): J44.9 - Chronic obstructive pulmonary disease, unspecified Is this a current diagnosis for this admission?: Yes Plan: No acute respiratory distress continue current bronchodilators - Time Total Critical Time (Minutes): 40
--- NOTE | 2017-05-10 14:20 | PDOC PROGRESS REPORT ---
Subjective Progress Note for:: 05/09/17 Subjective:: Intubated and sedated Reason For Visit: DEHYDRATION WITH HYPONATREMIA;ACUTE RENAL INJURY; Physical Exam Vital Signs: Temp Pulse Resp BP Pulse Ox 99.1 F 96 23 H 105/70 93 05/09/17 08:00 05/09/17 08:00 05/09/17 08:00 05/09/17 08:00 05/09/17 08:00 Intake & Output 05/08/17 05/09/17 05/10/17 06:59 06:59 06:59 Intake Total 5305 5026 Output Total 4125 3960 375 Balance 1180 1066 -375 Weight 87.1 kg 87.9 kg General appearance: PRESENT: no acute distress, disheveled, thin, well- developed. ABSENT: cooperative, mild distress, morbidly obese, obese, severe distress Head exam: PRESENT: atraumatic, normocephalic Eye exam: PRESENT: conjunctiva pale. ABSENT: conjunctival injection, conjunctiva pink, EOMI, nystagmus, periorbital swelling, scleral icterus Mouth exam: PRESENT: dry mucosa, neck supple, tongue midline, other - ET tube in place. ABSENT: laceration, moist Teeth exam: PRESENT: poor dentation Neck exam: ABSENT: carotid bruit, JVD, lymphadenopathy, thyromegaly, tracheal deviation, tracheostomy Respiratory exam: PRESENT: decreased breath sounds, prolonged expiratory phas, rales, rhonchi, symmetrical, unlabored, wheezes. ABSENT: accessory muscle use, chest wall tenderness, clear to auscultation antonio, crackles, retraction, stridor , tachypnea Cardiovascular exam: PRESENT: RRR, +S1, +S2 GI/Abdominal exam: PRESENT: diminished bowel sounds, soft Gentrourinary exam: PRESENT: indwelling catheter Extremities exam: ABSENT: clubbing, full ROM, joint swelling Musculoskeletal exam: ABSENT: ambulatory, deformity, dislocation, full ROM Neurological exam: ABSENT: alert, awake Skin exam: PRESENT: dry, warm Results Laboratory Results: 05/09/17 07:05 05/09/17 06:30 05/09/17 05/09/17 05/09/17 06:30 06:30 06:30 WBC Cancelled RBC Cancelled Hgb Cancelled Hct Cancelled MCV Cancelled MCH Cancelled MCHC Cancelled RDW Cancelled Plt Count Cancelled Seg Neutrophils % Cancelled Lymphocytes % Cancelled Monocytes % Cancelled Eosinophils % Cancelled Basophils % Cancelled Absolute Neutrophils Cancelled Absolute Lymphocytes Cancelled Absolute Monocytes Cancelled Absolute Eosinophils Cancelled Absolute Basophils Cancelled Carbonic Acid 1.05 HCO3/H2CO3 Ratio 21:1 ABG pH 7.43 ABG pCO2 34.8 L ABG pO2 63.3 L ABG HCO3 22.7 ABG O2 Saturation 93.0 L ABG Base Excess -1.0 FiO2 75% Sodium 144.0 Potassium 3.6 Chloride 111 H Carbon Dioxide 25 Anion Gap 8 BUN 11 Creatinine 0.75 Est GFR ( Amer) > 60 Est GFR (Non-Af Amer) > 60 Glucose 96 Calcium 8.4 Magnesium 1.6 Triglycerides 117 05/09/17 07:05 WBC 8.3 RBC 3.33 L Hgb 10.2 L Hct 30.2 L MCV 91 MCH 30.7 MCHC 33.9 RDW 16.7 H Plt Count 243 Seg Neutrophils % 81.9 H Lymphocytes % 6.8 L Monocytes % 6.1 Eosinophils % 4.9 Basophils % 0.3 Absolute Neutrophils 6.8 Absolute Lymphocytes 0.6 Absolute Monocytes 0.5 Absolute Eosinophils 0.4 Absolute Basophils 0.0 Carbonic Acid HCO3/H2CO3 Ratio ABG pH ABG pCO2 ABG pO2 ABG HCO3 ABG O2 Saturation ABG Base Excess FiO2 Sodium Potassium Chloride Carbon Dioxide Anion Gap BUN Creatinine Est GFR ( Amer) Est GFR (Non-Af Amer) Glucose Calcium Magnesium Triglycerides Impressions: Head CT 04/17/17 13:01 IMPRESSION: MILD CHRONIC MICROVASCULAR ISCHEMIA. NO ACUTE IMAGING FINDINGS IN THE BRAIN. EVIDENCE OF ACUTE STROKE: NO. 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 AREAS OF MILD TO MODERATE SPINAL STENOSIS DESCRIBED. NO ACUTE FINDINGS. Chest CT 04/27/17 00:00 IMPRESSION: Diffuse bullous change with superimposed fluid likely interstitial edema or pneumonia. Clearly progressed from previous. Bilateral pleural effusions. Persistent air-fluid level and a large bullae in the right upper lobe. Infection in the differential. Unchanged. Acute Abdomen Series 04/30/17 00:00 IMPRESSION: 1. Gaseous distention in the abdomen. This includes large and small bowel. Scattered air-fluid levels may reflect mild ileus. Modified Barium Swallow 05/01/17 00:00 IMPRESSION: NO EVIDENCE OF LARYNGEAL PENETRATION OR TRACHEAL ASPIRATION.PLEASE SEE SPEECH PATHOLOGIST REPORT FOR OTHER FINDINGS AND RECOMMENDATIONS. KUB X-Ray 05/06/17 09:36 IMPRESSION: SATISFACTORY POSITION NASOGASTRIC TUBE. ADDITIONAL FINDINGS ARE ABOVE. Fluoroscopy 05/07/17 00:00 IMPRESSION: IMAGE(S) OBTAINED DURING PROCEDURE. Chest X-Ray 05/09/17 06:00 IMPRESSION: 1. Stable appearance of the chest. Assessment & Plan - Diagnosis (1) Cavitary lesion of lung Is this a current diagnosis for this admission?: Yes Plan: Bronchoscopy results nondiagnostic for malignancy (2) History of myasthenia gravis Is this a current diagnosis for this admission?: Yes (3) Hyponatremia Is this a current diagnosis for this admission?: No (4) Necrotizing pneumonia Is this a current diagnosis for this admission?: Yes Plan: ;Continue current antibiotic no leukocytosis no left shift (5) Pneumatocele of lung Is this a current diagnosis for this admission?: Yes (6) COPD (chronic obstructive pulmonary disease) Qualifiers: COPD type: unspecified COPD Qualified Code(s): J44.9 - Chronic obstructive pulmonary disease, unspecified Is this a current diagnosis for this admission?: Yes Plan: No acute respiratory distress continue current bronchodilators - Time Total Critical Time (Minutes): 40
--- NOTE | 2017-05-10 14:23 | PDOC PROGRESS REPORT ---
Subjective Progress Note for:: 05/10/17 Subjective:: Intubated and sedated Reason For Visit: DEHYDRATION WITH HYPONATREMIA;ACUTE RENAL INJURY; Physical Exam Vital Signs: Temp Pulse Resp BP Pulse Ox 98.4 F 91 24 H 107/73 96 05/10/17 08:00 05/10/17 08:27 05/10/17 08:27 05/10/17 08:00 05/10/17 08:27 Intake & Output 05/09/17 05/10/17 05/11/17 06:59 06:59 06:59 Intake Total 5026 4623 Output Total 3960 4925 480 Balance 1956 -362 -526 Weight 87.9 kg 86.5 kg General appearance: PRESENT: no acute distress, disheveled, thin. ABSENT: cooperative, mild distress, morbidly obese, obese, severe distress Head exam: PRESENT: atraumatic, normocephalic Eye exam: PRESENT: conjunctiva pale. ABSENT: conjunctival injection, conjunctiva pink, EOMI, nystagmus, periorbital swelling, scleral icterus Mouth exam: PRESENT: dry mucosa, neck supple, tongue midline, other - ET tube in place. ABSENT: laceration, moist Teeth exam: PRESENT: poor dentation Neck exam: ABSENT: carotid bruit, JVD, lymphadenopathy, thyromegaly, tracheal deviation, tracheostomy Respiratory exam: PRESENT: decreased breath sounds, prolonged expiratory phas, rales, rhonchi, symmetrical, unlabored, wheezes. ABSENT: accessory muscle use, chest wall tenderness, clear to auscultation antonio, crackles, retraction, stridor , tachypnea Cardiovascular exam: PRESENT: RRR, +S1, +S2 Pulses: PRESENT: normal radial pulses GI/Abdominal exam: PRESENT: diminished bowel sounds, soft Gentrourinary exam: PRESENT: indwelling catheter Extremities exam: ABSENT: clubbing, joint swelling Musculoskeletal exam: ABSENT: ambulatory, deformity, dislocation, full ROM Neurological exam: ABSENT: alert, awake Skin exam: PRESENT: dry, warm Results Laboratory Results: 05/10/17 06:30 05/10/17 06:30 05/09/17 05/10/17 05/10/17 18:31 06:30 06:30 WBC RBC Hgb Hct MCV MCH MCHC RDW Plt Count Seg Neutrophils % Lymphocytes % Monocytes % Eosinophils % Basophils % Absolute Neutrophils Absolute Lymphocytes Absolute Monocytes Absolute Eosinophils Absolute Basophils Carbonic Acid 1.24 HCO3/H2CO3 Ratio 20:1 ABG pH 7.42 ABG pCO2 41.3 ABG pO2 76.3 L ABG HCO3 25.9 ABG O2 Saturation 95.4 ABG Base Excess 1.2 FiO2 65 % Sodium Potassium Chloride Carbon Dioxide Anion Gap BUN Creatinine Est GFR ( Amer) Est GFR (Non-Af Amer) Glucose Calcium Phosphorus Magnesium Total Bilirubin AST ALT Alkaline Phosphatase Ammonia < 8.7 L Total Protein Albumin Stool Occult Blood NEGATIVE 05/10/17 05/10/17 06:30 06:30 WBC 8.1 RBC 3.27 L Hgb 10.3 L Hct 30.2 L MCV 92 MCH 31.3 MCHC 34.0 RDW 16.7 H Plt Count 198 Seg Neutrophils % 81.4 H Lymphocytes % 6.5 L Monocytes % 7.2 Eosinophils % 4.5 Basophils % 0.4 Absolute Neutrophils 6.6 Absolute Lymphocytes 0.5 Absolute Monocytes 0.6 Absolute Eosinophils 0.4 Absolute Basophils 0.0 Carbonic Acid HCO3/H2CO3 Ratio ABG pH ABG pCO2 ABG pO2 ABG HCO3 ABG O2 Saturation ABG Base Excess FiO2 Sodium 139.4 Potassium 3.3 L Chloride 106 Carbon Dioxide 28 Anion Gap 5 BUN 13 Creatinine 0.76 Est GFR ( Amer) > 60 Est GFR (Non-Af Amer) > 60 Glucose 100 Calcium 8.1 L Phosphorus 2.9 Magnesium 1.6 Total Bilirubin 0.4 AST 110 H ALT 126 H Alkaline Phosphatase 180 H Ammonia Total Protein 5.8 L Albumin 2.1 L Stool Occult Blood 05/07/17 08:37 Bronchial Washings Gram Stain - Final 05/07/17 08:37 Bronchial Washings Bronchial Washings Culture - Final Yeast, Not [place] Normal Jo Absent 05/07/17 08:37 Bronchial Washings Fungal Smear - Final 05/07/17 08:37 Bronchial Washings Fungal Smear - Final Impressions: Head CT 04/17/17 13:01 IMPRESSION: MILD CHRONIC MICROVASCULAR ISCHEMIA. NO ACUTE IMAGING FINDINGS IN THE BRAIN. EVIDENCE OF ACUTE STROKE: NO. 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 AREAS OF MILD TO MODERATE SPINAL STENOSIS DESCRIBED. NO ACUTE FINDINGS. Chest CT 04/27/17 00:00 IMPRESSION: Diffuse bullous change with superimposed fluid likely interstitial edema or pneumonia. Clearly progressed from previous. Bilateral pleural effusions. Persistent air-fluid level and a large bullae in the right upper lobe. Infection in the differential. Unchanged. Acute Abdomen Series 04/30/17 00:00 IMPRESSION: 1. Gaseous distention in the abdomen. This includes large and small bowel. Scattered air-fluid levels may reflect mild ileus. Modified Barium Swallow 05/01/17 00:00 IMPRESSION: NO EVIDENCE OF LARYNGEAL PENETRATION OR TRACHEAL ASPIRATION.PLEASE SEE SPEECH PATHOLOGIST REPORT FOR OTHER FINDINGS AND RECOMMENDATIONS. KUB X-Ray 05/06/17 09:36 IMPRESSION: SATISFACTORY POSITION NASOGASTRIC TUBE. ADDITIONAL FINDINGS ARE ABOVE. Fluoroscopy 05/07/17 00:00 IMPRESSION: IMAGE(S) OBTAINED DURING PROCEDURE. Chest X-Ray 05/10/17 06:00 IMPRESSION: 1. Stable appearance of the chest. Assessment & Plan - Diagnosis (1) Cavitary lesion of lung Is this a current diagnosis for this admission?: Yes Plan: Bronchoscopy results nondiagnostic for malignancy (2) History of myasthenia gravis Is this a current diagnosis for this admission?: Yes Plan: hx of thymoma, Acetylcholinesterase antibody pending (3) Hyponatremia Is this a current diagnosis for this admission?: Yes (4) Necrotizing pneumonia Is this a current diagnosis for this admission?: Yes Plan: ;Continue current antibiotic no leukocytosis no left shift (5) Pneumatocele of lung Is this a current diagnosis for this admission?: Yes Plan: afb lung malignancy pna (6) COPD (chronic obstructive pulmonary disease) Qualifiers: COPD type: unspecified COPD Qualified Code(s): J44.9 - Chronic obstructive pulmonary disease, unspecified Is this a current diagnosis for this admission?: Yes - Time Total Critical Time (Minutes): 40
--- NOTE | 2017-05-10 18:37 | PDOC PROGRESS REPORT ---
Subjective Progress Note for:: 05/10/17 Subjective:: Patient remain intubated and vent supported with decrease supplemental FIO2 to 50% since last clinical evaluation. He remain on IV Propofol sedation and Levophed due to persistent hypotension. Tolerating enteral tube feeding. No reported fever. There is consensus to attempt extubation on 05/14/17 by fire protection fabricator. Reason For Visit: DEHYDRATION WITH HYPONATREMIA;ACUTE RENAL INJURY; Physical Exam Vital Signs: Temp Pulse Resp BP Pulse Ox 97.9 F 92 28 H 99/73 L 93 05/10/17 18:00 05/10/17 16:00 05/10/17 18:00 05/10/17 17:56 05/10/17 18:00 Intake & Output 05/09/17 05/10/17 05/11/17 06:59 06:59 06:59 Intake Total 5026 4627 2391 Output Total 3960 4925 1505 Balance 1066 -298 886 Weight 87.9 kg 86.5 kg Physical Exam: General appearance: PRESENT: Sedated on IV Propofol. ET and OG tubes in situ. Head exam: PRESENT: atraumatic, normocephalic Eye exam: PRESENT: conjunctiva pink, EOMI, PERRLA. ABSENT: scleral icterus Mouth exam: PRESENT: moist Neck exam: PRESENT: other - right IJ central line device Respiratory exam: PRESENT: decreased breath sounds at lung bases Cardiovascular exam: PRESENT: RRR, S+1, S+2, ABSENT: diastolic murmur, rubs, systolic murmur. GI/Abdominal exam: PRESENT: normal bowel sounds, soft. ABSENT: distended, guarding, mass, organomegaly, rebound, tenderness Extremities exam: PRESENT: pedal edema - upper extremities due to soft tissue infiltration Musculoskeletal exam: PRESENT: Generalized edema Neurological exam: PRESENT: Sedated. Skin exam: PRESENT: dry, intact, warm. Resolving erythematous rash on torso ABSENT: cyanosis Results Laboratory Results: 05/10/17 06:30 05/10/17 16:40 05/09/17 05/10/17 05/10/17 18:31 06:30 06:30 WBC RBC Hgb Hct MCV MCH MCHC RDW Plt Count Seg Neutrophils % Lymphocytes % Monocytes % Eosinophils % Basophils % Absolute Neutrophils Absolute Lymphocytes Absolute Monocytes Absolute Eosinophils Absolute Basophils Carbonic Acid 1.24 HCO3/H2CO3 Ratio 20:1 ABG pH 7.42 ABG pCO2 41.3 ABG pO2 76.3 L ABG HCO3 25.9 ABG O2 Saturation 95.4 ABG Base Excess 1.2 FiO2 65 % Sodium Potassium Chloride Carbon Dioxide Anion Gap BUN Creatinine Est GFR ( Amer) Est GFR (Non-Af Amer) Glucose Calcium Phosphorus Magnesium Total Bilirubin AST ALT Alkaline Phosphatase Ammonia < 8.7 L Total Protein Albumin Stool Occult Blood NEGATIVE 05/10/17 05/10/17 05/10/17 06:30 06:30 16:40 WBC 8.1 RBC 3.27 L Hgb 10.3 L Hct 30.2 L MCV 92 MCH 31.3 MCHC 34.0 RDW 16.7 H Plt Count 198 Seg Neutrophils % 81.4 H Lymphocytes % 6.5 L Monocytes % 7.2 Eosinophils % 4.5 Basophils % 0.4 Absolute Neutrophils 6.6 Absolute Lymphocytes 0.5 Absolute Monocytes 0.6 Absolute Eosinophils 0.4 Absolute Basophils 0.0 Carbonic Acid HCO3/H2CO3 Ratio ABG pH ABG pCO2 ABG pO2 ABG HCO3 ABG O2 Saturation ABG Base Excess FiO2 Sodium 139.4 Potassium 3.3 L 3.6 Chloride 106 Carbon Dioxide 28 Anion Gap 5 BUN 13 Creatinine 0.76 Est GFR ( Amer) > 60 Est GFR (Non-Af Amer) > 60 Glucose 100 Calcium 8.1 L Phosphorus 2.9 Magnesium 1.6 Total Bilirubin 0.4 AST 110 H ALT 126 H Alkaline Phosphatase 180 H Ammonia Total Protein 5.8 L Albumin 2.1 L Stool Occult Blood 05/07/17 08:37 Bronchial Washings Gram Stain - Final 05/07/17 08:37 Bronchial Washings Bronchial Washings Culture - Final Yeast, Not [place] Normal Jo Absent Impressions: Head CT 04/17/17 13:01 IMPRESSION: MILD CHRONIC MICROVASCULAR ISCHEMIA. NO ACUTE IMAGING FINDINGS IN THE BRAIN. EVIDENCE OF ACUTE STROKE: NO. 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 AREAS OF MILD TO MODERATE SPINAL STENOSIS DESCRIBED. NO ACUTE FINDINGS. Chest CT 04/27/17 00:00 IMPRESSION: Diffuse bullous change with superimposed fluid likely interstitial edema or pneumonia. Clearly progressed from previous. Bilateral pleural effusions. Persistent air-fluid level and a large bullae in the right upper lobe. Infection in the differential. Unchanged. Acute Abdomen Series 04/30/17 00:00 IMPRESSION: 1. Gaseous distention in the abdomen. This includes large and small bowel. Scattered air-fluid levels may reflect mild ileus. Modified Barium Swallow 05/01/17 00:00 IMPRESSION: NO EVIDENCE OF LARYNGEAL PENETRATION OR TRACHEAL ASPIRATION.PLEASE SEE SPEECH PATHOLOGIST REPORT FOR OTHER FINDINGS AND RECOMMENDATIONS. KUB X-Ray 05/06/17 09:36 IMPRESSION: SATISFACTORY POSITION NASOGASTRIC TUBE. ADDITIONAL FINDINGS ARE ABOVE. Fluoroscopy 05/07/17 00:00 IMPRESSION: IMAGE(S) OBTAINED DURING PROCEDURE. Chest X-Ray 05/10/17 06:00 IMPRESSION: 1. Stable appearance of the chest. Assessment & Plan - Diagnosis (1) Dehydration with hyponatremia Is this a current diagnosis for this admission?: Yes (2) Abnormality of lung on CXR Is this a current diagnosis for this admission?: Yes (3) Pneumatocele of lung Is this a current diagnosis for this admission?: Yes (4) Pneumothorax on right Is this a current diagnosis for this admission?: Yes (5) Acute kidney injury Is this a current diagnosis for this admission?: Yes (6) COPD (chronic obstructive pulmonary disease) Qualifiers: COPD type: unspecified COPD Qualified Code(s): J44.9 - Chronic obstructive pulmonary disease, unspecified Is this a current diagnosis for this admission?: Yes (7) HLD (hyperlipidemia) Qualifiers: Hyperlipidemia type: pure hypercholesterolemia Qualified Code(s): E78.00 - Pure hypercholesterolemia, unspecified Is this a current diagnosis for this admission?: Yes (8) HTN (hypertension) Qualifiers: Hypertension type: essential hypertension Qualified Code(s): I10 - Essential (primary) hypertension Is this a current diagnosis for this admission?: Yes (9) Constipation Qualifiers: Constipation type: slow transit constipation Qualified Code(s): K59.01 - Slow transit constipation Is this a current diagnosis for this admission?: Yes (10) Acute respiratory failure with hypoxemia Is this a current diagnosis for this admission?: Yes - Time Time Spent with patient: 25-34 minutes Total Critical Time (Minutes): 20 Medications reviewed and adjusted accordingly: Yes Anticipated discharge: Other Within: Other - Inpatient Certification Based on my medical assessment, after consideration of the patient's comorbidities, presenting symptoms, or acuity I expect that the services needed warrant INPATIENT care.: Yes I certify that my determination is in accordance with my understanding of Medicare's requirements for reasonable and necessary INPATIENT services [42 CFR 412.3e].: Yes Medical Necessity: Need Close Monitoring Due to Risk of Patient Decompensation, Need For IV Fluids, Need For Continuous Telemetry Monitoring, Need for Nebulizer Therapy and Monitoring of Response, Need for IV Antibiotics, Risk of Complication if Not Cared For in Hospital Post Hospital Care: Other - Plan Summary Plan Summary: See attending physician orders. Discussed care plan with assigned nursing staff. I spoke with daughter via telephone yesterday. Pulmonary mental health consultant input appreciated.
[2017-05-10] MEDS: FLUCONAZOLE 200 MG/NS RTU 100 ML IV SCH (18:46)
[2017-05-10] MEDS ORDERED: FUROSEMIDE INJ/PF 20 MG/2 ML SDV IV ONE (19:00)
[2017-05-10] MEDS ORDERED: MAGNESIUM SULFATE/D5W 1 GM/100 ML RTUPB IV ONE (19:00)
[2017-05-10] MEDS: POTASSIUM CHLORIDE 20 MEQ/15 ML UDCUP PO SCH ×2 (20:11→23:46)
[2017-05-11] MEDS: LEVALBUTEROL HCL NEB 1.25 MG/3 ML AMPUL NEB SCH ×4 (02:10→20:22)
[2017-05-11] MEDS: DEXTROSE 5%-WATER 250 ML with NOREPINEPHRINE BITARTRATE 4 MG IV PRN ×4 (02:17→16:40)
[2017-05-11] MEDS: IMIPENEM/CILASTATIN SODIUM 1,000 MG in NORMAL SALINE 250 ML IV SCH ×4 (02:19→22:39)
[2017-05-11] MEDS: LANSOPRAZOLE 30 MG TAB.RAP.DR PO SCH (05:04)
[2017-05-11 05:43] LABS: ARTERIAL BLOOD BASE EXCESS 6.9 mmol/L; ARTERIAL BLOOD H2CO3 1.39 mmol/L (1.05-1.35); ARTERIAL BLOOD HCO3 31.8 mmol/L (20-26); ARTERIAL BLOOD O2 SATURATION 96.4 % (94-98); ARTERIAL BLOOD PCO2 46.1 mmHg (35-45); ARTERIAL BLOOD PH 7.46 (7.35-7.45); ARTERIAL BLOOD PO2 81.5 mmHg (80-100); ARTERIAL BLOOD TOTAL CO2 33.2 mmol/L (23-27)
[2017-05-11 05:47] LABS: ARTERIAL BLOOD FIO2 60%
[2017-05-11 05:59] LABS: ABSOLUTE EOSINOPHILS # (AUTO) 0.4 10^3/uL (0.0-0.6); ABSOLUTE LYMPHOCYTES (AUTO) 0.6 10^3/uL (0.5-4.7); ABSOLUTE MONOCYTES (AUTO) 0.6 10^3/uL (0.1-1.4); ABSOLUTE NEUT (AUTO) 6.8 10^3/uL (1.7-8.2); BASOPHILS % (AUTO) 0.1 % (0-2); EOSINOPHILS % (AUTO) 4.6 % (0-6); HEMATOCRIT 30.5 % (37.9-51.0); HEMOGLOBIN 10.5 g/dL (13.5-17.0); LYMPHOCYTES % (AUTO) 6.9 % (13-45); MEAN CORPUSCULAR HEMOGLOBIN 31.6 pg (27.0-33.4); MEAN CORPUSCULAR HGB CONC 34.4 g/dL (32.0-36.0); MEAN CORPUSCULAR VOLUME 92 fl (80-97); MONOCYTES % (AUTO) 6.7 % (3-13); PLATELET COUNT 190 10^3/uL (150-450); RED BLOOD COUNT 3.32 10^6/uL (4.35-5.55); RED CELL DISTRIBUTION WIDTH 16.9 % (11.5-14.0); SEGMENTED NEUTROPHILS % (AUTO) 81.7 % (42-78); TOTAL CELLS COUNTED % (AUTO) 100 %; WHITE BLOOD COUNT 8.3 10^3/uL (4.0-10.5)
[2017-05-11 06:06] LABS: ANION GAP 5 (5-19); BLOOD UREA NITROGEN 14 mg/dL (7-20); CALCIUM 8.3 mg/dL (8.4-10.2); CARBON DIOXIDE 31 mmol/L (22-30); CHLORIDE 104 mmol/L (98-107); GLUCOSE 98 mg/dL (75-110); MAGNESIUM 1.8 mg/dL (1.6-2.3); PHOSPHORUS 2.5 mg/dL (2.5-4.5); POTASSIUM 3.8 mmol/L (3.6-5.0); SODIUM 139.5 mmol/L (137-145)
--- NOTE | 2017-05-11 07:17 | RADIOLOGY REPORT (SQ) ---
EXAM DESCRIPTION: CHEST SINGLE VIEW CLINICAL HISTORY: resp failure COMPARISON: 05/10/2017 FINDINGS: Single frontal view of the chest. Endotracheal tube with tip at the level of the clavicles 6 cm above the francis. NG tube with tip below the diaphragm. Prior median sternotomy. Heart is not enlarged Right IJ central venous catheter. Leads overlie the chest. Right pleural effusion and diffuse bilateral airspace opacities. No pneumothorax. Upper abdominal soft tissues are unremarkable. IMPRESSION: 1. Stable appearance of the chest.
[2017-05-11] MEDS: OXYCODONE-ACETAMINOPHEN 5-325 MG TABLET PO PRN ×2 (09:31→16:41)
[2017-05-11] MEDS: PROPOFOL 100 ML IV PRN ×3 (09:33→22:40)
[2017-05-11] MEDS: BIMATOPROST 0.01% OPH SOLN 2.5 ML/BOTTLE OU SCH (12:09)
[2017-05-11] MEDS: ENOXAPARIN SODIUM INJ 40 MG/0.4 ML DISP.SYRIN SUBCUT SCH (12:13)
[2017-05-11] MEDS ORDERED: NOREPINEPHRINE BITARTRATE INJ/PF 4 MG/4 ML SDV IV ONE (16:34)
--- NOTE | 2017-05-11 16:39 | PDOC PROGRESS REPORT ---
Subjective Progress Note for:: 05/11/17 Subjective:: Patient remain intubated and vent supported. Remain on IV Propofol sedation. FIO2 presently at 50%. No fever. Remain on Levophed support for hypotension. Tolerating enteral tube feeding at 30 ml / hour. Reason For Visit: DEHYDRATION WITH HYPONATREMIA;ACUTE RENAL INJURY; Physical Exam Vital Signs: Temp Pulse Resp BP Pulse Ox 98.4 F 81 17 101/67 97 05/11/17 12:56 05/11/17 14:00 05/11/17 14:00 05/11/17 14:00 05/11/17 14:00 Intake & Output 05/10/17 05/11/17 05/12/17 06:59 06:59 06:59 Intake Total 4651 4076 Output Total 492 6006 1025 Balance -298 -1930 -1025 Weight 86.5 kg 84.9 kg Physical Exam: General appearance: PRESENT: Sedated on IV Propofol. ET and OG tubes in situ. Head exam: PRESENT: atraumatic, normocephalic Eye exam: PRESENT: conjunctiva pink, EOMI, PERRLA. ABSENT: scleral icterus Mouth exam: PRESENT: moist Neck exam: PRESENT: other - right IJ central line device Respiratory exam: PRESENT: decreased breath sounds at lung bases Cardiovascular exam: PRESENT: RRR, S+1, S+2, ABSENT: diastolic murmur, rubs, systolic murmur. GI/Abdominal exam: PRESENT: normal bowel sounds, soft. ABSENT: distended, guarding, mass, organomegaly, rebound, tenderness Extremities exam: PRESENT: pedal edema - upper extremities due to soft tissue infiltration Musculoskeletal exam: PRESENT: Generalized edema Neurological exam: PRESENT: Sedated. Skin exam: PRESENT: dry, intact, warm. ABSENT: cyanosis Results Laboratory Results: 05/11/17 05:30 05/11/17 05:30 05/10/17 05/11/17 05/11/17 16:40 05:30 05:30 WBC RBC Hgb Hct MCV MCH MCHC RDW Plt Count Seg Neutrophils % Lymphocytes % Monocytes % Eosinophils % Basophils % Absolute Neutrophils Absolute Lymphocytes Absolute Monocytes Absolute Eosinophils Absolute Basophils Carbonic Acid 1.39 H HCO3/H2CO3 Ratio 22:1 ABG pH 7.46 H ABG pCO2 46.1 H ABG pO2 81.5 ABG HCO3 31.8 H ABG O2 Saturation 96.4 ABG Base Excess 6.9 FiO2 60% Sodium 139.5 Potassium 3.6 3.8 Chloride 104 Carbon Dioxide 31 H Anion Gap 5 BUN 14 Creatinine 0.70 Est GFR ( Amer) > 60 Est GFR (Non-Af Amer) > 60 Glucose 98 Calcium 8.3 L Phosphorus 2.5 Magnesium 1.8 05/11/17 05:30 WBC 8.3 RBC 3.32 L Hgb 10.5 L Hct 30.5 L MCV 92 MCH 31.6 MCHC 34.4 RDW 16.9 H Plt Count 190 Seg Neutrophils % 81.7 H Lymphocytes % 6.9 L Monocytes % 6.7 Eosinophils % 4.6 Basophils % 0.1 Absolute Neutrophils 6.8 Absolute Lymphocytes 0.6 Absolute Monocytes 0.6 Absolute Eosinophils 0.4 Absolute Basophils 0.0 Carbonic Acid HCO3/H2CO3 Ratio ABG pH ABG pCO2 ABG pO2 ABG HCO3 ABG O2 Saturation ABG Base Excess FiO2 Sodium Potassium Chloride Carbon Dioxide Anion Gap BUN Creatinine Est GFR ( Amer) Est GFR (Non-Af Amer) Glucose Calcium Phosphorus Magnesium 05/07/17 08:37 Bronchial Washings Fungal Smear - Final 05/07/17 08:37 Bronchial Washings Fungal Smear - Final 05/07/17 08:37 Bronchial Washings Chlamydia pneumoniae (PCR) - Final Impressions: Head CT 04/17/17 13:01 IMPRESSION: MILD CHRONIC MICROVASCULAR ISCHEMIA. NO ACUTE IMAGING FINDINGS IN THE BRAIN. EVIDENCE OF ACUTE STROKE: NO. 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 AREAS OF MILD TO MODERATE SPINAL STENOSIS DESCRIBED. NO ACUTE FINDINGS. Chest CT 04/27/17 00:00 IMPRESSION: Diffuse bullous change with superimposed fluid likely interstitial edema or pneumonia. Clearly progressed from previous. Bilateral pleural effusions. Persistent air-fluid level and a large bullae in the right upper lobe. Infection in the differential. Unchanged. Acute Abdomen Series 04/30/17 00:00 IMPRESSION: 1. Gaseous distention in the abdomen. This includes large and small bowel. Scattered air-fluid levels may reflect mild ileus. Modified Barium Swallow 05/01/17 00:00 IMPRESSION: NO EVIDENCE OF LARYNGEAL PENETRATION OR TRACHEAL ASPIRATION.PLEASE SEE SPEECH PATHOLOGIST REPORT FOR OTHER FINDINGS AND RECOMMENDATIONS. KUB X-Ray 05/06/17 09:36 IMPRESSION: SATISFACTORY POSITION NASOGASTRIC TUBE. ADDITIONAL FINDINGS ARE ABOVE. Fluoroscopy 05/07/17 00:00 IMPRESSION: IMAGE(S) OBTAINED DURING PROCEDURE. Chest X-Ray 05/11/17 06:00 IMPRESSION: 1. Stable appearance of the chest. Assessment & Plan - Diagnosis (1) Dehydration with hyponatremia Is this a current diagnosis for this admission?: Yes (2) Abnormality of lung on CXR Is this a current diagnosis for this admission?: Yes (3) Pneumatocele of lung Is this a current diagnosis for this admission?: Yes (4) Pneumothorax on right Is this a current diagnosis for this admission?: Yes (5) Acute kidney injury Is this a current diagnosis for this admission?: Yes (6) COPD (chronic obstructive pulmonary disease) Qualifiers: COPD type: unspecified COPD Qualified Code(s): J44.9 - Chronic obstructive pulmonary disease, unspecified Is this a current diagnosis for this admission?: Yes (7) HLD (hyperlipidemia) Qualifiers: Hyperlipidemia type: pure hypercholesterolemia Qualified Code(s): E78.00 - Pure hypercholesterolemia, unspecified Is this a current diagnosis for this admission?: Yes (8) HTN (hypertension) Qualifiers: Hypertension type: essential hypertension Qualified Code(s): I10 - Essential (primary) hypertension Is this a current diagnosis for this admission?: Yes (9) Constipation Qualifiers: Constipation type: slow transit constipation Qualified Code(s): K59.01 - Slow transit constipation Is this a current diagnosis for this admission?: Yes (10) Acute respiratory failure with hypoxemia Is this a current diagnosis for this admission?: Yes - Time Time Spent with patient: 35 or more minutes Medications reviewed and adjusted accordingly: Yes Anticipated discharge: Other Within: Other - Inpatient Certification Based on my medical assessment, after consideration of the patient's comorbidities, presenting symptoms, or acuity I expect that the services needed warrant INPATIENT care.: Yes I certify that my determination is in accordance with my understanding of Medicare's requirements for reasonable and necessary INPATIENT services [42 CFR 412.3e].: Yes Medical Necessity: Need Close Monitoring Due to Risk of Patient Decompensation, Need For IV Fluids, Need For Continuous Telemetry Monitoring, Need for Nebulizer Therapy and Monitoring of Response, Need for IV Antibiotics, Risk of Complication if Not Cared For in Hospital Post Hospital Care: Other - Plan Summary Plan Summary: Patient will remain on IV Primaxin and Diflucan coverage. 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 He will remain on all other current medication management. Overall prognosis remain poor. I discuss care plan with family at bedside. In view of negative growth from cultures so far except bronchial washing culture that revealed [place] Parapsilosis his lung lesion findings and decompensation remain unexplainable beyond his COPD. I discussed his Echocardiogram findings with Dr. Serra and his take was normal LVEF.
[2017-05-11] MEDS ORDERED: MICAFUNGIN SODIUM 100 MG in NORMAL SALINE 100 ML IV ONE (18:00)
[2017-05-11] MEDS: MICAFUNGIN SODIUM 100 MG in NORMAL SALINE 100 ML IV SCH (18:30)
[2017-05-12] MEDS: LEVALBUTEROL HCL NEB 1.25 MG/3 ML AMPUL NEB SCH ×4 (02:02→20:00)
[2017-05-12] MEDS: IMIPENEM/CILASTATIN SODIUM 1,000 MG in NORMAL SALINE 250 ML IV SCH ×4 (06:16→20:49)
[2017-05-12] MEDS: LANSOPRAZOLE 30 MG TAB.RAP.DR PO SCH (06:40)
[2017-05-12] MEDS: PROPOFOL 100 ML IV PRN ×3 (06:41→20:49)
[2017-05-12] MEDS: DEXTROSE 5%-WATER 250 ML with NOREPINEPHRINE BITARTRATE 4 MG IV PRN ×4 (06:41→09:04)
[2017-05-12 07:37] LABS: BLOOD UREA NITROGEN 13 mg/dL (7-20); CARBON DIOXIDE 31 mmol/L (22-30); CHLORIDE 104 mmol/L (98-107); GLUCOSE 83 mg/dL (75-110); POTASSIUM 3.4 mmol/L (3.6-5.0); SODIUM 138.8 mmol/L (137-145); TRIGLYCERIDES 113 mg/dL (<150)
[2017-05-12 07:39] LABS: ANION GAP 4 (5-19)
[2017-05-12] MEDS: ENOXAPARIN SODIUM INJ 40 MG/0.4 ML DISP.SYRIN SUBCUT SCH (09:07)
[2017-05-12] MEDS: BIMATOPROST 0.01% OPH SOLN 2.5 ML/BOTTLE OU SCH (09:10)
[2017-05-12] MEDS: POTASSIUM CHLORIDE 20 MEQ/50 ML RTU IV SCH ×2 (13:20→14:37)
--- NOTE | 2017-05-12 16:56 | PDOC PROGRESS REPORT ---
Subjective Progress Note for:: 05/12/17 Subjective:: Patient is seen by the bedside on mechanical ventilation alert requiring vasopressor Reason For Visit: DEHYDRATION WITH HYPONATREMIA;ACUTE RENAL INJURY; Physical Exam Vital Signs: Temp Pulse Resp BP Pulse Ox 98.1 F 90 20 96/69 L 94 05/12/17 14:15 05/12/17 14:00 05/12/17 14:15 05/12/17 14:12 05/12/17 16:05 Intake & Output 05/11/17 05/12/17 05/13/17 06:59 06:59 06:59 Intake Total 4076 2061 Output Total 6003 4880 3056 Balance -1930 -6569 -3056 Weight 84.9 kg 85.4 kg Head exam: PRESENT: atraumatic, normocephalic Eye exam: PRESENT: PERRLA Respiratory exam: PRESENT: decreased breath sounds Cardiovascular exam: PRESENT: +S1, +S2 Neurological exam: PRESENT: alert Results Laboratory Results: 05/11/17 05:30 05/12/17 06:50 05/12/17 06:50 Sodium 138.8 Potassium 3.4 L Chloride 104 Carbon Dioxide 31 H Anion Gap 4 L BUN 13 Creatinine 0.69 Est GFR ( Amer) > 60 Est GFR (Non-Af Amer) > 60 Glucose 83 Calcium 8.0 L Triglycerides 113 05/07/17 08:37 Bronchial Washings Fungal Smear - Final 05/07/17 08:37 Bronchial Washings Fungal Smear - Final Impressions: Head CT 04/17/17 13:01 IMPRESSION: MILD CHRONIC MICROVASCULAR ISCHEMIA. NO ACUTE IMAGING FINDINGS IN THE BRAIN. EVIDENCE OF ACUTE STROKE: NO. 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 AREAS OF MILD TO MODERATE SPINAL STENOSIS DESCRIBED. NO ACUTE FINDINGS. Chest CT 04/27/17 00:00 IMPRESSION: Diffuse bullous change with superimposed fluid likely interstitial edema or pneumonia. Clearly progressed from previous. Bilateral pleural effusions. Persistent air-fluid level and a large bullae in the right upper lobe. Infection in the differential. Unchanged. Acute Abdomen Series 04/30/17 00:00 IMPRESSION: 1. Gaseous distention in the abdomen. This includes large and small bowel. Scattered air-fluid levels may reflect mild ileus. Modified Barium Swallow 05/01/17 00:00 IMPRESSION: NO EVIDENCE OF LARYNGEAL PENETRATION OR TRACHEAL ASPIRATION.PLEASE SEE SPEECH PATHOLOGIST REPORT FOR OTHER FINDINGS AND RECOMMENDATIONS. KUB X-Ray 05/06/17 09:36 IMPRESSION: SATISFACTORY POSITION NASOGASTRIC TUBE. ADDITIONAL FINDINGS ARE ABOVE. Fluoroscopy 05/07/17 00:00 IMPRESSION: IMAGE(S) OBTAINED DURING PROCEDURE. Chest X-Ray 05/11/17 06:00 IMPRESSION: 1. Stable appearance of the chest. Assessment & Plan - Diagnosis (1) Cavitary lesion of lung Is this a current diagnosis for this admission?: Yes (2) Dehydration with hyponatremia Is this a current diagnosis for this admission?: Yes (3) Acute kidney injury Is this a current diagnosis for this admission?: Yes (4) Pneumatocele of lung Is this a current diagnosis for this admission?: Yes (5) History of myasthenia gravis Is this a current diagnosis for this admission?: Yes (6) Necrotizing pneumonia Is this a current diagnosis for this admission?: Yes (7) Alcohol abuse Is this a current diagnosis for this admission?: Yes (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 (9) Alcoholic myopathy Is this a current diagnosis for this admission?: Yes
[2017-05-12] MEDS: NORMAL SALINE 1000 ML 1,000 ML IV PRN (17:33)
[2017-05-12] MEDS: MICAFUNGIN SODIUM 100 MG in NORMAL SALINE 100 ML IV SCH (17:33)
[2017-05-12 23:54] LABS: BLOOD UREA NITROGEN 13 mg/dL (7-20); CALCIUM 7.9 mg/dL (8.4-10.2); CARBON DIOXIDE 30 mmol/L (22-30); GLUCOSE 97 mg/dL (75-110)
[2017-05-13 00:25] LABS: CHLORIDE 107 mmol/L (98-107); POTASSIUM 3.7 mmol/L (3.6-5.0); SODIUM 140.5 mmol/L (137-145)
[2017-05-13 00:27] LABS: ANION GAP 4 (5-19)
[2017-05-13] MEDS: PROPOFOL 100 ML IV PRN ×3 (00:27→20:21)
[2017-05-13] MEDS: LEVALBUTEROL HCL NEB 1.25 MG/3 ML AMPUL NEB SCH ×4 (02:05→20:57)
[2017-05-13] MEDS: IMIPENEM/CILASTATIN SODIUM 1,000 MG in NORMAL SALINE 250 ML IV SCH ×2 (02:14→08:05)
[2017-05-13] MEDS: LANSOPRAZOLE 30 MG TAB.RAP.DR PO SCH (05:55)
[2017-05-13 06:18] LABS: ARTERIAL BLOOD BASE EXCESS 3.6 mmol/L; ARTERIAL BLOOD H2CO3 1.17 mmol/L (1.05-1.35); ARTERIAL BLOOD HCO3 27.4 mmol/L (20-26); ARTERIAL BLOOD O2 SATURATION 96.5 % (94-98); ARTERIAL BLOOD PCO2 38.8 mmHg (35-45); ARTERIAL BLOOD PH 7.47 (7.35-7.45); ARTERIAL BLOOD PO2 80.8 mmHg (80-100); ARTERIAL BLOOD TOTAL CO2 28.6 mmol/L (23-27)
[2017-05-13 06:26] LABS: INTERNATIONAL RATION (INR) 0.99; PROTHROMBIN TIME 13.8 SEC (11.4-15.4)
[2017-05-13 06:27] LABS: PARTIAL THROMBOPLASTIN TIME 48.1 SEC (23.5-35.8)
[2017-05-13 06:28] LABS: ARTERIAL BLOOD FIO2 60%
[2017-05-13 06:36] LABS: ALANINE AMINOTRANSFERASE 41 U/L (21-72); ALKALINE PHOSPHATASE 147 U/L (38-126); ASPARTATE AMINO TRANSFERASE 36 U/L (17-59); BILIRUBIN,DIRECT 0.4 mg/dL (0.0-0.4); BILIRUBIN,TOTAL 0.4 mg/dL (0.2-1.3); BLOOD UREA NITROGEN 12 mg/dL (7-20); CALCIUM 7.9 mg/dL (8.4-10.2); CARBON DIOXIDE 32 mmol/L (22-30); CHLORIDE 104 mmol/L (98-107); GLUCOSE 96 mg/dL (75-110); MAGNESIUM 1.8 mg/dL (1.6-2.3); PHOSPHORUS 3.4 mg/dL (2.5-4.5); POTASSIUM 3.4 mmol/L (3.6-5.0); TOTAL PROTEIN 5.8 g/dL (6.3-8.2)
[2017-05-13 06:53] LABS: SODIUM 138.9 mmol/L (137-145)
[2017-05-13 07:09] LABS: ANION GAP 3 (5-19)
--- NOTE | 2017-05-13 08:17 | RADIOLOGY REPORT (SQ) ---
EXAM DESCRIPTION: CHEST SINGLE VIEW COMPLETED DATE/TIME: 05/13/2017 6:40 am REASON FOR STUDY: resp failure COMPARISON: 05/11/2017. EXAM PARAMETERS: NUMBER OF VIEWS: One view. TECHNIQUE: Single frontal radiographic view of the chest acquired. RADIATION DOSE: NA LIMITATIONS: None. FINDINGS: LUNGS AND PLEURA: Bilateral pulmonary interstitial alveolar infiltrates demonstrating no s ignificant change. Right pleural effusion. Right apical pleural thickening. MEDIASTINUM AND HILAR STRUCTURES: No masses. Contour normal. HEART AND VASCULAR STRUCTURES: Heart remains normal in size. No change in pulmonary vasculature. BONES: No acute findings. HARDWARE: Median sternotomy wires noted. OTHER: ET tube remains in good position at the level of T2 unchanged. NG tube is noted overlying the stomach. Right IJ line overlying right atrium. IMPRESSION: No interval change. TECHNICAL DOCUMENTATION: JOB ID: [id number] [employer]- All Rights Reserved
[2017-05-13] MEDS ORDERED: POTASSI CL 20 MEQ/50 ML RIDER 20 MEQ/50 ML RTUPB IV ONE (08:43)
[2017-05-13] MEDS: POTASSIUM CHLORIDE 20 MEQ/50 ML RTU IV SCH ×2 (08:47→10:53)
[2017-05-13] MEDS: BIMATOPROST 0.01% OPH SOLN 2.5 ML/BOTTLE OU SCH (09:24)
[2017-05-13] MEDS: NORMAL SALINE 1000 ML 1,000 ML IV PRN (09:26)
[2017-05-13] MEDS: ENOXAPARIN SODIUM INJ 40 MG/0.4 ML DISP.SYRIN SUBCUT SCH (09:27)
[2017-05-13] MEDS: MICAFUNGIN SODIUM 100 MG in NORMAL SALINE 100 ML IV SCH (17:08)
--- NOTE | 2017-05-13 17:09 | PDOC PROGRESS REPORT ---
Subjective Progress Note for:: 05/11/17 Subjective:: Intubated and sedated Reason For Visit: DEHYDRATION WITH HYPONATREMIA;ACUTE RENAL INJURY; Physical Exam Vital Signs: Temp Pulse Resp BP Pulse Ox 98.1 F 83 21 H 107/75 100 05/11/17 08:00 05/11/17 08:00 05/11/17 08:00 05/11/17 08:00 05/11/17 08:00 Intake & Output 05/10/17 05/11/17 05/12/17 06:59 06:59 06:59 Intake Total 4627 4076 Output Total 4925 6006 325 Balance -298 -1930 -325 Weight 86.5 kg 84.9 kg General appearance: PRESENT: no acute distress, disheveled, thin. ABSENT: cooperative, mild distress, morbidly obese, obese, severe distress Head exam: PRESENT: atraumatic, normocephalic Eye exam: PRESENT: conjunctiva pale. ABSENT: conjunctival injection, conjunctiva pink, nystagmus, periorbital swelling, scleral icterus Mouth exam: PRESENT: dry mucosa, neck supple, tongue midline, other - ET tube. ABSENT: laceration, moist Teeth exam: PRESENT: poor dentation Neck exam: PRESENT: tracheal deviation. ABSENT: carotid bruit, JVD, lymphadenopathy, thyromegaly, tracheostomy Respiratory exam: PRESENT: decreased breath sounds, prolonged expiratory phas, rales, rhonchi, symmetrical, tachypnea, unlabored. ABSENT: accessory muscle use , chest wall tenderness, clear to auscultation antonio, crackles, retraction, stridor Cardiovascular exam: PRESENT: RRR, +S1, +S2 Pulses: PRESENT: normal radial pulses GI/Abdominal exam: PRESENT: diminished bowel sounds, soft Gentrourinary exam: PRESENT: indwelling catheter Extremities exam: ABSENT: clubbing, joint swelling Musculoskeletal exam: ABSENT: ambulatory Neurological exam: ABSENT: alert, awake Skin exam: PRESENT: dry, warm Results Laboratory Results: 05/11/17 05:30 05/11/17 05:30 05/10/17 05/11/17 05/11/17 16:40 05:30 05:30 WBC RBC Hgb Hct MCV MCH MCHC RDW Plt Count Seg Neutrophils % Lymphocytes % Monocytes % Eosinophils % Basophils % Absolute Neutrophils Absolute Lymphocytes Absolute Monocytes Absolute Eosinophils Absolute Basophils Carbonic Acid 1.39 H HCO3/H2CO3 Ratio 22:1 ABG pH 7.46 H ABG pCO2 46.1 H ABG pO2 81.5 ABG HCO3 31.8 H ABG O2 Saturation 96.4 ABG Base Excess 6.9 FiO2 60% Sodium 139.5 Potassium 3.6 3.8 Chloride 104 Carbon Dioxide 31 H Anion Gap 5 BUN 14 Creatinine 0.70 Est GFR ( Amer) > 60 Est GFR (Non-Af Amer) > 60 Glucose 98 Calcium 8.3 L Phosphorus 2.5 Magnesium 1.8 05/11/17 05:30 WBC 8.3 RBC 3.32 L Hgb 10.5 L Hct 30.5 L MCV 92 MCH 31.6 MCHC 34.4 RDW 16.9 H Plt Count 190 Seg Neutrophils % 81.7 H Lymphocytes % 6.9 L Monocytes % 6.7 Eosinophils % 4.6 Basophils % 0.1 Absolute Neutrophils 6.8 Absolute Lymphocytes 0.6 Absolute Monocytes 0.6 Absolute Eosinophils 0.4 Absolute Basophils 0.0 Carbonic Acid HCO3/H2CO3 Ratio ABG pH ABG pCO2 ABG pO2 ABG HCO3 ABG O2 Saturation ABG Base Excess FiO2 Sodium Potassium Chloride Carbon Dioxide Anion Gap BUN Creatinine Est GFR ( Amer) Est GFR (Non-Af Amer) Glucose Calcium Phosphorus Magnesium 05/07/17 08:37 Bronchial Washings Chlamydia pneumoniae (PCR) - Final Impressions: Head CT 04/17/17 13:01 IMPRESSION: MILD CHRONIC MICROVASCULAR ISCHEMIA. NO ACUTE IMAGING FINDINGS IN THE BRAIN. EVIDENCE OF ACUTE STROKE: NO. 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 AREAS OF MILD TO MODERATE SPINAL STENOSIS DESCRIBED. NO ACUTE FINDINGS. Chest CT 04/27/17 00:00 IMPRESSION: Diffuse bullous change with superimposed fluid likely interstitial edema or pneumonia. Clearly progressed from previous. Bilateral pleural effusions. Persistent air-fluid level and a large bullae in the right upper lobe. Infection in the differential. Unchanged. Acute Abdomen Series 04/30/17 00:00 IMPRESSION: 1. Gaseous distention in the abdomen. This includes large and small bowel. Scattered air-fluid levels may reflect mild ileus. Modified Barium Swallow 05/01/17 00:00 IMPRESSION: NO EVIDENCE OF LARYNGEAL PENETRATION OR TRACHEAL ASPIRATION.PLEASE SEE SPEECH PATHOLOGIST REPORT FOR OTHER FINDINGS AND RECOMMENDATIONS. KUB X-Ray 05/06/17 09:36 IMPRESSION: SATISFACTORY POSITION NASOGASTRIC TUBE. ADDITIONAL FINDINGS ARE ABOVE. Fluoroscopy 05/07/17 00:00 IMPRESSION: IMAGE(S) OBTAINED DURING PROCEDURE. Chest X-Ray 05/11/17 06:00 IMPRESSION: 1. Stable appearance of the chest. Assessment & Plan - Diagnosis (1) Cavitary lesion of lung Is this a current diagnosis for this admission?: Yes Plan: biopsies neg r apical opacification (2) History of myasthenia gravis Is this a current diagnosis for this admission?: Yes Plan: hx of thymoma, Acetylcholinesterase antibody pending (3) Hyponatremia Is this a current diagnosis for this admission?: No (4) Necrotizing pneumonia Is this a current diagnosis for this admission?: Yes Plan: ??/ r effusion (5) Pneumatocele of lung Is this a current diagnosis for this admission?: Yes (6) COPD (chronic obstructive pulmonary disease) Qualifiers: COPD type: unspecified COPD Qualified Code(s): J44.9 - Chronic obstructive pulmonary disease, unspecified Is this a current diagnosis for this admission?: Yes Plan: No acute respiratory distress continue current bronchodilators - Time Total Critical Time (Minutes): 45
--- NOTE | 2017-05-13 17:14 | PDOC PROGRESS REPORT ---
Subjective Progress Note for:: 05/12/17 Subjective:: Intubated and sedated Reason For Visit: DEHYDRATION WITH HYPONATREMIA;ACUTE RENAL INJURY; Physical Exam Vital Signs: Temp Pulse Resp BP Pulse Ox 97.7 F 82 18 89/61 L 98 05/12/17 08:00 05/12/17 08:15 05/12/17 08:15 05/12/17 08:00 05/12/17 08:15 Intake & Output 05/11/17 05/12/17 05/13/17 06:59 06:59 06:59 Intake Total 4076 2061 Output Total 6006 3350 200 Balance -1930 -1289 -200 Weight 84.9 kg 85.4 kg General appearance: PRESENT: no acute distress, disheveled, thin. ABSENT: cooperative, mild distress, morbidly obese, obese, severe distress Head exam: PRESENT: atraumatic, normocephalic Eye exam: PRESENT: conjunctiva pale. ABSENT: conjunctival injection, conjunctiva pink, nystagmus, periorbital swelling, scleral icterus Mouth exam: PRESENT: dry mucosa, neck supple, tongue midline, other - ET tube. ABSENT: laceration, moist Teeth exam: PRESENT: poor dentation Neck exam: PRESENT: tracheal deviation. ABSENT: carotid bruit, JVD, lymphadenopathy, thyromegaly, tracheostomy Respiratory exam: PRESENT: decreased breath sounds, prolonged expiratory phas, rales, rhonchi, symmetrical, tachypnea, unlabored. ABSENT: accessory muscle use , chest wall tenderness, clear to auscultation antonio, crackles, retraction, stridor Cardiovascular exam: PRESENT: RRR, +S1, +S2 Pulses: PRESENT: normal radial pulses GI/Abdominal exam: PRESENT: diminished bowel sounds, soft Gentrourinary exam: PRESENT: indwelling catheter Extremities exam: ABSENT: clubbing, joint swelling Musculoskeletal exam: ABSENT: deformity, dislocation Neurological exam: PRESENT: altered. ABSENT: alert Skin exam: PRESENT: dry, warm Results Laboratory Results: 05/11/17 05:30 05/12/17 06:50 05/12/17 06:50 Sodium 138.8 Potassium 3.4 L Chloride 104 Carbon Dioxide 31 H Anion Gap 4 L BUN 13 Creatinine 0.69 Est GFR ( Amer) > 60 Est GFR (Non-Af Amer) > 60 Glucose 83 Calcium 8.0 L Triglycerides 113 05/07/17 08:37 Bronchial Washings Fungal Smear - Final 05/07/17 08:37 Bronchial Washings Fungal Smear - Final 05/07/17 08:37 Bronchial Washings Chlamydia pneumoniae (PCR) - Final Impressions: Head CT 04/17/17 13:01 IMPRESSION: MILD CHRONIC MICROVASCULAR ISCHEMIA. NO ACUTE IMAGING FINDINGS IN THE BRAIN. EVIDENCE OF ACUTE STROKE: NO. 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 AREAS OF MILD TO MODERATE SPINAL STENOSIS DESCRIBED. NO ACUTE FINDINGS. Chest CT 04/27/17 00:00 IMPRESSION: Diffuse bullous change with superimposed fluid likely interstitial edema or pneumonia. Clearly progressed from previous. Bilateral pleural effusions. Persistent air-fluid level and a large bullae in the right upper lobe. Infection in the differential. Unchanged. Acute Abdomen Series 04/30/17 00:00 IMPRESSION: 1. Gaseous distention in the abdomen. This includes large and small bowel. Scattered air-fluid levels may reflect mild ileus. Modified Barium Swallow 05/01/17 00:00 IMPRESSION: NO EVIDENCE OF LARYNGEAL PENETRATION OR TRACHEAL ASPIRATION.PLEASE SEE SPEECH PATHOLOGIST REPORT FOR OTHER FINDINGS AND RECOMMENDATIONS. KUB X-Ray 05/06/17 09:36 IMPRESSION: SATISFACTORY POSITION NASOGASTRIC TUBE. ADDITIONAL FINDINGS ARE ABOVE. Fluoroscopy 05/07/17 00:00 IMPRESSION: IMAGE(S) OBTAINED DURING PROCEDURE. Chest X-Ray 05/11/17 06:00 IMPRESSION: 1. Stable appearance of the chest. Assessment & Plan - Diagnosis (1) Cavitary lesion of lung Is this a current diagnosis for this admission?: Yes Plan: biopsies neg r apical opacification (2) History of myasthenia gravis Is this a current diagnosis for this admission?: Yes Plan: hx of thymoma, Acetylcholinesterase antibody pending (3) Hyponatremia Is this a current diagnosis for this admission?: No (4) Necrotizing pneumonia Is this a current diagnosis for this admission?: Yes Plan: ??/ r effusion (5) Pneumatocele of lung Is this a current diagnosis for this admission?: Yes Plan: afb lung malignancy pna (6) COPD (chronic obstructive pulmonary disease) Qualifiers: COPD type: unspecified COPD Qualified Code(s): J44.9 - Chronic obstructive pulmonary disease, unspecified Is this a current diagnosis for this admission?: Yes Plan: slight decrease in min vent and FIO2 - Time Total Critical Time (Minutes): 45
--- NOTE | 2017-05-13 17:18 | PDOC PROGRESS REPORT ---
Subjective Progress Note for:: 05/13/17 Subjective:: Intubated and sedated Reason For Visit: DEHYDRATION WITH HYPONATREMIA;ACUTE RENAL INJURY; Physical Exam Vital Signs: Temp Pulse Resp BP Pulse Ox 97.3 F 86 19 95/64 L 94 05/13/17 16:00 05/13/17 16:00 05/13/17 16:00 05/13/17 16:00 05/13/17 16:30 Intake & Output 05/12/17 05/13/17 05/14/17 06:59 06:59 06:59 Intake Total 2061 3669 Output Total 3350 5056 675 Balance -1289 -1387 -675 Weight 85.4 kg 86.7 kg General appearance: PRESENT: no acute distress, disheveled, thin. ABSENT: cooperative, mild distress, morbidly obese, obese, severe distress Head exam: PRESENT: atraumatic, normocephalic Eye exam: PRESENT: conjunctiva pale. ABSENT: conjunctival injection, conjunctiva pink, nystagmus, periorbital swelling, scleral icterus Mouth exam: PRESENT: dry mucosa, neck supple, tongue midline, other - ET tube. ABSENT: laceration, moist Teeth exam: PRESENT: poor dentation Neck exam: PRESENT: tracheal deviation. ABSENT: carotid bruit, JVD, lymphadenopathy, thyromegaly, tracheostomy Respiratory exam: PRESENT: decreased breath sounds, prolonged expiratory phas, rales, rhonchi, symmetrical, unlabored, wheezes. ABSENT: accessory muscle use, chest wall tenderness, clear to auscultation antonio, crackles, retraction, stridor , tachypnea Cardiovascular exam: PRESENT: RRR, +S1, +S2 Pulses: PRESENT: normal radial pulses GI/Abdominal exam: PRESENT: diminished bowel sounds, soft Gentrourinary exam: PRESENT: indwelling catheter Extremities exam: ABSENT: clubbing, joint swelling Musculoskeletal exam: ABSENT: deformity, dislocation Neurological exam: ABSENT: alert, awake Skin exam: PRESENT: dry, warm Results Laboratory Results: 05/13/17 06:00 05/13/17 06:00 05/12/17 05/13/17 05/13/17 23:30 06:00 06:00 WBC Cancelled RBC Cancelled Hgb Cancelled Hct Cancelled MCV Cancelled MCH Cancelled MCHC Cancelled RDW Cancelled Plt Count Cancelled Seg Neutrophils % Cancelled Lymphocytes % Cancelled Monocytes % Cancelled Eosinophils % Cancelled Basophils % Cancelled Absolute Neutrophils Cancelled Absolute Lymphocytes Cancelled Absolute Monocytes Cancelled Absolute Eosinophils Cancelled Absolute Basophils Cancelled Carbonic Acid 1.17 HCO3/H2CO3 Ratio 23:1 ABG pH 7.47 H ABG pCO2 38.8 ABG pO2 80.8 ABG HCO3 27.4 H ABG O2 Saturation 96.5 ABG Base Excess 3.6 FiO2 60% Sodium 140.5 Potassium 3.7 Chloride 107 Carbon Dioxide 30 Anion Gap 4 L BUN 13 Creatinine 0.72 Est GFR ( Amer) > 60 Est GFR (Non-Af Amer) > 60 Glucose 97 Calcium 7.9 L Phosphorus Magnesium Total Bilirubin AST ALT Alkaline Phosphatase Total Protein Albumin 05/13/17 06:00 WBC RBC Hgb Hct MCV MCH MCHC RDW Plt Count Seg Neutrophils % Lymphocytes % Monocytes % Eosinophils % Basophils % Absolute Neutrophils Absolute Lymphocytes Absolute Monocytes Absolute Eosinophils Absolute Basophils Carbonic Acid HCO3/H2CO3 Ratio ABG pH ABG pCO2 ABG pO2 ABG HCO3 ABG O2 Saturation ABG Base Excess FiO2 Sodium 138.9 Potassium 3.4 L Chloride 104 Carbon Dioxide 32 H Anion Gap 3 L BUN 12 Creatinine 0.72 Est GFR ( Amer) > 60 Est GFR (Non-Af Amer) > 60 Glucose 96 Calcium 7.9 L Phosphorus 3.4 Magnesium 1.8 Total Bilirubin 0.4 AST 36 ALT 41 Alkaline Phosphatase 147 H Total Protein 5.8 L Albumin 2.0 L Impressions: Head CT 04/17/17 13:01 IMPRESSION: MILD CHRONIC MICROVASCULAR ISCHEMIA. NO ACUTE IMAGING FINDINGS IN THE BRAIN. EVIDENCE OF ACUTE STROKE: NO. 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 AREAS OF MILD TO MODERATE SPINAL STENOSIS DESCRIBED. NO ACUTE FINDINGS. Chest CT 04/27/17 00:00 IMPRESSION: Diffuse bullous change with superimposed fluid likely interstitial edema or pneumonia. Clearly progressed from previous. Bilateral pleural effusions. Persistent air-fluid level and a large bullae in the right upper lobe. Infection in the differential. Unchanged. Acute Abdomen Series 04/30/17 00:00 IMPRESSION: 1. Gaseous distention in the abdomen. This includes large and small bowel. Scattered air-fluid levels may reflect mild ileus. Modified Barium Swallow 05/01/17 00:00 IMPRESSION: NO EVIDENCE OF LARYNGEAL PENETRATION OR TRACHEAL ASPIRATION.PLEASE SEE SPEECH PATHOLOGIST REPORT FOR OTHER FINDINGS AND RECOMMENDATIONS. KUB X-Ray 05/06/17 09:36 IMPRESSION: SATISFACTORY POSITION NASOGASTRIC TUBE. ADDITIONAL FINDINGS ARE ABOVE. Fluoroscopy 05/07/17 00:00 IMPRESSION: IMAGE(S) OBTAINED DURING PROCEDURE. Chest X-Ray 05/13/17 06:00 IMPRESSION: No interval change. Assessment & Plan - Diagnosis (1) Cavitary lesion of lung Is this a current diagnosis for this admission?: Yes Plan: biopsies neg r apical opacification (2) History of myasthenia gravis Is this a current diagnosis for this admission?: Yes (3) Hyponatremia Is this a current diagnosis for this admission?: No (4) Necrotizing pneumonia Is this a current diagnosis for this admission?: Yes (5) Pneumatocele of lung Is this a current diagnosis for this admission?: Yes (6) COPD (chronic obstructive pulmonary disease) Qualifiers: COPD type: unspecified COPD Qualified Code(s): J44.9 - Chronic obstructive pulmonary disease, unspecified Is this a current diagnosis for this admission?: Yes Plan: slight decrease in min vent and FIO2 - Time Total Critical Time (Minutes): 45
--- NOTE | 2017-05-13 18:00 | PDOC PROGRESS REPORT ---
Subjective Progress Note for:: 05/13/17 Subjective:: Patient intubated and sedated Reason For Visit: DEHYDRATION WITH HYPONATREMIA;ACUTE RENAL INJURY; Physical Exam Vital Signs: Temp Pulse Resp BP Pulse Ox 97.3 F 86 19 95/64 L 94 05/13/17 16:00 05/13/17 16:00 05/13/17 16:00 05/13/17 16:00 05/13/17 16:30 Intake & Output 05/12/17 05/13/17 05/14/17 06:59 06:59 06:59 Intake Total 2061 3669 Output Total 3350 5056 675 Balance -1289 -1387 -675 Weight 85.4 kg 86.7 kg Head exam: PRESENT: atraumatic, normocephalic Eye exam: PRESENT: PERRLA Neck exam: PRESENT: full ROM Cardiovascular exam: PRESENT: RRR, +S1, +S2 Vascular exam: PRESENT: normal capillary refill GI/Abdominal exam: PRESENT: normal bowel sounds, soft Rectal exam: PRESENT: deferred Neurological exam: PRESENT: altered Skin exam: PRESENT: dry, intact, warm Results Laboratory Results: 05/12/17 05/13/17 05/13/17 23:30 06:00 06:00 WBC Cancelled RBC Cancelled Hgb Cancelled Hct Cancelled MCV Cancelled MCH Cancelled MCHC Cancelled RDW Cancelled Plt Count Cancelled Seg Neutrophils % Cancelled Lymphocytes % Cancelled Monocytes % Cancelled Eosinophils % Cancelled Basophils % Cancelled Absolute Neutrophils Cancelled Absolute Lymphocytes Cancelled Absolute Monocytes Cancelled Absolute Eosinophils Cancelled Absolute Basophils Cancelled Carbonic Acid 1.17 HCO3/H2CO3 Ratio 23:1 ABG pH 7.47 H ABG pCO2 38.8 ABG pO2 80.8 ABG HCO3 27.4 H ABG O2 Saturation 96.5 ABG Base Excess 3.6 FiO2 60% Sodium 140.5 Potassium 3.7 Chloride 107 Carbon Dioxide 30 Anion Gap 4 L BUN 13 Creatinine 0.72 Est GFR ( Amer) > 60 Est GFR (Non-Af Amer) > 60 Glucose 97 Calcium 7.9 L Phosphorus Magnesium Total Bilirubin AST ALT Alkaline Phosphatase Total Protein Albumin 05/13/17 06:00 WBC RBC Hgb Hct MCV MCH MCHC RDW Plt Count Seg Neutrophils % Lymphocytes % Monocytes % Eosinophils % Basophils % Absolute Neutrophils Absolute Lymphocytes Absolute Monocytes Absolute Eosinophils Absolute Basophils Carbonic Acid HCO3/H2CO3 Ratio ABG pH ABG pCO2 ABG pO2 ABG HCO3 ABG O2 Saturation ABG Base Excess FiO2 Sodium 138.9 Potassium 3.4 L Chloride 104 Carbon Dioxide 32 H Anion Gap 3 L BUN 12 Creatinine 0.72 Est GFR ( Amer) > 60 Est GFR (Non-Af Amer) > 60 Glucose 96 Calcium 7.9 L Phosphorus 3.4 Magnesium 1.8 Total Bilirubin 0.4 AST 36 ALT 41 Alkaline Phosphatase 147 H Total Protein 5.8 L Albumin 2.0 L Impressions: Head CT 04/17/17 13:01 IMPRESSION: MILD CHRONIC MICROVASCULAR ISCHEMIA. NO ACUTE IMAGING FINDINGS IN THE BRAIN. EVIDENCE OF ACUTE STROKE: NO. 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 AREAS OF MILD TO MODERATE SPINAL STENOSIS DESCRIBED. NO ACUTE FINDINGS. Chest CT 04/27/17 00:00 IMPRESSION: Diffuse bullous change with superimposed fluid likely interstitial edema or pneumonia. Clearly progressed from previous. Bilateral pleural effusions. Persistent air-fluid level and a large bullae in the right upper lobe. Infection in the differential. Unchanged. Acute Abdomen Series 04/30/17 00:00 IMPRESSION: 1. Gaseous distention in the abdomen. This includes large and small bowel. Scattered air-fluid levels may reflect mild ileus. Modified Barium Swallow 05/01/17 00:00 IMPRESSION: NO EVIDENCE OF LARYNGEAL PENETRATION OR TRACHEAL ASPIRATION.PLEASE SEE SPEECH PATHOLOGIST REPORT FOR OTHER FINDINGS AND RECOMMENDATIONS. KUB X-Ray 05/06/17 09:36 IMPRESSION: SATISFACTORY POSITION NASOGASTRIC TUBE. ADDITIONAL FINDINGS ARE ABOVE. Fluoroscopy 05/07/17 00:00 IMPRESSION: IMAGE(S) OBTAINED DURING PROCEDURE. Chest X-Ray 05/13/17 06:00 IMPRESSION: No interval change. Assessment & Plan - Diagnosis (1) Cavitary lesion of lung Is this a current diagnosis for this admission?: Yes (2) Dehydration with hyponatremia Is this a current diagnosis for this admission?: Yes (3) Acute kidney injury Is this a current diagnosis for this admission?: Yes (4) Pneumatocele of lung Is this a current diagnosis for this admission?: Yes (5) History of myasthenia gravis Is this a current diagnosis for this admission?: Yes (6) Necrotizing pneumonia Is this a current diagnosis for this admission?: Yes (7) Alcohol abuse Is this a current diagnosis for this admission?: Yes (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 (9) Alcoholic myopathy Is this a current diagnosis for this admission?: Yes - Plan Summary Plan Summary: Continue treatment
[2017-05-13 18:17] LABS: ABSOLUTE EOSINOPHILS # (AUTO) 0.2 10^3/uL (0.0-0.6); ABSOLUTE LYMPHOCYTES (AUTO) 0.6 10^3/uL (0.5-4.7); ABSOLUTE MONOCYTES (AUTO) 0.6 10^3/uL (0.1-1.4); ABSOLUTE NEUT (AUTO) 4.9 10^3/uL (1.7-8.2); BASOPHILS % (AUTO) 0.6 % (0-2); EOSINOPHILS % (AUTO) 3.9 % (0-6); HEMATOCRIT 28.7 % (37.9-51.0); HEMOGLOBIN 10.1 g/dL (13.5-17.0); LYMPHOCYTES % (AUTO) 9.3 % (13-45); MEAN CORPUSCULAR HGB CONC 35.2 g/dL (32.0-36.0); MEAN CORPUSCULAR VOLUME 94 fl (80-97); MONOCYTES % (AUTO) 8.8 % (3-13); PLATELET COUNT 151 10^3/uL (150-450); RED BLOOD COUNT 3.06 10^6/uL (4.35-5.55); RED CELL DISTRIBUTION WIDTH 16.9 % (11.5-14.0); SEGMENTED NEUTROPHILS % (AUTO) 77.4 % (42-78); TOTAL CELLS COUNTED % (AUTO) 100 %; WHITE BLOOD COUNT 6.4 10^3/uL (4.0-10.5)
[2017-05-13 18:37] LABS: ANION GAP 6 (5-19); BLOOD UREA NITROGEN 12 mg/dL (7-20); CARBON DIOXIDE 30 mmol/L (22-30); CHLORIDE 104 mmol/L (98-107); GLUCOSE 71 mg/dL (75-110); POTASSIUM 3.5 mmol/L (3.6-5.0); SODIUM 139.6 mmol/L (137-145)
[2017-05-14] MEDS: LEVALBUTEROL HCL NEB 1.25 MG/3 ML AMPUL NEB SCH ×4 (01:46→20:19)
[2017-05-14] MEDS: LANSOPRAZOLE 30 MG TAB.RAP.DR PO SCH (05:45)
[2017-05-14] MEDS: DEXTROSE 5%-WATER 250 ML with NOREPINEPHRINE BITARTRATE 4 MG IV PRN ×6 (05:46→21:50)
[2017-05-14] MEDS: PROPOFOL 100 ML IV PRN ×3 (05:46→17:16)
[2017-05-14 06:27] LABS: ARTERIAL BLOOD H2CO3 1.35 mmol/L (1.05-1.35); ARTERIAL BLOOD HCO3 30.7 mmol/L (20-26); ARTERIAL BLOOD O2 SATURATION 95.4 % (94-98); ARTERIAL BLOOD PCO2 44.7 mmHg (35-45); ARTERIAL BLOOD PH 7.45 (7.35-7.45); ARTERIAL BLOOD PO2 73.6 mmHg (80-100)
[2017-05-14 06:32] LABS: ARTERIAL BLOOD FIO2 60%
[2017-05-14 06:59] LABS: ANION GAP 6 (5-19); BLOOD UREA NITROGEN 11 mg/dL (7-20); CALCIUM 8.1 mg/dL (8.4-10.2); CARBON DIOXIDE 30 mmol/L (22-30); CHLORIDE 104 mmol/L (98-107); GLUCOSE 91 mg/dL (75-110); MAGNESIUM 1.8 mg/dL (1.6-2.3); PHOSPHORUS 3.7 mg/dL (2.5-4.5); POTASSIUM 3.5 mmol/L (3.6-5.0); SODIUM 139.8 mmol/L (137-145)
--- NOTE | 2017-05-14 07:12 | RADIOLOGY REPORT (SQ) ---
EXAM DESCRIPTION: CHEST SINGLE VIEW CLINICAL HISTORY: pna/resp failure COMPARISON: 05/13/2017 FINDINGS: Single frontal view of the chest. Endotracheal tube with tip at the level of the clavicles. Prior median sternotomy. NG tube with tip below the diaphragm. Right IJ central venous catheter with tip in the high right atrium. Tortuosity of thoracic aorta. Heart is not enlarged. Bilateral interstitial and alveolar opacities are unchanged in configuration. Right apical pleural thickening/effusion. No acute osseous abnormalities IMPRESSION: Stable appearance of the chest.
[2017-05-14] MEDS ORDERED: NOREPINEPHRINE BITARTRATE INJ/PF 4 MG/4 ML SDV IV ONE (08:13)
[2017-05-14] MEDS ORDERED: EPINEPHRINE INJ/PF 1 MG/1 ML AMPULE ONE (10:29)
--- NOTE | 2017-05-14 10:42 | PDOC PROGRESS REPORT ---
Subjective Progress Note for:: 05/14/17 Subjective:: intubated 05/05 DAY # 8 Reason For Visit: DEHYDRATION WITH HYPONATREMIA;ACUTE RENAL INJURY; Physical Exam Vital Signs: Temp Pulse Resp BP Pulse Ox 98.6 F 89 24 H 115/78 95 05/14/17 07:54 05/14/17 08:24 05/14/17 08:24 05/14/17 07:54 05/14/17 08:24 Intake & Output 05/13/17 05/14/17 05/15/17 06:59 06:59 06:59 Intake Total 3669 2133 353 Output Total 5056 1825 500 Balance -1387 308 -147 Weight 86.7 kg 87.9 kg General appearance: PRESENT: no acute distress, disheveled, thin. ABSENT: cooperative, mild distress, morbidly obese, obese, severe distress Head exam: PRESENT: atraumatic, normocephalic Eye exam: PRESENT: conjunctiva pale. ABSENT: conjunctival injection, conjunctiva pink, nystagmus, periorbital swelling, scleral icterus Mouth exam: PRESENT: dry mucosa, neck supple, tongue midline, other - ET tube. ABSENT: laceration, moist Teeth exam: PRESENT: poor dentation Neck exam: PRESENT: tracheal deviation. ABSENT: carotid bruit, JVD, lymphadenopathy, thyromegaly, tracheostomy Respiratory exam: PRESENT: crackles, decreased breath sounds, prolonged expiratory phas, rhonchi, symmetrical, unlabored. ABSENT: accessory muscle use , chest wall tenderness, clear to auscultation antonio, rales, retraction, stridor, tachypnea Cardiovascular exam: PRESENT: RRR, +S1, +S2 Pulses: PRESENT: normal radial pulses GI/Abdominal exam: PRESENT: diminished bowel sounds, soft Gentrourinary exam: PRESENT: indwelling catheter Extremities exam: ABSENT: clubbing, joint swelling Musculoskeletal exam: ABSENT: ambulatory, deformity, dislocation Neurological exam: ABSENT: alert, awake Skin exam: PRESENT: dry, warm Results Laboratory Results: 05/13/17 17:25 05/14/17 06:10 05/13/17 05/13/17 05/14/17 17:25 17:25 06:10 WBC 6.4 RBC 3.06 L Hgb 10.1 L Hct 28.7 L MCV 94 MCH 33.0 MCHC 35.2 RDW 16.9 H Plt Count 151 Seg Neutrophils % 77.4 Lymphocytes % 9.3 L Monocytes % 8.8 Eosinophils % 3.9 Basophils % 0.6 Absolute Neutrophils 4.9 Absolute Lymphocytes 0.6 Absolute Monocytes 0.6 Absolute Eosinophils 0.2 Absolute Basophils 0.0 Carbonic Acid 1.35 HCO3/H2CO3 Ratio 22:1 ABG pH 7.45 ABG pCO2 44.7 ABG pO2 73.6 L ABG HCO3 30.7 H ABG O2 Saturation 95.4 ABG Base Excess 6.0 FiO2 60% Sodium 139.6 Potassium 3.5 L Chloride 104 Carbon Dioxide 30 Anion Gap 6 BUN 12 Creatinine 0.68 Est GFR ( Amer) > 60 Est GFR (Non-Af Amer) > 60 Glucose 71 L Calcium 8.0 L Phosphorus Magnesium 05/14/17 06:10 WBC RBC Hgb Hct MCV MCH MCHC RDW Plt Count Seg Neutrophils % Lymphocytes % Monocytes % Eosinophils % Basophils % Absolute Neutrophils Absolute Lymphocytes Absolute Monocytes Absolute Eosinophils Absolute Basophils Carbonic Acid HCO3/H2CO3 Ratio ABG pH ABG pCO2 ABG pO2 ABG HCO3 ABG O2 Saturation ABG Base Excess FiO2 Sodium 139.8 Potassium 3.5 L Chloride 104 Carbon Dioxide 30 Anion Gap 6 BUN 11 Creatinine 0.69 Est GFR ( Amer) > 60 Est GFR (Non-Af Amer) > 60 Glucose 91 Calcium 8.1 L Phosphorus 3.7 Magnesium 1.8 Impressions: Head CT 04/17/17 13:01 IMPRESSION: MILD CHRONIC MICROVASCULAR ISCHEMIA. NO ACUTE IMAGING FINDINGS IN THE BRAIN. EVIDENCE OF ACUTE STROKE: NO. 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 AREAS OF MILD TO MODERATE SPINAL STENOSIS DESCRIBED. NO ACUTE FINDINGS. Chest CT 04/27/17 00:00 IMPRESSION: Diffuse bullous change with superimposed fluid likely interstitial edema or pneumonia. Clearly progressed from previous. Bilateral pleural effusions. Persistent air-fluid level and a large bullae in the right upper lobe. Infection in the differential. Unchanged. Acute Abdomen Series 04/30/17 00:00 IMPRESSION: 1. Gaseous distention in the abdomen. This includes large and small bowel. Scattered air-fluid levels may reflect mild ileus. Modified Barium Swallow 05/01/17 00:00 IMPRESSION: NO EVIDENCE OF LARYNGEAL PENETRATION OR TRACHEAL ASPIRATION.PLEASE SEE SPEECH PATHOLOGIST REPORT FOR OTHER FINDINGS AND RECOMMENDATIONS. KUB X-Ray 05/06/17 09:36 IMPRESSION: SATISFACTORY POSITION NASOGASTRIC TUBE. ADDITIONAL FINDINGS ARE ABOVE. Fluoroscopy 05/07/17 00:00 IMPRESSION: IMAGE(S) OBTAINED DURING PROCEDURE. Chest X-Ray 05/14/17 06:00 IMPRESSION: Stable appearance of the chest. Assessment & Plan - Diagnosis (1) Cavitary lesion of lung Is this a current diagnosis for this admission?: Yes Plan: biopsies neg r apical opacification (2) History of myasthenia gravis Is this a current diagnosis for this admission?: Yes Plan: hx of thymoma, Acetylcholinesterase antibody pending (3) Hyponatremia Is this a current diagnosis for this admission?: No (4) Necrotizing pneumonia Is this a current diagnosis for this admission?: Yes Plan: ??/ r effusion (5) Pneumatocele of lung Is this a current diagnosis for this admission?: Yes Plan: afb lung malignancy pna (6) COPD (chronic obstructive pulmonary disease) Qualifiers: COPD type: unspecified COPD Qualified Code(s): J44.9 - Chronic obstructive pulmonary disease, unspecified Is this a current diagnosis for this admission?: Yes Plan: slight decrease in min vent and FIO2 (7) Metabolic acidosis Is this a current diagnosis for this admission?: Yes Plan: Labs- All tests 24 hr 05/14/17 05/14/17 06:10 06:10 ABG pH 7.45 ABG pCO2 44.7 ABG pO2 73.6 L Carbon Dioxide 30 not today - Time Total Critical Time (Minutes): 50
[2017-05-14] MEDS ORDERED: POTASSIUM CHLORIDE 20 MEQ/50 ML RTU IV ONE (11:00)
[2017-05-14] MEDS ORDERED: POTASSIUM CHLORIDE 20 MEQ/15 ML UDCUP NG ONE (11:00)
[2017-05-14] MEDS: ENOXAPARIN SODIUM INJ 40 MG/0.4 ML DISP.SYRIN SUBCUT SCH (11:08)
--- NOTE | 2017-05-14 11:19 | RADIOLOGY REPORT (SQ) ---
EXAM DESCRIPTION: CHEST SINGLE VIEW COMPLETED DATE/TIME: 05/14/2017 11:05 am REASON FOR STUDY: ETT placement verification COMPARISON: Earlier the same day. NUMBER OF VIEWS: One view. TECHNIQUE: Single frontal radiographic image of the chest acquired. LIMITATIONS: None. FINDINGS: LUNGS AND PLEURA: Bilateral airspace disease. Associated air bronchograms. Right pleural effusion. No pneumothorax. MEDIASTINUM AND HEART: Stable heart size and mediastinal structures. SUPPORT DEVICES: Endotracheal tube tip between thoracic inlet and francis. Support apparatus otherwis e unchanged. BONY STRUCTURES: No acute findings. HARDWARE: None. OTHER: No other significant finding. IMPRESSION: Good position of endotracheal tube. No pneumothorax.
--- NOTE | 2017-05-14 11:21 | RADIOLOGY REPORT (SQ) ---
EXAM DESCRIPTION: KUB/ABDOMEN (SINGLE VIEW) COMPLETED DATE/TIME: 05/14/2017 11:05 am REASON FOR STUDY: OGT insertion verification COMPARISON: 05/14/2017 TECHNIQUE: Limited view of the lower chest and upper abdomen. NUMBER OF VIEWS: One view. LIMITATIONS: None. FINDINGS: Stable position of enteric tube terminating within expected location of the stomach. Stab le airspace disease and pleural effusions. No acute abdominal process. IMPRESSION: SATISFACTORY POSITION OF ENTERIC TUBE. NO SIGNIFICANT CHANGE FROM PRIOR STUDY. TECHNICAL DOCUMENTATION: JOB ID: [id number] [employer]- All Rights Reserved
[2017-05-14] MEDS ORDERED: SUCCINYLCHOLINE CHLORIDE INJ 200 MG/10 ML VIAL ONE (12:06)
--- NOTE | 2017-05-14 13:15 | XCELERA REPORT ---
[address] [address] Transthoracic Echocardiogram Report Name: MADINA HIDALGO Age: 71 yrs Gender: Male : 1945 Patient Status: Inpatient Patient Location: ICU^1A Study Date: 05/07/2017 09:40 AM Height: 71 in Weight: 183 lb BSA: 2.0 m2 Procedure: A two-dimensional transthoracic echocardiogram with color flow Doppler was performed. Study Quality: Technically suboptimal. The study was technically limited with all images being suboptimal in quality. Reason For Study: CHF History: increased fluid, decreased cardiac output. CHF. Ordering Physician: HESHAM LOVE Performed By: Eloisa Vargas Interpretation Summary The left ventricle is grossly normal size. There is normal left ventricular wall thickness. LV EF is 45% Left ventricular systolic function is mildly reduced. Doppler measurements suggest impaired left ventricular relaxation, which is associated with grade I/IV or mild diastolic dysfunction There is mild global hypokinesis of the left ventricle. Flattened septum is consistent with RV pressure overload There is probably moderate to severe RV enlargement.RV systolic function is severely reduced. The right atrium is mild to moderately dilated. The left atrial size is normal. There is no evidence of mitral valve prolapse. There is no vegetation seen on the mitral valve. There is no mitral valve stenosis. There is a mild amount of mitral regurgitation There is no aortic valvular vegetation. There is no aortic valve stenosis There is no LVOT obstruction. No aortic regurgitation is present. There is no tricuspid stenosis. There is a mild amount of tricuspid regurgitation RVSP is > than 55 .Moderate Pulmonary Hypertension.( ? severe pulmonary hypertension.). The inferior vena cava appeared dilated and did not change with respiration (RAP > 20 mmHg) There is no pericardial effusion. MMode/2D Measurements & Calculations RVDd: 4.4 cm LVIDd: 3.4 cm FS: 21.2 % Ao root diam: 2.9 cm IVSd: 0.87 cm LVIDs: 2.6 cm EDV(Teich): 46.0 ml LVPWd: 0.96 cm ESV(Teich): 25.6 ml Ao root area: 6.4 cm2 EF(Teich): 44.2 % LA dimension: 2.8 cm Doppler Measurements & Calculations MV E max susi: MV P1/2t max susi: Ao V2 max: LV V1 max P.9 cm/sec 44.6 cm/sec 89.9 cm/sec 1.5 mmHg MV A max susi: MV P1/2t: 48.2 msec Ao max PG: LV V1 max: 60.7 cm/sec 3.2 mmHg 61.7 cm/sec MV E/A: 0.74 MVA(P1/2t): 4.6 cm2 MV dec slope: 270.9 cm/sec2 MV dec time: 0.17 sec PA V2 max: PI end-d susi: TR max susi: 50.8 cm/sec 142.5 cm/sec 295.9 cm/sec PA max PG: TR max P.0 mmHg 35.0 mmHg Left Ventricle The left ventricle is grossly normal size. There is normal left ventricular wall thickness. LV EF is 45%. Left ventricular systolic function is mildly reduced. Doppler measurements suggest impaired left ventricular relaxation, which is associated with grade I/IV or mild diastolic dysfunction. There is mild global hypokinesis of the left ventricle. Flattened septum is consistent with RV pressure overload. There is no thrombus. Right Ventricle There is probably moderate to severe RV enlargement.RV systolic function is severely reduced. Atria The right atrium is mild to moderately dilated. The left atrial size is normal. Mitral Valve There is no evidence of mitral valve prolapse. There is no vegetation seen on the mitral valve. There is no mitral valve stenosis. There is a mild amount of mitral regurgitation. Aortic Valve There is no aortic valvular vegetation. There is no aortic valve stenosis. There is no LVOT obstruction. No aortic regurgitation is present. Tricuspid Valve There is no tricuspid stenosis. There is a mild amount of tricuspid regurgitation. RVSP is > than 55 .Moderate Pulmonary Hypertension.( ? severe pulmonary hypertension.). Pulmonic Valve There is no pulmonic valvular stenosis. There is a trace amount of pulmonic regurgitation. Great Vessels The aortic root is not well visualized but is probably normal size. The inferior vena cava appeared dilated and did not change with respiration (RAP > 20 mmHg). Effusions There is no pericardial effusion. : HESHAM LOVE > Sobia Resendiz
[2017-05-14] MEDS: BIMATOPROST 0.01% OPH SOLN 2.5 ML/BOTTLE OU SCH (15:11)
[2017-05-14] MEDS ORDERED: FUROSEMIDE INJ/PF 20 MG/2 ML SDV IV ONE (16:00)
[2017-05-14] MEDS: MICAFUNGIN SODIUM 100 MG in NORMAL SALINE 100 ML IV SCH (17:15)
[2017-05-14] MEDS: NORMAL SALINE 1000 ML 1,000 ML IV PRN (17:17)
[2017-05-15] MEDS: PROPOFOL 100 ML IV PRN ×3 (01:18→23:39)
[2017-05-15] MEDS: LEVALBUTEROL HCL NEB 1.25 MG/3 ML AMPUL NEB SCH ×4 (02:08→19:32)
[2017-05-15 05:33] LABS: ARTERIAL BLOOD BASE EXCESS 8.5 mmol/L; ARTERIAL BLOOD FIO2 45; ARTERIAL BLOOD H2CO3 1.26 mmol/L (1.05-1.35); ARTERIAL BLOOD HCO3 32.4 mmol/L (20-26); ARTERIAL BLOOD O2 SATURATION 92.9 % (94-98); ARTERIAL BLOOD PCO2 41.8 mmHg (35-45); ARTERIAL BLOOD PH 7.51 (7.35-7.45); ARTERIAL BLOOD PO2 59.6 mmHg (80-100); ARTERIAL BLOOD TOTAL CO2 33.7 mmol/L (23-27)
[2017-05-15 05:57] LABS: ALANINE AMINOTRANSFERASE 30 U/L (21-72); ALBUMIN 2.1 g/dL (3.5-5.0); ALKALINE PHOSPHATASE 131 U/L (38-126); ANION GAP 6 (5-19); ASPARTATE AMINO TRANSFERASE 32 U/L (17-59); BILIRUBIN,DIRECT 0.4 mg/dL (0.0-0.4); BILIRUBIN,TOTAL 0.5 mg/dL (0.2-1.3); BLOOD UREA NITROGEN 11 mg/dL (7-20); CALCIUM 8.1 mg/dL (8.4-10.2); CARBON DIOXIDE 31 mmol/L (22-30); CHLORIDE 101 mmol/L (98-107); GLUCOSE 97 mg/dL (75-110); MAGNESIUM 1.8 mg/dL (1.6-2.3); POTASSIUM 3.5 mmol/L (3.6-5.0); TRIGLYCERIDES 160 mg/dL (<150)
[2017-05-15] MEDS: LANSOPRAZOLE 30 MG TAB.RAP.DR PO SCH (06:28)
[2017-05-15 06:55] LABS: ABSOLUTE EOSINOPHILS # (AUTO) 0.2 10^3/uL (0.0-0.6); ABSOLUTE LYMPHOCYTES (AUTO) 0.9 10^3/uL (0.5-4.7); ABSOLUTE MONOCYTES (AUTO) 0.8 10^3/uL (0.1-1.4); ABSOLUTE NEUT (AUTO) 4.9 10^3/uL (1.7-8.2); BASOPHILS % (AUTO) 0.4 % (0-2); EOSINOPHILS % (AUTO) 3.1 % (0-6); HEMATOCRIT 28.5 % (37.9-51.0); HEMOGLOBIN 9.9 g/dL (13.5-17.0); LYMPHOCYTES % (AUTO) 12.9 % (13-45); MEAN CORPUSCULAR HEMOGLOBIN 31.6 pg (27.0-33.4); MEAN CORPUSCULAR HGB CONC 34.7 g/dL (32.0-36.0); MEAN CORPUSCULAR VOLUME 91 fl (80-97); MONOCYTES % (AUTO) 11.4 % (3-13); PLATELET COUNT 209 10^3/uL (150-450); RED BLOOD COUNT 3.13 10^6/uL (4.35-5.55); RED CELL DISTRIBUTION WIDTH 17.4 % (11.5-14.0); SEGMENTED NEUTROPHILS % (AUTO) 72.2 % (42-78); TOTAL CELLS COUNTED % (AUTO) 100 %; WHITE BLOOD COUNT 6.8 10^3/uL (4.0-10.5)
--- NOTE | 2017-05-15 08:16 | PDOC PROGRESS REPORT ---
Subjective Progress Note for:: 05/14/17 Subjective:: Patient remain intubated and vent supported with FUIO2 at 55% and on pressor support with Levophed. He continue to have significant secretion from ET tube. Remain on enteral feeding on Oxepa. No reported fever. Received potassium replacement earlier today. Reason For Visit: DEHYDRATION WITH HYPONATREMIA;ACUTE RENAL INJURY; Physical Exam Vital Signs: Temp Pulse Resp BP Pulse Ox 99.0 F 91 23 H 121/79 96 05/14/17 15:00 05/14/17 14:13 05/14/17 15:00 05/14/17 14:49 05/14/17 15:00 Intake & Output 05/13/17 05/14/17 05/15/17 06:59 06:59 06:59 Intake Total 3669 2133 353 Output Total 5056 1825 1220 Balance -1387 308 -867 Weight 86.7 kg 87.9 kg Physical Exam: General appearance: PRESENT: Sedated on IV Propofol. ET and OG tubes in situ. Head exam: PRESENT: atraumatic, normocephalic Eye exam: PRESENT: conjunctiva pink, EOMI, PERRLA. ABSENT: scleral icterus Mouth exam: PRESENT: moist Neck exam: PRESENT: other - right IJ central line device Respiratory exam: PRESENT: decreased breath sounds at lung bases Cardiovascular exam: PRESENT: RRR, S+1, S+2, ABSENT: diastolic murmur, rubs, systolic murmur. GI/Abdominal exam: PRESENT: normal bowel sounds, soft. ABSENT: distended, guarding, mass, organomegaly, rebound, tenderness Extremities exam: PRESENT: pedal edema - upper extremities due to soft tissue infiltration Musculoskeletal exam: PRESENT: Generalized edema Neurological exam: PRESENT: Sedated. Skin exam: PRESENT: dry, intact, warm. ABSENT: cyanosis Results Laboratory Results: 05/13/17 17:25 05/14/17 06:10 05/13/17 05/13/17 05/14/17 17:25 17:25 06:10 WBC 6.4 RBC 3.06 L Hgb 10.1 L Hct 28.7 L MCV 94 MCH 33.0 MCHC 35.2 RDW 16.9 H Plt Count 151 Seg Neutrophils % 77.4 Lymphocytes % 9.3 L Monocytes % 8.8 Eosinophils % 3.9 Basophils % 0.6 Absolute Neutrophils 4.9 Absolute Lymphocytes 0.6 Absolute Monocytes 0.6 Absolute Eosinophils 0.2 Absolute Basophils 0.0 Carbonic Acid 1.35 HCO3/H2CO3 Ratio 22:1 ABG pH 7.45 ABG pCO2 44.7 ABG pO2 73.6 L ABG HCO3 30.7 H ABG O2 Saturation 95.4 ABG Base Excess 6.0 FiO2 60% Sodium 139.6 Potassium 3.5 L Chloride 104 Carbon Dioxide 30 Anion Gap 6 BUN 12 Creatinine 0.68 Est GFR ( Amer) > 60 Est GFR (Non-Af Amer) > 60 Glucose 71 L Calcium 8.0 L Phosphorus Magnesium 05/14/17 06:10 WBC RBC Hgb Hct MCV MCH MCHC RDW Plt Count Seg Neutrophils % Lymphocytes % Monocytes % Eosinophils % Basophils % Absolute Neutrophils Absolute Lymphocytes Absolute Monocytes Absolute Eosinophils Absolute Basophils Carbonic Acid HCO3/H2CO3 Ratio ABG pH ABG pCO2 ABG pO2 ABG HCO3 ABG O2 Saturation ABG Base Excess FiO2 Sodium 139.8 Potassium 3.5 L Chloride 104 Carbon Dioxide 30 Anion Gap 6 BUN 11 Creatinine 0.69 Est GFR ( Amer) > 60 Est GFR (Non-Af Amer) > 60 Glucose 91 Calcium 8.1 L Phosphorus 3.7 Magnesium 1.8 Impressions: Head CT 04/17/17 13:01 IMPRESSION: MILD CHRONIC MICROVASCULAR ISCHEMIA. NO ACUTE IMAGING FINDINGS IN THE BRAIN. EVIDENCE OF ACUTE STROKE: NO. 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 AREAS OF MILD TO MODERATE SPINAL STENOSIS DESCRIBED. NO ACUTE FINDINGS. Chest CT 04/27/17 00:00 IMPRESSION: Diffuse bullous change with superimposed fluid likely interstitial edema or pneumonia. Clearly progressed from previous. Bilateral pleural effusions. Persistent air-fluid level and a large bullae in the right upper lobe. Infection in the differential. Unchanged. Acute Abdomen Series 04/30/17 00:00 IMPRESSION: 1. Gaseous distention in the abdomen. This includes large and small bowel. Scattered air-fluid levels may reflect mild ileus. Modified Barium Swallow 05/01/17 00:00 IMPRESSION: NO EVIDENCE OF LARYNGEAL PENETRATION OR TRACHEAL ASPIRATION.PLEASE SEE SPEECH PATHOLOGIST REPORT FOR OTHER FINDINGS AND RECOMMENDATIONS. Fluoroscopy 05/07/17 00:00 IMPRESSION: IMAGE(S) OBTAINED DURING PROCEDURE. KUB X-Ray 05/14/17 00:00 IMPRESSION: SATISFACTORY POSITION OF ENTERIC TUBE. NO SIGNIFICANT CHANGE FROM PRIOR STUDY. Chest X-Ray 05/14/17 06:00 IMPRESSION: Stable appearance of the chest. Assessment & Plan - Diagnosis (1) Dehydration with hyponatremia Is this a current diagnosis for this admission?: Yes (2) Abnormality of lung on CXR Is this a current diagnosis for this admission?: Yes (3) Pneumatocele of lung Is this a current diagnosis for this admission?: Yes (4) Pneumothorax on right Is this a current diagnosis for this admission?: Yes (5) Acute kidney injury Is this a current diagnosis for this admission?: Yes (6) COPD (chronic obstructive pulmonary disease) Qualifiers: COPD type: unspecified COPD Qualified Code(s): J44.9 - Chronic obstructive pulmonary disease, unspecified Is this a current diagnosis for this admission?: Yes Plan: Continue current medication management. We will obtain repeat sputum culture in view of continued significant secretion. (7) HLD (hyperlipidemia) Qualifiers: Hyperlipidemia type: pure hypercholesterolemia Qualified Code(s): E78.00 - Pure hypercholesterolemia, unspecified Is this a current diagnosis for this admission?: Yes (8) HTN (hypertension) Qualifiers: Hypertension type: essential hypertension Qualified Code(s): I10 - Essential (primary) hypertension Is this a current diagnosis for this admission?: Yes (9) Constipation Qualifiers: Constipation type: slow transit constipation Qualified Code(s): K59.01 - Slow transit constipation Is this a current diagnosis for this admission?: Yes (10) Acute respiratory failure with hypoxemia Is this a current diagnosis for this admission?: Yes Plan: Patient is Day # 8 on vent support. We had discussion with family about possible tracheostomy in view of his continue need for high FIO2 and difficulty with extubation in near future. (11) Fungal pneumonia Is this a current diagnosis for this admission?: Yes Plan: Continue Micafungin coverage for Santa species growth from bronchial washing and tracheal aspirate specimen. - Time Time Spent with patient: 25-34 minutes Medications reviewed and adjusted accordingly: Yes Anticipated discharge: Other Within: Other - 21850 - Inpatient Certification Based on my medical assessment, after consideration of the patient's comorbidities, presenting symptoms, or acuity I expect that the services needed warrant INPATIENT care.: Yes I certify that my determination is in accordance with my understanding of Medicare's requirements for reasonable and necessary INPATIENT services [42 CFR 412.3e].: Yes Medical Necessity: Need Close Monitoring Due to Risk of Patient Decompensation, Need For IV Fluids, Need For Continuous Telemetry Monitoring, Need for Nebulizer Therapy and Monitoring of Response, Need for IV Antibiotics, Risk of Complication if Not Cared For in Hospital Post Hospital Care: D/C or Transfer Summary - Plan Summary Plan Summary: Repeat IV Lasix therapy at 20 mgh x 1 dose. Repeat sputum/tracheal aspirate gram stain and culture. Obtain CBC with diff, Mag, and CMP in AM.
--- NOTE | 2017-05-15 08:21 | PDOC PROGRESS REPORT ---
Subjective Progress Note for:: 05/15/17 Subjective:: Patient remain intubated and vent supported with slight decrease in his FiO2 requirement. He remain on IV Propofol sedation. Tolerating enteral tube feeding. Reason For Visit: DEHYDRATION WITH HYPONATREMIA;ACUTE RENAL INJURY; Physical Exam Vital Signs: Temp Pulse Resp BP Pulse Ox 98.8 F 85 24 H 96/68 L 93 05/15/17 06:30 05/15/17 04:00 05/15/17 06:30 05/15/17 06:19 05/15/17 06:30 Intake & Output 05/14/17 05/15/17 05/16/17 06:59 06:59 06:59 Intake Total 2133 3140 Output Total 1825 0465 Balance 308 -1615 Weight 87.9 kg 85.1 kg Physical Exam: General appearance: PRESENT: Sedated on IV Propofol. ET and OG tubes in situ. Head exam: PRESENT: atraumatic, normocephalic Eye exam: PRESENT: conjunctiva pink, EOMI, PERRLA. ABSENT: scleral icterus Mouth exam: PRESENT: moist Neck exam: PRESENT: other - right IJ central line device Respiratory exam: PRESENT: decreased breath sounds at lung bases Cardiovascular exam: PRESENT: RRR, S+1, S+2, ABSENT: diastolic murmur, rubs, systolic murmur. GI/Abdominal exam: PRESENT: normal bowel sounds, soft. ABSENT: distended, guarding, mass, organomegaly, rebound, tenderness Extremities exam: PRESENT: pedal edema - upper extremities due to soft tissue infiltration Musculoskeletal exam: PRESENT: Slight improvement in generalized edema Neurological exam: PRESENT: Sedated. Skin exam: PRESENT: dry, intact, warm. ABSENT: cyanosis Results Laboratory Results: 05/15/17 06:35 05/15/17 05:05 05/15/17 05/15/17 05/15/17 05:05 05:05 05:05 WBC Cancelled RBC Cancelled Hgb Cancelled Hct Cancelled MCV Cancelled MCH Cancelled MCHC Cancelled RDW Cancelled Plt Count Cancelled Seg Neutrophils % Cancelled Lymphocytes % Cancelled Monocytes % Cancelled Eosinophils % Cancelled Basophils % Cancelled Absolute Neutrophils Cancelled Absolute Lymphocytes Cancelled Absolute Monocytes Cancelled Absolute Eosinophils Cancelled Absolute Basophils Cancelled Carbonic Acid 1.26 HCO3/H2CO3 Ratio 25:1 ABG pH 7.51 H ABG pCO2 41.8 ABG pO2 59.6 L ABG HCO3 32.4 H ABG O2 Saturation 92.9 L ABG Base Excess 8.5 FiO2 45 Sodium 138.0 Potassium 3.5 L Chloride 101 Carbon Dioxide 31 H Anion Gap 6 BUN 11 Creatinine 0.67 Est GFR ( Amer) > 60 Est GFR (Non-Af Amer) > 60 Glucose 97 Calcium 8.1 L Magnesium 1.8 Total Bilirubin 0.5 AST 32 ALT 30 Alkaline Phosphatase 131 H Total Protein 6.0 L Albumin 2.1 L Triglycerides 160 H 05/15/17 06:35 WBC 6.8 RBC 3.13 L Hgb 9.9 L Hct 28.5 L MCV 91 MCH 31.6 MCHC 34.7 RDW 17.4 H Plt Count 209 Seg Neutrophils % 72.2 Lymphocytes % 12.9 L Monocytes % 11.4 Eosinophils % 3.1 Basophils % 0.4 Absolute Neutrophils 4.9 Absolute Lymphocytes 0.9 Absolute Monocytes 0.8 Absolute Eosinophils 0.2 Absolute Basophils 0.0 Carbonic Acid HCO3/H2CO3 Ratio ABG pH ABG pCO2 ABG pO2 ABG HCO3 ABG O2 Saturation ABG Base Excess FiO2 Sodium Potassium Chloride Carbon Dioxide Anion Gap BUN Creatinine Est GFR ( Amer) Est GFR (Non-Af Amer) Glucose Calcium Magnesium Total Bilirubin AST ALT Alkaline Phosphatase Total Protein Albumin Triglycerides Impressions: Head CT 04/17/17 13:01 IMPRESSION: MILD CHRONIC MICROVASCULAR ISCHEMIA. NO ACUTE IMAGING FINDINGS IN THE BRAIN. EVIDENCE OF ACUTE STROKE: NO. 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 AREAS OF MILD TO MODERATE SPINAL STENOSIS DESCRIBED. NO ACUTE FINDINGS. Chest CT 04/27/17 00:00 IMPRESSION: Diffuse bullous change with superimposed fluid likely interstitial edema or pneumonia. Clearly progressed from previous. Bilateral pleural effusions. Persistent air-fluid level and a large bullae in the right upper lobe. Infection in the differential. Unchanged. Acute Abdomen Series 04/30/17 00:00 IMPRESSION: 1. Gaseous distention in the abdomen. This includes large and small bowel. Scattered air-fluid levels may reflect mild ileus. Modified Barium Swallow 05/01/17 00:00 IMPRESSION: NO EVIDENCE OF LARYNGEAL PENETRATION OR TRACHEAL ASPIRATION.PLEASE SEE SPEECH PATHOLOGIST REPORT FOR OTHER FINDINGS AND RECOMMENDATIONS. Fluoroscopy 05/07/17 00:00 IMPRESSION: IMAGE(S) OBTAINED DURING PROCEDURE. KUB X-Ray 05/14/17 00:00 IMPRESSION: SATISFACTORY POSITION OF ENTERIC TUBE. NO SIGNIFICANT CHANGE FROM PRIOR STUDY. Assessment & Plan - Diagnosis (1) Dehydration with hyponatremia Is this a current diagnosis for this admission?: Yes (2) Abnormality of lung on CXR Is this a current diagnosis for this admission?: Yes (3) Pneumatocele of lung Is this a current diagnosis for this admission?: Yes (4) Pneumothorax on right Is this a current diagnosis for this admission?: Yes (5) Acute kidney injury Is this a current diagnosis for this admission?: Yes (6) COPD (chronic obstructive pulmonary disease) Qualifiers: COPD type: unspecified COPD Qualified Code(s): J44.9 - Chronic obstructive pulmonary disease, unspecified Is this a current diagnosis for this admission?: Yes (7) HLD (hyperlipidemia) Qualifiers: Hyperlipidemia type: pure hypercholesterolemia Qualified Code(s): E78.00 - Pure hypercholesterolemia, unspecified Is this a current diagnosis for this admission?: Yes (8) HTN (hypertension) Qualifiers: Hypertension type: essential hypertension Qualified Code(s): I10 - Essential (primary) hypertension Is this a current diagnosis for this admission?: Yes (9) Constipation Qualifiers: Constipation type: slow transit constipation Qualified Code(s): K59.01 - Slow transit constipation Is this a current diagnosis for this admission?: Yes (10) Acute respiratory failure with hypoxemia Is this a current diagnosis for this admission?: Yes (11) Fungal pneumonia Is this a current diagnosis for this admission?: Yes - Time Time Spent with patient: 25-34 minutes Medications reviewed and adjusted accordingly: Yes Anticipated discharge: Other Within: Other - Inpatient Certification Based on my medical assessment, after consideration of the patient's comorbidities, presenting symptoms, or acuity I expect that the services needed warrant INPATIENT care.: Yes I certify that my determination is in accordance with my understanding of Medicare's requirements for reasonable and necessary INPATIENT services [42 CFR 412.3e].: Yes Medical Necessity: Need Close Monitoring Due to Risk of Patient Decompensation, Need For IV Fluids, Need For Continuous Telemetry Monitoring, Need for Nebulizer Therapy and Monitoring of Response, Need for IV Antibiotics, Risk of Complication if Not Cared For in Hospital Post Hospital Care: Other - Plan Summary Plan Summary: Continue IV anti fungal therapy. Patient will receive potassium supplementation and IV Lasix therapy. We will continue discussion with family regarding possibility of tracheostomy in the near future. Prognosis remain guided. Pulmonary window covering sales consultant input appreciated.
--- NOTE | 2017-05-15 08:32 | RADIOLOGY REPORT (SQ) ---
EXAM DESCRIPTION: CHEST SINGLE VIEW COMPLETED DATE/TIME: 05/15/2017 6:13 am REASON FOR STUDY: pna,resp failure COMPARISON: AP chest 05/14/2017, 05/13/2017, 05/11/2017, 05/09/2017 EXAM PARAMETERS: NUMBER OF VIEWS: One view. TECHNIQUE: Single frontal radiographic view of the chest acquired. RADIATION DOSE: NA LIMITATIONS: None. FINDINGS: LUNGS AND PLEURA: Diffuse increased interstitial markings unchanged. Stable right apical and lateral pleural thickening. No pneumothorax MEDIASTINUM AND HILAR STRUCTURES: No masses. Contour normal. HEART AND VASCULAR STRUCTURES: Old sternotomy. No cardiomegaly. BONES: No acute findings. HARDWARE: Endotracheal tube tip 5 cm above the francis. Nasogastric tube tip and side port in the sto mach. Right jugular central line tip right atrium. EKG leads over the chest. OTHER: No other significant finding. IMPRESSION: Stable appearance of the chest TECHNICAL DOCUMENTATION: JOB ID: [id number] [employer]- All Rights Reserved
[2017-05-15] MEDS ORDERED: POTASSIUM CHLORIDE 20 MEQ/15 ML UDCUP PO ONE (10:00)
[2017-05-15] MEDS: BIMATOPROST 0.01% OPH SOLN 2.5 ML/BOTTLE OU SCH (10:01)
[2017-05-15] MEDS: OXYCODONE-ACETAMINOPHEN 5-325 MG TABLET PO PRN (10:02)
[2017-05-15] MEDS: ENOXAPARIN SODIUM INJ 40 MG/0.4 ML DISP.SYRIN SUBCUT SCH (10:03)
[2017-05-15] MEDS: POTASSIUM CHLORIDE 20 MEQ/15 ML UDCUP NG SCH (10:03)
--- NOTE | 2017-05-15 15:53 | PDOC PROGRESS REPORT ---
Subjective Progress Note for:: 05/15/17 Subjective:: Day # 9 Reason For Visit: DEHYDRATION WITH HYPONATREMIA;ACUTE RENAL INJURY; Physical Exam Vital Signs: Temp Pulse Resp BP Pulse Ox 98.8 F 91 33 H 106/75 92 05/15/17 08:00 05/15/17 08:00 05/15/17 08:00 05/15/17 08:00 05/15/17 08:00 Intake & Output 05/14/17 05/15/17 05/16/17 06:59 06:59 06:59 Intake Total 2133 3140 Output Total 1825 4755 110 Balance 308 -1615 -110 Weight 87.9 kg 85.1 kg General appearance: PRESENT: no acute distress, disheveled, thin. ABSENT: cooperative, mild distress, morbidly obese, obese, severe distress Head exam: PRESENT: atraumatic, normocephalic Eye exam: PRESENT: conjunctiva pale. ABSENT: conjunctival injection, conjunctiva pink, EOMI, nystagmus, periorbital swelling Mouth exam: PRESENT: dry mucosa, neck supple, tongue midline, other - ET tube. ABSENT: laceration, moist Teeth exam: PRESENT: poor dentation Neck exam: PRESENT: tracheal deviation. ABSENT: carotid bruit, JVD, lymphadenopathy, thyromegaly, tracheostomy Respiratory exam: PRESENT: crackles, decreased breath sounds, prolonged expiratory phas, rhonchi, symmetrical, unlabored, wheezes. ABSENT: accessory muscle use, chest wall tenderness, clear to auscultation antonio, rales, retraction , stridor, tachypnea Cardiovascular exam: PRESENT: RRR, +S1, +S2 Pulses: PRESENT: normal radial pulses GI/Abdominal exam: PRESENT: diminished bowel sounds, soft Gentrourinary exam: PRESENT: indwelling catheter Extremities exam: ABSENT: clubbing, full ROM, joint swelling Musculoskeletal exam: ABSENT: ambulatory, deformity, dislocation, full ROM, normal inspection Neurological exam: ABSENT: alert, awake Skin exam: PRESENT: dry, warm Results Laboratory Results: 05/15/17 06:35 05/15/17 05:05 05/15/17 05/15/17 05/15/17 05:05 05:05 05:05 WBC Cancelled RBC Cancelled Hgb Cancelled Hct Cancelled MCV Cancelled MCH Cancelled MCHC Cancelled RDW Cancelled Plt Count Cancelled Seg Neutrophils % Cancelled Lymphocytes % Cancelled Monocytes % Cancelled Eosinophils % Cancelled Basophils % Cancelled Absolute Neutrophils Cancelled Absolute Lymphocytes Cancelled Absolute Monocytes Cancelled Absolute Eosinophils Cancelled Absolute Basophils Cancelled Carbonic Acid 1.26 HCO3/H2CO3 Ratio 25:1 ABG pH 7.51 H ABG pCO2 41.8 ABG pO2 59.6 L ABG HCO3 32.4 H ABG O2 Saturation 92.9 L ABG Base Excess 8.5 FiO2 45 Sodium 138.0 Potassium 3.5 L Chloride 101 Carbon Dioxide 31 H Anion Gap 6 BUN 11 Creatinine 0.67 Est GFR ( Amer) > 60 Est GFR (Non-Af Amer) > 60 Glucose 97 Calcium 8.1 L Magnesium 1.8 Total Bilirubin 0.5 AST 32 ALT 30 Alkaline Phosphatase 131 H Total Protein 6.0 L Albumin 2.1 L Triglycerides 160 H 05/15/17 06:35 WBC 6.8 RBC 3.13 L Hgb 9.9 L Hct 28.5 L MCV 91 MCH 31.6 MCHC 34.7 RDW 17.4 H Plt Count 209 Seg Neutrophils % 72.2 Lymphocytes % 12.9 L Monocytes % 11.4 Eosinophils % 3.1 Basophils % 0.4 Absolute Neutrophils 4.9 Absolute Lymphocytes 0.9 Absolute Monocytes 0.8 Absolute Eosinophils 0.2 Absolute Basophils 0.0 Carbonic Acid HCO3/H2CO3 Ratio ABG pH ABG pCO2 ABG pO2 ABG HCO3 ABG O2 Saturation ABG Base Excess FiO2 Sodium Potassium Chloride Carbon Dioxide Anion Gap BUN Creatinine Est GFR ( Amer) Est GFR (Non-Af Amer) Glucose Calcium Magnesium Total Bilirubin AST ALT Alkaline Phosphatase Total Protein Albumin Triglycerides Impressions: Head CT 04/17/17 13:01 IMPRESSION: MILD CHRONIC MICROVASCULAR ISCHEMIA. NO ACUTE IMAGING FINDINGS IN THE BRAIN. EVIDENCE OF ACUTE STROKE: NO. 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 AREAS OF MILD TO MODERATE SPINAL STENOSIS DESCRIBED. NO ACUTE FINDINGS. Chest CT 04/27/17 00:00 IMPRESSION: Diffuse bullous change with superimposed fluid likely interstitial edema or pneumonia. Clearly progressed from previous. Bilateral pleural effusions. Persistent air-fluid level and a large bullae in the right upper lobe. Infection in the differential. Unchanged. Acute Abdomen Series 04/30/17 00:00 IMPRESSION: 1. Gaseous distention in the abdomen. This includes large and small bowel. Scattered air-fluid levels may reflect mild ileus. Modified Barium Swallow 05/01/17 00:00 IMPRESSION: NO EVIDENCE OF LARYNGEAL PENETRATION OR TRACHEAL ASPIRATION.PLEASE SEE SPEECH PATHOLOGIST REPORT FOR OTHER FINDINGS AND RECOMMENDATIONS. Fluoroscopy 05/07/17 00:00 IMPRESSION: IMAGE(S) OBTAINED DURING PROCEDURE. KUB X-Ray 05/14/17 00:00 IMPRESSION: SATISFACTORY POSITION OF ENTERIC TUBE. NO SIGNIFICANT CHANGE FROM PRIOR STUDY. Chest X-Ray 05/15/17 06:00 IMPRESSION: Stable appearance of the chest Assessment & Plan - Diagnosis (1) Cavitary lesion of lung Is this a current diagnosis for this admission?: Yes (2) History of myasthenia gravis Is this a current diagnosis for this admission?: Yes (3) Hyponatremia Is this a current diagnosis for this admission?: No (4) Necrotizing pneumonia Is this a current diagnosis for this admission?: Yes (5) Pneumatocele of lung Is this a current diagnosis for this admission?: No (6) COPD (chronic obstructive pulmonary disease) Qualifiers: COPD type: unspecified COPD Qualified Code(s): J44.9 - Chronic obstructive pulmonary disease, unspecified Is this a current diagnosis for this admission?: Yes Plan: slight decrease in min vent and FIO2 - Time Total Critical Time (Minutes): 40
[2017-05-15] MEDS: MICAFUNGIN SODIUM 100 MG in NORMAL SALINE 100 ML IV SCH (22:05)
[2017-05-16 00:50] LABS: BLOOD UREA NITROGEN 10 mg/dL (7-20); CALCIUM 8.1 mg/dL (8.4-10.2); CHLORIDE 101 mmol/L (98-107); GLUCOSE 99 mg/dL (75-110); MAGNESIUM 1.8 mg/dL (1.6-2.3); POTASSIUM 3.9 mmol/L (3.6-5.0)
[2017-05-16 01:04] LABS: CARBON DIOXIDE 32 mmol/L (22-30); SODIUM 135.7 mmol/L (137-145)
[2017-05-16 01:09] LABS: ANION GAP 3 (5-19)
[2017-05-16] MEDS: LEVALBUTEROL HCL NEB 1.25 MG/3 ML AMPUL NEB SCH ×4 (02:06→20:57)
[2017-05-16] MEDS: PROPOFOL 100 ML IV PRN ×4 (04:38→22:26)
[2017-05-16] MEDS: LANSOPRAZOLE 30 MG TAB.RAP.DR PO SCH (06:08)
[2017-05-16 06:32] LABS: ARTERIAL BLOOD H2CO3 1.16 mmol/L (1.05-1.35); ARTERIAL BLOOD HCO3 27.7 mmol/L (20-26); ARTERIAL BLOOD O2 SATURATION 92.9 % (94-98); ARTERIAL BLOOD PCO2 38.5 mmHg (35-45); ARTERIAL BLOOD PH 7.48 (7.35-7.45); ARTERIAL BLOOD PO2 60.9 mmHg (80-100); ARTERIAL BLOOD TOTAL CO2 28.9 mmol/L (23-27)
[2017-05-16] MEDS: DEXTROSE 5%-WATER 250 ML with NOREPINEPHRINE BITARTRATE 4 MG IV PRN ×4 (06:40→22:27)
[2017-05-16 06:42] LABS: ABSOLUTE EOSINOPHILS # (AUTO) 0.2 10^3/uL (0.0-0.6); ABSOLUTE LYMPHOCYTES (AUTO) 0.9 10^3/uL (0.5-4.7); ABSOLUTE MONOCYTES (AUTO) 0.6 10^3/uL (0.1-1.4); ABSOLUTE NEUT (AUTO) 3.8 10^3/uL (1.7-8.2); BASOPHILS % (AUTO) 0.6 % (0-2); EOSINOPHILS % (AUTO) 4.3 % (0-6); HEMATOCRIT 27.7 % (37.9-51.0); HEMOGLOBIN 9.6 g/dL (13.5-17.0); LYMPHOCYTES % (AUTO) 16.2 % (13-45); MEAN CORPUSCULAR HEMOGLOBIN 32.5 pg (27.0-33.4); MEAN CORPUSCULAR HGB CONC 34.7 g/dL (32.0-36.0); MEAN CORPUSCULAR VOLUME 94 fl (80-97); MONOCYTES % (AUTO) 11.5 % (3-13); PLATELET COUNT 247 10^3/uL (150-450); RED BLOOD COUNT 2.96 10^6/uL (4.35-5.55); RED CELL DISTRIBUTION WIDTH 17.9 % (11.5-14.0); SEGMENTED NEUTROPHILS % (AUTO) 67.4 % (42-78); TOTAL CELLS COUNTED % (AUTO) 100 %; WHITE BLOOD COUNT 5.6 10^3/uL (4.0-10.5)
[2017-05-16 06:46] LABS: ANION GAP 5 (5-19); BLOOD UREA NITROGEN 9 mg/dL (7-20); CARBON DIOXIDE 30 mmol/L (22-30); CHLORIDE 101 mmol/L (98-107); GLUCOSE 102 mg/dL (75-110); MAGNESIUM 1.8 mg/dL (1.6-2.3); PHOSPHORUS 3.8 mg/dL (2.5-4.5); POTASSIUM 3.9 mmol/L (3.6-5.0); SODIUM 135.8 mmol/L (137-145)
[2017-05-16 07:04] LABS: ARTERIAL BLOOD FIO2 45%
--- NOTE | 2017-05-16 07:52 | RADIOLOGY REPORT (SQ) ---
EXAM DESCRIPTION: CHEST SINGLE VIEW COMPLETED DATE/TIME: 05/16/2017 6:56 am REASON FOR STUDY: resp failure COMPARISON: CT chest 04/28/2017 Chest films 05/07/2017, 05/13/2017, 05/14/2017, 05/15/2017 EXAM PARAMETERS: NUMBER OF VIEWS: One view. TECHNIQUE: Single frontal radiographic view of the chest acquired. RADIATION DOSE: NA LIMITATIONS: None. FINDINGS: LUNGS AND PLEURA: Unchanged diffuse alveolar and interstitial infiltrates. Stable right p leural fluid/ pleural thickening. No pneumothorax. MEDIASTINUM AND HILAR STRUCTURES: No masses. Contour normal. HEART AND VASCULAR STRUCTURES: No cardiomegaly BONES: No acute findings. HARDWARE: Right jugular central line tip in the right atrium. Endotracheal tube tip 5 cm above the c juliann. Nasogastric tube tip and side port in the stomach. Old sternotomy for CABG OTHER: No other significant finding. IMPRESSION: No change from 05/15/2017, 05/14/2017 chest films. TECHNICAL DOCUMENTATION: JOB ID: [id number] [employer]- All Rights Reserved
--- NOTE | 2017-05-16 08:44 | PDOC PROGRESS REPORT ---
Subjective Progress Note for:: 05/16/17 Subjective:: Patient remain intubated and vent supported and remain on FiO2 requirement at 45 %. Tolerated weaning protocol. Nursing staff reported significant tracheal secretion. He remain on IV Propofol sedation. Tolerating enteral tube feeding. No reported fever. Reason For Visit: DEHYDRATION WITH HYPONATREMIA;ACUTE RENAL INJURY; Physical Exam Vital Signs: Temp Pulse Resp BP Pulse Ox 98.6 F 91 22 H 108/67 95 05/16/17 06:20 05/16/17 08:12 05/16/17 08:12 05/16/17 06:20 05/16/17 08:12 Intake & Output 05/15/17 05/16/17 05/17/17 06:59 06:59 06:59 Intake Total 3140 2481 Output Total 4755 2210 Balance -1615 271 Weight 85.1 kg 84.5 kg Physical Exam: General appearance: PRESENT: Sedated on IV Propofol. ET and OG tubes in situ. Head exam: PRESENT: atraumatic, normocephalic Eye exam: PRESENT: conjunctiva pink, EOMI, PERRLA. ABSENT: scleral icterus Mouth exam: PRESENT: moist Neck exam: PRESENT: other - right IJ central line device Respiratory exam: PRESENT: decreased breath sounds at lung bases Cardiovascular exam: PRESENT: RRR, S+1, S+2, ABSENT: diastolic murmur, rubs, systolic murmur. GI/Abdominal exam: PRESENT: normal bowel sounds, soft. ABSENT: distended, guarding, mass, organomegaly, rebound, tenderness Extremities exam: PRESENT: pedal edema - upper extremities due to soft tissue infiltration Musculoskeletal exam: PRESENT: Slight improvement in generalized edema Neurological exam: PRESENT: Sedated. Skin exam: PRESENT: dry, intact, warm. ABSENT: cyanosis Results Laboratory Results: 05/16/17 06:10 05/16/17 06:10 05/16/17 05/16/17 05/16/17 00:10 06:10 06:10 WBC RBC Hgb Hct MCV MCH MCHC RDW Plt Count Seg Neutrophils % Lymphocytes % Monocytes % Eosinophils % Basophils % Absolute Neutrophils Absolute Lymphocytes Absolute Monocytes Absolute Eosinophils Absolute Basophils Carbonic Acid 1.16 HCO3/H2CO3 Ratio 23:1 ABG pH 7.48 H ABG pCO2 38.5 ABG pO2 60.9 L ABG HCO3 27.7 H ABG O2 Saturation 92.9 L ABG Base Excess 4.0 FiO2 45% Sodium 135.7 L 135.8 L Potassium 3.9 3.9 Chloride 101 101 Carbon Dioxide 32 H 30 Anion Gap 3 L 5 BUN 10 9 Creatinine 0.68 0.68 Est GFR ( Amer) > 60 > 60 Est GFR (Non-Af Amer) > 60 > 60 Glucose 99 102 Calcium 8.1 L 8.0 L Phosphorus 3.8 Magnesium 1.8 1.8 05/16/17 06:10 WBC 5.6 RBC 2.96 L Hgb 9.6 L Hct 27.7 L MCV 94 MCH 32.5 MCHC 34.7 RDW 17.9 H Plt Count 247 Seg Neutrophils % 67.4 Lymphocytes % 16.2 Monocytes % 11.5 Eosinophils % 4.3 Basophils % 0.6 Absolute Neutrophils 3.8 Absolute Lymphocytes 0.9 Absolute Monocytes 0.6 Absolute Eosinophils 0.2 Absolute Basophils 0.0 Carbonic Acid HCO3/H2CO3 Ratio ABG pH ABG pCO2 ABG pO2 ABG HCO3 ABG O2 Saturation ABG Base Excess FiO2 Sodium Potassium Chloride Carbon Dioxide Anion Gap BUN Creatinine Est GFR ( Amer) Est GFR (Non-Af Amer) Glucose Calcium Phosphorus Magnesium Impressions: Head CT 04/17/17 13:01 IMPRESSION: MILD CHRONIC MICROVASCULAR ISCHEMIA. NO ACUTE IMAGING FINDINGS IN THE BRAIN. EVIDENCE OF ACUTE STROKE: NO. 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 AREAS OF MILD TO MODERATE SPINAL STENOSIS DESCRIBED. NO ACUTE FINDINGS. Chest CT 04/27/17 00:00 IMPRESSION: Diffuse bullous change with superimposed fluid likely interstitial edema or pneumonia. Clearly progressed from previous. Bilateral pleural effusions. Persistent air-fluid level and a large bullae in the right upper lobe. Infection in the differential. Unchanged. Acute Abdomen Series 04/30/17 00:00 IMPRESSION: 1. Gaseous distention in the abdomen. This includes large and small bowel. Scattered air-fluid levels may reflect mild ileus. Modified Barium Swallow 05/01/17 00:00 IMPRESSION: NO EVIDENCE OF LARYNGEAL PENETRATION OR TRACHEAL ASPIRATION.PLEASE SEE SPEECH PATHOLOGIST REPORT FOR OTHER FINDINGS AND RECOMMENDATIONS. Fluoroscopy 05/07/17 00:00 IMPRESSION: IMAGE(S) OBTAINED DURING PROCEDURE. KUB X-Ray 05/14/17 00:00 IMPRESSION: SATISFACTORY POSITION OF ENTERIC TUBE. NO SIGNIFICANT CHANGE FROM PRIOR STUDY. Chest X-Ray 05/16/17 06:00 IMPRESSION: No change from 05/15/2017, 05/14/2017 chest films. Assessment & Plan - Diagnosis (1) Dehydration with hyponatremia Is this a current diagnosis for this admission?: Yes (2) Abnormality of lung on CXR Is this a current diagnosis for this admission?: Yes (3) Pneumatocele of lung Is this a current diagnosis for this admission?: No (4) Pneumothorax on right Is this a current diagnosis for this admission?: Yes (5) Acute kidney injury Is this a current diagnosis for this admission?: Yes (6) COPD (chronic obstructive pulmonary disease) Qualifiers: COPD type: unspecified COPD Qualified Code(s): J44.9 - Chronic obstructive pulmonary disease, unspecified Is this a current diagnosis for this admission?: Yes (7) HLD (hyperlipidemia) Qualifiers: Hyperlipidemia type: pure hypercholesterolemia Qualified Code(s): E78.00 - Pure hypercholesterolemia, unspecified Is this a current diagnosis for this admission?: Yes (8) HTN (hypertension) Qualifiers: Hypertension type: essential hypertension Qualified Code(s): I10 - Essential (primary) hypertension Is this a current diagnosis for this admission?: Yes (9) Constipation Qualifiers: Constipation type: slow transit constipation Qualified Code(s): K59.01 - Slow transit constipation Is this a current diagnosis for this admission?: Yes (10) Acute respiratory failure with hypoxemia Is this a current diagnosis for this admission?: Yes (11) Fungal pneumonia Is this a current diagnosis for this admission?: Yes - Time Time Spent with patient: 35 or more minutes Medications reviewed and adjusted accordingly: Yes Anticipated discharge: Other Within: Other - Inpatient Certification Based on my medical assessment, after consideration of the patient's comorbidities, presenting symptoms, or acuity I expect that the services needed warrant INPATIENT care.: Yes I certify that my determination is in accordance with my understanding of Medicare's requirements for reasonable and necessary INPATIENT services [42 CFR 412.3e].: Yes Medical Necessity: Need Close Monitoring Due to Risk of Patient Decompensation, Need For IV Fluids, Need For Continuous Telemetry Monitoring, Need for Nebulizer Therapy and Monitoring of Response, Need for IV Antibiotics, Risk of Complication if Not Cared For in Hospital Post Hospital Care: Other - Plan Summary Plan Summary: Continue current management with trial of lowering his Fio requirement. Patient is day # 10 on ventilator. We will continue discussion with the family regarding possible tracheotomy versus alternative care plan for palliative care in view of his inability to sustain work of breathing.
[2017-05-16] MEDS: BIMATOPROST 0.01% OPH SOLN 2.5 ML/BOTTLE OU SCH (10:54)
[2017-05-16] MEDS ORDERED: ACETYLCYSTEINE 20% SOLN 800 MG/4 ML VIAL.NEB NEB ONE (11:00)
[2017-05-16] MEDS: ENOXAPARIN SODIUM INJ 40 MG/0.4 ML DISP.SYRIN SUBCUT SCH (11:07)
[2017-05-16] MEDS: POTASSIUM CHLORIDE 20 MEQ/15 ML UDCUP NG SCH (11:08)
[2017-05-16] MEDS ORDERED: MIDAZOLAM 2 MG/2 ML INJ ONE (11:20)
[2017-05-16] MEDS: ACETYLCYSTEINE 20% SOLN 800 MG/4 ML VIAL.NEB NEB SCH (20:58)
[2017-05-16] MEDS: MICAFUNGIN SODIUM 100 MG in NORMAL SALINE 100 ML IV SCH (21:46)
[2017-05-17] MEDS: LEVALBUTEROL HCL NEB 1.25 MG/3 ML AMPUL NEB SCH ×4 (02:22→20:06)
[2017-05-17] MEDS: PROPOFOL 100 ML IV PRN ×4 (05:10→22:40)
[2017-05-17] MEDS: LANSOPRAZOLE 30 MG TAB.RAP.DR PO SCH (05:10)
[2017-05-17 05:39] LABS: ABSOLUTE EOSINOPHILS # (AUTO) 0.3 10^3/uL (0.0-0.6); ABSOLUTE LYMPHOCYTES (AUTO) 0.8 10^3/uL (0.5-4.7); ABSOLUTE MONOCYTES (AUTO) 0.7 10^3/uL (0.1-1.4); ABSOLUTE NEUT (AUTO) 3.6 10^3/uL (1.7-8.2); BASOPHILS % (AUTO) 0.9 % (0-2); EOSINOPHILS % (AUTO) 4.7 % (0-6); HEMATOCRIT 28.6 % (37.9-51.0); LYMPHOCYTES % (AUTO) 14.5 % (13-45); MEAN CORPUSCULAR HEMOGLOBIN 31.9 pg (27.0-33.4); MEAN CORPUSCULAR HGB CONC 34.9 g/dL (32.0-36.0); MEAN CORPUSCULAR VOLUME 91 fl (80-97); MONOCYTES % (AUTO) 13.3 % (3-13); PLATELET COUNT 320 10^3/uL (150-450); RED BLOOD COUNT 3.13 10^6/uL (4.35-5.55); RED CELL DISTRIBUTION WIDTH 18.6 % (11.5-14.0); SEGMENTED NEUTROPHILS % (AUTO) 66.6 % (42-78); TOTAL CELLS COUNTED % (AUTO) 100 %; WHITE BLOOD COUNT 5.5 10^3/uL (4.0-10.5)
[2017-05-17 05:42] LABS: ARTERIAL BLOOD BASE EXCESS 5.2 mmol/L; ARTERIAL BLOOD H2CO3 1.25 mmol/L (1.05-1.35); ARTERIAL BLOOD HCO3 29.4 mmol/L (20-26); ARTERIAL BLOOD O2 SATURATION 94.8 % (94-98); ARTERIAL BLOOD PCO2 41.4 mmHg (35-45); ARTERIAL BLOOD PH 7.47 (7.35-7.45); ARTERIAL BLOOD PO2 69.3 mmHg (80-100); ARTERIAL BLOOD TOTAL CO2 30.7 mmol/L (23-27)
[2017-05-17 05:48] LABS: ARTERIAL BLOOD FIO2 45%
[2017-05-17 05:59] LABS: BLOOD UREA NITROGEN 9 mg/dL (7-20); CALCIUM 8.4 mg/dL (8.4-10.2); CHLORIDE 101 mmol/L (98-107); GLUCOSE 101 mg/dL (75-110); MAGNESIUM 1.9 mg/dL (1.6-2.3); POTASSIUM 3.9 mmol/L (3.6-5.0)
[2017-05-17 06:11] LABS: CARBON DIOXIDE 34 mmol/L (22-30); SODIUM 137.1 mmol/L (137-145)
[2017-05-17 06:14] LABS: ANION GAP 2 (5-19)
[2017-05-17] MEDS: ACETYLCYSTEINE 20% SOLN 800 MG/4 ML VIAL.NEB NEB SCH ×2 (08:27→20:06)
--- NOTE | 2017-05-17 09:40 | PDOC PROGRESS REPORT ---
Subjective Progress Note for:: 05/17/17 Subjective:: Patient remain intubated and vent supported. Family express wish for tracheostomy and PEG tube placement as per nursing report. Tolerated weaning protocol. Tolerating enteral tube feeding. No reported fever. Remain on Levophed as pressor support. Reason For Visit: DEHYDRATION WITH HYPONATREMIA;ACUTE RENAL INJURY; Physical Exam Vital Signs: Temp Pulse Resp BP Pulse Ox 98.2 F 80 20 111/74 95 05/17/17 07:05 05/17/17 02:25 05/17/17 07:05 05/17/17 07:05 05/17/17 07:05 Intake & Output 05/16/17 05/17/17 05/18/17 06:59 06:59 06:59 Intake Total 2481 3105 Output Total 2210 3850 Balance 271 -745 Weight 84.5 kg 83 kg Physical Exam: General appearance: PRESENT: Sedated on IV Propofol. ET and OG tubes in situ. Head exam: PRESENT: atraumatic, normocephalic Eye exam: PRESENT: conjunctiva pink, EOMI, PERRLA. ABSENT: scleral icterus Mouth exam: PRESENT: moist Neck exam: PRESENT: other - right IJ central line device Respiratory exam: PRESENT: decreased breath sounds at lung bases Cardiovascular exam: PRESENT: RRR, S+1, S+2, ABSENT: diastolic murmur, rubs, systolic murmur. GI/Abdominal exam: PRESENT: normal bowel sounds, soft. ABSENT: distended, guarding, mass, organomegaly, rebound, tenderness Extremities exam: PRESENT: pedal edema - upper extremities due to soft tissue infiltration Musculoskeletal exam: PRESENT: Slight improvement in generalized edema Neurological exam: PRESENT: Sedated. Skin exam: PRESENT: dry, intact, warm. ABSENT: cyanosis Results Laboratory Results: 05/17/17 05:20 05/17/17 05:20 05/17/17 05/17/17 05/17/17 05:20 05:20 05:20 WBC 5.5 RBC 3.13 L Hgb 10.0 L Hct 28.6 L MCV 91 MCH 31.9 MCHC 34.9 RDW 18.6 H Plt Count 320 Seg Neutrophils % 66.6 Lymphocytes % 14.5 Monocytes % 13.3 H Eosinophils % 4.7 Basophils % 0.9 Absolute Neutrophils 3.6 Absolute Lymphocytes 0.8 Absolute Monocytes 0.7 Absolute Eosinophils 0.3 Absolute Basophils 0.0 Carbonic Acid 1.25 HCO3/H2CO3 Ratio 23:1 ABG pH 7.47 H ABG pCO2 41.4 ABG pO2 69.3 L ABG HCO3 29.4 H ABG O2 Saturation 94.8 ABG Base Excess 5.2 FiO2 45% Sodium 137.1 Potassium 3.9 Chloride 101 Carbon Dioxide 34 H Anion Gap 2 L BUN 9 Creatinine 0.64 Est GFR ( Amer) > 60 Est GFR (Non-Af Amer) > 60 Glucose 101 Calcium 8.4 Magnesium 1.9 05/14/17 15:20 Tracheal Aspirate Gram Stain - Final 05/14/17 15:20 Tracheal Aspirate Sputum Culture - Final C.albicans/C.dubliniensis Normal Jo Absent Impressions: Head CT 04/17/17 13:01 IMPRESSION: MILD CHRONIC MICROVASCULAR ISCHEMIA. NO ACUTE IMAGING FINDINGS IN THE BRAIN. EVIDENCE OF ACUTE STROKE: NO. 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 AREAS OF MILD TO MODERATE SPINAL STENOSIS DESCRIBED. NO ACUTE FINDINGS. Chest CT 04/27/17 00:00 IMPRESSION: Diffuse bullous change with superimposed fluid likely interstitial edema or pneumonia. Clearly progressed from previous. Bilateral pleural effusions. Persistent air-fluid level and a large bullae in the right upper lobe. Infection in the differential. Unchanged. Acute Abdomen Series 04/30/17 00:00 IMPRESSION: 1. Gaseous distention in the abdomen. This includes large and small bowel. Scattered air-fluid levels may reflect mild ileus. Modified Barium Swallow 05/01/17 00:00 IMPRESSION: NO EVIDENCE OF LARYNGEAL PENETRATION OR TRACHEAL ASPIRATION.PLEASE SEE SPEECH PATHOLOGIST REPORT FOR OTHER FINDINGS AND RECOMMENDATIONS. Fluoroscopy 05/07/17 00:00 IMPRESSION: IMAGE(S) OBTAINED DURING PROCEDURE. KUB X-Ray 05/14/17 00:00 IMPRESSION: SATISFACTORY POSITION OF ENTERIC TUBE. NO SIGNIFICANT CHANGE FROM PRIOR STUDY. Chest X-Ray 05/16/17 06:00 IMPRESSION: No change from 05/15/2017, 05/14/2017 chest films. Assessment & Plan - Diagnosis (1) Dehydration with hyponatremia Is this a current diagnosis for this admission?: Yes (2) Abnormality of lung on CXR Is this a current diagnosis for this admission?: Yes (3) Pneumatocele of lung Is this a current diagnosis for this admission?: No (4) Pneumothorax on right Is this a current diagnosis for this admission?: Yes (5) Acute kidney injury Is this a current diagnosis for this admission?: Yes (6) COPD (chronic obstructive pulmonary disease) Qualifiers: COPD type: unspecified COPD Qualified Code(s): J44.9 - Chronic obstructive pulmonary disease, unspecified Is this a current diagnosis for this admission?: Yes (7) HLD (hyperlipidemia) Qualifiers: Hyperlipidemia type: pure hypercholesterolemia Qualified Code(s): E78.00 - Pure hypercholesterolemia, unspecified Is this a current diagnosis for this admission?: Yes (8) HTN (hypertension) Qualifiers: Hypertension type: essential hypertension Qualified Code(s): I10 - Essential (primary) hypertension Is this a current diagnosis for this admission?: Yes (9) Constipation Qualifiers: Constipation type: slow transit constipation Qualified Code(s): K59.01 - Slow transit constipation Is this a current diagnosis for this admission?: Yes (10) Acute respiratory failure with hypoxemia Is this a current diagnosis for this admission?: Yes (11) Fungal pneumonia Is this a current diagnosis for this admission?: Yes - Time Time Spent with patient: 25-34 minutes Medications reviewed and adjusted accordingly: Yes Anticipated discharge: Other Within: Other - Inpatient Certification Based on my medical assessment, after consideration of the patient's comorbidities, presenting symptoms, or acuity I expect that the services needed warrant INPATIENT care.: Yes I certify that my determination is in accordance with my understanding of Medicare's requirements for reasonable and necessary INPATIENT services [42 CFR 412.3e].: Yes Medical Necessity: Need Close Monitoring Due to Risk of Patient Decompensation, Need For IV Fluids, Need For Continuous Telemetry Monitoring, Need for Nebulizer Therapy and Monitoring of Response, Need for IV Antibiotics, Risk of Complication if Not Cared For in Hospital Post Hospital Care: Other - Plan Summary Plan Summary: Continue all current medication management. I will discuss further with family regarding care plan. If as family requested patient is tracheostomy and PEG tube were placed he will need placement in LTAC facility for eventual extubation. He still in demand for higher FIO2, presently at 55%
[2017-05-17] MEDS: BIMATOPROST 0.01% OPH SOLN 2.5 ML/BOTTLE OU SCH (11:12)
[2017-05-17] MEDS: MIDAZOLAM 2 MG/2 ML INJ IV PRN ×3 (11:24→22:11)
[2017-05-17] MEDS: ENOXAPARIN SODIUM INJ 40 MG/0.4 ML DISP.SYRIN SUBCUT SCH (11:25)
[2017-05-17] MEDS: POTASSIUM CHLORIDE 20 MEQ/15 ML UDCUP NG SCH (11:25)
--- NOTE | 2017-05-17 16:39 | PDOC PROGRESS REPORT ---
Subjective Progress Note for:: 05/16/17 Subjective:: Day # 10 Reason For Visit: DEHYDRATION WITH HYPONATREMIA;ACUTE RENAL INJURY; Physical Exam Vital Signs: Temp Pulse Resp BP Pulse Ox 98.4 F 91 22 H 107/75 95 05/16/17 08:00 05/16/17 08:12 05/16/17 08:12 05/16/17 08:00 05/16/17 08:12 Intake & Output 05/15/17 05/16/17 05/17/17 06:59 06:59 06:59 Intake Total 3140 2481 Output Total 4755 2210 Balance -1615 271 Weight 85.1 kg 84.5 kg General appearance: PRESENT: no acute distress, disheveled, thin. ABSENT: mild distress, morbidly obese, obese, severe distress Head exam: PRESENT: atraumatic, normocephalic Eye exam: PRESENT: conjunctiva pale, EOMI. ABSENT: conjunctival injection, conjunctiva pink, nystagmus, periorbital swelling Mouth exam: PRESENT: dry mucosa, neck supple, tongue midline, other - ET tub. ABSENT: laceration, moist Teeth exam: PRESENT: poor dentation Neck exam: PRESENT: tracheal deviation. ABSENT: carotid bruit, JVD, lymphadenopathy, thyromegaly, tracheostomy Respiratory exam: PRESENT: crackles, decreased breath sounds, prolonged expiratory phas, rhonchi, symmetrical, unlabored, wheezes. ABSENT: accessory muscle use, chest wall tenderness, clear to auscultation antonio, rales, retraction , stridor, tachypnea Cardiovascular exam: PRESENT: RRR, +S1, +S2 Pulses: PRESENT: normal radial pulses GI/Abdominal exam: PRESENT: diminished bowel sounds, soft Gentrourinary exam: PRESENT: indwelling catheter Extremities exam: ABSENT: clubbing, joint swelling Musculoskeletal exam: ABSENT: deformity, dislocation Neurological exam: PRESENT: awake. ABSENT: alert Skin exam: PRESENT: dry, warm Results Laboratory Results: 05/16/17 06:10 05/16/17 06:10 05/16/17 05/16/17 05/16/17 00:10 06:10 06:10 WBC RBC Hgb Hct MCV MCH MCHC RDW Plt Count Seg Neutrophils % Lymphocytes % Monocytes % Eosinophils % Basophils % Absolute Neutrophils Absolute Lymphocytes Absolute Monocytes Absolute Eosinophils Absolute Basophils Carbonic Acid 1.16 HCO3/H2CO3 Ratio 23:1 ABG pH 7.48 H ABG pCO2 38.5 ABG pO2 60.9 L ABG HCO3 27.7 H ABG O2 Saturation 92.9 L ABG Base Excess 4.0 FiO2 45% Sodium 135.7 L 135.8 L Potassium 3.9 3.9 Chloride 101 101 Carbon Dioxide 32 H 30 Anion Gap 3 L 5 BUN 10 9 Creatinine 0.68 0.68 Est GFR ( Amer) > 60 > 60 Est GFR (Non-Af Amer) > 60 > 60 Glucose 99 102 Calcium 8.1 L 8.0 L Phosphorus 3.8 Magnesium 1.8 1.8 05/16/17 06:10 WBC 5.6 RBC 2.96 L Hgb 9.6 L Hct 27.7 L MCV 94 MCH 32.5 MCHC 34.7 RDW 17.9 H Plt Count 247 Seg Neutrophils % 67.4 Lymphocytes % 16.2 Monocytes % 11.5 Eosinophils % 4.3 Basophils % 0.6 Absolute Neutrophils 3.8 Absolute Lymphocytes 0.9 Absolute Monocytes 0.6 Absolute Eosinophils 0.2 Absolute Basophils 0.0 Carbonic Acid HCO3/H2CO3 Ratio ABG pH ABG pCO2 ABG pO2 ABG HCO3 ABG O2 Saturation ABG Base Excess FiO2 Sodium Potassium Chloride Carbon Dioxide Anion Gap BUN Creatinine Est GFR ( Amer) Est GFR (Non-Af Amer) Glucose Calcium Phosphorus Magnesium Impressions: Head CT 04/17/17 13:01 IMPRESSION: MILD CHRONIC MICROVASCULAR ISCHEMIA. NO ACUTE IMAGING FINDINGS IN THE BRAIN. EVIDENCE OF ACUTE STROKE: NO. 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 AREAS OF MILD TO MODERATE SPINAL STENOSIS DESCRIBED. NO ACUTE FINDINGS. Chest CT 04/27/17 00:00 IMPRESSION: Diffuse bullous change with superimposed fluid likely interstitial edema or pneumonia. Clearly progressed from previous. Bilateral pleural effusions. Persistent air-fluid level and a large bullae in the right upper lobe. Infection in the differential. Unchanged. Acute Abdomen Series 04/30/17 00:00 IMPRESSION: 1. Gaseous distention in the abdomen. This includes large and small bowel. Scattered air-fluid levels may reflect mild ileus. Modified Barium Swallow 05/01/17 00:00 IMPRESSION: NO EVIDENCE OF LARYNGEAL PENETRATION OR TRACHEAL ASPIRATION.PLEASE SEE SPEECH PATHOLOGIST REPORT FOR OTHER FINDINGS AND RECOMMENDATIONS. Fluoroscopy 05/07/17 00:00 IMPRESSION: IMAGE(S) OBTAINED DURING PROCEDURE. KUB X-Ray 05/14/17 00:00 IMPRESSION: SATISFACTORY POSITION OF ENTERIC TUBE. NO SIGNIFICANT CHANGE FROM PRIOR STUDY. Chest X-Ray 05/16/17 06:00 IMPRESSION: No change from 05/15/2017, 05/14/2017 chest films. Assessment & Plan - Diagnosis (1) Cavitary lesion of lung Is this a current diagnosis for this admission?: Yes Plan: r apical opacification (2) History of myasthenia gravis Is this a current diagnosis for this admission?: Yes (3) Hyponatremia Is this a current diagnosis for this admission?: No (4) Necrotizing pneumonia Is this a current diagnosis for this admission?: Yes (5) COPD (chronic obstructive pulmonary disease) Qualifiers: COPD type: unspecified COPD Qualified Code(s): J44.9 - Chronic obstructive pulmonary disease, unspecified Is this a current diagnosis for this admission?: Yes Plan: slight decrease in min vent and FIO2 - Time Total Critical Time (Minutes): 45
--- NOTE | 2017-05-17 16:45 | PDOC PROGRESS REPORT ---
Subjective Progress Note for:: 05/17/17 Subjective:: Day # 11 Reason For Visit: DEHYDRATION WITH HYPONATREMIA;ACUTE RENAL INJURY; Physical Exam Vital Signs: Temp Pulse Resp BP Pulse Ox 97.2 F 92 23 H 126/85 H 96 05/17/17 15:05 05/17/17 14:21 05/17/17 15:05 05/17/17 15:05 05/17/17 15:05 Intake & Output 05/16/17 05/17/17 05/18/17 06:59 06:59 06:59 Intake Total 2481 3105 Output Total 2210 6160 1325 Balance 210 -389 -9489 Weight 84.5 kg 83 kg General appearance: PRESENT: no acute distress, disheveled, thin. ABSENT: cooperative, mild distress, morbidly obese, obese, severe distress Head exam: PRESENT: atraumatic, normocephalic Eye exam: PRESENT: conjunctiva pale. ABSENT: conjunctival injection, conjunctiva pink, nystagmus, periorbital swelling, scleral icterus Mouth exam: PRESENT: dry mucosa, neck supple, tongue midline, other - ET tube. ABSENT: laceration, moist Teeth exam: PRESENT: poor dentation Neck exam: PRESENT: tracheal deviation. ABSENT: carotid bruit, JVD, lymphadenopathy, thyromegaly, tracheostomy Respiratory exam: PRESENT: crackles, decreased breath sounds, prolonged expiratory phas, rhonchi, symmetrical, unlabored. ABSENT: accessory muscle use , chest wall tenderness, clear to auscultation antonio, rales, retraction, stridor Cardiovascular exam: PRESENT: RRR, +S1, +S2 Pulses: PRESENT: normal radial pulses GI/Abdominal exam: PRESENT: diminished bowel sounds, soft Gentrourinary exam: PRESENT: indwelling catheter Extremities exam: ABSENT: clubbing, joint swelling Musculoskeletal exam: ABSENT: deformity, dislocation Neurological exam: PRESENT: awake. ABSENT: alert Skin exam: PRESENT: dry, warm Results Laboratory Results: 05/17/17 05:20 05/17/17 05:20 05/17/17 05/17/17 05/17/17 05:20 05:20 05:20 WBC 5.5 RBC 3.13 L Hgb 10.0 L Hct 28.6 L MCV 91 MCH 31.9 MCHC 34.9 RDW 18.6 H Plt Count 320 Seg Neutrophils % 66.6 Lymphocytes % 14.5 Monocytes % 13.3 H Eosinophils % 4.7 Basophils % 0.9 Absolute Neutrophils 3.6 Absolute Lymphocytes 0.8 Absolute Monocytes 0.7 Absolute Eosinophils 0.3 Absolute Basophils 0.0 Carbonic Acid 1.25 HCO3/H2CO3 Ratio 23:1 ABG pH 7.47 H ABG pCO2 41.4 ABG pO2 69.3 L ABG HCO3 29.4 H ABG O2 Saturation 94.8 ABG Base Excess 5.2 FiO2 45% Sodium 137.1 Potassium 3.9 Chloride 101 Carbon Dioxide 34 H Anion Gap 2 L BUN 9 Creatinine 0.64 Est GFR ( Amer) > 60 Est GFR (Non-Af Amer) > 60 Glucose 101 Calcium 8.4 Magnesium 1.9 05/14/17 15:20 Tracheal Aspirate Gram Stain - Final 05/14/17 15:20 Tracheal Aspirate Sputum Culture - Final C.albicans/C.dubliniensis Normal Jo Absent Impressions: Head CT 04/17/17 13:01 IMPRESSION: MILD CHRONIC MICROVASCULAR ISCHEMIA. NO ACUTE IMAGING FINDINGS IN THE BRAIN. EVIDENCE OF ACUTE STROKE: NO. 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 AREAS OF MILD TO MODERATE SPINAL STENOSIS DESCRIBED. NO ACUTE FINDINGS. Chest CT 04/27/17 00:00 IMPRESSION: Diffuse bullous change with superimposed fluid likely interstitial edema or pneumonia. Clearly progressed from previous. Bilateral pleural effusions. Persistent air-fluid level and a large bullae in the right upper lobe. Infection in the differential. Unchanged. Acute Abdomen Series 04/30/17 00:00 IMPRESSION: 1. Gaseous distention in the abdomen. This includes large and small bowel. Scattered air-fluid levels may reflect mild ileus. Modified Barium Swallow 05/01/17 00:00 IMPRESSION: NO EVIDENCE OF LARYNGEAL PENETRATION OR TRACHEAL ASPIRATION.PLEASE SEE SPEECH PATHOLOGIST REPORT FOR OTHER FINDINGS AND RECOMMENDATIONS. Fluoroscopy 05/07/17 00:00 IMPRESSION: IMAGE(S) OBTAINED DURING PROCEDURE. KUB X-Ray 05/14/17 00:00 IMPRESSION: SATISFACTORY POSITION OF ENTERIC TUBE. NO SIGNIFICANT CHANGE FROM PRIOR STUDY. Chest X-Ray 05/16/17 06:00 IMPRESSION: No change from 05/15/2017, 05/14/2017 chest films. Assessment & Plan - Diagnosis (1) Cavitary lesion of lung Is this a current diagnosis for this admission?: Yes Plan: r apical opacification (2) History of myasthenia gravis Is this a current diagnosis for this admission?: Yes (3) Hyponatremia Is this a current diagnosis for this admission?: No (4) Necrotizing pneumonia Is this a current diagnosis for this admission?: Yes Plan: ultra sound R hemithorax (5) COPD (chronic obstructive pulmonary disease) Qualifiers: COPD type: unspecified COPD Qualified Code(s): J44.9 - Chronic obstructive pulmonary disease, unspecified Is this a current diagnosis for this admission?: Yes Plan: slight decrease in min vent and FIO2 - Time Total Critical Time (Minutes): 40
--- NOTE | 2017-05-17 17:51 | RADIOLOGY REPORT (SQ) ---
EXAM DESCRIPTION: CHEST SINGLE VIEW COMPLETED DATE/TIME: 05/17/2017 5:42 pm REASON FOR STUDY: check ett placement/resp failure COMPARISON: 05/16/2017 EXAM PARAMETERS: NUMBER OF VIEWS: One view. TECHNIQUE: Single frontal radiographic view of the chest acquired. RADIATION DOSE: NA LIMITATIONS: None. FINDINGS: LUNGS AND PLEURA: The previously described diffuse alveolar and interstitial infiltrates a ppear minimally improved with decreasing confluence. Extensive residual changes are identified. Asy mmetric density in the right lung apex appears stable. MEDIASTINUM AND HILAR STRUCTURES: No masses. Contour normal. HEART AND VASCULAR STRUCTURES: The configuration of the heart and mediastinal structures is unchanged . BONES: No acute findings. HARDWARE: Endotracheal tube is again identified with its tip the level of the thoracic inlet. NG tub e is seen in course to the abdomen. Central line is unchanged in position. OTHER: No other significant finding. IMPRESSION: The previously described diffuse alveolar and interstitial infiltrates appear minimally improved with decreasing confluence. Extensive residual changes are identified. Endotracheal tube i n satisfactory position. Other findings as noted above TECHNICAL DOCUMENTATION: JOB ID: [id number] [email or web address]- All Rights Reserved
--- NOTE | 2017-05-17 18:57 | PDOC CONSULTATION ---
History of Present Illness Admission Date/PCP: 04/17/17 19:11 [place] History of Present Illness: MADINA HIDALGO is a 71 year old male with respiratory failure requiring ventilatory support. Consult now made to general surgery for percutaneous endoscopic gastrostomy tube placement and tracheostomy. Past Medical History Cardiac Medical History: Reports: Hyperlipidema, Hypertension Denies: Atrial Fibrillation, Coronary Artery Disease, Myocardial Infarction Pulmonary Medical History: Reports: Chronic Obstructive Pulmonary Disease (COPD) , Pneumonia - 1994 Denies: Asthma, Bronchitis EENT Medical History: Denies: Ears, Nose, Throat Neurological Medical History: Reports: Other - History of thymoma and myasthenia gravis Denies: Migraine, Seizures Endocrine Medical History: Denies: Diabetes Mellitus Type 1, Gestational Diabetes, Hyperthyroidism, Obesity Renal/ Medical History: Denies: Nephrolithiasis GI Medical History: Denies: Cirrhosis, Hepatitis, Ulcerative Colitis Musculoskeltal Medical History: Denies: Arthritis Skin Medical History: Denies: Psoriasis Psychiatric Medical History: Reports: Tobacco Dependency Denies: Depression Traumatic Medical History: Denies: Traumatic Brain Injury Hematology: Denies: Anemia, Bleeding Tendencies Infectious Medical History: Denies: Hepatitis B, Hepatitis C Past Surgical History Past Surgical History: Reports: Cholecystectomy Denies: Pacemaker Social History Lives with: Family Smoking Status: Former Smoker Cigarettes Packs Per Day: 1.5 Number of Years Smokin Last Time Smoked: June 2008 Frequency of Alcohol Use: Heavy Hx Recreational Drug Use: No Drugs: None Hx Prescription Drug Abuse: No - Advance Directive Resuscitation Status: Full Code Family History Family History: Hypertension Parental Family History Reviewed: No Children Family History Reviewed: No Sibling(s) Family History Reviewed.: No Medication/Allergy Home Medications: Aspirin [Ecotrin 81 mg EC Tablet] 81 mg PO DAILY 09/14/16 Bimatoprost [Lumigan 0.01% Oph Soln 2.5 ml/Bottle] 1 drop OU DAILY 04/17/17 Telmisartan/Hydrochlorothiazid [Micardis Hct 40-12.5 mg Tablet] 1 tab PO DAILY 04/17/17 Allergies/Adverse Reactions: No Known Allergies Allergy (Verified 04/17/17 12:24) Review of Systems ROS unobtainable: Due to endotracheal tube, Due to mental status Constitutional: ABSENT: chills, fever(s), headache(s), weight gain, weight loss Eyes: ABSENT: visual disturbances Ears: ABSENT: hearing changes Cardiovascular: ABSENT: chest pain, dyspnea on exertion, edema, orthropnea, palpitations Respiratory: ABSENT: cough, hemoptysis Gastrointestinal: ABSENT: abdominal pain, constipation, diarrhea, hematemesis, hematochezia, nausea, vomiting Genitourinary: ABSENT: dysuria, hematuria Musculoskeletal: ABSENT: joint swelling Integumentary: ABSENT: rash, wounds Neurological: ABSENT: abnormal gait, abnormal speech, confusion, dizziness, focal weakness, syncope Psychiatric: ABSENT: anxiety, depression, homidical ideation, suicidal ideation Endocrine: ABSENT: cold intolerance, heat intolerance, polydipsia, polyuria Hematologic/Lymphatic: ABSENT: easy bleeding, easy bruising Physical Exam Vital Signs: Temp Pulse Resp BP Pulse Ox 97.2 F 92 23 H 126/85 H 96 05/17/17 15:05 05/17/17 14:21 05/17/17 15:05 05/17/17 15:05 05/17/17 15:05 Intake & Output 05/16/17 05/17/17 05/18/17 06:59 06:59 06:59 Intake Total 2481 3105 Output Total 2210 3850 1325 Balance 271 -745 -1325 Weight 84.5 kg 83 kg General appearance: PRESENT: other - Intubated. Completely unresponsive. Respiratory exam: PRESENT: other - Coarse breath sounds Cardiovascular exam: PRESENT: RRR GI/Abdominal exam: PRESENT: other - Soft. Results Laboratory Results: 05/17/17 05:20 05/17/17 05:20 05/17/17 05/17/17 05/17/17 05:20 05:20 05:20 WBC 5.5 RBC 3.13 L Hgb 10.0 L Hct 28.6 L MCV 91 MCH 31.9 MCHC 34.9 RDW 18.6 H Plt Count 320 Seg Neutrophils % 66.6 Lymphocytes % 14.5 Monocytes % 13.3 H Eosinophils % 4.7 Basophils % 0.9 Absolute Neutrophils 3.6 Absolute Lymphocytes 0.8 Absolute Monocytes 0.7 Absolute Eosinophils 0.3 Absolute Basophils 0.0 Carbonic Acid 1.25 HCO3/H2CO3 Ratio 23:1 ABG pH 7.47 H ABG pCO2 41.4 ABG pO2 69.3 L ABG HCO3 29.4 H ABG O2 Saturation 94.8 ABG Base Excess 5.2 FiO2 45% Sodium 137.1 Potassium 3.9 Chloride 101 Carbon Dioxide 34 H Anion Gap 2 L BUN 9 Creatinine 0.64 Est GFR ( Amer) > 60 Est GFR (Non-Af Amer) > 60 Glucose 101 Calcium 8.4 Magnesium 1.9 05/14/17 15:20 Tracheal Aspirate Gram Stain - Final 05/14/17 15:20 Tracheal Aspirate Sputum Culture - Final C.albicans/C.dubliniensis Normal Jo Absent Impressions: Head CT 04/17/17 13:01 IMPRESSION: MILD CHRONIC MICROVASCULAR ISCHEMIA. NO ACUTE IMAGING FINDINGS IN THE BRAIN. EVIDENCE OF ACUTE STROKE: NO. 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 AREAS OF MILD TO MODERATE SPINAL STENOSIS DESCRIBED. NO ACUTE FINDINGS. Chest CT 04/27/17 00:00 IMPRESSION: Diffuse bullous change with superimposed fluid likely interstitial edema or pneumonia. Clearly progressed from previous. Bilateral pleural effusions. Persistent air-fluid level and a large bullae in the right upper lobe. Infection in the differential. Unchanged. Acute Abdomen Series 04/30/17 00:00 IMPRESSION: 1. Gaseous distention in the abdomen. This includes large and small bowel. Scattered air-fluid levels may reflect mild ileus. Modified Barium Swallow 05/01/17 00:00 IMPRESSION: NO EVIDENCE OF LARYNGEAL PENETRATION OR TRACHEAL ASPIRATION.PLEASE SEE SPEECH PATHOLOGIST REPORT FOR OTHER FINDINGS AND RECOMMENDATIONS. Fluoroscopy 05/07/17 00:00 IMPRESSION: IMAGE(S) OBTAINED DURING PROCEDURE. KUB X-Ray 05/14/17 00:00 IMPRESSION: SATISFACTORY POSITION OF ENTERIC TUBE. NO SIGNIFICANT CHANGE FROM PRIOR STUDY. Chest X-Ray 05/16/17 06:00 IMPRESSION: No change from 05/15/2017, 05/14/2017 chest films. Assessment & Plan - Diagnosis (1) Respiratory failure Qualifiers: Chronicity: acute on chronic Is this a current diagnosis for this admission?: Yes Plan: In reviewing the patient's chart, I had some concerns about his overall prognosis. I talked with the patient's daughter who is the medical power of patent attorney. She stated that no other options were presented to her about his management. That is, she was not aware of his overall prognosis and whether it was appropriate to have her father undergo the tracheostomy and PEG. I discussed the procedure with her. I believe that it would be appropriate to have a family conference with her primary care physician and the family and discuss his overall prognosis and long-term goals prior to embarking on a tracheostomy. Surgicalist service will place tracheostomy and PEG if family and physicians are in agreement that this is the right course of action.
[2017-05-17] MEDS: MICAFUNGIN SODIUM 100 MG in NORMAL SALINE 100 ML IV SCH (21:19)
[2017-05-17] MEDS: DEXTROSE 5%-WATER 250 ML with NOREPINEPHRINE BITARTRATE 4 MG IV PRN ×2 (21:27)
[2017-05-18] MEDS: PROPOFOL 100 ML IV PRN ×4 (01:53→23:06)
[2017-05-18] MEDS: LEVALBUTEROL HCL NEB 1.25 MG/3 ML AMPUL NEB SCH ×4 (02:40→20:03)
[2017-05-18] MEDS: MIDAZOLAM 2 MG/2 ML INJ IV PRN ×2 (04:43→14:20)
[2017-05-18 05:00] LABS: ABSOLUTE BASOPHILS # (AUTO) 0.1 10^3/uL (0.0-0.2); ABSOLUTE EOSINOPHILS # (AUTO) 0.3 10^3/uL (0.0-0.6); ABSOLUTE LYMPHOCYTES (AUTO) 0.8 10^3/uL (0.5-4.7); ABSOLUTE MONOCYTES (AUTO) 0.7 10^3/uL (0.1-1.4); ABSOLUTE NEUT (AUTO) 4.2 10^3/uL (1.7-8.2); BASOPHILS % (AUTO) 1.1 % (0-2); EOSINOPHILS % (AUTO) 5.5 % (0-6); HEMATOCRIT 28.7 % (37.9-51.0); HEMOGLOBIN 9.7 g/dL (13.5-17.0); LYMPHOCYTES % (AUTO) 13.1 % (13-45); MEAN CORPUSCULAR HEMOGLOBIN 30.6 pg (27.0-33.4); MEAN CORPUSCULAR HGB CONC 33.9 g/dL (32.0-36.0); MEAN CORPUSCULAR VOLUME 90 fl (80-97); MONOCYTES % (AUTO) 11.7 % (3-13); PLATELET COUNT 391 10^3/uL (150-450); RED BLOOD COUNT 3.18 10^6/uL (4.35-5.55); RED CELL DISTRIBUTION WIDTH 19.6 % (11.5-14.0); SEGMENTED NEUTROPHILS % (AUTO) 68.6 % (42-78); TOTAL CELLS COUNTED % (AUTO) 100 %; WHITE BLOOD COUNT 6.1 10^3/uL (4.0-10.5)
[2017-05-18 05:27] LABS: ANION GAP 6 (5-19); BLOOD UREA NITROGEN 8 mg/dL (7-20); CALCIUM 8.4 mg/dL (8.4-10.2); CARBON DIOXIDE 29 mmol/L (22-30); CHLORIDE 101 mmol/L (98-107); GLUCOSE 101 mg/dL (75-110); SODIUM 136.2 mmol/L (137-145); TRIGLYCERIDES 105 mg/dL (<150)
[2017-05-18] MEDS: LANSOPRAZOLE 30 MG TAB.RAP.DR PO SCH (05:39)
[2017-05-18] MEDS: ACETYLCYSTEINE 20% SOLN 800 MG/4 ML VIAL.NEB NEB SCH ×2 (08:38→20:04)
--- NOTE | 2017-05-18 09:01 | PDOC PROGRESS REPORT ---
Subjective Progress Note for:: 05/18/17 Subjective:: patient unresponsive despite being off sedation, not following commands Reason For Visit: DEHYDRATION WITH HYPONATREMIA;ACUTE RENAL INJURY; Physical Exam Vital Signs: Temp Pulse Resp BP Pulse Ox 98.2 F 91 25 H 112/76 96 05/18/17 08:36 05/18/17 08:38 05/18/17 08:38 05/18/17 08:36 05/18/17 08:38 Intake & Output 05/17/17 05/18/17 05/19/17 06:59 06:59 06:59 Intake Total 3105 3081 Output Total 3850 3300 400 Balance -825 -219 -400 Weight 83 kg 80.3 kg General appearance: PRESENT: other - unresponsive GI/Abdominal exam: PRESENT: soft Neurological exam: PRESENT: other - patient unresponsive to stimuli, not following commands Results Laboratory Results: 05/18/17 04:50 05/18/17 04:50 05/18/17 05/18/17 04:50 04:50 WBC 6.1 RBC 3.18 L Hgb 9.7 L Hct 28.7 L MCV 90 MCH 30.6 MCHC 33.9 RDW 19.6 H Plt Count 391 Seg Neutrophils % 68.6 Lymphocytes % 13.1 Monocytes % 11.7 Eosinophils % 5.5 Basophils % 1.1 Absolute Neutrophils 4.2 Absolute Lymphocytes 0.8 Absolute Monocytes 0.7 Absolute Eosinophils 0.3 Absolute Basophils 0.1 Sodium 136.2 L Potassium 4.0 Chloride 101 Carbon Dioxide 29 Anion Gap 6 BUN 8 Creatinine 0.77 Est GFR ( Amer) > 60 Est GFR (Non-Af Amer) > 60 Glucose 101 Calcium 8.4 Triglycerides 105 Impressions: Head CT 04/17/17 13:01 IMPRESSION: MILD CHRONIC MICROVASCULAR ISCHEMIA. NO ACUTE IMAGING FINDINGS IN THE BRAIN. EVIDENCE OF ACUTE STROKE: NO. 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 AREAS OF MILD TO MODERATE SPINAL STENOSIS DESCRIBED. NO ACUTE FINDINGS. Chest CT 04/27/17 00:00 IMPRESSION: Diffuse bullous change with superimposed fluid likely interstitial edema or pneumonia. Clearly progressed from previous. Bilateral pleural effusions. Persistent air-fluid level and a large bullae in the right upper lobe. Infection in the differential. Unchanged. Acute Abdomen Series 04/30/17 00:00 IMPRESSION: 1. Gaseous distention in the abdomen. This includes large and small bowel. Scattered air-fluid levels may reflect mild ileus. Modified Barium Swallow 05/01/17 00:00 IMPRESSION: NO EVIDENCE OF LARYNGEAL PENETRATION OR TRACHEAL ASPIRATION.PLEASE SEE SPEECH PATHOLOGIST REPORT FOR OTHER FINDINGS AND RECOMMENDATIONS. Fluoroscopy 05/07/17 00:00 IMPRESSION: IMAGE(S) OBTAINED DURING PROCEDURE. KUB X-Ray 05/14/17 00:00 IMPRESSION: SATISFACTORY POSITION OF ENTERIC TUBE. NO SIGNIFICANT CHANGE FROM PRIOR STUDY. Chest X-Ray 05/17/17 00:00 IMPRESSION: The previously described diffuse alveolar and interstitial infiltrates appear minimally improved with decreasing confluence. Extensive residual changes are identified. Endotracheal tube in satisfactory position. Other findings as noted above Assessment & Plan - Plan Summary Plan Summary: Due to the current unresponsive state, I do not believe that the patient is candidate for PEG and tracheostomy procedures as these procedures will not improve the patient quality of life as he is in a vegetative state. I will try to speak with the patient family and to convey them my opinion. My recommendation is to discontinue all active medical treatments and to place the patient on comfort care only.
[2017-05-18 11:40] LABS: ARTERIAL BLOOD BASE EXCESS 6.2 mmol/L; ARTERIAL BLOOD H2CO3 1.23 mmol/L (1.05-1.35); ARTERIAL BLOOD HCO3 30.1 mmol/L (20-26); ARTERIAL BLOOD O2 SATURATION 92.4 % (94-98); ARTERIAL BLOOD PCO2 40.9 mmHg (35-45); ARTERIAL BLOOD PH 7.49 (7.35-7.45); ARTERIAL BLOOD PO2 59.2 mmHg (80-100); ARTERIAL BLOOD TOTAL CO2 31.4 mmol/L (23-27)
[2017-05-18 11:41] LABS: ARTERIAL BLOOD FIO2 45%
[2017-05-18] MEDS: POTASSIUM CHLORIDE 20 MEQ/15 ML UDCUP NG SCH (14:22)
[2017-05-18] MEDS: NORMAL SALINE INJ/PF 0.9% 10 ML SDV IV PRN (14:23)
[2017-05-18] MEDS: DEXTROSE 5%-WATER 250 ML with NOREPINEPHRINE BITARTRATE 4 MG IV PRN ×2 (17:26)
--- NOTE | 2017-05-18 17:28 | PDOC PROGRESS REPORT ---
Subjective Progress Note for:: 05/18/17 Subjective:: Patient remain intubated and vent supported. Currently off IV Propofol sedation. Family expressed frustration about surgical consult recommendation of hospice placement at this time. Family continue to wish for tracheostomy and PEG tube placement. Tolerating enteral tube feeding. No reported fever. Remain on Levophed as pressure support. Reason For Visit: DEHYDRATION WITH HYPONATREMIA;ACUTE RENAL INJURY; Physical Exam Vital Signs: Temp Pulse Resp BP Pulse Ox 99.9 F 114 H 26 H 107/71 97 05/18/17 16:00 05/18/17 16:00 05/18/17 16:00 05/18/17 16:00 05/18/17 16:00 Intake & Output 05/17/17 05/18/17 05/19/17 06:59 06:59 06:59 Intake Total 3105 3081 Output Total 3850 3300 1510 Balance -745 -219 -1510 Weight 83 kg 80.3 kg Results Laboratory Results: 05/18/17 04:50 05/18/17 04:50 05/18/17 05/18/17 05/18/17 04:50 04:50 10:05 WBC 6.1 RBC 3.18 L Hgb 9.7 L Hct 28.7 L MCV 90 MCH 30.6 MCHC 33.9 RDW 19.6 H Plt Count 391 Seg Neutrophils % 68.6 Lymphocytes % 13.1 Monocytes % 11.7 Eosinophils % 5.5 Basophils % 1.1 Absolute Neutrophils 4.2 Absolute Lymphocytes 0.8 Absolute Monocytes 0.7 Absolute Eosinophils 0.3 Absolute Basophils 0.1 Carbonic Acid 1.23 HCO3/H2CO3 Ratio 24:1 ABG pH 7.49 H ABG pCO2 40.9 ABG pO2 59.2 L ABG HCO3 30.1 H ABG O2 Saturation 92.4 L ABG Base Excess 6.2 FiO2 45% Sodium 136.2 L Potassium 4.0 Chloride 101 Carbon Dioxide 29 Anion Gap 6 BUN 8 Creatinine 0.77 Est GFR ( Amer) > 60 Est GFR (Non-Af Amer) > 60 Glucose 101 Calcium 8.4 Triglycerides 105 05/16/17 10:00 Sputum Gram Stain - Final 05/16/17 10:00 Sputum Sputum Culture - Final Pseudomonas Aeruginosa Normal Jo Absent Impressions: Head CT 04/17/17 13:01 IMPRESSION: MILD CHRONIC MICROVASCULAR ISCHEMIA. NO ACUTE IMAGING FINDINGS IN THE BRAIN. EVIDENCE OF ACUTE STROKE: NO. 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 AREAS OF MILD TO MODERATE SPINAL STENOSIS DESCRIBED. NO ACUTE FINDINGS. Chest CT 04/27/17 00:00 IMPRESSION: Diffuse bullous change with superimposed fluid likely interstitial edema or pneumonia. Clearly progressed from previous. Bilateral pleural effusions. Persistent air-fluid level and a large bullae in the right upper lobe. Infection in the differential. Unchanged. Acute Abdomen Series 04/30/17 00:00 IMPRESSION: 1. Gaseous distention in the abdomen. This includes large and small bowel. Scattered air-fluid levels may reflect mild ileus. Modified Barium Swallow 05/01/17 00:00 IMPRESSION: NO EVIDENCE OF LARYNGEAL PENETRATION OR TRACHEAL ASPIRATION.PLEASE SEE SPEECH PATHOLOGIST REPORT FOR OTHER FINDINGS AND RECOMMENDATIONS. Fluoroscopy 05/07/17 00:00 IMPRESSION: IMAGE(S) OBTAINED DURING PROCEDURE. KUB X-Ray 05/14/17 00:00 IMPRESSION: SATISFACTORY POSITION OF ENTERIC TUBE. NO SIGNIFICANT CHANGE FROM PRIOR STUDY. Chest X-Ray 05/17/17 00:00 IMPRESSION: The previously described diffuse alveolar and interstitial infiltrates appear minimally improved with decreasing confluence. Extensive residual changes are identified. Endotracheal tube in satisfactory position. Other findings as noted above Assessment & Plan - Diagnosis (1) Dehydration with hyponatremia Is this a current diagnosis for this admission?: Yes (2) Abnormality of lung on CXR Is this a current diagnosis for this admission?: Yes (3) Pneumatocele of lung Is this a current diagnosis for this admission?: No (4) Pneumothorax on right Is this a current diagnosis for this admission?: Yes (5) Acute kidney injury Is this a current diagnosis for this admission?: Yes (6) COPD (chronic obstructive pulmonary disease) Qualifiers: COPD type: unspecified COPD Qualified Code(s): J44.9 - Chronic obstructive pulmonary disease, unspecified Is this a current diagnosis for this admission?: Yes (7) HLD (hyperlipidemia) Qualifiers: Hyperlipidemia type: pure hypercholesterolemia Qualified Code(s): E78.00 - Pure hypercholesterolemia, unspecified Is this a current diagnosis for this admission?: Yes (8) HTN (hypertension) Qualifiers: Hypertension type: essential hypertension Qualified Code(s): I10 - Essential (primary) hypertension Is this a current diagnosis for this admission?: Yes (9) Constipation Qualifiers: Constipation type: slow transit constipation Qualified Code(s): K59.01 - Slow transit constipation Is this a current diagnosis for this admission?: Yes (10) Acute respiratory failure with hypoxemia Is this a current diagnosis for this admission?: Yes (11) Fungal pneumonia Is this a current diagnosis for this admission?: Yes (12) Pneumonia due to Pseudomonas aeruginosa Is this a current diagnosis for this admission?: Yes Plan: See attending physician orders. - Time Time Spent with patient: 35 or more minutes Total Critical Time (Minutes): 30 Medications reviewed and adjusted accordingly: Yes Anticipated discharge: Other Within: Other - Inpatient Certification Based on my medical assessment, after consideration of the patient's comorbidities, presenting symptoms, or acuity I expect that the services needed warrant INPATIENT care.: Yes I certify that my determination is in accordance with my understanding of Medicare's requirements for reasonable and necessary INPATIENT services [42 CFR 412.3e].: Yes Medical Necessity: Need Close Monitoring Due to Risk of Patient Decompensation, Need For IV Fluids, Need For Continuous Telemetry Monitoring, Need for Nebulizer Therapy and Monitoring of Response, Need for Pain Control, Need for IV Antibiotics, Need for Surgery, Risk of Complication if Not Cared For in Hospital Post Hospital Care: Other - Plan Summary Plan Summary: Start on IV Zosyn coverage for Pseudomonas Aeruginosa pneumonia as HVAP. Continue IV Micafungin coverage. Restart on IV Propofol sedation in view of his tachycardia and hypercapnea. I spent more than 50% of my 65 minutes visit time in conference with patient navigator, charge nurse, and surgicalist on duty regarding surgical consultation for tracheostomy and PEG tube placement as per family request, suggested care plan by hand cigar making supervisor and extensive discussion with family physically and via telephone conversation. I did try transfer to [facility]. I had extensive discussion of the case with Dr. Reyes, ICU attending physician, and after review of the case declined due to the fact that they do not have any other higher care plan to offer at this time. He recommend continue pursuant of tracheostomy and PEG tube placement as well as continue with other current medical management. I discussed this outcome with the family and Dr. Bernal, surgicalist on duty.
--- NOTE | 2017-05-18 17:35 | Progress Note ---
Provider Note Provider Note: I contacted [facility] transfer center at 5:30 pm and awaiting call back regarding possible transfer.
--- NOTE | 2017-05-18 18:15 | Progress Note ---
Provider Note Provider Note: I was informed by [facility] transfer nurse that at this time [facility] have no ICU bed to accept this patient.
[2017-05-18] MEDS: PIPERACILLIN SODIUM/TAZOBACTAM 3.375 GM in NORMAL SALINE 100 ML IV SCH ×2 (18:56→23:08)
[2017-05-18] MEDS: TOBRAMYCIN SULFATE NEB 40 MG/ML 30 ML NEB SCH (20:03)
[2017-05-18] MEDS: MICAFUNGIN SODIUM 100 MG in NORMAL SALINE 100 ML IV SCH (22:33)
[2017-05-19] MEDS: MIDAZOLAM 2 MG/2 ML INJ IV PRN ×2 (01:12→23:31)
[2017-05-19] MEDS: LEVALBUTEROL HCL NEB 1.25 MG/3 ML AMPUL NEB SCH ×4 (02:07→19:57)
[2017-05-19] MEDS: PIPERACILLIN SODIUM/TAZOBACTAM 3.375 GM in NORMAL SALINE 100 ML IV SCH ×4 (05:50→23:31)
[2017-05-19] MEDS: LANSOPRAZOLE 30 MG TAB.RAP.DR PO SCH (05:51)
[2017-05-19 06:19] LABS: ABSOLUTE BASOPHILS # (AUTO) 0.1 10^3/uL (0.0-0.2); ABSOLUTE EOSINOPHILS # (AUTO) 0.2 10^3/uL (0.0-0.6); ABSOLUTE LYMPHOCYTES (AUTO) 0.8 10^3/uL (0.5-4.7); ABSOLUTE MONOCYTES (AUTO) 0.7 10^3/uL (0.1-1.4); ABSOLUTE NEUT (AUTO) 5.5 10^3/uL (1.7-8.2); BASOPHILS % (AUTO) 0.8 % (0-2); EOSINOPHILS % (AUTO) 2.5 % (0-6); HEMATOCRIT 28.1 % (37.9-51.0); HEMOGLOBIN 9.5 g/dL (13.5-17.0); LYMPHOCYTES % (AUTO) 10.8 % (13-45); MEAN CORPUSCULAR HEMOGLOBIN 30.7 pg (27.0-33.4); MEAN CORPUSCULAR HGB CONC 33.9 g/dL (32.0-36.0); MEAN CORPUSCULAR VOLUME 90 fl (80-97); MONOCYTES % (AUTO) 10.2 % (3-13); PLATELET COUNT 416 10^3/uL (150-450); RED BLOOD COUNT 3.11 10^6/uL (4.35-5.55); RED CELL DISTRIBUTION WIDTH 19.5 % (11.5-14.0); SEGMENTED NEUTROPHILS % (AUTO) 75.7 % (42-78); TOTAL CELLS COUNTED % (AUTO) 100 %; WHITE BLOOD COUNT 7.3 10^3/uL (4.0-10.5)
[2017-05-19 06:21] LABS: ARTERIAL BLOOD BASE EXCESS 4.6 mmol/L; ARTERIAL BLOOD H2CO3 1.29 mmol/L (1.05-1.35); ARTERIAL BLOOD HCO3 29.1 mmol/L (20-26); ARTERIAL BLOOD O2 SATURATION 93.5 % (94-98); ARTERIAL BLOOD PCO2 42.9 mmHg (35-45); ARTERIAL BLOOD PH 7.45 (7.35-7.45); ARTERIAL BLOOD PO2 64.7 mmHg (80-100); ARTERIAL BLOOD TOTAL CO2 30.4 mmol/L (23-27)
[2017-05-19 06:24] LABS: ARTERIAL BLOOD FIO2 50%
[2017-05-19 06:37] LABS: ALANINE AMINOTRANSFERASE 25 U/L (21-72); ALBUMIN 2.2 g/dL (3.5-5.0); ALKALINE PHOSPHATASE 109 U/L (38-126); ANION GAP 5 (5-19); ASPARTATE AMINO TRANSFERASE 25 U/L (17-59); BILIRUBIN,DIRECT 0.3 mg/dL (0.0-0.4); BILIRUBIN,TOTAL 0.4 mg/dL (0.2-1.3); BLOOD UREA NITROGEN 10 mg/dL (7-20); CALCIUM 8.1 mg/dL (8.4-10.2); CARBON DIOXIDE 29 mmol/L (22-30); CHLORIDE 99 mmol/L (98-107); GLUCOSE 98 mg/dL (75-110); MAGNESIUM 1.7 mg/dL (1.6-2.3); PHOSPHORUS 4.2 mg/dL (2.5-4.5); POTASSIUM 3.9 mmol/L (3.6-5.0); SODIUM 133.2 mmol/L (137-145); TOTAL PROTEIN 6.3 g/dL (6.3-8.2)
--- NOTE | 2017-05-19 07:57 | RADIOLOGY REPORT (SQ) ---
EXAM DESCRIPTION: CHEST SINGLE VIEW CLINICAL HISTORY: 71 years, Male, sepsis COMPARISON: 05/17/2017. NUMBER OF VIEWS: 1 LIMITATIONS: None. FINDINGS: Moderate mixed airspace and interstitial opacities of both lung [place], moderate opacity at the right lung base and moderate pleural thickening-effusion measures 3.2 cm in thickness at the right lung apex, no pneumothorax, normal cardiac silhouette, adequate endotracheal tube, likely adequate enteric tube obscured distally, and mild osteoarthritis. Right jugular central line tip is partially obscured at the right atrium; consider 5.5 cm retraction. IMPRESSION: No significant change.
[2017-05-19] MEDS: ACETYLCYSTEINE 20% SOLN 800 MG/4 ML VIAL.NEB NEB SCH ×2 (08:22→19:57)
[2017-05-19] MEDS: TOBRAMYCIN SULFATE NEB 40 MG/ML 30 ML NEB SCH ×2 (08:22→19:57)
--- NOTE | 2017-05-19 09:10 | PDOC PROGRESS REPORT ---
Subjective Progress Note for:: 05/19/17 Subjective:: Patient intubated, not sedated x 24 hrs, not responsive to verbal stimuli or sternal rub, no spontaneous movements Reason For Visit: DEHYDRATION WITH HYPONATREMIA;ACUTE RENAL INJURY; Physical Exam Vital Signs: Temp Pulse Resp BP Pulse Ox 97.7 F 93 26 H 99/68 L 94 05/19/17 06:00 05/19/17 07:32 05/19/17 06:00 05/19/17 06:00 05/19/17 06:00 Intake & Output 05/18/17 05/19/17 05/20/17 06:59 06:59 06:59 Intake Total 3081 2694 Output Total 3300 2545 275 Balance -219 149 -275 Weight 80.3 kg 80.7 kg General appearance: PRESENT: other - motionless Respiratory exam: PRESENT: clear to auscultation antonio Cardiovascular exam: PRESENT: RRR GI/Abdominal exam: PRESENT: soft Neurological exam: PRESENT: other - not alert and not arousable with verbal stimuli or sternal rub Results Laboratory Results: 05/19/17 06:05 05/19/17 06:05 05/18/17 05/19/17 05/19/17 10:05 06:05 06:05 WBC 7.3 RBC 3.11 L Hgb 9.5 L Hct 28.1 L MCV 90 MCH 30.7 MCHC 33.9 RDW 19.5 H Plt Count 416 Seg Neutrophils % 75.7 Lymphocytes % 10.8 L Monocytes % 10.2 Eosinophils % 2.5 Basophils % 0.8 Absolute Neutrophils 5.5 Absolute Lymphocytes 0.8 Absolute Monocytes 0.7 Absolute Eosinophils 0.2 Absolute Basophils 0.1 Carbonic Acid 1.23 1.29 HCO3/H2CO3 Ratio 24:1 22:1 ABG pH 7.49 H 7.45 ABG pCO2 40.9 42.9 ABG pO2 59.2 L 64.7 L ABG HCO3 30.1 H 29.1 H ABG O2 Saturation 92.4 L 93.5 L ABG Base Excess 6.2 4.6 FiO2 45% 50% Sodium Potassium Chloride Carbon Dioxide Anion Gap BUN Creatinine Est GFR ( Amer) Est GFR (Non-Af Amer) Glucose Lactic Acid Calcium Phosphorus Magnesium Total Bilirubin AST ALT Alkaline Phosphatase Total Protein Albumin 05/19/17 05/19/17 06:05 06:05 WBC RBC Hgb Hct MCV MCH MCHC RDW Plt Count Seg Neutrophils % Lymphocytes % Monocytes % Eosinophils % Basophils % Absolute Neutrophils Absolute Lymphocytes Absolute Monocytes Absolute Eosinophils Absolute Basophils Carbonic Acid HCO3/H2CO3 Ratio ABG pH ABG pCO2 ABG pO2 ABG HCO3 ABG O2 Saturation ABG Base Excess FiO2 Sodium 133.2 L Potassium 3.9 Chloride 99 Carbon Dioxide 29 Anion Gap 5 BUN 10 Creatinine 0.72 Est GFR ( Amer) > 60 Est GFR (Non-Af Amer) > 60 Glucose 98 Lactic Acid 0.6 L Calcium 8.1 L Phosphorus 4.2 Magnesium 1.7 Total Bilirubin 0.4 AST 25 ALT 25 Alkaline Phosphatase 109 Total Protein 6.3 Albumin 2.2 L 05/16/17 10:00 Sputum Gram Stain - Final 05/16/17 10:00 Sputum Sputum Culture - Final Pseudomonas Aeruginosa Normal Jo Absent Impressions: Head CT 04/17/17 13:01 IMPRESSION: MILD CHRONIC MICROVASCULAR ISCHEMIA. NO ACUTE IMAGING FINDINGS IN THE BRAIN. EVIDENCE OF ACUTE STROKE: NO. 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 AREAS OF MILD TO MODERATE SPINAL STENOSIS DESCRIBED. NO ACUTE FINDINGS. Chest CT 04/27/17 00:00 IMPRESSION: Diffuse bullous change with superimposed fluid likely interstitial edema or pneumonia. Clearly progressed from previous. Bilateral pleural effusions. Persistent air-fluid level and a large bullae in the right upper lobe. Infection in the differential. Unchanged. Acute Abdomen Series 04/30/17 00:00 IMPRESSION: 1. Gaseous distention in the abdomen. This includes large and small bowel. Scattered air-fluid levels may reflect mild ileus. Modified Barium Swallow 05/01/17 00:00 IMPRESSION: NO EVIDENCE OF LARYNGEAL PENETRATION OR TRACHEAL ASPIRATION.PLEASE SEE SPEECH PATHOLOGIST REPORT FOR OTHER FINDINGS AND RECOMMENDATIONS. Fluoroscopy 05/07/17 00:00 IMPRESSION: IMAGE(S) OBTAINED DURING PROCEDURE. KUB X-Ray 05/14/17 00:00 IMPRESSION: SATISFACTORY POSITION OF ENTERIC TUBE. NO SIGNIFICANT CHANGE FROM PRIOR STUDY. Chest X-Ray 05/19/17 06:00 IMPRESSION: No significant change. Assessment & Plan - Diagnosis (1) Dehydration with hyponatremia Is this a current diagnosis for this admission?: Yes - Plan Summary Plan Summary: Patient neurologically impaired, unresponsive I believe the patient is no surgical candidate for PEG/tracheostomy I will sign of, please call me with questions
[2017-05-19] MEDS: POTASSIUM CHLORIDE 20 MEQ/15 ML UDCUP NG SCH (10:33)
[2017-05-19] MEDS: PROPOFOL 100 ML IV PRN ×2 (10:35→18:01)
--- NOTE | 2017-05-19 10:42 | PDOC PROGRESS REPORT ---
Subjective Progress Note for:: 05/19/17 Subjective:: Patient remain sedated, intubated ad vent supported. Surgical team continue to decline PEG and Tracheostomy placement as per family wish. He remain on IV Micafungin, IV Zosyn and Tobramycin NEB coverage. Attempts at transfer to tertiary centers in her zone was unsuccessful yesterday. Reason For Visit: DEHYDRATION WITH HYPONATREMIA;ACUTE RENAL INJURY; Physical Exam Vital Signs: Temp Pulse Resp BP Pulse Ox 97.7 F 87 24 H 99/68 L 95 05/19/17 06:00 05/19/17 08:23 05/19/17 08:23 05/19/17 06:00 05/19/17 08:23 Intake & Output 05/18/17 05/19/17 05/20/17 06:59 06:59 06:59 Intake Total 3081 2694 Output Total 3300 2545 275 Balance -219 149 -275 Weight 80.3 kg 80.7 kg Physical Exam: General appearance: PRESENT: Sedated on IV Propofol. ET and OG tubes in situ. Head exam: PRESENT: atraumatic, normocephalic Eye exam: PRESENT: conjunctiva pink, EOMI, PERRLA. ABSENT: scleral icterus Mouth exam: PRESENT: moist Neck exam: PRESENT: other - right IJ central line device Respiratory exam: PRESENT: decreased breath sounds at lung bases Cardiovascular exam: PRESENT: RRR, S+1, S+2, ABSENT: diastolic murmur, rubs, systolic murmur. GI/Abdominal exam: PRESENT: normal bowel sounds, soft. ABSENT: distended, guarding, mass, organomegaly, rebound, tenderness Extremities exam: PRESENT: pedal edema - upper extremities due to soft tissue infiltration Musculoskeletal exam: PRESENT: Slight improvement in generalized edema Neurological exam: PRESENT: Sedated. Skin exam: PRESENT: dry, intact, warm. ABSENT: cyanosis Results Laboratory Results: 05/19/17 06:05 05/19/17 06:05 05/18/17 05/19/17 05/19/17 10:05 06:05 06:05 WBC 7.3 RBC 3.11 L Hgb 9.5 L Hct 28.1 L MCV 90 MCH 30.7 MCHC 33.9 RDW 19.5 H Plt Count 416 Seg Neutrophils % 75.7 Lymphocytes % 10.8 L Monocytes % 10.2 Eosinophils % 2.5 Basophils % 0.8 Absolute Neutrophils 5.5 Absolute Lymphocytes 0.8 Absolute Monocytes 0.7 Absolute Eosinophils 0.2 Absolute Basophils 0.1 Carbonic Acid 1.23 1.29 HCO3/H2CO3 Ratio 24:1 22:1 ABG pH 7.49 H 7.45 ABG pCO2 40.9 42.9 ABG pO2 59.2 L 64.7 L ABG HCO3 30.1 H 29.1 H ABG O2 Saturation 92.4 L 93.5 L ABG Base Excess 6.2 4.6 FiO2 45% 50% Sodium Potassium Chloride Carbon Dioxide Anion Gap BUN Creatinine Est GFR ( Amer) Est GFR (Non-Af Amer) Glucose Lactic Acid Calcium Phosphorus Magnesium Total Bilirubin AST ALT Alkaline Phosphatase Total Protein Albumin 05/19/17 05/19/17 06:05 06:05 WBC RBC Hgb Hct MCV MCH MCHC RDW Plt Count Seg Neutrophils % Lymphocytes % Monocytes % Eosinophils % Basophils % Absolute Neutrophils Absolute Lymphocytes Absolute Monocytes Absolute Eosinophils Absolute Basophils Carbonic Acid HCO3/H2CO3 Ratio ABG pH ABG pCO2 ABG pO2 ABG HCO3 ABG O2 Saturation ABG Base Excess FiO2 Sodium 133.2 L Potassium 3.9 Chloride 99 Carbon Dioxide 29 Anion Gap 5 BUN 10 Creatinine 0.72 Est GFR ( Amer) > 60 Est GFR (Non-Af Amer) > 60 Glucose 98 Lactic Acid 0.6 L Calcium 8.1 L Phosphorus 4.2 Magnesium 1.7 Total Bilirubin 0.4 AST 25 ALT 25 Alkaline Phosphatase 109 Total Protein 6.3 Albumin 2.2 L 05/16/17 10:00 Sputum Gram Stain - Final 05/16/17 10:00 Sputum Sputum Culture - Final Pseudomonas Aeruginosa Normal Jo Absent Impressions: Head CT 04/17/17 13:01 IMPRESSION: MILD CHRONIC MICROVASCULAR ISCHEMIA. NO ACUTE IMAGING FINDINGS IN THE BRAIN. EVIDENCE OF ACUTE STROKE: NO. 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 AREAS OF MILD TO MODERATE SPINAL STENOSIS DESCRIBED. NO ACUTE FINDINGS. Chest CT 04/27/17 00:00 IMPRESSION: Diffuse bullous change with superimposed fluid likely interstitial edema or pneumonia. Clearly progressed from previous. Bilateral pleural effusions. Persistent air-fluid level and a large bullae in the right upper lobe. Infection in the differential. Unchanged. Acute Abdomen Series 04/30/17 00:00 IMPRESSION: 1. Gaseous distention in the abdomen. This includes large and small bowel. Scattered air-fluid levels may reflect mild ileus. Modified Barium Swallow 05/01/17 00:00 IMPRESSION: NO EVIDENCE OF LARYNGEAL PENETRATION OR TRACHEAL ASPIRATION.PLEASE SEE SPEECH PATHOLOGIST REPORT FOR OTHER FINDINGS AND RECOMMENDATIONS. Fluoroscopy 05/07/17 00:00 IMPRESSION: IMAGE(S) OBTAINED DURING PROCEDURE. KUB X-Ray 05/14/17 00:00 IMPRESSION: SATISFACTORY POSITION OF ENTERIC TUBE. NO SIGNIFICANT CHANGE FROM PRIOR STUDY. Chest X-Ray 05/19/17 06:00 IMPRESSION: No significant change. Assessment & Plan - Diagnosis (1) Dehydration with hyponatremia Is this a current diagnosis for this admission?: Yes (2) Abnormality of lung on CXR Is this a current diagnosis for this admission?: Yes (3) Pneumatocele of lung Is this a current diagnosis for this admission?: No (4) Pneumothorax on right Is this a current diagnosis for this admission?: Yes (5) Acute kidney injury Is this a current diagnosis for this admission?: Yes (6) COPD (chronic obstructive pulmonary disease) Qualifiers: COPD type: unspecified COPD Qualified Code(s): J44.9 - Chronic obstructive pulmonary disease, unspecified Is this a current diagnosis for this admission?: Yes (7) HLD (hyperlipidemia) Qualifiers: Hyperlipidemia type: pure hypercholesterolemia Qualified Code(s): E78.00 - Pure hypercholesterolemia, unspecified Is this a current diagnosis for this admission?: Yes (8) HTN (hypertension) Qualifiers: Hypertension type: essential hypertension Qualified Code(s): I10 - Essential (primary) hypertension Is this a current diagnosis for this admission?: Yes (9) Constipation Qualifiers: Constipation type: slow transit constipation Qualified Code(s): K59.01 - Slow transit constipation Is this a current diagnosis for this admission?: Yes (10) Acute respiratory failure with hypoxemia Is this a current diagnosis for this admission?: Yes (11) Fungal pneumonia Is this a current diagnosis for this admission?: Yes (12) Pneumonia due to Pseudomonas aeruginosa Is this a current diagnosis for this admission?: Yes - Time Time Spent with patient: 35 or more minutes Medications reviewed and adjusted accordingly: Yes Anticipated discharge: Other Within: Other - Inpatient Certification Based on my medical assessment, after consideration of the patient's comorbidities, presenting symptoms, or acuity I expect that the services needed warrant INPATIENT care.: Yes I certify that my determination is in accordance with my understanding of Medicare's requirements for reasonable and necessary INPATIENT services [42 CFR 412.3e].: Yes Medical Necessity: Need Close Monitoring Due to Risk of Patient Decompensation, Need For IV Fluids, Need For Continuous Telemetry Monitoring, Need for Nebulizer Therapy and Monitoring of Response, Need for IV Antibiotics, Need for Surgery, Risk of Complication if Not Cared For in Hospital Post Hospital Care: Other - Plan Summary Plan Summary: Continue all current medication management. I discuss at length with daughters at bedside regarding care plan, surgical decision, and transfer efforts. I discussed the option of surgical request for tracheostomy and PEG placement at [facility] and return to my service versus transfer to LTAC with capacity to perform the procedure. Family are more attune to the latter.
[2017-05-19] MEDS: NORMAL SALINE 1000 ML 1,000 ML IV PRN (12:09)
[2017-05-19] MEDS: DEXTROSE 5%-WATER 250 ML with NOREPINEPHRINE BITARTRATE 4 MG IV PRN ×2 (14:49)
--- NOTE | 2017-05-19 20:51 | PDOC PROGRESS REPORT ---
Subjective Progress Note for:: 05/18/17 Subjective:: Day # 11 Reason For Visit: DEHYDRATION WITH HYPONATREMIA;ACUTE RENAL INJURY; Physical Exam Vital Signs: Temp Pulse Resp BP Pulse Ox 98.2 F 91 25 H 112/76 96 05/18/17 08:36 05/18/17 08:38 05/18/17 08:38 05/18/17 08:36 05/18/17 08:38 Intake & Output 05/17/17 05/18/17 05/19/17 06:59 06:59 06:59 Intake Total 3105 3081 Output Total 3850 3300 400 Balance -745 -219 -400 Weight 83 kg 80.3 kg General appearance: PRESENT: no acute distress. ABSENT: cooperative, disheveled , mild distress, morbidly obese, obese, severe distress Head exam: PRESENT: atraumatic, normocephalic Eye exam: PRESENT: conjunctiva pale. ABSENT: conjunctival injection, conjunctiva pink, nystagmus, periorbital swelling, scleral icterus Mouth exam: PRESENT: dry mucosa, neck supple, tongue midline, other - ET tube. ABSENT: laceration, moist Neck exam: ABSENT: carotid bruit, JVD, lymphadenopathy, thyromegaly, tracheal deviation, tracheostomy Respiratory exam: PRESENT: crackles, decreased breath sounds, prolonged expiratory phas, rhonchi, symmetrical, tachypnea, unlabored. ABSENT: accessory muscle use, chest wall tenderness, clear to auscultation antonio, rales, retraction , stridor Cardiovascular exam: PRESENT: RRR, +S1 Pulses: PRESENT: normal radial pulses GI/Abdominal exam: PRESENT: diminished bowel sounds, soft Rectal exam: ABSENT: prostate tenderness Extremities exam: PRESENT: +1 edema. ABSENT: clubbing Musculoskeletal exam: ABSENT: ambulatory, deformity, dislocation Skin exam: PRESENT: dry, warm Results Laboratory Results: 05/18/17 04:50 05/18/17 04:50 05/18/17 05/18/17 04:50 04:50 WBC 6.1 RBC 3.18 L Hgb 9.7 L Hct 28.7 L MCV 90 MCH 30.6 MCHC 33.9 RDW 19.6 H Plt Count 391 Seg Neutrophils % 68.6 Lymphocytes % 13.1 Monocytes % 11.7 Eosinophils % 5.5 Basophils % 1.1 Absolute Neutrophils 4.2 Absolute Lymphocytes 0.8 Absolute Monocytes 0.7 Absolute Eosinophils 0.3 Absolute Basophils 0.1 Sodium 136.2 L Potassium 4.0 Chloride 101 Carbon Dioxide 29 Anion Gap 6 BUN 8 Creatinine 0.77 Est GFR ( Amer) > 60 Est GFR (Non-Af Amer) > 60 Glucose 101 Calcium 8.4 Triglycerides 105 05/16/17 10:00 Sputum Gram Stain - Final 05/16/17 10:00 Sputum Sputum Culture - Final Pseudomonas Aeruginosa Normal Jo Absent Impressions: Head CT 04/17/17 13:01 IMPRESSION: MILD CHRONIC MICROVASCULAR ISCHEMIA. NO ACUTE IMAGING FINDINGS IN THE BRAIN. EVIDENCE OF ACUTE STROKE: NO. 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 AREAS OF MILD TO MODERATE SPINAL STENOSIS DESCRIBED. NO ACUTE FINDINGS. Chest CT 04/27/17 00:00 IMPRESSION: Diffuse bullous change with superimposed fluid likely interstitial edema or pneumonia. Clearly progressed from previous. Bilateral pleural effusions. Persistent air-fluid level and a large bullae in the right upper lobe. Infection in the differential. Unchanged. Acute Abdomen Series 04/30/17 00:00 IMPRESSION: 1. Gaseous distention in the abdomen. This includes large and small bowel. Scattered air-fluid levels may reflect mild ileus. Modified Barium Swallow 05/01/17 00:00 IMPRESSION: NO EVIDENCE OF LARYNGEAL PENETRATION OR TRACHEAL ASPIRATION.PLEASE SEE SPEECH PATHOLOGIST REPORT FOR OTHER FINDINGS AND RECOMMENDATIONS. Fluoroscopy 05/07/17 00:00 IMPRESSION: IMAGE(S) OBTAINED DURING PROCEDURE. KUB X-Ray 05/14/17 00:00 IMPRESSION: SATISFACTORY POSITION OF ENTERIC TUBE. NO SIGNIFICANT CHANGE FROM PRIOR STUDY. Chest X-Ray 05/17/17 00:00 IMPRESSION: The previously described diffuse alveolar and interstitial infiltrates appear minimally improved with decreasing confluence. Extensive residual changes are identified. Endotracheal tube in satisfactory position. Other findings as noted above Assessment & Plan - Diagnosis (1) Cavitary lesion of lung Is this a current diagnosis for this admission?: Yes Plan: unchanged (2) History of myasthenia gravis Is this a current diagnosis for this admission?: No (3) Hyponatremia Is this a current diagnosis for this admission?: No (4) Necrotizing pneumonia Is this a current diagnosis for this admission?: Yes Plan: ultra sound R hemithorax (5) COPD (chronic obstructive pulmonary disease) Qualifiers: COPD type: unspecified COPD Qualified Code(s): J44.9 - Chronic obstructive pulmonary disease, unspecified Is this a current diagnosis for this admission?: Yes Plan: slight decrease in min vent and FIO2 - Time Total Critical Time (Minutes): 35
--- NOTE | 2017-05-19 20:56 | PDOC PROGRESS REPORT ---
Subjective Progress Note for:: 05/19/17 Subjective:: Day # 11 Reason For Visit: DEHYDRATION WITH HYPONATREMIA;ACUTE RENAL INJURY; Physical Exam Vital Signs: Temp Pulse Resp BP Pulse Ox 97.7 F 87 24 H 99/68 L 95 05/19/17 06:00 05/19/17 08:23 05/19/17 08:23 05/19/17 06:00 05/19/17 08:23 Intake & Output 05/18/17 05/19/17 05/20/17 06:59 06:59 06:59 Intake Total 3081 2694 Output Total 3300 0595 275 Balance -219 149 -275 Weight 80.3 kg 80.7 kg General appearance: PRESENT: no acute distress, thin. ABSENT: cooperative, disheveled, mild distress, morbidly obese, obese, severe distress Head exam: PRESENT: atraumatic, normocephalic Eye exam: PRESENT: conjunctiva pale. ABSENT: conjunctival injection, conjunctiva pink, nystagmus, periorbital swelling Mouth exam: PRESENT: dry mucosa, neck supple, tongue midline, other - ET tube. ABSENT: laceration, moist Neck exam: ABSENT: carotid bruit, JVD, lymphadenopathy, thyromegaly, tracheal deviation, tracheostomy Respiratory exam: PRESENT: decreased breath sounds, prolonged expiratory phas, rales, rhonchi, symmetrical, unlabored. ABSENT: accessory muscle use, chest wall tenderness, clear to auscultation antonio, crackles, retraction, stridor Cardiovascular exam: PRESENT: RRR, +S1 Pulses: PRESENT: normal radial pulses GI/Abdominal exam: PRESENT: diminished bowel sounds Gentrourinary exam: PRESENT: indwelling catheter Extremities exam: PRESENT: +1 edema. ABSENT: clubbing Musculoskeletal exam: ABSENT: ambulatory, deformity, dislocation Skin exam: PRESENT: dry, warm Results Laboratory Results: 05/19/17 06:05 05/19/17 06:05 05/18/17 05/19/17 05/19/17 10:05 06:05 06:05 WBC 7.3 RBC 3.11 L Hgb 9.5 L Hct 28.1 L MCV 90 MCH 30.7 MCHC 33.9 RDW 19.5 H Plt Count 416 Seg Neutrophils % 75.7 Lymphocytes % 10.8 L Monocytes % 10.2 Eosinophils % 2.5 Basophils % 0.8 Absolute Neutrophils 5.5 Absolute Lymphocytes 0.8 Absolute Monocytes 0.7 Absolute Eosinophils 0.2 Absolute Basophils 0.1 Carbonic Acid 1.23 1.29 HCO3/H2CO3 Ratio 24:1 22:1 ABG pH 7.49 H 7.45 ABG pCO2 40.9 42.9 ABG pO2 59.2 L 64.7 L ABG HCO3 30.1 H 29.1 H ABG O2 Saturation 92.4 L 93.5 L ABG Base Excess 6.2 4.6 FiO2 45% 50% Sodium Potassium Chloride Carbon Dioxide Anion Gap BUN Creatinine Est GFR ( Amer) Est GFR (Non-Af Amer) Glucose Lactic Acid Calcium Phosphorus Magnesium Total Bilirubin AST ALT Alkaline Phosphatase Total Protein Albumin 05/19/17 05/19/17 06:05 06:05 WBC RBC Hgb Hct MCV MCH MCHC RDW Plt Count Seg Neutrophils % Lymphocytes % Monocytes % Eosinophils % Basophils % Absolute Neutrophils Absolute Lymphocytes Absolute Monocytes Absolute Eosinophils Absolute Basophils Carbonic Acid HCO3/H2CO3 Ratio ABG pH ABG pCO2 ABG pO2 ABG HCO3 ABG O2 Saturation ABG Base Excess FiO2 Sodium 133.2 L Potassium 3.9 Chloride 99 Carbon Dioxide 29 Anion Gap 5 BUN 10 Creatinine 0.72 Est GFR ( Amer) > 60 Est GFR (Non-Af Amer) > 60 Glucose 98 Lactic Acid 0.6 L Calcium 8.1 L Phosphorus 4.2 Magnesium 1.7 Total Bilirubin 0.4 AST 25 ALT 25 Alkaline Phosphatase 109 Total Protein 6.3 Albumin 2.2 L 05/16/17 10:00 Sputum Gram Stain - Final 05/16/17 10:00 Sputum Sputum Culture - Final Pseudomonas Aeruginosa Normal Jo Absent Impressions: Head CT 04/17/17 13:01 IMPRESSION: MILD CHRONIC MICROVASCULAR ISCHEMIA. NO ACUTE IMAGING FINDINGS IN THE BRAIN. EVIDENCE OF ACUTE STROKE: NO. 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 AREAS OF MILD TO MODERATE SPINAL STENOSIS DESCRIBED. NO ACUTE FINDINGS. Chest CT 04/27/17 00:00 IMPRESSION: Diffuse bullous change with superimposed fluid likely interstitial edema or pneumonia. Clearly progressed from previous. Bilateral pleural effusions. Persistent air-fluid level and a large bullae in the right upper lobe. Infection in the differential. Unchanged. Acute Abdomen Series 04/30/17 00:00 IMPRESSION: 1. Gaseous distention in the abdomen. This includes large and small bowel. Scattered air-fluid levels may reflect mild ileus. Modified Barium Swallow 05/01/17 00:00 IMPRESSION: NO EVIDENCE OF LARYNGEAL PENETRATION OR TRACHEAL ASPIRATION.PLEASE SEE SPEECH PATHOLOGIST REPORT FOR OTHER FINDINGS AND RECOMMENDATIONS. Fluoroscopy 05/07/17 00:00 IMPRESSION: IMAGE(S) OBTAINED DURING PROCEDURE. KUB X-Ray 05/14/17 00:00 IMPRESSION: SATISFACTORY POSITION OF ENTERIC TUBE. NO SIGNIFICANT CHANGE FROM PRIOR STUDY. Chest X-Ray 05/19/17 06:00 IMPRESSION: No significant change. Assessment & Plan - Diagnosis (1) Cavitary lesion of lung Is this a current diagnosis for this admission?: Yes Plan: unchanged (2) History of myasthenia gravis Is this a current diagnosis for this admission?: Yes Plan: hx of thymoma, Acetylcholinesterase antibody pending (3) Hyponatremia Is this a current diagnosis for this admission?: No (4) Necrotizing pneumonia Is this a current diagnosis for this admission?: Yes Plan: clinically appears to be stable (5) COPD (chronic obstructive pulmonary disease) Qualifiers: COPD type: unspecified COPD Qualified Code(s): J44.9 - Chronic obstructive pulmonary disease, unspecified Is this a current diagnosis for this admission?: Yes Plan: slight decrease in min vent and FIO2 - Time Total Critical Time (Minutes): 35
[2017-05-19] MEDS: MICAFUNGIN SODIUM 100 MG in NORMAL SALINE 100 ML IV SCH (21:55)
[2017-05-20] MEDS: LEVALBUTEROL HCL NEB 1.25 MG/3 ML AMPUL NEB SCH ×4 (02:20→19:44)
[2017-05-20] MEDS: LANSOPRAZOLE 30 MG TAB.RAP.DR PO SCH (05:18)
[2017-05-20] MEDS: PIPERACILLIN SODIUM/TAZOBACTAM 3.375 GM in NORMAL SALINE 100 ML IV SCH ×4 (05:19→23:59)
[2017-05-20 06:01] LABS: ARTERIAL BLOOD BASE EXCESS 4.5 mmol/L; ARTERIAL BLOOD H2CO3 1.25 mmol/L (1.05-1.35); ARTERIAL BLOOD HCO3 28.7 mmol/L (20-26); ARTERIAL BLOOD PCO2 41.4 mmHg (35-45); ARTERIAL BLOOD PH 7.46 (7.35-7.45); ARTERIAL BLOOD PO2 56.8 mmHg (80-100)
[2017-05-20 06:06] LABS: ARTERIAL BLOOD FIO2 50%
[2017-05-20 06:15] LABS: ANION GAP 6 (5-19); BLOOD UREA NITROGEN 10 mg/dL (7-20); CALCIUM 8.3 mg/dL (8.4-10.2); CARBON DIOXIDE 28 mmol/L (22-30); CHLORIDE 98 mmol/L (98-107); GLUCOSE 93 mg/dL (75-110); PHOSPHORUS 3.6 mg/dL (2.5-4.5); SODIUM 131.8 mmol/L (137-145)
[2017-05-20 07:06] LABS: ABSOLUTE EOSINOPHILS # (AUTO) 0.2 10^3/uL (0.0-0.6); ABSOLUTE LYMPHOCYTES (AUTO) 0.8 10^3/uL (0.5-4.7); ABSOLUTE MONOCYTES (AUTO) 0.8 10^3/uL (0.1-1.4); ABSOLUTE NEUT (AUTO) 6.1 10^3/uL (1.7-8.2); BASOPHILS % (AUTO) 0.6 % (0-2); EOSINOPHILS % (AUTO) 2.3 % (0-6); HEMATOCRIT 27.4 % (37.9-51.0); HEMOGLOBIN 9.4 g/dL (13.5-17.0); LYMPHOCYTES % (AUTO) 10.5 % (13-45); MEAN CORPUSCULAR HEMOGLOBIN 31.1 pg (27.0-33.4); MEAN CORPUSCULAR HGB CONC 34.1 g/dL (32.0-36.0); MONOCYTES % (AUTO) 9.6 % (3-13); PLATELET COUNT 456 10^3/uL (150-450); RED BLOOD COUNT 3.01 10^6/uL (4.35-5.55); RED CELL DISTRIBUTION WIDTH 19.4 % (11.5-14.0); TOTAL CELLS COUNTED % (AUTO) 100 %; WHITE BLOOD COUNT 7.9 10^3/uL (4.0-10.5)
[2017-05-20 07:09] LABS: MEAN CORPUSCULAR VOLUME 91 fl (80-97)
[2017-05-20] MEDS: TOBRAMYCIN SULFATE NEB 40 MG/ML 30 ML NEB SCH ×2 (07:50→19:44)
[2017-05-20] MEDS: ACETYLCYSTEINE 20% SOLN 800 MG/4 ML VIAL.NEB NEB SCH ×2 (07:50→19:44)
--- NOTE | 2017-05-20 07:52 | RADIOLOGY REPORT (SQ) ---
EXAM DESCRIPTION: CHEST SINGLE VIEW CLINICAL HISTORY: 71 years, Male, resp failure COMPARISON: 05/19/17. NUMBER OF VIEWS: 1 LIMITATIONS: None. FINDINGS: Moderate mixed airspace and interstitial opacities, moderate to low right lung volume, moderate right pleural-based opacity-layered effusion, no pneumothorax, normal cardiac silhouette, adequate enteric tube, and right jugular central line tip at inferior aspect of the cavoatrial junction. IMPRESSION: No significant change.
[2017-05-20] MEDS: PROPOFOL 100 ML IV PRN ×3 (08:31→19:27)
--- NOTE | 2017-05-20 08:56 | PDOC PROGRESS REPORT ---
Subjective Progress Note for:: 05/20/17 Subjective:: Patient is not responsive after having been off sedation x 2 days Reason For Visit: DEHYDRATION WITH HYPONATREMIA;ACUTE RENAL INJURY; Physical Exam Vital Signs: Temp Pulse Resp BP Pulse Ox 98.6 F 113 H 27 H 104/68 96 05/20/17 06:15 05/20/17 07:22 05/20/17 06:15 05/20/17 06:08 05/20/17 06:15 Intake & Output 05/19/17 05/20/17 05/21/17 06:59 06:59 06:59 Intake Total 2694 2800 Output Total 2545 2290 125 Balance 149 510 -125 Weight 80.7 kg 80.5 kg Respiratory exam: PRESENT: clear to auscultation antonio Cardiovascular exam: PRESENT: RRR GI/Abdominal exam: PRESENT: soft Neurological exam: PRESENT: other - patient not responsive to verbal or physical stimuly, bilateral Babinsky sign Results Laboratory Results: 05/20/17 06:30 05/20/17 05:40 05/20/17 05/20/17 05/20/17 05:40 05:40 05:40 WBC Cancelled RBC Cancelled Hgb Cancelled Hct Cancelled MCV Cancelled MCH Cancelled MCHC Cancelled RDW Cancelled Plt Count Cancelled Seg Neutrophils % Cancelled Lymphocytes % Cancelled Monocytes % Cancelled Eosinophils % Cancelled Basophils % Cancelled Absolute Neutrophils Cancelled Absolute Lymphocytes Cancelled Absolute Monocytes Cancelled Absolute Eosinophils Cancelled Absolute Basophils Cancelled Carbonic Acid 1.25 HCO3/H2CO3 Ratio 22:1 ABG pH 7.46 H ABG pCO2 41.4 ABG pO2 56.8 L ABG HCO3 28.7 H ABG O2 Saturation 91.0 L ABG Base Excess 4.5 FiO2 50% Sodium 131.8 L Potassium 4.0 Chloride 98 Carbon Dioxide 28 Anion Gap 6 BUN 10 Creatinine 0.69 Est GFR ( Amer) > 60 Est GFR (Non-Af Amer) > 60 Glucose 93 Calcium 8.3 L Phosphorus 3.6 05/20/17 06:30 WBC 7.9 RBC 3.01 L Hgb 9.4 L Hct 27.4 L MCV 91 MCH 31.1 MCHC 34.1 RDW 19.4 H Plt Count 456 H Seg Neutrophils % 77.0 Lymphocytes % 10.5 L Monocytes % 9.6 Eosinophils % 2.3 Basophils % 0.6 Absolute Neutrophils 6.1 Absolute Lymphocytes 0.8 Absolute Monocytes 0.8 Absolute Eosinophils 0.2 Absolute Basophils 0.0 Carbonic Acid HCO3/H2CO3 Ratio ABG pH ABG pCO2 ABG pO2 ABG HCO3 ABG O2 Saturation ABG Base Excess FiO2 Sodium Potassium Chloride Carbon Dioxide Anion Gap BUN Creatinine Est GFR ( Amer) Est GFR (Non-Af Amer) Glucose Calcium Phosphorus Impressions: Head CT 04/17/17 13:01 IMPRESSION: MILD CHRONIC MICROVASCULAR ISCHEMIA. NO ACUTE IMAGING FINDINGS IN THE BRAIN. EVIDENCE OF ACUTE STROKE: NO. 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 AREAS OF MILD TO MODERATE SPINAL STENOSIS DESCRIBED. NO ACUTE FINDINGS. Chest CT 04/27/17 00:00 IMPRESSION: Diffuse bullous change with superimposed fluid likely interstitial edema or pneumonia. Clearly progressed from previous. Bilateral pleural effusions. Persistent air-fluid level and a large bullae in the right upper lobe. Infection in the differential. Unchanged. Acute Abdomen Series 04/30/17 00:00 IMPRESSION: 1. Gaseous distention in the abdomen. This includes large and small bowel. Scattered air-fluid levels may reflect mild ileus. Modified Barium Swallow 05/01/17 00:00 IMPRESSION: NO EVIDENCE OF LARYNGEAL PENETRATION OR TRACHEAL ASPIRATION.PLEASE SEE SPEECH PATHOLOGIST REPORT FOR OTHER FINDINGS AND RECOMMENDATIONS. Fluoroscopy 05/07/17 00:00 IMPRESSION: IMAGE(S) OBTAINED DURING PROCEDURE. KUB X-Ray 05/14/17 00:00 IMPRESSION: SATISFACTORY POSITION OF ENTERIC TUBE. NO SIGNIFICANT CHANGE FROM PRIOR STUDY. Chest X-Ray 05/20/17 06:00 IMPRESSION: No significant change. Assessment & Plan - Diagnosis (1) Dehydration with hyponatremia Is this a current diagnosis for this admission?: Yes (2) Unresponsiveness Is this a current diagnosis for this admission?: Yes - Plan Summary Plan Summary: due to the poor neurological starus, plan no procedure on this patient at this time
--- NOTE | 2017-05-20 09:53 | PDOC PROGRESS REPORT ---
Subjective Progress Note for:: 05/20/17 Subjective:: Patient remain intubated, sedated, and vent supported. He remain on IV Micafungin, IV Zosyn and Tobramycin NEB coverage. Continue to tolerate enteral tube feeding. Reason For Visit: DEHYDRATION WITH HYPONATREMIA;ACUTE RENAL INJURY; Physical Exam Vital Signs: Temp Pulse Resp BP Pulse Ox 98.6 F 113 H 27 H 104/68 96 05/20/17 06:15 05/20/17 07:22 05/20/17 06:15 05/20/17 06:08 05/20/17 06:15 Intake & Output 05/19/17 05/20/17 05/21/17 06:59 06:59 06:59 Intake Total 2694 2800 Output Total 2545 2290 125 Balance 149 510 -125 Weight 80.7 kg 80.5 kg Physical Exam: General appearance: PRESENT: Sedated on IV Propofol. ET and OG tubes in situ. Head exam: PRESENT: atraumatic, normocephalic Eye exam: PRESENT: conjunctiva pink, EOMI, PERRLA. ABSENT: scleral icterus Mouth exam: PRESENT: moist Neck exam: PRESENT: other - right IJ central line device Respiratory exam: PRESENT: decreased breath sounds at lung bases Cardiovascular exam: PRESENT: RRR, S+1, S+2, ABSENT: diastolic murmur, rubs, systolic murmur. GI/Abdominal exam: PRESENT: normal bowel sounds, soft. ABSENT: distended, guarding, mass, organomegaly, rebound, tenderness Extremities exam: PRESENT: pedal edema - upper extremities due to soft tissue infiltration Musculoskeletal exam: PRESENT: Slight improvement in generalized edema Neurological exam: PRESENT: Sedated. Skin exam: PRESENT: dry, intact, warm. ABSENT: cyanosis Results Laboratory Results: 05/20/17 06:30 05/20/17 05:40 05/20/17 05/20/17 05/20/17 05:40 05:40 05:40 WBC Cancelled RBC Cancelled Hgb Cancelled Hct Cancelled MCV Cancelled MCH Cancelled MCHC Cancelled RDW Cancelled Plt Count Cancelled Seg Neutrophils % Cancelled Lymphocytes % Cancelled Monocytes % Cancelled Eosinophils % Cancelled Basophils % Cancelled Absolute Neutrophils Cancelled Absolute Lymphocytes Cancelled Absolute Monocytes Cancelled Absolute Eosinophils Cancelled Absolute Basophils Cancelled Carbonic Acid 1.25 HCO3/H2CO3 Ratio 22:1 ABG pH 7.46 H ABG pCO2 41.4 ABG pO2 56.8 L ABG HCO3 28.7 H ABG O2 Saturation 91.0 L ABG Base Excess 4.5 FiO2 50% Sodium 131.8 L Potassium 4.0 Chloride 98 Carbon Dioxide 28 Anion Gap 6 BUN 10 Creatinine 0.69 Est GFR ( Amer) > 60 Est GFR (Non-Af Amer) > 60 Glucose 93 Calcium 8.3 L Phosphorus 3.6 05/20/17 06:30 WBC 7.9 RBC 3.01 L Hgb 9.4 L Hct 27.4 L MCV 91 MCH 31.1 MCHC 34.1 RDW 19.4 H Plt Count 456 H Seg Neutrophils % 77.0 Lymphocytes % 10.5 L Monocytes % 9.6 Eosinophils % 2.3 Basophils % 0.6 Absolute Neutrophils 6.1 Absolute Lymphocytes 0.8 Absolute Monocytes 0.8 Absolute Eosinophils 0.2 Absolute Basophils 0.0 Carbonic Acid HCO3/H2CO3 Ratio ABG pH ABG pCO2 ABG pO2 ABG HCO3 ABG O2 Saturation ABG Base Excess FiO2 Sodium Potassium Chloride Carbon Dioxide Anion Gap BUN Creatinine Est GFR ( Amer) Est GFR (Non-Af Amer) Glucose Calcium Phosphorus Impressions: Head CT 04/17/17 13:01 IMPRESSION: MILD CHRONIC MICROVASCULAR ISCHEMIA. NO ACUTE IMAGING FINDINGS IN THE BRAIN. EVIDENCE OF ACUTE STROKE: NO. 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 AREAS OF MILD TO MODERATE SPINAL STENOSIS DESCRIBED. NO ACUTE FINDINGS. Chest CT 04/27/17 00:00 IMPRESSION: Diffuse bullous change with superimposed fluid likely interstitial edema or pneumonia. Clearly progressed from previous. Bilateral pleural effusions. Persistent air-fluid level and a large bullae in the right upper lobe. Infection in the differential. Unchanged. Acute Abdomen Series 04/30/17 00:00 IMPRESSION: 1. Gaseous distention in the abdomen. This includes large and small bowel. Scattered air-fluid levels may reflect mild ileus. Modified Barium Swallow 05/01/17 00:00 IMPRESSION: NO EVIDENCE OF LARYNGEAL PENETRATION OR TRACHEAL ASPIRATION.PLEASE SEE SPEECH PATHOLOGIST REPORT FOR OTHER FINDINGS AND RECOMMENDATIONS. Fluoroscopy 05/07/17 00:00 IMPRESSION: IMAGE(S) OBTAINED DURING PROCEDURE. KUB X-Ray 05/14/17 00:00 IMPRESSION: SATISFACTORY POSITION OF ENTERIC TUBE. NO SIGNIFICANT CHANGE FROM PRIOR STUDY. Chest X-Ray 05/20/17 06:00 IMPRESSION: No significant change. Assessment & Plan - Diagnosis (1) Dehydration with hyponatremia Is this a current diagnosis for this admission?: Yes (2) Abnormality of lung on CXR Is this a current diagnosis for this admission?: Yes (3) Pneumatocele of lung Is this a current diagnosis for this admission?: No (4) Pneumothorax on right Is this a current diagnosis for this admission?: Yes (5) Acute kidney injury Is this a current diagnosis for this admission?: Yes (6) COPD (chronic obstructive pulmonary disease) Qualifiers: COPD type: unspecified COPD Qualified Code(s): J44.9 - Chronic obstructive pulmonary disease, unspecified Is this a current diagnosis for this admission?: Yes (7) HLD (hyperlipidemia) Qualifiers: Hyperlipidemia type: pure hypercholesterolemia Qualified Code(s): E78.00 - Pure hypercholesterolemia, unspecified Is this a current diagnosis for this admission?: Yes (8) HTN (hypertension) Qualifiers: Hypertension type: essential hypertension Qualified Code(s): I10 - Essential (primary) hypertension Is this a current diagnosis for this admission?: Yes (9) Constipation Qualifiers: Constipation type: slow transit constipation Qualified Code(s): K59.01 - Slow transit constipation Is this a current diagnosis for this admission?: Yes (10) Acute respiratory failure with hypoxemia Is this a current diagnosis for this admission?: Yes (11) Fungal pneumonia Is this a current diagnosis for this admission?: Yes (12) Pneumonia due to Pseudomonas aeruginosa Is this a current diagnosis for this admission?: Yes - Time Time Spent with patient: 25-34 minutes Medications reviewed and adjusted accordingly: Yes Anticipated discharge: Other Within: Other - Inpatient Certification Based on my medical assessment, after consideration of the patient's comorbidities, presenting symptoms, or acuity I expect that the services needed warrant INPATIENT care.: Yes I certify that my determination is in accordance with my understanding of Medicare's requirements for reasonable and necessary INPATIENT services [42 CFR 412.3e].: Yes Medical Necessity: Need Close Monitoring Due to Risk of Patient Decompensation, Need For IV Fluids, Need For Continuous Telemetry Monitoring, Need for Nebulizer Therapy and Monitoring of Response, Need for IV Antibiotics, Risk of Complication if Not Cared For in Hospital Post Hospital Care: Other - Plan Summary Plan Summary: Continue current management. Follow up on efforts to transfer to LTAC facility.
[2017-05-20] MEDS: POTASSIUM CHLORIDE 20 MEQ/15 ML UDCUP NG SCH (10:26)
[2017-05-20 14:54] LABS: ARTERIAL BLOOD BASE EXCESS 2.9 mmol/L; ARTERIAL BLOOD H2CO3 1.31 mmol/L (1.05-1.35); ARTERIAL BLOOD HCO3 27.7 mmol/L (20-26); ARTERIAL BLOOD O2 SATURATION 95.3 % (94-98); ARTERIAL BLOOD PCO2 43.6 mmHg (35-45); ARTERIAL BLOOD PH 7.42 (7.35-7.45); ARTERIAL BLOOD PO2 75.3 mmHg (80-100)
[2017-05-20 14:55] LABS: ARTERIAL BLOOD FIO2 50%
[2017-05-20] MEDS: NORMAL SALINE 1000 ML 1,000 ML IV PRN (15:03)
--- NOTE | 2017-05-20 17:00 | PDOC PROGRESS REPORT ---
Subjective Progress Note for:: 05/20/17 Subjective:: Day # 11 Reason For Visit: DEHYDRATION WITH HYPONATREMIA;ACUTE RENAL INJURY; Physical Exam Vital Signs: Temp Pulse Resp BP Pulse Ox 98.6 F 113 H 27 H 104/68 96 05/20/17 06:15 05/20/17 07:22 05/20/17 06:15 05/20/17 06:08 05/20/17 06:15 Intake & Output 05/19/17 05/20/17 05/21/17 06:59 06:59 06:59 Intake Total 2694 2800 Output Total 2545 2290 Balance 149 510 Weight 80.7 kg 80.5 kg General appearance: PRESENT: no acute distress, disheveled, thin. ABSENT: mild distress, morbidly obese, obese, severe distress Head exam: PRESENT: atraumatic, normocephalic Eye exam: PRESENT: conjunctiva pale. ABSENT: conjunctival injection, conjunctiva pink, nystagmus, periorbital swelling, scleral icterus Mouth exam: PRESENT: dry mucosa, neck supple, tongue midline, other - ET tube. ABSENT: laceration, moist Neck exam: PRESENT: tracheal deviation. ABSENT: carotid bruit, JVD, lymphadenopathy, thyromegaly, tracheostomy Respiratory exam: PRESENT: decreased breath sounds, prolonged expiratory phas, rales, rhonchi, symmetrical, tachypnea. ABSENT: accessory muscle use, chest wall tenderness, clear to auscultation antonio, crackles, retraction, stridor Cardiovascular exam: PRESENT: RRR, +S1, +S2, tachycardia Pulses: PRESENT: normal radial pulses GI/Abdominal exam: PRESENT: diminished bowel sounds, soft Extremities exam: PRESENT: +1 edema. ABSENT: clubbing Musculoskeletal exam: ABSENT: ambulatory, deformity, dislocation Skin exam: PRESENT: dry, warm Results Laboratory Results: 05/20/17 06:30 05/20/17 05:40 05/20/17 05/20/17 05/20/17 05:40 05:40 05:40 WBC Cancelled RBC Cancelled Hgb Cancelled Hct Cancelled MCV Cancelled MCH Cancelled MCHC Cancelled RDW Cancelled Plt Count Cancelled Seg Neutrophils % Cancelled Lymphocytes % Cancelled Monocytes % Cancelled Eosinophils % Cancelled Basophils % Cancelled Absolute Neutrophils Cancelled Absolute Lymphocytes Cancelled Absolute Monocytes Cancelled Absolute Eosinophils Cancelled Absolute Basophils Cancelled Carbonic Acid 1.25 HCO3/H2CO3 Ratio 22:1 ABG pH 7.46 H ABG pCO2 41.4 ABG pO2 56.8 L ABG HCO3 28.7 H ABG O2 Saturation 91.0 L ABG Base Excess 4.5 FiO2 50% Sodium 131.8 L Potassium 4.0 Chloride 98 Carbon Dioxide 28 Anion Gap 6 BUN 10 Creatinine 0.69 Est GFR ( Amer) > 60 Est GFR (Non-Af Amer) > 60 Glucose 93 Calcium 8.3 L Phosphorus 3.6 05/20/17 06:30 WBC 7.9 RBC 3.01 L Hgb 9.4 L Hct 27.4 L MCV 91 MCH 31.1 MCHC 34.1 RDW 19.4 H Plt Count 456 H Seg Neutrophils % 77.0 Lymphocytes % 10.5 L Monocytes % 9.6 Eosinophils % 2.3 Basophils % 0.6 Absolute Neutrophils 6.1 Absolute Lymphocytes 0.8 Absolute Monocytes 0.8 Absolute Eosinophils 0.2 Absolute Basophils 0.0 Carbonic Acid HCO3/H2CO3 Ratio ABG pH ABG pCO2 ABG pO2 ABG HCO3 ABG O2 Saturation ABG Base Excess FiO2 Sodium Potassium Chloride Carbon Dioxide Anion Gap BUN Creatinine Est GFR ( Amer) Est GFR (Non-Af Amer) Glucose Calcium Phosphorus Impressions: Head CT 04/17/17 13:01 IMPRESSION: MILD CHRONIC MICROVASCULAR ISCHEMIA. NO ACUTE IMAGING FINDINGS IN THE BRAIN. EVIDENCE OF ACUTE STROKE: NO. 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 AREAS OF MILD TO MODERATE SPINAL STENOSIS DESCRIBED. NO ACUTE FINDINGS. Chest CT 04/27/17 00:00 IMPRESSION: Diffuse bullous change with superimposed fluid likely interstitial edema or pneumonia. Clearly progressed from previous. Bilateral pleural effusions. Persistent air-fluid level and a large bullae in the right upper lobe. Infection in the differential. Unchanged. Acute Abdomen Series 04/30/17 00:00 IMPRESSION: 1. Gaseous distention in the abdomen. This includes large and small bowel. Scattered air-fluid levels may reflect mild ileus. Modified Barium Swallow 05/01/17 00:00 IMPRESSION: NO EVIDENCE OF LARYNGEAL PENETRATION OR TRACHEAL ASPIRATION.PLEASE SEE SPEECH PATHOLOGIST REPORT FOR OTHER FINDINGS AND RECOMMENDATIONS. Fluoroscopy 05/07/17 00:00 IMPRESSION: IMAGE(S) OBTAINED DURING PROCEDURE. KUB X-Ray 05/14/17 00:00 IMPRESSION: SATISFACTORY POSITION OF ENTERIC TUBE. NO SIGNIFICANT CHANGE FROM PRIOR STUDY. Chest X-Ray 05/20/17 06:00 IMPRESSION: No significant change. Assessment & Plan - Diagnosis (1) Cavitary lesion of lung Is this a current diagnosis for this admission?: Yes (2) History of myasthenia gravis Is this a current diagnosis for this admission?: Yes (3) Hyponatremia Is this a current diagnosis for this admission?: No (4) Necrotizing pneumonia Is this a current diagnosis for this admission?: Yes (5) COPD (chronic obstructive pulmonary disease) Qualifiers: COPD type: unspecified COPD Qualified Code(s): J44.9 - Chronic obstructive pulmonary disease, unspecified Is this a current diagnosis for this admission?: Yes - Time Total Critical Time (Minutes): 35
[2017-05-20] MEDS: DEXTROSE 5%-WATER 250 ML with NOREPINEPHRINE BITARTRATE 4 MG IV PRN ×2 (19:26)
[2017-05-20] MEDS: MICAFUNGIN SODIUM 100 MG in NORMAL SALINE 100 ML IV SCH (21:30)
[2017-05-21] MEDS: PROPOFOL 100 ML IV PRN ×4 (00:53→21:20)
[2017-05-21] MEDS: LEVALBUTEROL HCL NEB 1.25 MG/3 ML AMPUL NEB SCH ×4 (02:30→20:38)
[2017-05-21] MEDS: PIPERACILLIN SODIUM/TAZOBACTAM 3.375 GM in NORMAL SALINE 100 ML IV SCH ×3 (05:57→17:02)
[2017-05-21] MEDS: LANSOPRAZOLE 30 MG TAB.RAP.DR PO SCH (05:58)
[2017-05-21 06:37] LABS: ARTERIAL BLOOD BASE EXCESS 3.7 mmol/L; ARTERIAL BLOOD H2CO3 1.24 mmol/L (1.05-1.35); ARTERIAL BLOOD HCO3 28.1 mmol/L (20-26); ARTERIAL BLOOD O2 SATURATION 97.7 % (94-98); ARTERIAL BLOOD PCO2 41.3 mmHg (35-45); ARTERIAL BLOOD PH 7.45 (7.35-7.45); ARTERIAL BLOOD PO2 98.7 mmHg (80-100); ARTERIAL BLOOD TOTAL CO2 29.3 mmol/L (23-27)
[2017-05-21 06:38] LABS: ARTERIAL BLOOD FIO2 60%
[2017-05-21 06:41] LABS: ABSOLUTE EOSINOPHILS # (AUTO) 0.2 10^3/uL (0.0-0.6); ABSOLUTE LYMPHOCYTES (AUTO) 0.8 10^3/uL (0.5-4.7); ABSOLUTE MONOCYTES (AUTO) 0.8 10^3/uL (0.1-1.4); ABSOLUTE NEUT (AUTO) 4.5 10^3/uL (1.7-8.2); BASOPHILS % (AUTO) 0.6 % (0-2); EOSINOPHILS % (AUTO) 3.8 % (0-6); HEMATOCRIT 25.7 % (37.9-51.0); HEMOGLOBIN 8.8 g/dL (13.5-17.0); LYMPHOCYTES % (AUTO) 12.2 % (13-45); MEAN CORPUSCULAR HEMOGLOBIN 32.1 pg (27.0-33.4); MEAN CORPUSCULAR HGB CONC 34.4 g/dL (32.0-36.0); MEAN CORPUSCULAR VOLUME 93 fl (80-97); MONOCYTES % (AUTO) 12.5 % (3-13); PLATELET COUNT 525 10^3/uL (150-450); RED BLOOD COUNT 2.75 10^6/uL (4.35-5.55); RED CELL DISTRIBUTION WIDTH 20.6 % (11.5-14.0); SEGMENTED NEUTROPHILS % (AUTO) 70.9 % (42-78); TOTAL CELLS COUNTED % (AUTO) 100 %; WHITE BLOOD COUNT 6.3 10^3/uL (4.0-10.5)
[2017-05-21 07:04] LABS: ANION GAP 5 (5-19); BLOOD UREA NITROGEN 9 mg/dL (7-20); CALCIUM 8.3 mg/dL (8.4-10.2); CARBON DIOXIDE 28 mmol/L (22-30); CHLORIDE 100 mmol/L (98-107); GLUCOSE 100 mg/dL (75-110); SODIUM 132.7 mmol/L (137-145); TRIGLYCERIDES 89 mg/dL (<150)
--- NOTE | 2017-05-21 07:08 | RADIOLOGY REPORT (SQ) ---
EXAM DESCRIPTION: CHEST SINGLE VIEW CLINICAL HISTORY: 71 years, Male, pna resp failure COMPARISON: 05/20/17. NUMBER OF VIEWS: 1 LIMITATIONS: None. FINDINGS: Moderate mixed airspace and interstitial opacity, moderate right effusion, 4.6 cm ovoid lucent lesion of the lateral right lung field may indicate a pneumatocele or developing abscess, normal cardiac silhouette, adequate endotracheal tube, likely adequate enteric tube obscured distally, right jugular central line tip at the right atrium; consider 8.8 cm retraction of the right jugular line. No pneumothorax. IMPRESSION: Interval worsening includes a new developing 4.6 cm pneumatocele or abscess of the right midlung field. Recommend contrast CT of the chest as clinically warranted.
[2017-05-21] MEDS: ACETYLCYSTEINE 20% SOLN 800 MG/4 ML VIAL.NEB NEB SCH ×2 (08:51→20:38)
[2017-05-21] MEDS: TOBRAMYCIN SULFATE NEB 40 MG/ML 30 ML NEB SCH ×2 (08:51→20:38)
--- NOTE | 2017-05-21 10:14 | PDOC PROGRESS REPORT ---
Subjective Progress Note for:: 05/21/17 Subjective:: Remain intubated and vent supported. Patient remain sedated on IV Propofol. Tolerating enteral tube feeding. Efforts on possible LTAC transfer. Reason For Visit: DEHYDRATION WITH HYPONATREMIA;ACUTE RENAL INJURY; Physical Exam Vital Signs: Temp Pulse Resp BP Pulse Ox 98.1 F 96 24 H 105/71 96 05/21/17 08:00 05/21/17 08:51 05/21/17 08:51 05/21/17 08:00 05/21/17 08:51 Intake & Output 05/20/17 05/21/17 05/22/17 06:59 06:59 06:59 Intake Total 2800 3099 Output Total 2290 2705 350 Balance 510 394 -350 Weight 80.5 kg 81.6 kg Physical Exam: General appearance: PRESENT: Sedated on IV Propofol. ET and OG tubes in situ. Head exam: PRESENT: atraumatic, normocephalic Eye exam: PRESENT: conjunctiva pink, EOMI, PERRLA. ABSENT: scleral icterus Mouth exam: PRESENT: moist Neck exam: PRESENT: other - right IJ central line device Respiratory exam: PRESENT: decreased breath sounds at lung bases Cardiovascular exam: PRESENT: RRR, S+1, S+2, ABSENT: diastolic murmur, rubs, systolic murmur. GI/Abdominal exam: PRESENT: normal bowel sounds, soft. ABSENT: distended, guarding, mass, organomegaly, rebound, tenderness Extremities exam: PRESENT: pedal edema - upper extremities due to soft tissue infiltration Musculoskeletal exam: PRESENT: Slight improvement in generalized edema Neurological exam: PRESENT: Sedated. Skin exam: PRESENT: dry, intact, warm. ABSENT: cyanosis Results Laboratory Results: 05/21/17 06:20 05/21/17 06:20 05/20/17 05/21/17 05/21/17 14:25 06:20 06:20 WBC RBC Hgb Hct MCV MCH MCHC RDW Plt Count Seg Neutrophils % Lymphocytes % Monocytes % Eosinophils % Basophils % Absolute Neutrophils Absolute Lymphocytes Absolute Monocytes Absolute Eosinophils Absolute Basophils Carbonic Acid 1.31 1.24 HCO3/H2CO3 Ratio 21:1 22:1 ABG pH 7.42 7.45 ABG pCO2 43.6 41.3 ABG pO2 75.3 L 98.7 ABG HCO3 27.7 H 28.1 H ABG O2 Saturation 95.3 97.7 ABG Base Excess 2.9 3.7 FiO2 50% 60% Sodium 132.7 L Potassium 4.0 Chloride 100 Carbon Dioxide 28 Anion Gap 5 BUN 9 Creatinine 0.66 Est GFR ( Amer) > 60 Est GFR (Non-Af Amer) > 60 Glucose 100 Calcium 8.3 L Triglycerides 89 05/21/17 06:20 WBC 6.3 RBC 2.75 L Hgb 8.8 L Hct 25.7 L MCV 93 MCH 32.1 MCHC 34.4 RDW 20.6 H Plt Count 525 H Seg Neutrophils % 70.9 Lymphocytes % 12.2 L Monocytes % 12.5 Eosinophils % 3.8 Basophils % 0.6 Absolute Neutrophils 4.5 Absolute Lymphocytes 0.8 Absolute Monocytes 0.8 Absolute Eosinophils 0.2 Absolute Basophils 0.0 Carbonic Acid HCO3/H2CO3 Ratio ABG pH ABG pCO2 ABG pO2 ABG HCO3 ABG O2 Saturation ABG Base Excess FiO2 Sodium Potassium Chloride Carbon Dioxide Anion Gap BUN Creatinine Est GFR ( Amer) Est GFR (Non-Af Amer) Glucose Calcium Triglycerides Impressions: Head CT 04/17/17 13:01 IMPRESSION: MILD CHRONIC MICROVASCULAR ISCHEMIA. NO ACUTE IMAGING FINDINGS IN THE BRAIN. EVIDENCE OF ACUTE STROKE: NO. 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 AREAS OF MILD TO MODERATE SPINAL STENOSIS DESCRIBED. NO ACUTE FINDINGS. Chest CT 04/27/17 00:00 IMPRESSION: Diffuse bullous change with superimposed fluid likely interstitial edema or pneumonia. Clearly progressed from previous. Bilateral pleural effusions. Persistent air-fluid level and a large bullae in the right upper lobe. Infection in the differential. Unchanged. Acute Abdomen Series 04/30/17 00:00 IMPRESSION: 1. Gaseous distention in the abdomen. This includes large and small bowel. Scattered air-fluid levels may reflect mild ileus. Modified Barium Swallow 05/01/17 00:00 IMPRESSION: NO EVIDENCE OF LARYNGEAL PENETRATION OR TRACHEAL ASPIRATION.PLEASE SEE SPEECH PATHOLOGIST REPORT FOR OTHER FINDINGS AND RECOMMENDATIONS. Fluoroscopy 05/07/17 00:00 IMPRESSION: IMAGE(S) OBTAINED DURING PROCEDURE. KUB X-Ray 05/14/17 00:00 IMPRESSION: SATISFACTORY POSITION OF ENTERIC TUBE. NO SIGNIFICANT CHANGE FROM PRIOR STUDY. Chest X-Ray 05/21/17 06:00 IMPRESSION: Interval worsening includes a new developing 4.6 cm pneumatocele or abscess of the right midlung field. Recommend contrast CT of the chest as clinically warranted. Assessment & Plan - Diagnosis (1) Dehydration with hyponatremia Is this a current diagnosis for this admission?: Yes (2) Abnormality of lung on CXR Is this a current diagnosis for this admission?: Yes (3) Pneumatocele of lung Is this a current diagnosis for this admission?: No (4) Pneumothorax on right Is this a current diagnosis for this admission?: Yes (5) Acute kidney injury Is this a current diagnosis for this admission?: Yes (6) COPD (chronic obstructive pulmonary disease) Qualifiers: COPD type: unspecified COPD Qualified Code(s): J44.9 - Chronic obstructive pulmonary disease, unspecified Is this a current diagnosis for this admission?: Yes (7) HLD (hyperlipidemia) Qualifiers: Hyperlipidemia type: pure hypercholesterolemia Qualified Code(s): E78.00 - Pure hypercholesterolemia, unspecified Is this a current diagnosis for this admission?: Yes (8) HTN (hypertension) Qualifiers: Hypertension type: essential hypertension Qualified Code(s): I10 - Essential (primary) hypertension Is this a current diagnosis for this admission?: Yes (9) Constipation Qualifiers: Constipation type: slow transit constipation Qualified Code(s): K59.01 - Slow transit constipation Is this a current diagnosis for this admission?: Yes (10) Acute respiratory failure with hypoxemia Is this a current diagnosis for this admission?: Yes (11) Fungal pneumonia Is this a current diagnosis for this admission?: Yes (12) Pneumonia due to Pseudomonas aeruginosa Is this a current diagnosis for this admission?: Yes - Time Time Spent with patient: 25-34 minutes Medications reviewed and adjusted accordingly: Yes Anticipated discharge: Other Within: Other - Inpatient Certification Based on my medical assessment, after consideration of the patient's comorbidities, presenting symptoms, or acuity I expect that the services needed warrant INPATIENT care.: Yes I certify that my determination is in accordance with my understanding of Medicare's requirements for reasonable and necessary INPATIENT services [42 CFR 412.3e].: Yes Medical Necessity: Need Close Monitoring Due to Risk of Patient Decompensation, Need For IV Fluids, Need For Continuous Telemetry Monitoring, Need for Nebulizer Therapy and Monitoring of Response, Need for IV Antibiotics, Risk of Complication if Not Cared For in Hospital Post Hospital Care: D/C or Transfer Summary - Plan Summary Plan Summary: Continue current antibiotic and anti fungal medication management. Awaiting possible right thoracentesis. Follow up with technical planner regarding possible transfer to LTAC. I discussed case and care management with Pulmonary talent development consultant, Dr. Salguero and patient's daughter.
[2017-05-21] MEDS: POTASSIUM CHLORIDE 20 MEQ/15 ML UDCUP NG SCH (12:25)
[2017-05-21] MEDS: DEXTROSE 5%-WATER 250 ML with NOREPINEPHRINE BITARTRATE 4 MG IV PRN ×4 (13:07→21:20)
[2017-05-21] MEDS: NORMAL SALINE 1000 ML 1,000 ML IV PRN (15:01)
--- NOTE | 2017-05-21 17:24 | RADIOLOGY REPORT (SQ) ---
EXAM DESCRIPTION: U/S THORACENTESIS WITH IMAGING COMPLETED DATE/TIME: 05/21/2017 5:11 pm REASON FOR STUDY: r effusio r pna COMPARISON: Chest film 05/21/2017, 0515 hours LIMITATIONS: None. PROCEDURE: Procedure, risks, benefit, and alternative explained to patient who then gave written con sent. The lateral right chest wall was marked using ultrasound guidance. A time-out was called for correct marking verification. Chest prepped and draped using sterile technique. Local anesthesia ach ieved using 6 ml of 1% lidocaine injection. A 5fr needle/catheter set was introduced into the right lateral pleural space. Fluid was aspirated. The catheter was removed and the entry site was covered with sterile bandage. No immediate complications noted. Post procedure chest film pending Images acquired during the procedure were stored on PACS. FINDINGS: ENTRY SITE: Right lateral pleural space FLUID VOLUME: 900 mL FLUID ANALYSIS: Clear straw-colored fluid OTHER: Sent for testing as per Dr. Salguero IMPRESSION: SUCCESSFUL THORACENTESIS USING ULTRASOUND GUIDANCE. COMMENT: Patient medication list reviewed: Yes- Quality ID# [id number]:Eligible professional attests to doc umenting in the medical record they obtained, updated, or reviewed the patient's current medications. Quality ID #[id number]: Final reports for procedures using fluoroscopy that document radiation exposure [place], or exposure time and number of fluorographic images (if radiation exposure indices are not avail able) TECHNICAL DOCUMENTATION: JOB ID: [id number] [employer]- All Rights Reserved
--- NOTE | 2017-05-21 17:42 | RADIOLOGY REPORT (SQ) ---
EXAM DESCRIPTION: CHEST SINGLE VIEW COMPLETED DATE/TIME: 05/21/2017 5:31 pm REASON FOR STUDY: thoracentesis Immediate post thoracentesis film COMPARISON: None. EXAM PARAMETERS: NUMBER OF VIEWS: One view. TECHNIQUE: Single frontal radiographic view of the chest acquired. RADIATION DOSE: NA LIMITATIONS: None. FINDINGS: LUNGS AND PLEURA: Patient is post right-sided thoracentesis. 900 mL of clear yellow fluid was removed from the right hemithorax immediately prior to the chest film. There is a tiny right ba silar pneumothorax. This report was called to Dr Salguero, 1730 hours 05/21/2017. There is still old loculated pleural thickening/pleural fluid over the right lung apex. Diffuse bila teral alveolar and interstitial infiltrates are present, unchanged. MEDIASTINUM AND HILAR STRUCTURES: No masses. Contour normal. No mediastinal shift HEART AND VASCULAR STRUCTURES: No cardiomegaly. Old sternotomy and CABG BONES: No acute findings. HARDWARE: Endotracheal tube tip 6 cm above the francis. Nasogastric tube tip and side port in the sto mach. Right jugular triple lumen catheter tip in the right atrium. OTHER: No other significant finding. IMPRESSION: Tiny right basilar pneumothorax post ultrasound-guided thoracentesis. COMMENT: Pertinent findings on the imaging study reported as a CRITICAL RESULT to DR SALGUERO at17:3 0 on 05/21/2017. Category of Critical Result: Small basilar pneumothorax TECHNICAL DOCUMENTATION: JOB ID: [id number] [employer]- All Rights Reserved
--- NOTE | 2017-05-21 17:55 | PDOC PROGRESS REPORT ---
Subjective Progress Note for:: 05/21/17 Subjective:: Day # 13 Reason For Visit: DEHYDRATION WITH HYPONATREMIA;ACUTE RENAL INJURY; Physical Exam Vital Signs: Temp Pulse Resp BP Pulse Ox 98.1 F 96 24 H 105/71 96 05/21/17 08:00 05/21/17 08:51 05/21/17 08:51 05/21/17 08:00 05/21/17 08:51 Intake & Output 05/20/17 05/21/17 05/22/17 06:59 06:59 06:59 Intake Total 2800 3099 Output Total 2290 2705 350 Balance 510 394 -350 Weight 80.5 kg 81.6 kg General appearance: PRESENT: no acute distress, disheveled, thin, well- developed. ABSENT: cooperative, mild distress, morbidly obese, obese, severe distress Head exam: PRESENT: atraumatic, normocephalic Eye exam: PRESENT: conjunctiva pale, nystagmus, periorbital swelling. ABSENT: conjunctival injection, conjunctiva pink, EOMI, scleral icterus Mouth exam: PRESENT: dry mucosa, neck supple, tongue midline, other - ET tube. ABSENT: laceration, moist Neck exam: ABSENT: carotid bruit, JVD, lymphadenopathy, thyromegaly, tracheal deviation, tracheostomy Respiratory exam: PRESENT: decreased breath sounds, prolonged expiratory phas, retraction, rhonchi, symmetrical, unlabored. ABSENT: accessory muscle use, chest wall tenderness, clear to auscultation antonio, crackles, rales, stridor, tachypnea Cardiovascular exam: PRESENT: RRR, +S1, +S2 Pulses: PRESENT: normal radial pulses GI/Abdominal exam: PRESENT: diminished bowel sounds, soft Extremities exam: ABSENT: clubbing, joint swelling Musculoskeletal exam: ABSENT: deformity, dislocation Neurological exam: PRESENT: awake. ABSENT: alert Skin exam: PRESENT: dry, warm Results Laboratory Results: 05/21/17 06:20 05/21/17 06:20 05/20/17 05/21/17 05/21/17 14:25 06:20 06:20 WBC RBC Hgb Hct MCV MCH MCHC RDW Plt Count Seg Neutrophils % Lymphocytes % Monocytes % Eosinophils % Basophils % Absolute Neutrophils Absolute Lymphocytes Absolute Monocytes Absolute Eosinophils Absolute Basophils Carbonic Acid 1.31 1.24 HCO3/H2CO3 Ratio 21:1 22:1 ABG pH 7.42 7.45 ABG pCO2 43.6 41.3 ABG pO2 75.3 L 98.7 ABG HCO3 27.7 H 28.1 H ABG O2 Saturation 95.3 97.7 ABG Base Excess 2.9 3.7 FiO2 50% 60% Sodium 132.7 L Potassium 4.0 Chloride 100 Carbon Dioxide 28 Anion Gap 5 BUN 9 Creatinine 0.66 Est GFR ( Amer) > 60 Est GFR (Non-Af Amer) > 60 Glucose 100 Calcium 8.3 L Triglycerides 89 05/21/17 06:20 WBC 6.3 RBC 2.75 L Hgb 8.8 L Hct 25.7 L MCV 93 MCH 32.1 MCHC 34.4 RDW 20.6 H Plt Count 525 H Seg Neutrophils % 70.9 Lymphocytes % 12.2 L Monocytes % 12.5 Eosinophils % 3.8 Basophils % 0.6 Absolute Neutrophils 4.5 Absolute Lymphocytes 0.8 Absolute Monocytes 0.8 Absolute Eosinophils 0.2 Absolute Basophils 0.0 Carbonic Acid HCO3/H2CO3 Ratio ABG pH ABG pCO2 ABG pO2 ABG HCO3 ABG O2 Saturation ABG Base Excess FiO2 Sodium Potassium Chloride Carbon Dioxide Anion Gap BUN Creatinine Est GFR ( Amer) Est GFR (Non-Af Amer) Glucose Calcium Triglycerides Impressions: Head CT 04/17/17 13:01 IMPRESSION: MILD CHRONIC MICROVASCULAR ISCHEMIA. NO ACUTE IMAGING FINDINGS IN THE BRAIN. EVIDENCE OF ACUTE STROKE: NO. 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 AREAS OF MILD TO MODERATE SPINAL STENOSIS DESCRIBED. NO ACUTE FINDINGS. Chest CT 04/27/17 00:00 IMPRESSION: Diffuse bullous change with superimposed fluid likely interstitial edema or pneumonia. Clearly progressed from previous. Bilateral pleural effusions. Persistent air-fluid level and a large bullae in the right upper lobe. Infection in the differential. Unchanged. Acute Abdomen Series 04/30/17 00:00 IMPRESSION: 1. Gaseous distention in the abdomen. This includes large and small bowel. Scattered air-fluid levels may reflect mild ileus. Modified Barium Swallow 05/01/17 00:00 IMPRESSION: NO EVIDENCE OF LARYNGEAL PENETRATION OR TRACHEAL ASPIRATION.PLEASE SEE SPEECH PATHOLOGIST REPORT FOR OTHER FINDINGS AND RECOMMENDATIONS. Fluoroscopy 05/07/17 00:00 IMPRESSION: IMAGE(S) OBTAINED DURING PROCEDURE. KUB X-Ray 05/14/17 00:00 IMPRESSION: SATISFACTORY POSITION OF ENTERIC TUBE. NO SIGNIFICANT CHANGE FROM PRIOR STUDY. Chest X-Ray 05/21/17 06:00 IMPRESSION: Interval worsening includes a new developing 4.6 cm pneumatocele or abscess of the right midlung field. Recommend contrast CT of the chest as clinically warranted. Assessment & Plan - Diagnosis (1) Cavitary lesion of lung Is this a current diagnosis for this admission?: Yes Plan: unchanged (2) History of myasthenia gravis Is this a current diagnosis for this admission?: Yes Plan: hx of thymoma, Acetylcholinesterase antibody pending (3) Hyponatremia Is this a current diagnosis for this admission?: No Plan: Minimally improved (4) Necrotizing pneumonia Is this a current diagnosis for this admission?: Yes Plan: clinically appears to be stable (5) COPD (chronic obstructive pulmonary disease) Qualifiers: COPD type: unspecified COPD Qualified Code(s): J44.9 - Chronic obstructive pulmonary disease, unspecified Is this a current diagnosis for this admission?: Yes Plan: slight decrease in min vent and FIO2 - Time Total Critical Time (Minutes): 45
[2017-05-21 18:28] LABS: FLUID APPEARANCE HAZY; FLUID COLOR YELLOW; FLUID SOURCE LUNG; FLUID TYPE PLEURAL; FLUID VISCOSITY LIQUID
--- NOTE | 2017-05-21 19:54 | RADIOLOGY REPORT (SQ) ---
EXAM DESCRIPTION: CHEST SINGLE VIEW COMPLETED DATE/TIME: 05/21/2017 7:38 pm REASON FOR STUDY: 2HR THORACENTESIS COMPARISON: 05/21/2017 at 1717 hours. EXAM PARAMETERS: NUMBER OF VIEWS: One view. TECHNIQUE: Single frontal radiographic view of the chest acquired. RADIATION DOSE: NA LIMITATIONS: None. FINDINGS: LUNGS AND PLEURA: Chronic pleural and parenchymal scarring. Soft tissue in the right apex . Small right basilar pneumothorax unchanged. MEDIASTINUM AND HILAR STRUCTURES: No masses. Contour normal. HEART AND VASCULAR STRUCTURES: Heart normal in size. Normal vasculature. BONES: No acute findings. HARDWARE: Endotracheal tube, central line, nasogastric tube appear unchanged. Sternotomy wires. OTHER: No other significant finding. IMPRESSION: STABLE SMALL RIGHT BASILAR PNEUMOTHORAX. NO SIGNIFICANT CHANGE. LIFE LINES AND CHRONIC FINDINGS ABOVE. TECHNICAL DOCUMENTATION: JOB ID: [id number] [employer]- All Rights Reserved
[2017-05-21 21:18] LABS: TOTAL PROTEIN 6.2 g/dL (6.3-8.2)
[2017-05-21] MEDS: MICAFUNGIN SODIUM 100 MG in NORMAL SALINE 100 ML IV SCH (21:20)
[2017-05-22] MEDS: PIPERACILLIN SODIUM/TAZOBACTAM 3.375 GM in NORMAL SALINE 100 ML IV SCH ×5 (00:16→23:45)
[2017-05-22] MEDS: PROPOFOL 100 ML IV PRN ×5 (00:17→21:18)
[2017-05-22] MEDS: LEVALBUTEROL HCL NEB 1.25 MG/3 ML AMPUL NEB SCH ×4 (02:12→19:43)
[2017-05-22] MEDS: LANSOPRAZOLE 30 MG TAB.RAP.DR PO SCH (06:15)
[2017-05-22 08:00] LABS: ABSOLUTE BASOPHILS # (AUTO) 0.1 10^3/uL (0.0-0.2); ABSOLUTE EOSINOPHILS # (AUTO) 0.2 10^3/uL (0.0-0.6); ABSOLUTE LYMPHOCYTES (AUTO) 0.8 10^3/uL (0.5-4.7); ABSOLUTE MONOCYTES (AUTO) 0.9 10^3/uL (0.1-1.4); ABSOLUTE NEUT (AUTO) 4.2 10^3/uL (1.7-8.2); BASOPHILS % (AUTO) 1.2 % (0-2); EOSINOPHILS % (AUTO) 3.7 % (0-6); HEMATOCRIT 27.6 % (37.9-51.0); HEMOGLOBIN 9.1 g/dL (13.5-17.0); LYMPHOCYTES % (AUTO) 13.2 % (13-45); MEAN CORPUSCULAR HEMOGLOBIN 29.9 pg (27.0-33.4); MEAN CORPUSCULAR HGB CONC 33.1 g/dL (32.0-36.0); MEAN CORPUSCULAR VOLUME 90 fl (80-97); MONOCYTES % (AUTO) 14.2 % (3-13); PLATELET COUNT 638 10^3/uL (150-450); RED BLOOD COUNT 3.06 10^6/uL (4.35-5.55); RED CELL DISTRIBUTION WIDTH 20.1 % (11.5-14.0); SEGMENTED NEUTROPHILS % (AUTO) 67.7 % (42-78); TOTAL CELLS COUNTED % (AUTO) 100 %; WHITE BLOOD COUNT 6.2 10^3/uL (4.0-10.5)
[2017-05-22 08:06] LABS: ARTERIAL BLOOD BASE EXCESS 3.1 mmol/L; ARTERIAL BLOOD H2CO3 1.22 mmol/L (1.05-1.35); ARTERIAL BLOOD HCO3 27.3 mmol/L (20-26); ARTERIAL BLOOD O2 SATURATION 98.4 % (94-98); ARTERIAL BLOOD PCO2 40.5 mmHg (35-45); ARTERIAL BLOOD PH 7.45 (7.35-7.45); ARTERIAL BLOOD PO2 117.2 mmHg (80-100); ARTERIAL BLOOD TOTAL CO2 28.6 mmol/L (23-27)
[2017-05-22 08:07] LABS: ARTERIAL BLOOD FIO2 60%
[2017-05-22 08:11] LABS: ANION GAP 5 (5-19); BLOOD UREA NITROGEN 6 mg/dL (7-20); CALCIUM 8.7 mg/dL (8.4-10.2); CARBON DIOXIDE 31 mmol/L (22-30); CHLORIDE 102 mmol/L (98-107); GLUCOSE 93 mg/dL (75-110); MAGNESIUM 1.8 mg/dL (1.6-2.3); PHOSPHORUS 3.9 mg/dL (2.5-4.5); POTASSIUM 3.8 mmol/L (3.6-5.0); SODIUM 138.2 mmol/L (137-145)
--- NOTE | 2017-05-22 08:11 | RADIOLOGY REPORT (SQ) ---
EXAM DESCRIPTION: CHEST SINGLE VIEW COMPLETED DATE/TIME: 05/22/2017 7:52 am REASON FOR STUDY: resp failure COMPARISON: 05/21/2017, multiple. FINDINGS: AP portable upright single-view chest timed approximately 0745 hours. Endotracheal and nasogastric tubes are appropriate. Right IJ line unchanged. Allowing for external artifact, no new lines. No change in right basilar pneumothorax. Coarse interstitial pattern throughout the lungs with more focal right apical density, stable. IMPRESSION: Stable chest. Small right pneumothorax persists. Lines and tubes appropriate. TECHNICAL DOCUMENTATION: JOB ID: [id number]
[2017-05-22] MEDS: ACETYLCYSTEINE 20% SOLN 800 MG/4 ML VIAL.NEB NEB SCH ×2 (09:01→19:43)
[2017-05-22] MEDS: TOBRAMYCIN SULFATE NEB 40 MG/ML 30 ML NEB SCH ×2 (09:03→19:43)
[2017-05-22] MEDS: POTASSIUM CHLORIDE 20 MEQ/15 ML UDCUP NG SCH (10:41)
[2017-05-22] MEDS: NORMAL SALINE 1000 ML 1,000 ML IV PRN (12:27)
--- NOTE | 2017-05-22 12:48 | PDOC PROGRESS REPORT ---
Subjective Progress Note for:: 05/22/17 Subjective:: reuested to re-evaluate this patient for PEG and tracheostomy tube placement as he will be transferred to long-term care facility Reason For Visit: DEHYDRATION WITH HYPONATREMIA;ACUTE RENAL INJURY; Physical Exam Vital Signs: Temp Pulse Resp BP Pulse Ox 97.2 F 96 25 H 123/79 94 05/22/17 08:00 05/22/17 10:00 05/22/17 10:00 05/22/17 10:00 05/22/17 11:38 Intake & Output 05/21/17 05/22/17 05/23/17 06:59 06:59 06:59 Intake Total 3099 2602 Output Total 2708 8547 945 Balance 475 -3592 -368 Weight 81.6 kg 77.6 kg General appearance: PRESENT: thin Head exam: PRESENT: atraumatic Respiratory exam: PRESENT: clear to auscultation antonio Cardiovascular exam: PRESENT: RRR GI/Abdominal exam: PRESENT: rigid, soft Neurological exam: PRESENT: other - no neurofunction noted, patient with no spontaneous movement, not arousable by voice or sternal rub Results Laboratory Results: 05/22/17 07:42 05/22/17 07:42 05/21/17 05/21/17 05/22/17 16:50 20:55 07:42 WBC 6.2 RBC 3.06 L Hgb 9.1 L Hct 27.6 L MCV 90 MCH 29.9 MCHC 33.1 RDW 20.1 H Plt Count 638 H Seg Neutrophils % 67.7 Lymphocytes % 13.2 Monocytes % 14.2 H Eosinophils % 3.7 Basophils % 1.2 Absolute Neutrophils 4.2 Absolute Lymphocytes 0.8 Absolute Monocytes 0.9 Absolute Eosinophils 0.2 Absolute Basophils 0.1 Carbonic Acid HCO3/H2CO3 Ratio ABG pH ABG pCO2 ABG pO2 ABG HCO3 ABG O2 Saturation ABG Base Excess FiO2 Sodium Potassium Chloride Carbon Dioxide Anion Gap BUN Creatinine Est GFR ( Amer) Est GFR (Non-Af Amer) Glucose 158 H Calcium Phosphorus Magnesium Total Protein 6.2 L Fluid Type PLEURAL Fluid Source LUNG Fluid Color YELLOW Fluid Appearance HAZY Fluid Viscosity LIQUID Fluid WBC 123 Fluid RBC 284 05/22/17 05/22/17 07:42 07:55 WBC RBC Hgb Hct MCV MCH MCHC RDW Plt Count Seg Neutrophils % Lymphocytes % Monocytes % Eosinophils % Basophils % Absolute Neutrophils Absolute Lymphocytes Absolute Monocytes Absolute Eosinophils Absolute Basophils Carbonic Acid 1.22 HCO3/H2CO3 Ratio 22:1 ABG pH 7.45 ABG pCO2 40.5 ABG pO2 117.2 H ABG HCO3 27.3 H ABG O2 Saturation 98.4 H ABG Base Excess 3.1 FiO2 60% Sodium 138.2 Potassium 3.8 Chloride 102 Carbon Dioxide 31 H Anion Gap 5 BUN 6 L Creatinine 0.57 Est GFR ( Amer) > 60 Est GFR (Non-Af Amer) > 60 Glucose 93 Calcium 8.7 Phosphorus 3.9 Magnesium 1.8 Total Protein Fluid Type Fluid Source Fluid Color Fluid Appearance Fluid Viscosity Fluid WBC Fluid RBC Impressions: Head CT 04/17/17 13:01 IMPRESSION: MILD CHRONIC MICROVASCULAR ISCHEMIA. NO ACUTE IMAGING FINDINGS IN THE BRAIN. EVIDENCE OF ACUTE STROKE: NO. 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 AREAS OF MILD TO MODERATE SPINAL STENOSIS DESCRIBED. NO ACUTE FINDINGS. Chest CT 04/27/17 00:00 IMPRESSION: Diffuse bullous change with superimposed fluid likely interstitial edema or pneumonia. Clearly progressed from previous. Bilateral pleural effusions. Persistent air-fluid level and a large bullae in the right upper lobe. Infection in the differential. Unchanged. Acute Abdomen Series 04/30/17 00:00 IMPRESSION: 1. Gaseous distention in the abdomen. This includes large and small bowel. Scattered air-fluid levels may reflect mild ileus. Modified Barium Swallow 05/01/17 00:00 IMPRESSION: NO EVIDENCE OF LARYNGEAL PENETRATION OR TRACHEAL ASPIRATION.PLEASE SEE SPEECH PATHOLOGIST REPORT FOR OTHER FINDINGS AND RECOMMENDATIONS. Fluoroscopy 05/07/17 00:00 IMPRESSION: IMAGE(S) OBTAINED DURING PROCEDURE. KUB X-Ray 05/14/17 00:00 IMPRESSION: SATISFACTORY POSITION OF ENTERIC TUBE. NO SIGNIFICANT CHANGE FROM PRIOR STUDY. Thoracentesis Ultrasound 05/21/17 11:41 IMPRESSION: SUCCESSFUL THORACENTESIS USING ULTRASOUND GUIDANCE. Chest X-Ray 05/22/17 00:00 IMPRESSION: Stable chest. Small right pneumothorax persists. Lines and tubes appropriate. Assessment & Plan - Diagnosis (1) Dehydration with hyponatremia Is this a current diagnosis for this admission?: Yes (2) Unresponsiveness Is this a current diagnosis for this admission?: Yes - Plan Summary Plan Summary: A/ Patient with hx of alcohol abuse Currently, he is intubtated on Propofol Neurologically on my exam the pateint presents with no neurofunction noted, hwe has no spontaneous movements, not arousable by voice or sternal rub, and does not follow commands. He has been placed on Propofol back today According to the nurse, the patient was able to perform a hand squeeze yesterday , but nothing has been noted today. He does have cough reflex while suctioned P/ Despite family request for PEG and tracheostomy tube placement, myself and the Anesthesiologist Dr. Rea have reservations about the patient neurological status and do not feel comfortable in taking this patient to surgery, undergo GA , and both procedures. The patient appears to be so neurologically impaired that he will not benefit from both procedures and he appears to be in a vegetative state. Dr. Holbrook, Neurologist has been consulted and he has requested stat EEG and Head CT scan prior to seeing the patient. Once the Neurologist evaluates the patient and gives his opinion about the Neurological status of this patient, I will consider to proceed with the requested surgeries.
--- NOTE | 2017-05-22 13:22 | RADIOLOGY REPORT (SQ) ---
EXAM DESCRIPTION: CT HEAD WITHOUT COMPLETED DATE/TIME: 05/22/2017 1:04 pm REASON FOR STUDY: patient with little neuro activity; stroke? COMPARISON: CT brain 04/17/2017 TECHNIQUE: Axial images acquired through the brain without intravenous contrast. Images reviewed wi th bone, brain and subdural windows. Images stored on PACS. All CT scanners at this facility use dose modulation, iterative reconstruction, and/or weight based d osing when appropriate to reduce radiation dose to as low as reasonably achievable (ALARA). [facility]: Dose Right [facility]: CareDose [facility]: Dose Right [facility]: Teradose 4D [facility]: [employer] RADIATION DOSE: CT Rad equipment meets quality standard of care and radiation dose reduction techniq ues were employed. CTDIvol: 46.3 mGy. DLP: 783 mGy-cm. mGy. LIMITATIONS: There is mild streak artifact from motion as well as monitoring leads FINDINGS: VENTRICLES: Normal size and contour. CEREBRUM: No masses. No hemorrhage. No midline shift. No evidence for acute infarction. Old lacuna r infarcts in mean bilateral frontal deep periventricular white matter. CEREBELLUM: No masses. No hemorrhage. No alteration of density. No evidence for acute infarction. EXTRAAXIAL SPACES: No fluid collections. No masses. ORBITS AND GLOBE: No intra- or extraconal masses. Normal contour of globe without masses. CALVARIUM: No fracture. PARANASAL SINUSES: No fluid or mucosal thickening. SOFT TISSUES: No mass or hematoma. 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 No acute findings EVIDENCE OF ACUTE STROKE: NO. COMMENT: Pertinent findings on the imaging study reported as a CRITICAL RESULT to VERENA RAMIREZ MD at13:10 on 05/22/2017. Category of Critical Result: CT stroke alert Quality ID # [id number]: Final reports with documentation of one or more dose reduction techniques (e.g., Au tomated exposure control, adjustment of the mA and/or kV according to patient size, use of iterative reconstruction technique) TECHNICAL DOCUMENTATION: JOB ID: [id number]- All Rights Reserved
[2017-05-22] MEDS: MIDAZOLAM 2 MG/2 ML INJ IV PRN (15:01)
[2017-05-22] MEDS ORDERED: PHENYLEPHRINE HCL INJ/PF 10 MG/1 ML SDV ONE (15:20)
[2017-05-22] MEDS ORDERED: KETAMINE HCL INJ 500 MG/10 ML VIAL IV PRN (18:32)
--- NOTE | 2017-05-22 19:33 | PDOC PROGRESS REPORT ---
Subjective Progress Note for:: 05/22/17 Subjective:: Remain intubated and vent supported. Patient remain sedated on IV Propofol. Tolerating enteral tube feeding. Patient had right thoracentesis with about 900 ml of clear straw color fluid removal completed today. Reason For Visit: DEHYDRATION WITH HYPONATREMIA;ACUTE RENAL INJURY; Physical Exam Vital Signs: Temp Pulse Resp BP Pulse Ox 99.9 F 134 H 29 H 93/73 L 100 05/22/17 15:37 05/22/17 14:00 05/22/17 15:37 05/22/17 15:37 05/22/17 15:37 Intake & Output 05/21/17 05/22/17 05/23/17 06:59 06:59 06:59 Intake Total 3099 2602 Output Total 2705 4100 1175 Balance 394 -1498 -1175 Weight 81.6 kg 77.6 kg Physical Exam: General appearance: PRESENT: Sedated on IV Propofol. ET and OG tubes in situ. Head exam: PRESENT: atraumatic, normocephalic Eye exam: PRESENT: conjunctiva pink, EOMI, PERRLA. ABSENT: scleral icterus Mouth exam: PRESENT: moist Neck exam: PRESENT: other - right IJ central line device Respiratory exam: PRESENT: decreased breath sounds at lung bases Cardiovascular exam: PRESENT: RRR, S+1, S+2, ABSENT: diastolic murmur, rubs, systolic murmur. GI/Abdominal exam: PRESENT: normal bowel sounds, soft. ABSENT: distended, guarding, mass, organomegaly, rebound, tenderness Extremities exam: PRESENT: pedal edema - upper extremities due to soft tissue infiltration Musculoskeletal exam: PRESENT: Slight improvement in generalized edema Neurological exam: PRESENT: Sedated. Skin exam: PRESENT: dry, intact, warm. ABSENT: cyanosis Results Laboratory Results: 05/22/17 07:42 05/22/17 07:42 05/21/17 05/22/17 05/22/17 20:55 07:42 07:42 WBC 6.2 RBC 3.06 L Hgb 9.1 L Hct 27.6 L MCV 90 MCH 29.9 MCHC 33.1 RDW 20.1 H Plt Count 638 H Seg Neutrophils % 67.7 Lymphocytes % 13.2 Monocytes % 14.2 H Eosinophils % 3.7 Basophils % 1.2 Absolute Neutrophils 4.2 Absolute Lymphocytes 0.8 Absolute Monocytes 0.9 Absolute Eosinophils 0.2 Absolute Basophils 0.1 Carbonic Acid HCO3/H2CO3 Ratio ABG pH ABG pCO2 ABG pO2 ABG HCO3 ABG O2 Saturation ABG Base Excess FiO2 Sodium 138.2 Potassium 3.8 Chloride 102 Carbon Dioxide 31 H Anion Gap 5 BUN 6 L Creatinine 0.57 Est GFR ( Amer) > 60 Est GFR (Non-Af Amer) > 60 Glucose 158 H 93 Calcium 8.7 Phosphorus 3.9 Magnesium 1.8 Total Protein 6.2 L 05/22/17 07:55 WBC RBC Hgb Hct MCV MCH MCHC RDW Plt Count Seg Neutrophils % Lymphocytes % Monocytes % Eosinophils % Basophils % Absolute Neutrophils Absolute Lymphocytes Absolute Monocytes Absolute Eosinophils Absolute Basophils Carbonic Acid 1.22 HCO3/H2CO3 Ratio 22:1 ABG pH 7.45 ABG pCO2 40.5 ABG pO2 117.2 H ABG HCO3 27.3 H ABG O2 Saturation 98.4 H ABG Base Excess 3.1 FiO2 60% Sodium Potassium Chloride Carbon Dioxide Anion Gap BUN Creatinine Est GFR ( Amer) Est GFR (Non-Af Amer) Glucose Calcium Phosphorus Magnesium Total Protein Impressions: Lumbar Spine MRI 04/17/17 14:33 IMPRESSION: MULTILEVEL CHRONIC DEGENERATIVE CHANGES, PRIMARILY DUE TO FACET ARTHROPATHY. AREAS OF MILD TO MODERATE SPINAL STENOSIS DESCRIBED. NO ACUTE FINDINGS. Chest CT 04/27/17 00:00 IMPRESSION: Diffuse bullous change with superimposed fluid likely interstitial edema or pneumonia. Clearly progressed from previous. Bilateral pleural effusions. Persistent air-fluid level and a large bullae in the right upper lobe. Infection in the differential. Unchanged. Acute Abdomen Series 04/30/17 00:00 IMPRESSION: 1. Gaseous distention in the abdomen. This includes large and small bowel. Scattered air-fluid levels may reflect mild ileus. Modified Barium Swallow 05/01/17 00:00 IMPRESSION: NO EVIDENCE OF LARYNGEAL PENETRATION OR TRACHEAL ASPIRATION.PLEASE SEE SPEECH PATHOLOGIST REPORT FOR OTHER FINDINGS AND RECOMMENDATIONS. Fluoroscopy 05/07/17 00:00 IMPRESSION: IMAGE(S) OBTAINED DURING PROCEDURE. KUB X-Ray 05/14/17 00:00 IMPRESSION: SATISFACTORY POSITION OF ENTERIC TUBE. NO SIGNIFICANT CHANGE FROM PRIOR STUDY. Thoracentesis Ultrasound 05/21/17 11:41 IMPRESSION: SUCCESSFUL THORACENTESIS USING ULTRASOUND GUIDANCE. Chest X-Ray 05/22/17 00:00 IMPRESSION: Stable chest. Small right pneumothorax persists. Lines and tubes appropriate. 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 No acute findings EVIDENCE OF ACUTE STROKE: NO. Assessment & Plan - Diagnosis (1) Dehydration with hyponatremia Is this a current diagnosis for this admission?: Yes (2) Abnormality of lung on CXR Is this a current diagnosis for this admission?: Yes (3) Pneumatocele of lung Is this a current diagnosis for this admission?: No (4) Pneumothorax on right Is this a current diagnosis for this admission?: Yes (5) Acute kidney injury Is this a current diagnosis for this admission?: Yes (6) COPD (chronic obstructive pulmonary disease) Qualifiers: COPD type: unspecified COPD Qualified Code(s): J44.9 - Chronic obstructive pulmonary disease, unspecified Is this a current diagnosis for this admission?: Yes (7) HLD (hyperlipidemia) Qualifiers: Hyperlipidemia type: pure hypercholesterolemia Qualified Code(s): E78.00 - Pure hypercholesterolemia, unspecified Is this a current diagnosis for this admission?: Yes (8) HTN (hypertension) Qualifiers: Hypertension type: essential hypertension Qualified Code(s): I10 - Essential (primary) hypertension Is this a current diagnosis for this admission?: Yes (9) Constipation Qualifiers: Constipation type: slow transit constipation Qualified Code(s): K59.01 - Slow transit constipation Is this a current diagnosis for this admission?: Yes (10) Acute respiratory failure with hypoxemia Is this a current diagnosis for this admission?: Yes (11) Fungal pneumonia Is this a current diagnosis for this admission?: Yes (12) Pneumonia due to Pseudomonas aeruginosa Is this a current diagnosis for this admission?: Yes (13) Pleural effusion, right Is this a current diagnosis for this admission?: Yes Plan: s/p thoracentesis. Continue to monitor response. Remain intubated. - Time Time Spent with patient: 25-34 minutes Medications reviewed and adjusted accordingly: Yes Anticipated discharge: Other - LTAC placement Within: Other - Inpatient Certification Based on my medical assessment, after consideration of the patient's comorbidities, presenting symptoms, or acuity I expect that the services needed warrant INPATIENT care.: Yes I certify that my determination is in accordance with my understanding of Medicare's requirements for reasonable and necessary INPATIENT services [42 CFR 412.3e].: Yes Medical Necessity: Need Close Monitoring Due to Risk of Patient Decompensation, Need For IV Fluids, Need For Continuous Telemetry Monitoring, Need for Nebulizer Therapy and Monitoring of Response, Need for IV Antibiotics, Need for Surgery - surgical team eventually come around to schedule his tracheostomy and PEG tube placement for 05/23/17 AM., Risk of Complication if Not Cared For in Hospital Post Hospital Care: Other - Plan Summary Plan Summary: See attending physician orders.
[2017-05-22 20:42] LABS: INTERNATIONAL RATION (INR) 1.09; PROTHROMBIN TIME 14.8 SEC (11.4-15.4)
[2017-05-22 20:43] LABS: PARTIAL THROMBOPLASTIN TIME 39.6 SEC (23.5-35.8)
[2017-05-22] MEDS: DEXTROSE 5%-WATER 250 ML with PHENYLEPHRINE HCL 40 MG IV PRN ×2 (21:47)
[2017-05-23] MEDS: LEVALBUTEROL HCL NEB 1.25 MG/3 ML AMPUL NEB SCH ×4 (02:05→19:23)
[2017-05-23] MEDS: DEXTROSE 5%-WATER 250 ML with PHENYLEPHRINE HCL 40 MG IV PRN ×2 (02:44)
[2017-05-23] MEDS: PROPOFOL 100 ML IV PRN ×4 (02:44→17:04)
[2017-05-23] MEDS: PIPERACILLIN SODIUM/TAZOBACTAM 3.375 GM in NORMAL SALINE 100 ML IV SCH ×4 (05:40→23:40)
[2017-05-23] MEDS ORDERED: PROPOFOL INJ 200 MG/20 ML VIAL IV ONE (07:44)
[2017-05-23] MEDS ORDERED: MIDAZOLAM 2 MG/2 ML INJ ONE (07:44)
[2017-05-23] MEDS ORDERED: FENTANYL CITRATE INJ/PF 100 MCG/2 ML AMPUL ONE (07:44)
[2017-05-23] MEDS ORDERED: BUPIVACAINE HCL 0.25% /EPINEPHRINE INJ/PF 30 ML SDV ONE (07:56)
[2017-05-23 08:18] LABS: ARTERIAL BLOOD H2CO3 1.17 mmol/L (1.05-1.35); ARTERIAL BLOOD O2 SATURATION 97.9 % (94-98); ARTERIAL BLOOD PCO2 38.8 mmHg (35-45); ARTERIAL BLOOD PH 7.46 (7.35-7.45); ARTERIAL BLOOD PO2 101.5 mmHg (80-100); ARTERIAL BLOOD TOTAL CO2 28.2 mmol/L (23-27)
[2017-05-23 08:19] LABS: ABSOLUTE BASOPHILS # (AUTO) 0.1 10^3/uL (0.0-0.2); ABSOLUTE EOSINOPHILS # (AUTO) 0.3 10^3/uL (0.0-0.6); ABSOLUTE LYMPHOCYTES (AUTO) 1.1 10^3/uL (0.5-4.7); ABSOLUTE MONOCYTES (AUTO) 1.2 10^3/uL (0.1-1.4); ABSOLUTE NEUT (AUTO) 5.6 10^3/uL (1.7-8.2); BASOPHILS % (AUTO) 1.4 % (0-2); EOSINOPHILS % (AUTO) 3.1 % (0-6); HEMATOCRIT 27.4 % (37.9-51.0); HEMOGLOBIN 9.1 g/dL (13.5-17.0); LYMPHOCYTES % (AUTO) 13.1 % (13-45); MEAN CORPUSCULAR HEMOGLOBIN 30.5 pg (27.0-33.4); MEAN CORPUSCULAR HGB CONC 33.4 g/dL (32.0-36.0); MEAN CORPUSCULAR VOLUME 91 fl (80-97); MONOCYTES % (AUTO) 14.3 % (3-13); PLATELET COUNT 716 10^3/uL (150-450); RED CELL DISTRIBUTION WIDTH 20.8 % (11.5-14.0); SEGMENTED NEUTROPHILS % (AUTO) 68.1 % (42-78); TOTAL CELLS COUNTED % (AUTO) 100 %; WHITE BLOOD COUNT 8.3 10^3/uL (4.0-10.5)
[2017-05-23 08:20] LABS: ARTERIAL BLOOD FIO2 60%
[2017-05-23 08:24] LABS: PROTHROMBIN TIME 14.9 SEC (11.4-15.4)
[2017-05-23 08:25] LABS: PARTIAL THROMBOPLASTIN TIME 42.6 SEC (23.5-35.8)
[2017-05-23 08:39] LABS: ALANINE AMINOTRANSFERASE 23 U/L (21-72); ALBUMIN 2.3 g/dL (3.5-5.0); ALKALINE PHOSPHATASE 88 U/L (38-126); ANION GAP 7 (5-19); ASPARTATE AMINO TRANSFERASE 30 U/L (17-59); BILIRUBIN,DIRECT 0.5 mg/dL (0.0-0.4); BILIRUBIN,TOTAL 0.6 mg/dL (0.2-1.3); BLOOD UREA NITROGEN 6 mg/dL (7-20); CALCIUM 8.7 mg/dL (8.4-10.2); CARBON DIOXIDE 26 mmol/L (22-30); CHLORIDE 103 mmol/L (98-107); GLUCOSE 81 mg/dL (75-110); MAGNESIUM 1.7 mg/dL (1.6-2.3); POTASSIUM 3.8 mmol/L (3.6-5.0); SODIUM 135.9 mmol/L (137-145); TOTAL PROTEIN 6.6 g/dL (6.3-8.2)
--- NOTE | 2017-05-23 10:29 | Operative Report ---
Nonrecallable Operative Report DATE OF SURGERY: 05/23/17 PREOPERATIVE DIAGNOSIS: need iv access, malnutrition, ventilator dependency POSTOPERATIVE DIAGNOSIS: same OPERATION: PEG placement, CVL placement, tracheostomy SURGEON: VERENA RAMIREZ ANESTHESIA: GA TISSUE REMOVED OR ALTERED: none COMPLICATIONS: none ESTIMATED BLOOD LOSS: <10 mL INTRAOPERATIVE FINDINGS: as preop dx PROCEDURE: see dictation
--- NOTE | 2017-05-23 10:49 | OPERATIVE REPORT E ---
Operative Report NAME: MADINA HIDALGO : 1945 AGE: 71Y DATE OF SURGERY: 05/23/2017 ROOM: 611 PREOPERATIVE DIAGNOSES: 1. MALNUTRITION. 2. RESPIRATORY INSUFFICIENCY. 3. VENTILATOR DEPENDENCE. 4. NEED FOR IV ACCESS. POSTOPERATIVE DIAGNOSES: 1. MALNUTRITION. 2. RESPIRATORY INSUFFICIENCY. 3. VENTILATOR DEPENDENCE. 4. NEED FOR IV ACCESS. OPERATIONS: 1. Open tracheostomy, 8.5-mm outside diameter Shiley. 2. Percutaneous endoscopic gastrostomy tube placement. 3. Right subclavian vein central venous line. SURGEON: VERENA RAMIREZ M.D. E MAIL SYSTEM ADMINISTRATOR: None. ESTIMATED BLOOD LOSS: Minimal. COMPLICATIONS: None. ANESTHESIA: General. INDICATIONS AND FINDINGS: This is a 71-year-old male who presented to the hospital with a history of long-term alcohol abuse, dehydration, hyponatremia. The patient was then scheduled to be transferred to an outside long-term care facility, and I was requested to place a PEG tube, tracheostomy tube and a central venous line. In addition, the patient was evaluated by the neurologist, who deemed the patient not to be brain , but to have some upper functions; therefore, following the opinion of the neurologist, the patient was scheduled to undergo a PEG placement, a tracheostomy placement and placement of a central venous line. PROCEDURE: The patient was taken to the operating room. Patient placed in supine position. General anesthesia was induced by the previously placed endotracheal tube. The patient's neck was extended with towels. The PEG tube was inserted first by placing the gastroscope through the mouth into the esophagus and the stomach. The left upper quadrant of the abdomen was palpated with the index finger, and indentation was noted on the anterior wall of the stomach body. The skin of the left upper quadrant was then prepped with Betadine. An incision was made with a #11 blade at the point of the gastric wall indentation, and a 16-gauge needle was inserted through the skin into the stomach. A guidewire was inserted through the needle into the stomach, grasped with a looped grasper inserted through the gastroscope. The gastroscope was then pulled together with the grasped wire. The grasped wire was then connected to the gastrostomy tube. The guidewire was then pulled from the skin until the gastrostomy tube was guided through the mouth, esophagus and into the stomach, and resistance was met. The gastroscope was then reinserted through the mouth, into the stomach. The position of the gastrostomy tube was identified, with the mushroom head against the gastric wall. At this point, the gastroscope was removed. The gastrostomy tube was cut to length. A skin flange was threaded through the gastrostomy tube and placed flush against the skin. The gastrostomy tube was then capped and the flange was secured to the skin with 2-0 nylon sutures. The neck of the patient was then prepped and draped in the standard fashion. The trachea at the incision point was then marked in the lower aspect of the neck, about 2 fingerbreadths above the lower edge of the sternal notch. The skin was infiltrated with 1% lidocaine with epinephrine. A transverse incision was made with a #15 blade through subcutaneous fat and platysma, developed with Bovie. Multiple superficial neck veins were identified, controlled with hemostats proximally and distally, divided and suture-ligated. The strap muscles were then divided along the midline with Bovie and gently peeled off the trachea with peanut dissection until the trachea was identified. The pretracheal fascia was then divided with Bovie and the trachea fully exposed. At this point, an incision was made from the third to the fifth tracheal ring with a #11 blade. The trachea was found to be calcified and indurated, and the incision to be completed with scissors. Ties with silk stay ties were then placed on each flap of the trachea. A trachea towboat operator was then inserted to enlarge the opening. A skin hook was then placed to hold the trachea in place. The ET tube was then pulled back and the 8.0-mm Shiley tracheostomy was inserted without difficulty into the trachea. The balloon was inflated. The inner tube was inserted into the tracheostomy and connected to the ventilator. Pulse oximetry was about 100% and ETCO2 was 40 or higher. The skin incision of the tracheostomy was closed with interrupted 2-0 Prolene sutures. The flange of the tracheostomy was secured to the skin with interrupted 2-0 Prolene sutures. The tracheal flaps were then secured to the skin with Benzoin and Steri-Strips. A posterior neck tie was then placed through the flange. The right upper chest was then prepped and draped in the usual fashion. The midportion portion of the right clavicle was then approached with a 16-gauge needle. After several attempts, the left subclavian vein was identified, with good return. The guidewire was inserted over the needle in through the subclavian vein and superior vena cava. The needle was removed. The incision point for the guidewire enlarged with a #11 blade and a tissue dilator, which was then removed. A triple-lumen catheter was inserted over the guidewire up to 16 cm. Guidewire was removed. The triple-lumen catheter was aspirated and flushed with normal saline, without any difficulty. The triple-lumen catheter was then secured to the skin with silk sutures. Sterile dressings were applied. The patient tolerated the procedure well and was transferred to the ICU in satisfactory condition. A chest x-ray was obtained to confirm the position of the central line and position of the tracheostomy. DICTATING PHYSICIAN: VERENA RAMIREZ M.D. [id number] PHY#: [id number] ID: [id number] JOB#: [id number] ACCT: [id number] cc:VERENA RAMIREZ M.D. > MTDD
--- NOTE | 2017-05-23 11:34 | RADIOLOGY REPORT (SQ) ---
EXAM DESCRIPTION: CHEST SINGLE VIEW COMPLETED DATE/TIME: 05/23/2017 11:04 am REASON FOR STUDY: check new central line placement COMPARISON: 05/22/2017 EXAM PARAMETERS: NUMBER OF VIEWS: One view. TECHNIQUE: Single frontal radiographic view of the chest acquired. RADIATION DOSE: NA LIMITATIONS: None. FINDINGS: LUNGS AND PLEURA: The previously described basilar pneumothorax on the right is not defini tely identified on the current study. The previously described coarse interstitial pattern throughou t the lungs and focal right apical density appear unchanged. There is a more confluent density in th e right lung base which could represent an acute process superimposed on chronic underlying changes. There is some blunting of the right costophrenic angle which could represent pleural reaction or sma ll right pleural effusion MEDIASTINUM AND HILAR STRUCTURES: No masses. Contour normal. HEART AND VASCULAR STRUCTURES: The configuration of the heart and mediastinal structures is unchanged BONES: No acute findings. HARDWARE: Tracheostomy tube is now identified with its tip at the level of the thoracic inlet. Right subclavian line is now identified with its tip at the level of the superior vena cava. A right inte rnal jugular venous line is identified with its tip at the approximate junction of SVC and right atri um. OTHER: No other significant finding. IMPRESSION: Tracheostomy tube with its tip at the level of thoracic inlet. Central lines as noted a david. The previously described right basilar pneumothorax is no longer identified. Other findings a s noted above TECHNICAL DOCUMENTATION: JOB ID: [id number] [employer]- All Rights Reserved
[2017-05-23] MEDS ORDERED: PHENYLEPHRINE HCL INJ/PF 10 MG/1 ML SDV ONE (12:01)
[2017-05-23] MEDS: ACETYLCYSTEINE 20% SOLN 800 MG/4 ML VIAL.NEB NEB SCH ×2 (13:24→19:24)
[2017-05-23] MEDS: POTASSIUM CHLORIDE 20 MEQ/15 ML UDCUP NG SCH (13:24)
[2017-05-23] MEDS: TOBRAMYCIN SULFATE NEB 40 MG/ML 30 ML NEB SCH ×2 (13:24→19:24)
[2017-05-23] MEDS: DEXTROSE 5%-WATER 250 ML with NOREPINEPHRINE BITARTRATE 4 MG IV PRN ×4 (13:39→23:41)
[2017-05-23 13:44] LABS: TOTAL PROTEIN BODY FLUID 3.5 g/dL (.)
[2017-05-23] MEDS ORDERED: MORPHINE SULFATE 10 MG/ML INJ ONE (16:56)
--- NOTE | 2017-05-23 18:29 | PDOC PROGRESS REPORT ---
Subjective Progress Note for:: 05/23/17 Subjective:: s/p Tracheostomy and PEG tube placement. Remain intubated and vent supported. Patient remain on IV Propofol for sedation and IV Morphine for pain management. Currently off enteral feeding. Thee is ongoing diarrhea with need for rectal tube placement for management. Reason For Visit: DEHYDRATION WITH HYPONATREMIA;ACUTE RENAL INJURY; Physical Exam Vital Signs: Temp Pulse Resp BP Pulse Ox 98.1 F 97 25 H 87/64 L 100 05/23/17 18:00 05/23/17 18:00 05/23/17 18:00 05/23/17 18:00 05/23/17 18:00 Intake & Output 05/22/17 05/23/17 05/24/17 06:59 06:59 06:59 Intake Total 2602 3075 1502 Output Total 4100 2010 558 Balance -1498 1065 944 Weight 77.6 kg 74.2 kg Physical Exam: General appearance: PRESENT: Sedated on IV Propofol. ET and OG tubes in situ. Head exam: PRESENT: atraumatic, normocephalic Eye exam: PRESENT: conjunctiva pink, EOMI, PERRLA. ABSENT: scleral icterus Mouth exam: PRESENT: moist Neck exam: PRESENT: other - right IJ central line device Respiratory exam: PRESENT: decreased breath sounds at lung bases Cardiovascular exam: PRESENT: RRR, S+1, S+2, ABSENT: diastolic murmur, rubs, systolic murmur. GI/Abdominal exam: PRESENT: normal bowel sounds, soft. ABSENT: distended, guarding, mass, organomegaly, rebound, tenderness Extremities exam: PRESENT: pedal edema - upper extremities due to soft tissue infiltration Musculoskeletal exam: PRESENT: Slight improvement in generalized edema Neurological exam: PRESENT: Sedated. Skin exam: PRESENT: Stage sacral region pressure ulcer. dry, warm. ABSENT: cyanosis Results Laboratory Results: 05/23/17 08:00 05/23/17 08:00 05/21/17 05/23/17 05/23/17 16:50 08:00 08:00 WBC 8.3 RBC 3.00 L Hgb 9.1 L Hct 27.4 L MCV 91 MCH 30.5 MCHC 33.4 RDW 20.8 H Plt Count 716 H Seg Neutrophils % 68.1 Lymphocytes % 13.1 Monocytes % 14.3 H Eosinophils % 3.1 Basophils % 1.4 Absolute Neutrophils 5.6 Absolute Lymphocytes 1.1 Absolute Monocytes 1.2 Absolute Eosinophils 0.3 Absolute Basophils 0.1 Carbonic Acid HCO3/H2CO3 Ratio ABG pH ABG pCO2 ABG pO2 ABG HCO3 ABG O2 Saturation ABG Base Excess FiO2 Sodium 135.9 L Potassium 3.8 Chloride 103 Carbon Dioxide 26 Anion Gap 7 BUN 6 L Creatinine 0.71 Est GFR ( Amer) > 60 Est GFR (Non-Af Amer) > 60 Glucose 81 Calcium 8.7 Magnesium 1.7 Total Bilirubin 0.6 AST 30 ALT 23 Alkaline Phosphatase 88 Total Protein 6.6 Albumin 2.3 L Fluid Glucose 104 Fluid Total Protein 3.5 Fluid LDH 154 05/23/17 08:00 WBC RBC Hgb Hct MCV MCH MCHC RDW Plt Count Seg Neutrophils % Lymphocytes % Monocytes % Eosinophils % Basophils % Absolute Neutrophils Absolute Lymphocytes Absolute Monocytes Absolute Eosinophils Absolute Basophils Carbonic Acid 1.17 HCO3/H2CO3 Ratio 23:1 ABG pH 7.46 H ABG pCO2 38.8 ABG pO2 101.5 H ABG HCO3 27.0 H ABG O2 Saturation 97.9 ABG Base Excess 3.0 FiO2 60% Sodium Potassium Chloride Carbon Dioxide Anion Gap BUN Creatinine Est GFR ( Amer) Est GFR (Non-Af Amer) Glucose Calcium Magnesium Total Bilirubin AST ALT Alkaline Phosphatase Total Protein Albumin Fluid Glucose Fluid Total Protein Fluid LDH Impressions: Lumbar Spine MRI 04/17/17 14:33 IMPRESSION: MULTILEVEL CHRONIC DEGENERATIVE CHANGES, PRIMARILY DUE TO FACET ARTHROPATHY. AREAS OF MILD TO MODERATE SPINAL STENOSIS DESCRIBED. NO ACUTE FINDINGS. Chest CT 04/27/17 00:00 IMPRESSION: Diffuse bullous change with superimposed fluid likely interstitial edema or pneumonia. Clearly progressed from previous. Bilateral pleural effusions. Persistent air-fluid level and a large bullae in the right upper lobe. Infection in the differential. Unchanged. Acute Abdomen Series 04/30/17 00:00 IMPRESSION: 1. Gaseous distention in the abdomen. This includes large and small bowel. Scattered air-fluid levels may reflect mild ileus. Modified Barium Swallow 05/01/17 00:00 IMPRESSION: NO EVIDENCE OF LARYNGEAL PENETRATION OR TRACHEAL ASPIRATION.PLEASE SEE SPEECH PATHOLOGIST REPORT FOR OTHER FINDINGS AND RECOMMENDATIONS. Fluoroscopy 05/07/17 00:00 IMPRESSION: IMAGE(S) OBTAINED DURING PROCEDURE. KUB X-Ray 05/14/17 00:00 IMPRESSION: SATISFACTORY POSITION OF ENTERIC TUBE. NO SIGNIFICANT CHANGE FROM PRIOR STUDY. Thoracentesis Ultrasound 05/21/17 11:41 IMPRESSION: SUCCESSFUL THORACENTESIS USING ULTRASOUND GUIDANCE. 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 No acute findings EVIDENCE OF ACUTE STROKE: NO. Chest X-Ray 05/23/17 00:00 IMPRESSION: Tracheostomy tube with its tip at the level of thoracic inlet. Central lines as noted above. The previously described right basilar pneumothorax is no longer identified. Other findings as noted above Assessment & Plan - Diagnosis (1) Dehydration with hyponatremia Is this a current diagnosis for this admission?: Yes (2) Abnormality of lung on CXR Is this a current diagnosis for this admission?: Yes (3) Pneumatocele of lung Is this a current diagnosis for this admission?: No (4) Pneumothorax on right Is this a current diagnosis for this admission?: Yes (5) Acute kidney injury Is this a current diagnosis for this admission?: Yes (6) COPD (chronic obstructive pulmonary disease) Qualifiers: COPD type: unspecified COPD Qualified Code(s): J44.9 - Chronic obstructive pulmonary disease, unspecified Is this a current diagnosis for this admission?: Yes (7) HLD (hyperlipidemia) Qualifiers: Hyperlipidemia type: pure hypercholesterolemia Qualified Code(s): E78.00 - Pure hypercholesterolemia, unspecified Is this a current diagnosis for this admission?: Yes (8) HTN (hypertension) Qualifiers: Hypertension type: essential hypertension Qualified Code(s): I10 - Essential (primary) hypertension Is this a current diagnosis for this admission?: Yes (9) Constipation Qualifiers: Constipation type: slow transit constipation Qualified Code(s): K59.01 - Slow transit constipation Is this a current diagnosis for this admission?: Yes (10) Acute respiratory failure with hypoxemia Is this a current diagnosis for this admission?: Yes (11) Fungal pneumonia Is this a current diagnosis for this admission?: Yes (12) Pneumonia due to Pseudomonas aeruginosa Is this a current diagnosis for this admission?: Yes (13) Pleural effusion, right Is this a current diagnosis for this admission?: Yes - Time Time Spent with patient: 25-34 minutes Medications reviewed and adjusted accordingly: Yes Anticipated discharge: Other Within: Other - Inpatient Certification Based on my medical assessment, after consideration of the patient's comorbidities, presenting symptoms, or acuity I expect that the services needed warrant INPATIENT care.: Yes I certify that my determination is in accordance with my understanding of Medicare's requirements for reasonable and necessary INPATIENT services [42 CFR 412.3e].: Yes Medical Necessity: Need Close Monitoring Due to Risk of Patient Decompensation, Need For IV Fluids, Need For Continuous Telemetry Monitoring, Need for Pain Control, Need for IV Antibiotics, Risk of Complication if Not Cared For in Hospital Post Hospital Care: D/C or Transfer Summary - Plan Summary Plan Summary: See attending physician orders. We will continue efforts at placement with LTAC for possible eventual extubation. Overall prognosis remain guarded.
[2017-05-24] MEDS: LEVALBUTEROL HCL NEB 1.25 MG/3 ML AMPUL NEB SCH ×4 (01:37→19:49)
[2017-05-24] MEDS: PROPOFOL 100 ML IV PRN ×3 (02:02→17:24)
[2017-05-24] MEDS: MORPHINE SULFATE 10 MG/ML INJ IV PRN ×4 (02:51→22:04)
[2017-05-24 06:08] LABS: ABSOLUTE BASOPHILS # (AUTO) 0.1 10^3/uL (0.0-0.2); ABSOLUTE EOSINOPHILS # (AUTO) 0.2 10^3/uL (0.0-0.6); ABSOLUTE LYMPHOCYTES (AUTO) 0.7 10^3/uL (0.5-4.7); ABSOLUTE NEUT (AUTO) 5.7 10^3/uL (1.7-8.2); BASOPHILS % (AUTO) 1.4 % (0-2); EOSINOPHILS % (AUTO) 2.6 % (0-6); HEMATOCRIT 26.5 % (37.9-51.0); HEMOGLOBIN 9.1 g/dL (13.5-17.0); LYMPHOCYTES % (AUTO) 9.5 % (13-45); MEAN CORPUSCULAR HGB CONC 34.2 g/dL (32.0-36.0); MEAN CORPUSCULAR VOLUME 91 fl (80-97); MONOCYTES % (AUTO) 12.4 % (3-13); PLATELET COUNT 630 10^3/uL (150-450); RED BLOOD COUNT 2.92 10^6/uL (4.35-5.55); SEGMENTED NEUTROPHILS % (AUTO) 74.1 % (42-78); TOTAL CELLS COUNTED % (AUTO) 100 %; WHITE BLOOD COUNT 7.7 10^3/uL (4.0-10.5)
[2017-05-24] MEDS: PIPERACILLIN SODIUM/TAZOBACTAM 3.375 GM in NORMAL SALINE 100 ML IV SCH ×3 (06:15→17:32)
[2017-05-24 06:16] LABS: ARTERIAL BLOOD BASE EXCESS 1.2 mmol/L; ARTERIAL BLOOD H2CO3 1.29 mmol/L (1.05-1.35); ARTERIAL BLOOD HCO3 26.2 mmol/L (20-26); ARTERIAL BLOOD O2 SATURATION 99.2 % (94-98); ARTERIAL BLOOD PO2 173.1 mmHg (80-100); ARTERIAL BLOOD TOTAL CO2 27.5 mmol/L (23-27)
[2017-05-24 06:18] LABS: ARTERIAL BLOOD FIO2 60
[2017-05-24 06:31] LABS: ALANINE AMINOTRANSFERASE 29 U/L (21-72); ALBUMIN 2.3 g/dL (3.5-5.0); ALKALINE PHOSPHATASE 151 U/L (38-126); ANION GAP 8 (5-19); ASPARTATE AMINO TRANSFERASE 26 U/L (17-59); BILIRUBIN,DIRECT 0.6 mg/dL (0.0-0.4); BILIRUBIN,TOTAL 0.7 mg/dL (0.2-1.3); BLOOD UREA NITROGEN 5 mg/dL (7-20); CALCIUM 8.4 mg/dL (8.4-10.2); CARBON DIOXIDE 25 mmol/L (22-30); CHLORIDE 103 mmol/L (98-107); GLUCOSE 91 mg/dL (75-110); MAGNESIUM 1.7 mg/dL (1.6-2.3); POTASSIUM 3.6 mmol/L (3.6-5.0); SODIUM 135.7 mmol/L (137-145); TOTAL PROTEIN 6.5 g/dL (6.3-8.2); TRIGLYCERIDES 143 mg/dL (<150)
[2017-05-24 06:40] LABS: PREALBUMIN 4.9 mg/dL (17.6-36.0)
--- NOTE | 2017-05-24 06:56 | RADIOLOGY REPORT (SQ) ---
EXAM DESCRIPTION: CHEST SINGLE VIEW CLINICAL HISTORY: pna/resp failure COMPARISON: 05/23/2017 FINDINGS: Single frontal view of the chest. Tracheostomy is in place. Prior median sternotomy. NG tube with tip below the diaphragm. Right subclavian central venous catheter with tip in the SVC. Interval removal of right IJ central venous catheter. Tortuosity of thoracic aorta. Heart is not enlarged. Bilateral interstitial and alveolar opacities are unchanged in configuration. Right apical pleural thickening/effusion. No acute osseous abnormalities IMPRESSION: 1. Interval removal of right IJ central venous catheter. Otherwise stable appearance of the chest.
[2017-05-24] MEDS: TOBRAMYCIN SULFATE NEB 40 MG/ML 30 ML NEB SCH ×2 (07:53→19:49)
[2017-05-24] MEDS: ACETYLCYSTEINE 20% SOLN 800 MG/4 ML VIAL.NEB NEB SCH ×2 (07:54→19:49)
[2017-05-24] MEDS: POTASSIUM CHLORIDE 20 MEQ/15 ML UDCUP NG SCH (09:12)
--- NOTE | 2017-05-24 09:29 | EEG PRO FEE REPORT ---
EEG INTERPRETATION PATIENT NAME: MADINA HIDALGO ROOM#: [id number] ORDER#: [id number] DATE OF STUDY: 05/22/2017 : 1945 REFERRING MD: VERENA RAMIREZ M.D. DIAGNOSIS: Lack of neuro activity REPORT There is brain wave activity but it is greatly obscured by motion artifact nearly throughout the tracing. When one does see the activity it appears to be 10-12 Hz low range beta with again a lot of superimposed motion artifact. No clear slow waves are identified that might be seen with a hepatorenal syndrome or any other toxic or metabolic encephalopathy and no seizure activity is noted that might be seen with subclinical status epilepticus. IMPRESSION Overall this EEG is characterized by excessive motion artifact but does show brain wave activity and is not compatible with brain EEG. INTERPRETING PHYSICIAN: MARY ESTRADA M.D. /: MTEFTORIN TT: [id number] ID: [id number] /: [id number] TD: [id number] JOB: [id number] cc:Humaira FRANCISCO M.D. GIOVANNI SALERNO, M.D. >
[2017-05-24] MEDS ORDERED: TOBRAMYCIN SULFATE NEB 40 MG/ML 30 ML NEB ONE (11:00)
[2017-05-24] MEDS: DEXTROSE 5%-WATER 250 ML with NOREPINEPHRINE BITARTRATE 4 MG IV PRN ×2 (13:08)
--- NOTE | 2017-05-24 18:47 | PDOC PROGRESS REPORT ---
Subjective Subjective:: Patient remain intubated and vent supported. Tracheostomy site okay. Patient remain on IV Propofol for sedation and IV Morphine for pain management. He will start on enteral feeding today. Discharger maintenance planner efforts noted with possible acceptance to LTAC on Sunday. Reason For Visit: DEHYDRATION WITH HYPONATREMIA;ACUTE RENAL INJURY; Physical Exam Vital Signs: Temp Pulse Resp BP Pulse Ox 97.5 F 111 H 28 H 89/63 L 94 05/24/17 18:00 05/24/17 16:00 05/24/17 18:00 05/24/17 17:51 05/24/17 18:00 Intake & Output 05/23/17 05/24/17 05/25/17 06:59 06:59 06:59 Intake Total 3074 2910 803 Output Total 2009 2333 900 Balance 1065 577 -97 Weight 74.2 kg 76.8 kg Physical Exam: General appearance: PRESENT: Sedated on IV Propofol. ET and OG tubes in situ. Head exam: PRESENT: atraumatic, normocephalic Eye exam: PRESENT: conjunctiva pink, EOMI, PERRLA. ABSENT: scleral icterus Mouth exam: PRESENT: moist Neck exam: PRESENT: other - right IJ central line device Respiratory exam: PRESENT: decreased breath sounds at lung bases Cardiovascular exam: PRESENT: RRR, S+1, S+2, ABSENT: diastolic murmur, rubs, systolic murmur. GI/Abdominal exam: PRESENT: normal bowel sounds, soft. ABSENT: distended, guarding, mass, organomegaly, rebound, tenderness Extremities exam: PRESENT: pedal edema - upper extremities due to soft tissue infiltration Musculoskeletal exam: PRESENT: Slight improvement in generalized edema Neurological exam: PRESENT: Sedated. Skin exam: PRESENT: Stage sacral region pressure ulcer. dry, warm. ABSENT: cyanosis Results Laboratory Results: 05/24/17 05:35 05/24/17 05:35 05/24/17 05/24/17 05/24/17 05:35 05:35 05:35 WBC 7.7 RBC 2.92 L Hgb 9.1 L Hct 26.5 L MCV 91 MCH 31.0 MCHC 34.2 RDW 20.0 H Plt Count 630 H Seg Neutrophils % 74.1 Lymphocytes % 9.5 L Monocytes % 12.4 Eosinophils % 2.6 Basophils % 1.4 Absolute Neutrophils 5.7 Absolute Lymphocytes 0.7 Absolute Monocytes 1.0 Absolute Eosinophils 0.2 Absolute Basophils 0.1 Carbonic Acid 1.29 HCO3/H2CO3 Ratio 20:1 ABG pH 7.40 ABG pCO2 43.0 ABG pO2 173.1 H ABG HCO3 26.2 H ABG O2 Saturation 99.2 H ABG Base Excess 1.2 FiO2 60 Sodium 135.7 L Potassium 3.6 Chloride 103 Carbon Dioxide 25 Anion Gap 8 BUN 5 L Creatinine 0.72 Est GFR ( Amer) > 60 Est GFR (Non-Af Amer) > 60 Glucose 91 Calcium 8.4 Magnesium 1.7 Total Bilirubin 0.7 AST 26 ALT 29 Alkaline Phosphatase 151 H Total Protein 6.5 Albumin 2.3 L Prealbumin 4.9 L Triglycerides 143 05/21/17 16:50 Pleural Fluid - Right Pleural Effusion Gram Stain - Final 05/21/17 16:50 Pleural Fluid - Right Pleural Effusion Body Fluid Culture - Final NO AEROBIC OR ANAEROBIC ORGANISMS RECOVERED 05/24/17 05:35 NT-Pro-B Natriuret Pep 4900 H Impressions: Lumbar Spine MRI 04/17/17 14:33 IMPRESSION: MULTILEVEL CHRONIC DEGENERATIVE CHANGES, PRIMARILY DUE TO FACET ARTHROPATHY. AREAS OF MILD TO MODERATE SPINAL STENOSIS DESCRIBED. NO ACUTE FINDINGS. Chest CT 04/27/17 00:00 IMPRESSION: Diffuse bullous change with superimposed fluid likely interstitial edema or pneumonia. Clearly progressed from previous. Bilateral pleural effusions. Persistent air-fluid level and a large bullae in the right upper lobe. Infection in the differential. Unchanged. Acute Abdomen Series 04/30/17 00:00 IMPRESSION: 1. Gaseous distention in the abdomen. This includes large and small bowel. Scattered air-fluid levels may reflect mild ileus. Modified Barium Swallow 05/01/17 00:00 IMPRESSION: NO EVIDENCE OF LARYNGEAL PENETRATION OR TRACHEAL ASPIRATION.PLEASE SEE SPEECH PATHOLOGIST REPORT FOR OTHER FINDINGS AND RECOMMENDATIONS. Fluoroscopy 05/07/17 00:00 IMPRESSION: IMAGE(S) OBTAINED DURING PROCEDURE. KUB X-Ray 05/14/17 00:00 IMPRESSION: SATISFACTORY POSITION OF ENTERIC TUBE. NO SIGNIFICANT CHANGE FROM PRIOR STUDY. Thoracentesis Ultrasound 05/21/17 11:41 IMPRESSION: SUCCESSFUL THORACENTESIS USING ULTRASOUND GUIDANCE. 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 No acute findings EVIDENCE OF ACUTE STROKE: NO. Chest X-Ray 05/24/17 06:00 IMPRESSION: 1. Interval removal of right IJ central venous catheter. Otherwise stable appearance of the chest. Assessment & Plan - Diagnosis (1) Dehydration with hyponatremia Is this a current diagnosis for this admission?: Yes (2) Abnormality of lung on CXR Is this a current diagnosis for this admission?: Yes (3) Pneumatocele of lung Is this a current diagnosis for this admission?: No (4) Pneumothorax on right Is this a current diagnosis for this admission?: Yes (5) Acute kidney injury Is this a current diagnosis for this admission?: Yes (6) COPD (chronic obstructive pulmonary disease) Qualifiers: COPD type: unspecified COPD Qualified Code(s): J44.9 - Chronic obstructive pulmonary disease, unspecified Is this a current diagnosis for this admission?: Yes (7) HLD (hyperlipidemia) Qualifiers: Hyperlipidemia type: pure hypercholesterolemia Qualified Code(s): E78.00 - Pure hypercholesterolemia, unspecified Is this a current diagnosis for this admission?: Yes (8) HTN (hypertension) Qualifiers: Hypertension type: essential hypertension Qualified Code(s): I10 - Essential (primary) hypertension Is this a current diagnosis for this admission?: Yes (9) Constipation Qualifiers: Constipation type: slow transit constipation Qualified Code(s): K59.01 - Slow transit constipation Is this a current diagnosis for this admission?: Yes (10) Acute respiratory failure with hypoxemia Is this a current diagnosis for this admission?: Yes (11) Fungal pneumonia Is this a current diagnosis for this admission?: Yes (12) Pneumonia due to Pseudomonas aeruginosa Is this a current diagnosis for this admission?: Yes (13) Pleural effusion, right Is this a current diagnosis for this admission?: Yes - Time Time Spent with patient: 25-34 minutes Medications reviewed and adjusted accordingly: Yes Anticipated discharge: Other Within: Other - Inpatient Certification Based on my medical assessment, after consideration of the patient's comorbidities, presenting symptoms, or acuity I expect that the services needed warrant INPATIENT care.: Yes I certify that my determination is in accordance with my understanding of Medicare's requirements for reasonable and necessary INPATIENT services [42 CFR 412.3e].: Yes Medical Necessity: Need Close Monitoring Due to Risk of Patient Decompensation, Need For IV Fluids, Need For Continuous Telemetry Monitoring, Need for Nebulizer Therapy and Monitoring of Response, Need for IV Antibiotics, Risk of Complication if Not Cared For in Hospital Post Hospital Care: D/C or Transfer Summary - Plan Summary Plan Summary: Continue all current medication management. We will continue communication with LTAC facility with hope to transfer patient on 05/28/17.
[2017-05-24] MEDS ORDERED: TOBRAMYCIN SULFATE NEB 40 MG/ML 30 ML NEB SCH (20:00)
[2017-05-24] MEDS ORDERED: TOBRAMYCIN SULFATE INJ 80 MG/2 ML VIAL NEB SCH (22:00)
[2017-05-25] MEDS: PROPOFOL 100 ML IV PRN ×2 (01:10→21:31)
[2017-05-25] MEDS: PIPERACILLIN SODIUM/TAZOBACTAM 3.375 GM in NORMAL SALINE 100 ML IV SCH ×4 (01:12→18:39)
[2017-05-25] MEDS ORDERED: NOREPINEPHRINE BITARTRATE INJ/PF 4 MG/4 ML SDV IV ONE (01:15)
[2017-05-25] MEDS: DEXTROSE 5%-WATER 250 ML with NOREPINEPHRINE BITARTRATE 4 MG IV PRN ×4 (01:25→21:31)
[2017-05-25] MEDS: LEVALBUTEROL HCL NEB 1.25 MG/3 ML AMPUL NEB SCH ×4 (01:43→20:58)
[2017-05-25 06:38] LABS: ABSOLUTE BASOPHILS # (AUTO) 0.1 10^3/uL (0.0-0.2); ABSOLUTE EOSINOPHILS # (AUTO) 0.2 10^3/uL (0.0-0.6); ABSOLUTE MONOCYTES (AUTO) 1.2 10^3/uL (0.1-1.4); ABSOLUTE NEUT (AUTO) 7.6 10^3/uL (1.7-8.2); BASOPHILS % (AUTO) 1.1 % (0-2); EOSINOPHILS % (AUTO) 2.3 % (0-6); HEMATOCRIT 27.3 % (37.9-51.0); HEMOGLOBIN 9.2 g/dL (13.5-17.0); LYMPHOCYTES % (AUTO) 9.5 % (13-45); MEAN CORPUSCULAR HEMOGLOBIN 29.9 pg (27.0-33.4); MEAN CORPUSCULAR HGB CONC 33.6 g/dL (32.0-36.0); MEAN CORPUSCULAR VOLUME 89 fl (80-97); MONOCYTES % (AUTO) 11.7 % (3-13); PLATELET COUNT 723 10^3/uL (150-450); RED BLOOD COUNT 3.07 10^6/uL (4.35-5.55); RED CELL DISTRIBUTION WIDTH 19.5 % (11.5-14.0); SEGMENTED NEUTROPHILS % (AUTO) 75.4 % (42-78); TOTAL CELLS COUNTED % (AUTO) 100 %; WHITE BLOOD COUNT 10.1 10^3/uL (4.0-10.5)
[2017-05-25 06:43] LABS: ARTERIAL BLOOD BASE EXCESS 1.1 mmol/L; ARTERIAL BLOOD H2CO3 1.19 mmol/L (1.05-1.35); ARTERIAL BLOOD HCO3 25.4 mmol/L (20-26); ARTERIAL BLOOD O2 SATURATION 97.8 % (94-98); ARTERIAL BLOOD PCO2 39.5 mmHg (35-45); ARTERIAL BLOOD PH 7.43 (7.35-7.45); ARTERIAL BLOOD PO2 101.4 mmHg (80-100); ARTERIAL BLOOD TOTAL CO2 26.6 mmol/L (23-27)
[2017-05-25 06:44] LABS: ARTERIAL BLOOD FIO2 50%
[2017-05-25 07:01] LABS: ANION GAP 5 (5-19); CALCIUM 8.4 mg/dL (8.4-10.2); CARBON DIOXIDE 26 mmol/L (22-30); CHLORIDE 104 mmol/L (98-107); GLUCOSE 88 mg/dL (75-110); SODIUM 135.2 mmol/L (137-145)
[2017-05-25 07:04] LABS: BLOOD UREA NITROGEN 5 mg/dL (7-20); PHOSPHORUS 3.4 mg/dL (2.5-4.5); POTASSIUM 3.4 mmol/L (3.6-5.0)
--- NOTE | 2017-05-25 07:07 | RADIOLOGY REPORT (SQ) ---
EXAM DESCRIPTION: CHEST SINGLE VIEW CLINICAL HISTORY: pna/resp fail COMPARISON: 05/24/2017 FINDINGS: Single frontal view of the chest. Tracheostomy is in place. Prior median sternotomy. NG tube with tip below the diaphragm. Right subclavian central venous catheter with tip in the SVC. Interval removal of right IJ central venous catheter. Tortuosity of thoracic aorta. Heart is not enlarged. Bilateral interstitial and alveolar opacities are unchanged in configuration. Right apical pleural thickening/effusion. No acute osseous abnormalities IMPRESSION: 1. No significant interval change. Electronically signed by: Damien Chaudhary 05/25/2017 6:06
[2017-05-25] MEDS ORDERED: POTASSIUM CHLORIDE 20 MEQ/15 ML UDCUP PO ONE (08:17)
[2017-05-25] MEDS: TOBRAMYCIN SULFATE NEB 40 MG/ML 30 ML NEB SCH (08:35)
[2017-05-25] MEDS: ACETYLCYSTEINE 20% SOLN 800 MG/4 ML VIAL.NEB NEB SCH ×2 (08:35→20:58)
[2017-05-25] MEDS: POTASSIUM CHLORIDE 20 MEQ/15 ML UDCUP NG SCH (11:19)
[2017-05-25] MEDS: MORPHINE SULFATE 10 MG/ML INJ IV PRN ×2 (15:21→19:03)
--- NOTE | 2017-05-25 17:30 | PDOC PROGRESS REPORT ---
Subjective Progress Note for:: 05/25/17 Subjective:: Patient remain intubated and vent supported on IV Propofol sedation. Tolerating enteral feeding. No fever. Remain on IV antibiotic therapy. Awaiting possible transfer to LTAC on Sunday. Reason For Visit: DEHYDRATION WITH HYPONATREMIA;ACUTE RENAL INJURY; Physical Exam Vital Signs: Temp Pulse Resp BP Pulse Ox 97.9 F 103 H 26 H 101/75 100 05/25/17 16:00 05/25/17 16:00 05/25/17 16:00 05/25/17 16:00 05/25/17 16:00 Intake & Output 05/24/17 05/25/17 05/26/17 06:59 06:59 06:59 Intake Total 2910 803 Output Total 5403 1285 445 Balance 577 -872 -445 Weight 76.8 kg 77.4 kg Physical Exam: General appearance: PRESENT: Sedated on IV Propofol. ET and OG tubes in situ. Head exam: PRESENT: atraumatic, normocephalic Eye exam: PRESENT: conjunctiva pink, EOMI, PERRLA. ABSENT: scleral icterus Mouth exam: PRESENT: moist Neck exam: PRESENT: other - tracheostomy site is satisfactory. Respiratory exam: PRESENT: decreased breath sounds at lung bases Cardiovascular exam: PRESENT: RRR, S+1, S+2, ABSENT: diastolic murmur, rubs, systolic murmur. Right SCV central line in-situ. GI/Abdominal exam: PRESENT: normal bowel sounds, soft. ABSENT: distended, guarding, mass, organomegaly, rebound, tenderness Extremities exam: PRESENT: pedal edema - upper extremities due to soft tissue infiltration Musculoskeletal exam: PRESENT: Slight improvement in generalized edema Neurological exam: PRESENT: Sedated. Skin exam: PRESENT: Stage sacral region pressure ulcer. dry, warm. ABSENT: cyanosis Results Laboratory Results: 05/25/17 05:25 05/25/17 05:25 05/25/17 05/25/17 05/25/17 05:25 05:25 05:25 WBC 10.1 RBC 3.07 L Hgb 9.2 L Hct 27.3 L MCV 89 MCH 29.9 MCHC 33.6 RDW 19.5 H Plt Count 723 H Seg Neutrophils % 75.4 Lymphocytes % 9.5 L Monocytes % 11.7 Eosinophils % 2.3 Basophils % 1.1 Absolute Neutrophils 7.6 Absolute Lymphocytes 1.0 Absolute Monocytes 1.2 Absolute Eosinophils 0.2 Absolute Basophils 0.1 Carbonic Acid HCO3/H2CO3 Ratio ABG pH ABG pCO2 ABG pO2 ABG HCO3 ABG O2 Saturation ABG Base Excess FiO2 Sodium 135.2 L Potassium 3.4 L Chloride 104 Carbon Dioxide 26 Anion Gap 5 BUN 5 L Creatinine 0.74 Est GFR ( Amer) > 60 Est GFR (Non-Af Amer) > 60 Glucose 88 Calcium 8.4 Phosphorus 3.4 Magnesium 1.7 05/25/17 06:10 WBC RBC Hgb Hct MCV MCH MCHC RDW Plt Count Seg Neutrophils % Lymphocytes % Monocytes % Eosinophils % Basophils % Absolute Neutrophils Absolute Lymphocytes Absolute Monocytes Absolute Eosinophils Absolute Basophils Carbonic Acid 1.19 HCO3/H2CO3 Ratio 21:1 ABG pH 7.43 ABG pCO2 39.5 ABG pO2 101.4 H ABG HCO3 25.4 ABG O2 Saturation 97.8 ABG Base Excess 1.1 FiO2 50% Sodium Potassium Chloride Carbon Dioxide Anion Gap BUN Creatinine Est GFR ( Amer) Est GFR (Non-Af Amer) Glucose Calcium Phosphorus Magnesium 05/21/17 16:50 Pleural Fluid - Right Pleural Effusion Fungal Smear - Final 05/21/17 16:50 Pleural Fluid - Right Pleural Effusion Fungal Smear - Final 05/24/17 05:35 NT-Pro-B Natriuret Pep 4900 H Impressions: Lumbar Spine MRI 04/17/17 14:33 IMPRESSION: MULTILEVEL CHRONIC DEGENERATIVE CHANGES, PRIMARILY DUE TO FACET ARTHROPATHY. AREAS OF MILD TO MODERATE SPINAL STENOSIS DESCRIBED. NO ACUTE FINDINGS. Chest CT 04/27/17 00:00 IMPRESSION: Diffuse bullous change with superimposed fluid likely interstitial edema or pneumonia. Clearly progressed from previous. Bilateral pleural effusions. Persistent air-fluid level and a large bullae in the right upper lobe. Infection in the differential. Unchanged. Acute Abdomen Series 04/30/17 00:00 IMPRESSION: 1. Gaseous distention in the abdomen. This includes large and small bowel. Scattered air-fluid levels may reflect mild ileus. Modified Barium Swallow 05/01/17 00:00 IMPRESSION: NO EVIDENCE OF LARYNGEAL PENETRATION OR TRACHEAL ASPIRATION.PLEASE SEE SPEECH PATHOLOGIST REPORT FOR OTHER FINDINGS AND RECOMMENDATIONS. Fluoroscopy 05/07/17 00:00 IMPRESSION: IMAGE(S) OBTAINED DURING PROCEDURE. KUB X-Ray 05/14/17 00:00 IMPRESSION: SATISFACTORY POSITION OF ENTERIC TUBE. NO SIGNIFICANT CHANGE FROM PRIOR STUDY. Thoracentesis Ultrasound 05/21/17 11:41 IMPRESSION: SUCCESSFUL THORACENTESIS USING ULTRASOUND GUIDANCE. 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 No acute findings EVIDENCE OF ACUTE STROKE: NO. Chest X-Ray 05/25/17 06:00 IMPRESSION: 1. No significant interval change. Assessment & Plan - Diagnosis (1) Dehydration with hyponatremia Is this a current diagnosis for this admission?: Yes (2) Abnormality of lung on CXR Is this a current diagnosis for this admission?: Yes (3) Pneumatocele of lung Is this a current diagnosis for this admission?: No (4) Pneumothorax on right Is this a current diagnosis for this admission?: Yes (5) Acute kidney injury Is this a current diagnosis for this admission?: Yes (6) COPD (chronic obstructive pulmonary disease) Qualifiers: COPD type: unspecified COPD Qualified Code(s): J44.9 - Chronic obstructive pulmonary disease, unspecified Is this a current diagnosis for this admission?: Yes (7) HLD (hyperlipidemia) Qualifiers: Hyperlipidemia type: pure hypercholesterolemia Qualified Code(s): E78.00 - Pure hypercholesterolemia, unspecified Is this a current diagnosis for this admission?: Yes (8) HTN (hypertension) Qualifiers: Hypertension type: essential hypertension Qualified Code(s): I10 - Essential (primary) hypertension Is this a current diagnosis for this admission?: Yes (9) Constipation Qualifiers: Constipation type: slow transit constipation Qualified Code(s): K59.01 - Slow transit constipation Is this a current diagnosis for this admission?: Yes (10) Acute respiratory failure with hypoxemia Is this a current diagnosis for this admission?: Yes (11) Fungal pneumonia Is this a current diagnosis for this admission?: Yes (12) Pneumonia due to Pseudomonas aeruginosa Is this a current diagnosis for this admission?: Yes (13) Pleural effusion, right Is this a current diagnosis for this admission?: Yes - Time Time Spent with patient: 25-34 minutes Medications reviewed and adjusted accordingly: Yes Anticipated discharge: Other Within: Other - Inpatient Certification Based on my medical assessment, after consideration of the patient's comorbidities, presenting symptoms, or acuity I expect that the services needed warrant INPATIENT care.: Yes I certify that my determination is in accordance with my understanding of Medicare's requirements for reasonable and necessary INPATIENT services [42 CFR 412.3e].: Yes Medical Necessity: Need Close Monitoring Due to Risk of Patient Decompensation, Need For IV Fluids, Need For Continuous Telemetry Monitoring, Need for Nebulizer Therapy and Monitoring of Response, Need for IV Antibiotics, Risk of Complication if Not Cared For in Hospital Post Hospital Care: Other - Plan Summary Plan Summary: See attending physician orders. Patient will receive potassium supplementation. We will follow up on serum magnesium level. Dr. Sosa will cover my service until 05/28/2017.
[2017-05-26] MEDS: PIPERACILLIN SODIUM/TAZOBACTAM 3.375 GM in NORMAL SALINE 100 ML IV SCH ×5 (00:31→23:22)
[2017-05-26] MEDS: PROPOFOL 100 ML IV PRN ×4 (00:31→22:32)
[2017-05-26] MEDS: LEVALBUTEROL HCL NEB 1.25 MG/3 ML AMPUL NEB SCH ×4 (02:21→20:53)
[2017-05-26 06:18] LABS: ARTERIAL BLOOD BASE EXCESS 1.7 mmol/L; ARTERIAL BLOOD H2CO3 1.21 mmol/L (1.05-1.35); ARTERIAL BLOOD HCO3 26.1 mmol/L (20-26); ARTERIAL BLOOD O2 SATURATION 96.8 % (94-98); ARTERIAL BLOOD PCO2 40.3 mmHg (35-45); ARTERIAL BLOOD PH 7.43 (7.35-7.45); ARTERIAL BLOOD PO2 86.9 mmHg (80-100); ARTERIAL BLOOD TOTAL CO2 27.4 mmol/L (23-27)
[2017-05-26 06:19] LABS: ARTERIAL BLOOD FIO2 45%
[2017-05-26 07:00] LABS: ANION GAP 6 (5-19); BLOOD UREA NITROGEN 5 mg/dL (7-20); CALCIUM 8.4 mg/dL (8.4-10.2); CARBON DIOXIDE 27 mmol/L (22-30); CHLORIDE 104 mmol/L (98-107); GLUCOSE 112 mg/dL (75-110); MAGNESIUM 1.7 mg/dL (1.6-2.3); PHOSPHORUS 3.1 mg/dL (2.5-4.5); POTASSIUM 3.6 mmol/L (3.6-5.0); SODIUM 137.3 mmol/L (137-145)
--- NOTE | 2017-05-26 07:26 | RADIOLOGY REPORT (SQ) ---
EXAM DESCRIPTION: CHEST SINGLE VIEW CLINICAL HISTORY: pna COMPARISON: 05/24/2017 FINDINGS: Single frontal view of the chest. Tracheostomy is in place. Prior median sternotomy. NG tube with tip below the diaphragm. Right subclavian central venous catheter with tip in the SVC. Interval removal of right IJ central venous catheter. Tortuosity of thoracic aorta. Heart is not enlarged. Bilateral interstitial and alveolar opacities are unchanged in configuration. Right apical pleural thickening/effusion. No acute osseous abnormalities IMPRESSION: 1. No significant interval change.
[2017-05-26 07:29] LABS: ABSOLUTE BASOPHILS # (AUTO) 0.1 10^3/uL (0.0-0.2); ABSOLUTE EOSINOPHILS # (AUTO) 0.3 10^3/uL (0.0-0.6); ABSOLUTE LYMPHOCYTES (AUTO) 0.9 10^3/uL (0.5-4.7); ABSOLUTE MONOCYTES (AUTO) 1.1 10^3/uL (0.1-1.4); ABSOLUTE NEUT (AUTO) 6.2 10^3/uL (1.7-8.2); BASOPHILS % (AUTO) 1.1 % (0-2); EOSINOPHILS % (AUTO) 3.2 % (0-6); HEMATOCRIT 26.7 % (37.9-51.0); LYMPHOCYTES % (AUTO) 10.8 % (13-45); MONOCYTES % (AUTO) 12.5 % (3-13); PLATELET COUNT 748 10^3/uL (150-450); SEGMENTED NEUTROPHILS % (AUTO) 72.4 % (42-78); TOTAL CELLS COUNTED % (AUTO) 100 %; WHITE BLOOD COUNT 8.5 10^3/uL (4.0-10.5)
[2017-05-26 07:39] LABS: RED BLOOD COUNT 3.04 10^6/uL (4.35-5.55)
[2017-05-26 07:40] LABS: HEMOGLOBIN 8.8 g/dL (13.5-17.0); MEAN CORPUSCULAR HGB CONC 32.9 g/dL (32.0-36.0); MEAN CORPUSCULAR VOLUME 88 fl (80-97); RED CELL DISTRIBUTION WIDTH 19.6 % (11.5-14.0)
[2017-05-26] MEDS: ACETYLCYSTEINE 20% SOLN 800 MG/4 ML VIAL.NEB NEB SCH ×2 (08:45→20:53)
[2017-05-26] MEDS: POTASSIUM CHLORIDE 20 MEQ/15 ML UDCUP NG SCH (10:15)
[2017-05-26] MEDS: MORPHINE SULFATE 10 MG/ML INJ IV PRN ×3 (10:15→17:47)
[2017-05-26] MEDS: NORMAL SALINE 1000 ML 1,000 ML IV PRN (10:18)
--- NOTE | 2017-05-26 18:34 | PDOC PROGRESS REPORT ---
Subjective Progress Note for:: 05/26/17 Subjective:: Patient continues to depend on mechanical ventilation no new complaints Reason For Visit: DEHYDRATION WITH HYPONATREMIA;ACUTE RENAL INJURY; Physical Exam Vital Signs: Temp Pulse Resp BP Pulse Ox 97.5 F 112 H 25 H 92/66 L 94 05/26/17 16:00 05/26/17 14:06 05/26/17 16:00 05/26/17 15:52 05/26/17 16:00 Intake & Output 05/25/17 05/26/17 05/27/17 06:59 06:59 06:59 Intake Total 803 2337 Output Total 1675 1320 670 Balance -872 1017 -670 Weight 77.4 kg 80 kg Respiratory exam: PRESENT: clear to auscultation antonio Cardiovascular exam: PRESENT: +S1, +S2 Results Laboratory Results: 05/26/17 06:00 05/26/17 06:00 05/26/17 05/26/17 05/26/17 06:00 06:00 06:00 WBC 8.5 RBC 3.04 L Hgb 8.8 L Hct 26.7 L MCV 88 MCH 29.0 MCHC 32.9 RDW 19.6 H Plt Count 748 H Seg Neutrophils % 72.4 Lymphocytes % 10.8 L Monocytes % 12.5 Eosinophils % 3.2 Basophils % 1.1 Absolute Neutrophils 6.2 Absolute Lymphocytes 0.9 Absolute Monocytes 1.1 Absolute Eosinophils 0.3 Absolute Basophils 0.1 Carbonic Acid 1.21 HCO3/H2CO3 Ratio 21:1 ABG pH 7.43 ABG pCO2 40.3 ABG pO2 86.9 ABG HCO3 26.1 H ABG O2 Saturation 96.8 ABG Base Excess 1.7 FiO2 45% Sodium 137.3 Potassium 3.6 Chloride 104 Carbon Dioxide 27 Anion Gap 6 BUN 5 L Creatinine 0.68 Est GFR ( Amer) > 60 Est GFR (Non-Af Amer) > 60 Glucose 112 H Calcium 8.4 Phosphorus 3.1 Magnesium 1.7 05/21/17 16:50 Pleural Fluid - Right Pleural Effusion Fungal Smear - Final 05/21/17 16:50 Pleural Fluid - Right Pleural Effusion Fungal Smear - Final 05/24/17 05:35 NT-Pro-B Natriuret Pep 4900 H Impressions: Lumbar Spine MRI 04/17/17 14:33 IMPRESSION: MULTILEVEL CHRONIC DEGENERATIVE CHANGES, PRIMARILY DUE TO FACET ARTHROPATHY. AREAS OF MILD TO MODERATE SPINAL STENOSIS DESCRIBED. NO ACUTE FINDINGS. Chest CT 04/27/17 00:00 IMPRESSION: Diffuse bullous change with superimposed fluid likely interstitial edema or pneumonia. Clearly progressed from previous. Bilateral pleural effusions. Persistent air-fluid level and a large bullae in the right upper lobe. Infection in the differential. Unchanged. Acute Abdomen Series 04/30/17 00:00 IMPRESSION: 1. Gaseous distention in the abdomen. This includes large and small bowel. Scattered air-fluid levels may reflect mild ileus. Modified Barium Swallow 05/01/17 00:00 IMPRESSION: NO EVIDENCE OF LARYNGEAL PENETRATION OR TRACHEAL ASPIRATION.PLEASE SEE SPEECH PATHOLOGIST REPORT FOR OTHER FINDINGS AND RECOMMENDATIONS. Fluoroscopy 05/07/17 00:00 IMPRESSION: IMAGE(S) OBTAINED DURING PROCEDURE. KUB X-Ray 05/14/17 00:00 IMPRESSION: SATISFACTORY POSITION OF ENTERIC TUBE. NO SIGNIFICANT CHANGE FROM PRIOR STUDY. Thoracentesis Ultrasound 05/21/17 11:41 IMPRESSION: SUCCESSFUL THORACENTESIS USING ULTRASOUND GUIDANCE. 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 No acute findings EVIDENCE OF ACUTE STROKE: NO. Chest X-Ray 05/26/17 06:00 IMPRESSION: 1. No significant interval change. Assessment & Plan - Diagnosis (1) Cavitary lesion of lung Is this a current diagnosis for this admission?: Yes (2) Dehydration with hyponatremia Is this a current diagnosis for this admission?: Yes (3) Acute kidney injury Is this a current diagnosis for this admission?: Yes (4) Pneumatocele of lung Is this a current diagnosis for this admission?: Yes (5) History of myasthenia gravis Is this a current diagnosis for this admission?: Yes (6) Necrotizing pneumonia Is this a current diagnosis for this admission?: Yes (7) Alcohol abuse Is this a current diagnosis for this admission?: Yes (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 (9) Alcoholic myopathy Is this a current diagnosis for this admission?: Yes
[2017-05-26] MEDS: DEXTROSE 5%-WATER 250 ML with NOREPINEPHRINE BITARTRATE 4 MG IV PRN ×2 (22:32)
[2017-05-27] MEDS: LEVALBUTEROL HCL NEB 1.25 MG/3 ML AMPUL NEB SCH ×4 (02:30→20:58)
[2017-05-27] MEDS ORDERED: NOREPINEPHRINE BITARTRATE INJ/PF 4 MG/4 ML SDV IV ONE ×2 (03:32→10:17)
[2017-05-27] MEDS: DEXTROSE 5%-WATER 250 ML with NOREPINEPHRINE BITARTRATE 4 MG IV PRN ×4 (03:38→22:21)
[2017-05-27] MEDS: MORPHINE SULFATE 10 MG/ML INJ IV PRN (04:03)
[2017-05-27] MEDS: PIPERACILLIN SODIUM/TAZOBACTAM 3.375 GM in NORMAL SALINE 100 ML IV SCH ×4 (06:02→23:12)
[2017-05-27 07:23] LABS: BLOOD UREA NITROGEN 5 mg/dL (7-20); CALCIUM 8.5 mg/dL (8.4-10.2); CHLORIDE 104 mmol/L (98-107); GLUCOSE 108 mg/dL (75-110); TRIGLYCERIDES 132 mg/dL (<150)
[2017-05-27 07:33] LABS: ANION GAP 5 (5-19); CARBON DIOXIDE 27 mmol/L (22-30); POTASSIUM 3.8 mmol/L (3.6-5.0)
[2017-05-27 07:51] LABS: ABSOLUTE BASOPHILS # (AUTO) 0.1 10^3/uL (0.0-0.2); ABSOLUTE EOSINOPHILS # (AUTO) 0.4 10^3/uL (0.0-0.6); ABSOLUTE LYMPHOCYTES (AUTO) 1.1 10^3/uL (0.5-4.7); ABSOLUTE MONOCYTES (AUTO) 1.2 10^3/uL (0.1-1.4); BASOPHILS % (AUTO) 1.1 % (0-2); EOSINOPHILS % (AUTO) 4.6 % (0-6); HEMATOCRIT 26.6 % (37.9-51.0); HEMOGLOBIN 8.7 g/dL (13.5-17.0); LYMPHOCYTES % (AUTO) 12.2 % (13-45); MEAN CORPUSCULAR HEMOGLOBIN 28.7 pg (27.0-33.4); MEAN CORPUSCULAR HGB CONC 32.5 g/dL (32.0-36.0); MONOCYTES % (AUTO) 13.7 % (3-13); PLATELET COUNT 701 10^3/uL (150-450); RED BLOOD COUNT 3.02 10^6/uL (4.35-5.55); RED CELL DISTRIBUTION WIDTH 19.8 % (11.5-14.0); SEGMENTED NEUTROPHILS % (AUTO) 68.4 % (42-78); TOTAL CELLS COUNTED % (AUTO) 100 %; WHITE BLOOD COUNT 8.8 10^3/uL (4.0-10.5)
[2017-05-27 07:53] LABS: MEAN CORPUSCULAR VOLUME 88 fl (80-97)
[2017-05-27] MEDS: ACETYLCYSTEINE 20% SOLN 800 MG/4 ML VIAL.NEB NEB SCH ×2 (08:04→20:58)
[2017-05-27] MEDS: POTASSIUM CHLORIDE 20 MEQ/15 ML UDCUP NG SCH (09:31)
[2017-05-27] MEDS: NORMAL SALINE 1000 ML 1,000 ML IV PRN (10:48)
--- NOTE | 2017-05-27 17:03 | PDOC PROGRESS REPORT ---
Subjective Progress Note for:: 05/27/17 Subjective:: Patient continues to depend on mechanical ventilation no new complaints Reason For Visit: DEHYDRATION WITH HYPONATREMIA;ACUTE RENAL INJURY; Physical Exam Vital Signs: Temp Pulse Resp BP Pulse Ox 96.1 F L 112 H 26 H 124/75 96 05/27/17 10:32 05/27/17 14:05 05/27/17 14:05 05/27/17 10:32 05/27/17 16:00 Intake & Output 05/26/17 05/27/17 05/28/17 06:59 06:59 06:59 Intake Total 2337 2341 Output Total 1320 1495 545 Balance 1017 846 -545 Weight 80 kg 76.4 kg General appearance: PRESENT: no acute distress Respiratory exam: PRESENT: rhonchi Cardiovascular exam: PRESENT: +S1, +S2 GI/Abdominal exam: PRESENT: soft Neurological exam: PRESENT: alert Results Laboratory Results: 05/27/17 06:40 05/27/17 06:40 05/27/17 05/27/17 06:40 06:40 WBC 8.8 RBC 3.02 L Hgb 8.7 L Hct 26.6 L MCV 88 MCH 28.7 MCHC 32.5 RDW 19.8 H Plt Count 701 H Seg Neutrophils % 68.4 Lymphocytes % 12.2 L Monocytes % 13.7 H Eosinophils % 4.6 Basophils % 1.1 Absolute Neutrophils 6.0 Absolute Lymphocytes 1.1 Absolute Monocytes 1.2 Absolute Eosinophils 0.4 Absolute Basophils 0.1 Sodium 136.0 L Potassium 3.8 Chloride 104 Carbon Dioxide 27 Anion Gap 5 BUN 5 L Creatinine 0.68 Est GFR ( Amer) > 60 Est GFR (Non-Af Amer) > 60 Glucose 108 Calcium 8.5 Triglycerides 132 05/24/17 05:35 NT-Pro-B Natriuret Pep 4900 H Impressions: Lumbar Spine MRI 04/17/17 14:33 IMPRESSION: MULTILEVEL CHRONIC DEGENERATIVE CHANGES, PRIMARILY DUE TO FACET ARTHROPATHY. AREAS OF MILD TO MODERATE SPINAL STENOSIS DESCRIBED. NO ACUTE FINDINGS. Chest CT 04/27/17 00:00 IMPRESSION: Diffuse bullous change with superimposed fluid likely interstitial edema or pneumonia. Clearly progressed from previous. Bilateral pleural effusions. Persistent air-fluid level and a large bullae in the right upper lobe. Infection in the differential. Unchanged. Acute Abdomen Series 04/30/17 00:00 IMPRESSION: 1. Gaseous distention in the abdomen. This includes large and small bowel. Scattered air-fluid levels may reflect mild ileus. Modified Barium Swallow 05/01/17 00:00 IMPRESSION: NO EVIDENCE OF LARYNGEAL PENETRATION OR TRACHEAL ASPIRATION.PLEASE SEE SPEECH PATHOLOGIST REPORT FOR OTHER FINDINGS AND RECOMMENDATIONS. Fluoroscopy 05/07/17 00:00 IMPRESSION: IMAGE(S) OBTAINED DURING PROCEDURE. KUB X-Ray 05/14/17 00:00 IMPRESSION: SATISFACTORY POSITION OF ENTERIC TUBE. NO SIGNIFICANT CHANGE FROM PRIOR STUDY. Thoracentesis Ultrasound 05/21/17 11:41 IMPRESSION: SUCCESSFUL THORACENTESIS USING ULTRASOUND GUIDANCE. 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 No acute findings EVIDENCE OF ACUTE STROKE: NO. Chest X-Ray 05/26/17 06:00 IMPRESSION: 1. No significant interval change. Assessment & Plan - Diagnosis (1) Cavitary lesion of lung Is this a current diagnosis for this admission?: Yes (2) Dehydration with hyponatremia Is this a current diagnosis for this admission?: Yes (3) Acute kidney injury Is this a current diagnosis for this admission?: Yes (4) Pneumatocele of lung Is this a current diagnosis for this admission?: Yes (5) History of myasthenia gravis Is this a current diagnosis for this admission?: Yes (6) Necrotizing pneumonia Is this a current diagnosis for this admission?: Yes (7) Alcohol abuse Is this a current diagnosis for this admission?: Yes (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 (9) Alcoholic myopathy Is this a current diagnosis for this admission?: Yes
[2017-05-27] MEDS: PROPOFOL 100 ML IV PRN (22:21)
[2017-05-28] MEDS: LEVALBUTEROL HCL NEB 1.25 MG/3 ML AMPUL NEB SCH ×4 (02:31→20:02)
[2017-05-28] MEDS: PIPERACILLIN SODIUM/TAZOBACTAM 3.375 GM in NORMAL SALINE 100 ML IV SCH ×4 (05:42→23:29)
[2017-05-28] MEDS: PROPOFOL 100 ML IV PRN ×3 (05:42→17:37)
[2017-05-28] MEDS: ACETYLCYSTEINE 20% SOLN 800 MG/4 ML VIAL.NEB NEB SCH ×2 (08:38→20:02)
--- NOTE | 2017-05-28 08:38 | PDOC TRANSFER SUMMARY ---
General Admission Date/PCP: 04/17/17 19:11 SHANNON JOYNER Resuscitation Status: Full Code - Transfer Diagnosis (1) Dehydration with hyponatremia Is this a current diagnosis for this admission?: Yes (2) Abnormality of lung on CXR Is this a current diagnosis for this admission?: Yes (3) Pneumatocele of lung Is this a current diagnosis for this admission?: No (4) Pneumothorax on right Is this a current diagnosis for this admission?: Yes (5) Acute kidney injury Is this a current diagnosis for this admission?: Yes (6) COPD (chronic obstructive pulmonary disease) Is this a current diagnosis for this admission?: Yes (7) HLD (hyperlipidemia) Is this a current diagnosis for this admission?: Yes (8) HTN (hypertension) Is this a current diagnosis for this admission?: Yes (9) Constipation Is this a current diagnosis for this admission?: Yes (10) Acute respiratory failure with hypoxemia Is this a current diagnosis for this admission?: Yes (11) Fungal pneumonia Is this a current diagnosis for this admission?: Yes (12) Pneumonia due to Pseudomonas aeruginosa Is this a current diagnosis for this admission?: Yes (13) Pleural effusion, right Is this a current diagnosis for this admission?: Yes - Transfer Medications Home Medications: Aspirin [Ecotrin 81 mg EC Tablet] 81 mg PO DAILY 09/14/16 Bimatoprost [Lumigan 0.01% Oph Soln 2.5 ml/Bottle] 1 drop OU DAILY 04/17/17 Telmisartan/Hydrochlorothiazid [Micardis Hct 40-12.5 mg Tablet] 1 tab PO DAILY 04/17/17 Transfer Medications: Current Medications Acetylcysteine (Mucomist 20% Soln 800 Mg/4 Ml) 600 mg NEB RTBID ERLIN Stop: 06/15/17 19:59 Last Admin: 05/27/17 20:58 Dose: 600 mg Bisacodyl (Dulcolax 10 Mg Supp.Rect) 10 mg MO DAILYP PRN PRN Reason: UNRESOLVED CONSTIPATION Stop: 06/08/17 09:26 Last Admin: 05/09/17 14:12 Dose: 10 mg Dextrose (Dextrose Inj 50% Syringe (25 Gm/50 Ml)) 12.5 gm IV PRN PRN; Protocol PRN Reason: FOR BG 50-69 IN ALERT PATIENT Stop: 06/02/17 11:25 Dextrose (Dextrose Inj 50% Syringe (25 Gm/50 Ml)) 25 gm IV PRN PRN; Protocol PRN Reason: See Label Comments Stop: 06/02/17 11:25 Glucagon (Glucagen Inj 1 Mg Vial) 1 mg SUBCUT PRN PRN; Protocol PRN Reason: Evaluate for BG < 70 Stop: 06/02/17 11:25 Glucose (Glutose 40% Gel 15 Gm Tube) 15 gm PO PRN PRN; Protocol PRN Reason: For BG 50-69 in Alert Patient Stop: 06/02/17 11:25 Glucose (Glutose 40% Gel 15 Gm Tube) 30 gm PO PRN PRN; Protocol PRN Reason: FOR BG < 50 IN ALERT PATIENT Stop: 06/02/17 11:25 Heparin Sodium (Porcine) (Heparin Flush 10 Unit/Ml 5 Ml Disp.Syrg) 30 unit IV Q8 ERLIN Stop: 05/30/17 13:59 Last Admin: 05/28/17 05:42 Dose: Not Given Heparin Sodium (Porcine) (Heparin Flush 10 Unit/Ml 5 Ml Disp.Syrg) 30 unit IV .AFTER EACH USE PRN PRN Reason: AFTER EACH INTERMITTENT USE Stop: 05/30/17 13:16 Last Admin: 05/03/17 04:35 Dose: 30 unit Propofol (Diprivan Rtu 1000 Mg/100 Ml Inf.Bottle) 100 mls @ 0 mls/hr IV CONTINUOUS PRN; Protocol; Titrate PRN Reason: THIS MED IS NOT "PRN" Stop: 06/04/17 21:02 Last Admin: 05/28/17 05:42 Dose: 100 ml Norepinephrine Bitartrate 4 mg (/ Dextrose) 250 mls @ 0 mls/hr IV CONTINUOUS PRN; Protocol; Titrate PRN Reason: THIS MED IS NOT "PRN" Stop: 06/05/17 09:59 Last Admin: 05/27/17 22:21 Dose: 4 mg Sodium Chloride (Nacl 0.9% 1000 Ml Iv Soln) 1,000 mls @ 50 mls/hr IV CONTINUOUS PRN PRN Reason: THIS MED IS NOT "PRN" Stop: 06/04/17 22:26 Last Admin: 05/27/17 10:48 Dose: 1,000 ml Piperacillin Sod/Tazobactam (Sod 3.375 gm/ Sodium Chloride) 100 mls @ 200 mls/ hr IV Q6 [facility] Stop: 05/31/17 17:59 Last Admin: 05/28/17 05:42 Dose: 3.375 gm Ketamine HCl (Ketalar Inj 500 Mg/10 Ml Vial) 500 mg IV .ASDIR PRN PRN Reason: THIS MED IS NOT "PRN" Stop: 05/29/17 18:31 Levalbuterol HCl (Xopenex Neb 1.25 Mg/3 Ml Ampul) 1.25 mg NEB RTQ6 [facility] Stop: 05/31/17 19:59 Last Admin: 05/28/17 02:31 Dose: 1.25 mg Morphine Sulfate (Morphine 10 Mg/Ml Inj) 1 mg IV Q2HP PRN PRN Reason: FOR PAIN SCALE 3-5 Stop: 05/30/17 17:17 Last Admin: 05/27/17 04:03 Dose: 1 mg Ondansetron HCl (Zofran Inj/Pf 4 Mg/2 Ml Sdv) 4 mg IV Q4HP PRN PRN Reason: FOR NAUSEA/VOMITING Stop: 05/30/17 20:45 Last Admin: 05/04/17 16:49 Dose: 4 mg Potassium Chloride (Kaon-Cl 20 Meq/15 Ml Udcup) 20 meq NG DAILY [facility] Stop: 06/14/17 09:59 Last Admin: 05/27/17 09:31 Dose: 20 meq Simethicone (Mylicon 80 Mg Chewable Tablet) 80 mg PO Q6HP PRN PRN Reason: FOR GAS (FLATULENCE) Stop: 05/30/17 13:59 Last Admin: 05/01/17 19:46 Dose: 80 mg Sodium Chloride (Saline Flush 2.5 Ml Monoject Prefil Syrin) 2.5 ml IV Q8 [facility] Stop: 05/29/17 21:59 Last Admin: 05/28/17 05:42 Dose: Not Given Sodium Chloride (Nacl 0.9% Inj/Pf 10 Ml Sdv) 10 ml IV .AFTER EACH USE PRN PRN Reason: AFTER EACH INTERMITTENT USE Stop: 05/30/17 13:16 Last Admin: 05/18/17 14:23 Dose: 10 ml - Allergies Allergies/Adverse Reactions: No Known Allergies Allergy (Verified 04/17/17 12:24) Hospital Course Hospital Course: Patient was admitted for severe dehydration with acute renal failure. His chest X ray was suggestive of right upper lobe abnormality that necessitate chest CT scan that confirm right upper lobe cavitary lesion. His evaluation for TB was negative. He eventually had bronchoscopy performed that was unrevealing regarding possible malignancy. Patient was treated for possible pneumonia and bronchoscopy washing eventually grew danial specie for which he was managed with anti fungal therapy. 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 He had right ultrasound guided thoracentesis due to significant pleural effusion. Due to need for prolong ventilatory support, he eventually had tracheostomy placed and PEG tube as well for nutritional support. He remain on sedation with Propofol and pressor support as necessary. Patient has been accepted at [facility] in [place], [place]. He will be transfer to facility today for continue care Physical Exam Vital Signs: Temp Pulse Resp BP Pulse Ox 96.8 F L 75 24 H 111/80 100 05/28/17 06:00 05/28/17 07:52 05/28/17 06:00 05/28/17 05:48 05/28/17 06:00 Intake & Output 05/27/17 05/28/17 05/29/17 06:59 06:59 06:59 Intake Total 2341 3083 Output Total 1495 2005 Balance 846 1078 Weight 76.4 kg 80.1 kg General appearance: PRESENT: Sedated on IV Propofol. ET and OG tubes in situ. Head exam: PRESENT: atraumatic, normocephalic Eye exam: PRESENT: conjunctiva pink, EOMI, PERRLA. ABSENT: scleral icterus Mouth exam: PRESENT: moist Neck exam: PRESENT: other - tracheostomy site is satisfactory. Respiratory exam: PRESENT: decreased breath sounds at lung bases Cardiovascular exam: PRESENT: RRR, S+1, S+2, ABSENT: diastolic murmur, rubs, systolic murmur. Right SCV central line in-situ. GI/Abdominal exam: PRESENT: normal bowel sounds, soft. ABSENT: distended, guarding, mass, organomegaly, rebound, tenderness Extremities exam: PRESENT: pedal edema - upper extremities due to soft tissue infiltration Musculoskeletal exam: PRESENT: Slight improvement in generalized edema Neurological exam: PRESENT: Sedated. Skin exam: PRESENT: Stage sacral region pressure ulcer. dry, warm. ABSENT: cyanosis Results Laboratory Results: 05/27/17 06:40 05/27/17 06:40 05/24/17 05:35 NT-Pro-B Natriuret Pep 4900 H Impressions: Lumbar Spine MRI 04/17/17 14:33 IMPRESSION: MULTILEVEL CHRONIC DEGENERATIVE CHANGES, PRIMARILY DUE TO FACET ARTHROPATHY. AREAS OF MILD TO MODERATE SPINAL STENOSIS DESCRIBED. NO ACUTE FINDINGS. Chest CT 04/27/17 00:00 IMPRESSION: Diffuse bullous change with superimposed fluid likely interstitial edema or pneumonia. Clearly progressed from previous. Bilateral pleural effusions. Persistent air-fluid level and a large bullae in the right upper lobe. Infection in the differential. Unchanged. Acute Abdomen Series 04/30/17 00:00 IMPRESSION: 1. Gaseous distention in the abdomen. This includes large and small bowel. Scattered air-fluid levels may reflect mild ileus. Modified Barium Swallow 05/01/17 00:00 IMPRESSION: NO EVIDENCE OF LARYNGEAL PENETRATION OR TRACHEAL ASPIRATION.PLEASE SEE SPEECH PATHOLOGIST REPORT FOR OTHER FINDINGS AND RECOMMENDATIONS. Fluoroscopy 05/07/17 00:00 IMPRESSION: IMAGE(S) OBTAINED DURING PROCEDURE. KUB X-Ray 05/14/17 00:00 IMPRESSION: SATISFACTORY POSITION OF ENTERIC TUBE. NO SIGNIFICANT CHANGE FROM PRIOR STUDY. Thoracentesis Ultrasound 05/21/17 11:41 IMPRESSION: SUCCESSFUL THORACENTESIS USING ULTRASOUND GUIDANCE. 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 No acute findings EVIDENCE OF ACUTE STROKE: NO. Chest X-Ray 05/26/17 06:00 IMPRESSION: 1. No significant interval change. Plan Discharge Plan: Transfer to LTAC facility in [place], [place] as noted above for continue care. Time Spent: Greater than 30 Minutes
[2017-05-28] MEDS: DEXTROSE 5%-WATER 250 ML with NOREPINEPHRINE BITARTRATE 4 MG IV PRN ×6 (10:41→20:28)
[2017-05-28] MEDS: POTASSIUM CHLORIDE 20 MEQ/15 ML UDCUP NG SCH (10:41)
[2017-05-28] MEDS: NORMAL SALINE 1000 ML 1,000 ML IV PRN (17:38)
[2017-05-29] MEDS: LEVALBUTEROL HCL NEB 1.25 MG/3 ML AMPUL NEB SCH ×2 (02:03→08:18)
[2017-05-29] MEDS: PROPOFOL 100 ML IV PRN ×3 (04:56→10:24)
[2017-05-29] MEDS: PIPERACILLIN SODIUM/TAZOBACTAM 3.375 GM in NORMAL SALINE 100 ML IV SCH (07:09)
[2017-05-29] MEDS: ACETYLCYSTEINE 20% SOLN 800 MG/4 ML VIAL.NEB NEB SCH (08:19)
[2017-05-29] MEDS: POTASSIUM CHLORIDE 20 MEQ/15 ML UDCUP NG SCH (09:38)
[2017-05-29] MEDS: MORPHINE SULFATE 10 MG/ML INJ IV PRN (09:38)
[2017-05-29 11:15] VITALS: BP 108/77
== END 2017-05-29 10:50 | DRG 4 ==
LOC: ER 12:23 → EH 19:11 → 3W 20:40 → 3N 04-20 18:09 → ICU 05-05 19:41
PROVIDERS: ADMIT Internal Medicine Geriatric Medicine; ATTEND Internal Medicine Geriatric Medicine
PROC: 02H633Z Insertion of Infusion Device into Right Atrium, Percutaneous Approach (ICD-10-PCS; 2017-04-30)
PROC: B244ZZZ Ultrasonography of Right Heart (ICD-10-PCS; 2017-04-30)
PROC: 30233N1 Transfusion of Nonautologous Red Blood Cells into Peripheral Vein, Percutaneous Approach (ICD-10-PCS; 2017-05-03)
PROC: 30233K1 Transfusion of Nonautologous Frozen Plasma into Peripheral Vein, Percutaneous Approach (ICD-10-PCS; 2017-05-03)
PROC: 30233K1 Transfusion of Nonautologous Frozen Plasma into Peripheral Vein, Percutaneous Approach (ICD-10-PCS; 2017-05-04)
PROC: 30233K1 Transfusion of Nonautologous Frozen Plasma into Peripheral Vein, Percutaneous Approach (ICD-10-PCS; 2017-05-05)
PROC: 5A1955Z Respiratory Ventilation, Greater than 96 Consecutive Hours (ICD-10-PCS; 2017-05-06)
PROC: 0B9C8ZX Drainage of Right Upper Lung Lobe, Via Natural or Artificial Opening Endoscopic, Diagnostic (ICD-10-PCS; 2017-05-07)
PROC: 0BBC8ZX Excision of Right Upper Lung Lobe, Via Natural or Artificial Opening Endoscopic, Diagnostic (ICD-10-PCS; 2017-05-07)
PROC: 0BJL8ZZ Inspection of Left Lung, Via Natural or Artificial Opening Endoscopic (ICD-10-PCS; 2017-05-07)
PROC: 0W994ZX Drainage of Right Pleural Cavity, Percutaneous Endoscopic Approach, Diagnostic (ICD-10-PCS; 2017-05-21)
PROC: 0DH63UZ Insertion of Feeding Device into Stomach, Percutaneous Approach (ICD-10-PCS; 2017-05-23)
PROC: 02HV33Z Insertion of Infusion Device into Superior Vena Cava, Percutaneous Approach (ICD-10-PCS; 2017-05-23)
PROC: 0B110F4 Bypass Trachea to Cutaneous with Tracheostomy Device, Open Approach (ICD-10-PCS; principal; 2017-05-23 07:30)
DX: E22.2 Syndrome of inappropriate secretion of antidiuretic hormone (principal); J85.0 Gangrene and necrosis of lung; J96.21 Acute and chronic respiratory failure with hypoxia; B37.1 Pulmonary candidiasis; J15.1 Pneumonia due to Pseudomonas; R40.20 Unspecified coma; N17.9 Acute kidney failure, unspecified; E46 Unspecified protein-calorie malnutrition; G72.1 Alcoholic myopathy; Z99.11 Dependence on respirator [ventilator] status; E87.2 Acidosis; J93.9 Pneumothorax, unspecified; J90 Pleural effusion, not elsewhere classified; J98.4 Other disorders of lung; E87.6 Hypokalemia; F10.10 Alcohol abuse, uncomplicated; I10 Essential (primary) hypertension; E78.5 Hyperlipidemia, unspecified; J44.9 Chronic obstructive pulmonary disease, unspecified; E86.0 Dehydration; G70.00 Myasthenia gravis without (acute) exacerbation; L89.159 Pressure ulcer of sacral region, unspecified stage; K59.01 Slow transit constipation; M79.606 Pain in leg, unspecified; Y90.9 Presence of alcohol in blood, level not specified; F17.210 Nicotine dependence, cigarettes, uncomplicated; Z79.82 Long term (current) use of aspirin; Z68.24 Body mass index [BMI] 24.0-24.9, adult
CPT/HCPCS: 00320; 31500; 31624; 31628; 32555; 36415; 36430; 36600; 70450; 71010; 71020; 71045; 71250; 71260; 72148; 74018; 74022; 74230; 80048; 80053; 80076; 81001; 82140; 82272; 82607; 82728; 82746; 82803; 82945; 82947; 82962; 83519; 83540; 83550; 83605; 83615; 83735; 83880; 83930; 83935; 84100; 84132; 84134; 84155; 84157; 84300; 84466; 84478; 85025; 85045; 85610; 85730; 86701; 86850; 86900; 86901; 86920; 87015; 87040; 87070; 87075; 87077; 87086; 87101; 87116; 87186; 87205; 87206; 87486; 87493; 88104; 88305; 88313; 89050; 93005; 93010; 93306; 94002; 94003; 94660; 96360; 99285; C1751; G8978-GP; G8979-GP; G8996-GN; G8997-GN; G8998-GN; J0171; J0330; J0692; J0743; J1450; J1642; J1650; J1940; J1956; J2248; J2250; J2270; J2370; J2405; J2543; J2704; J3010; J3411; J3430; J3475; J3480; J3490; J7030; J7040; J7050; J7060; J7685; P9016; P9017